=== PATIENT | male | born 1950 | race Caucasian/White ===

== ENCOUNTER → 2016-09-10 | Outpatient (CLI) | payer OTHER ==
[~2016-09-10] MED LIST: CALC-250 PO; CITA10TA PO; DILT120C9 PO; DILT180C PO; FERR27TA PO; FLC1T PO; GLYB2.5T4 PO; HYDR1TAB86 PO; LEVO125T6 PO; LEVO200T6 PO; MTF500T PO; MTX2.5T PO; NAPR-243 PO; OMEG1CAP51 PO; OXYC-12 PO; SIMV40TA4 PO; ZOLP5TAB6 PO
[2016-09-10 06:59] LABS: BASOPHILS % (AUTO) 0 % (0-10); EOSINOPHILS # (AUTO) 0.1 10^3/uL (0.0-0.3); EOSINOPHILS % (AUTO) 2 % (0-10); LYMPHOCYTES # (AUTO) 1.6 X 10^3 (1.0-4.0); LYMPHOCYTES % (AUTO) 20 % (12-44); MEAN CORPUSCULAR HEMOGLOBIN 30 PG (25-34); MEAN CORPUSCULAR HGB CONC 34 G/DL (32-36); MEAN CORPUSCULAR VOLUME 89 FL (80-99); MONOCYTES # (AUTO) 0.9 X 10^3 (0.0-1.0); MONOCYTES % (AUTO) 12 % (0-12); NEUTROPHILS # (AUTO) 5.1 X 10^3 (1.8-7.8); NEUTROPHILS % (AUTO) 66 % (42-75); PLATELET COUNT 266 10^3/uL (130-400); RED CELL DISTRIBUTION WIDTH 13.2 % (10.0-14.5); WHITE BLOOD COUNT 7.7 10^3/uL (4.3-11.0)
[2016-09-10 07:19] LABS: ALANINE AMINOTRANSFERASE 33 U/L (0-55); ALBUMIN 4.5 G/DL (3.2-4.5); ANION GAP 11 MMOL/L (5-14); ASPARTATE AMINO TRANSFERASE 24 U/L (5-34); BILIRUBIN,TOTAL 0.8 MG/DL (0.1-1.0); BLOOD UREA NITROGEN 19 MG/DL (7-18); BUN/CREATININE RATIO 18; CALCIUM 9.4 MG/DL (8.5-10.1); CARBON DIOXIDE 23 MMOL/L (21-32); CHLORIDE 105 MMOL/L (98-107); CHOLESTEROL 136 MG/DL (< 200); CREATININE SERUM 1.06 MG/DL (0.60-1.30); DIRECT LDL 92 MG/DL (1-129); GFR ESTIMATED > 60; GLUCOSE 187 MG/DL (70-105); POTASSIUM 4.3 MMOL/L (3.6-5.0); SODIUM 139 MMOL/L (135-145); TOTAL PROTEIN 7.4 G/DL (6.4-8.2); TRIGLYCERIDES 155 MG/DL (<150); VLDL CHOLESTEROL 31 MG/DL (5-40)
== END ==
LOC: LAB 06:45
PROVIDERS: ATTEND Family Medicine
DX: E11.9 Type 2 diabetes mellitus without complications (principal); E03.9 Hypothyroidism, unspecified
CPT/HCPCS: 36415; 80053; 80061; 83036; 84443; 85025

== ENCOUNTER → 2016-09-10 | Outpatient (CLI) | payer OTHER | LOC: LAB 06:40 | PROVIDERS: ATTEND Allergy & Immunology | DX: E03.9 Hypothyroidism, unspecified (principal); Z79.899 Other long term (current) drug therapy | CPT/HCPCS: 36415; 85652; 86141 ==

== ENCOUNTER 2016-12-30 08:59 | Inpatient (IN) | payer OTHER ==
[2016-12-30] VITALS (9 sets, daily range): BP systolic 146–191; BP diastolic 82–102
[~2016-12-30] VITALS: Ht 177.8 cm; Wt 106.1 kg
[2016-12-30] MEDS ORDERED: NS IV 1000 ML 1,000 ML IV ONE (09:08)
[2016-12-30 09:27] LABS: BILIRUBIN,URINE NEGATIVE (NEGATIVE); KETONES,URINE NEGATIVE (NEGATIVE); LEUKOCYTE ESTERASE ,URINE NEGATIVE (NEGATIVE); NITRITE,URINE NEGATIVE (NEGATIVE); PH,URINE 5 (5-9); PROTEIN,URINE 3+ (NEGATIVE); UROBILINOGEN,URINE NORMAL (NORMAL)
[2016-12-30 09:34] LABS: WBC,URINE RARE /HPF
--- NOTE | 2016-12-30 09:42 | ED Abdominal Pain ---
General Chief Complaint: Abdominal/GI Problems Stated Complaint: LOWER ABD PAIN RT SIDE Nursing Triage Note: c/o right lower abd pain. Onset yesterday. Mild intermittant diarrhea. Denies N/V. Sepsis Screen: No Definite Risk Source of Information: Patient Exam Limitations: No Limitations History of Present Illness Time Seen By Provider: 09:00 Initial Comments Here with complaint of right lower quadrant abdominal pain as well as some intermittent diarrhea. Denies nausea or vomiting. Denies fever or chills. Did drink some water this morning but has not eaten. Pain is much worse and is centered around the right lower quadrant. Denies dysuria. Timing/Duration: 12-24 Hours Severity/Quality: Moderate Location: RLQ Radiation: No Radiation Activities at Onset: None Modifying Factors: Worsens With Eating, Worsens With Movement Associated Symptoms: No Fever/Chills, No Nausea/Vomiting, No Shortness of Air, No Weakness Allergies and Home Medications Allergies Coded Allergies: No Known Allergies (Verified Allergy, Unknown, 06/23/05) Home Medications Calcium Carbonate/Vitamin D3 1 Each Tablet, 5,000 UNIT PO DAILY, (Reported) Citalopram Hydrobromide 10 Mg Tablet, 10 MG PO HS, (Reported) Diltiazem Hcl 180 Mg Cap.sr.24h, 180 MG PO DAILY, (Reported) Ferrous Sulfate 27 Mg Tablet, 27 MG PO DAILY, (Reported) Folic Acid 1 Mg Tab, 1 MG PO DAILY, (Reported) Glyburide 2.5 Mg Tablet, 1 EACH PO DAILY, (Reported) Levothyroxine Sodium 200 Mcg Tablet, 200 MCG PO DAILY, (Reported) Metformin Hcl 500 Mg Tablet, 500 MG PO BID WITH MEALS, (Reported) Methotrexate 2.5 Mg Tab, 20 MG PO ONCE A WEEK ON WED, (Reported) Naproxen 500 Mg Tablet, 500 MG PO BID, (Reported) [place]-3 Fatty Acids/Fish Oil 1 Each Capsule, 4,000 MG PO DAILY, (Reported) Oxycodone Hcl/Acetaminophen 1 Each Tablet, 1-2 TAB PO Q4-6HR PRN for PAIN, #60 Prescribed by: SHASTA KOWALSKI on 11/23/13 0704 Simvastatin 40 Mg Tablet, 40 MG PO HS, (Reported) Review of Systems Constitutional: see HPI, No chills, No fever EENTM: No Symptoms Reported Respiratory: No Symptoms Reported, Denies Shortness of Air, Denies Wheezing Cardiovascular: Denies Chest Pain, Denies Edema Gastrointestinal: Abdominal Pain, Diarrhea, Denies Nausea, Denies Vomiting Genitourinary: No Symptoms Reported Musculoskeletal: no symptoms reported Skin: no symptoms reported Psychiatric/Neurological: No Symptoms Reported All Other Systems Reviewed Negative Unless Noted: Yes Past Yomyexi-Zdkbdd-Xjlxvd Hx Patient Social History Alcohol Use: Denies Use Recreational Drug Use: No Smoking Status: Never a Smoker Recent Foreign Travel: No Contact w/Someone Who Travel: No Recent Infectious Disease Expo: No Immunizations Up To Date Tetanus Booster (TDap): Unknown PED Vaccines UTD: No Date of Pneumonia Vaccine: Feb 21, 2010 Surgeries HX Surgeries: Yes Respiratory Hx Respiratory Disorders: No Cardiovascular Hx Cardiac Disorders: Yes Cardiac Disorders: High Cholesterol, Hypertension Neurological Hx Neurological Disorders: No Reproductive System Hx Reproductive Disorders: No Sexually Transmitted Disease: No Genitourinary Hx Genitourinary Disorders: No Gastrointestinal Hx Gastrointestinal Disorders: Yes (UMB HERNIA) Gastrointestinal Disorders: Abdominal Hernia Musculoskeletal Hx Musculoskeletal Disorders: Yes (RA) Musculoskeletal Disorders: Rheumatoid Arthritis Endocrine Hx Endocrine Disorders: Yes Endocrine Disorders: Hypothyroidsim, Diabetes, Non-Insulin dep HEENT HX ENT Disorders: No Cancer Hx Cancer: No Psychosocial Hx Psychiatric Problems: No Integumentary HX Skin/Integumentary Disorder: No Blood Transfusions Hx Blood Disorders: No Adverse Reaction to a Blood Tr: No Reviewed Nursing Assessment Reviewed/Agree w Nursing PMH: Yes Family Medical History Family Medial History: Cancer 19 FATHER G8 BROTHER (KIDNEY ) Family history: Cardiovascular disease 19 MOTHER G8 BROTHER Physical Exam Vital Signs VS - Last 72 Hours, by Label 12/30/16 09:12 Temp 97.5 Pulse 86 Resp 20 B/P (MAP) 171/103 Pulse Ox 95 O2 Delivery Room Air Capillary Refill : Less Than 3 Seconds General Appearance: WD/WN, mild distress HEENT: PERRL/EOMI, pharynx normal Neck: full range of motion, supple Respiratory: lungs clear, normal breath sounds Cardiovascular: regular rate, rhythm, no murmur Gastrointestinal: soft, guarding (right lower quadrant), No rebound, tenderness Extremities: non-tender, normal inspection Back: normal inspection, no CVA tenderness, no vertebral tenderness Neurologic/Psychiatric: alert, oriented x 3 Skin: normal color, warm/dry Progress/Results/Core Measures Results/Orders Lab Results Laboratory Tests Test 12/30/16 09:20 12/30/16 09:30 Range/Units Urine Color YELLOW Urine Clarity CLEAR Urine pH 5 5-9 Urine Specific [place] 1.025 H 1.016-1.022 Urine Protein 3+ H NEGATIVE Urine Glucose (UA) 4+ H NEGATIVE Urine Ketones NEGATIVE NEGATIVE Urine Nitrite NEGATIVE NEGATIVE Urine Bilirubin NEGATIVE NEGATIVE Urine Urobilinogen NORMAL NORMAL MG/DL Urine Leukocyte Esterase NEGATIVE NEGATIVE Urine RBC (Auto) 2+ H NEGATIVE Urine RBC RARE /HPF Urine WBC RARE /HPF Urine Squamous Epithelial Cells NONE /HPF Urine Crystals NONE /LPF Urine Bacteria NEGATIVE /HPF Urine Casts NONE /LPF Urine Mucus MODERATE H /LPF Urine Culture Indicated NO White Blood Count 12.7 H 4.3-11.0 10^3/uL Red Blood Count 4.69 4.35-5.85 10^6/uL Hemoglobin 14.1 13.3-17.7 G/DL Hematocrit 43 40-54 % Mean Corpuscular Volume 91 80-99 FL Mean Corpuscular Hemoglobin 30 25-34 PG Mean Corpuscular Hemoglobin Concent 33 32-36 G/DL Red Cell Distribution Width 13.5 10.0-14.5 % Platelet Count 256 130-400 10^3/uL Mean Platelet Volume 10.1 7.4-10.4 FL Neutrophils (%) (Auto) 82 H 42-75 % Lymphocytes (%) (Auto) 10 L 12-44 % Monocytes (%) (Auto) 9 0-12 % Eosinophils (%) (Auto) 0 0-10 % Basophils (%) (Auto) 0 0-10 % Neutrophils # (Auto) 10.3 H 1.8-7.8 X 10^3 Lymphocytes # (Auto) 1.2 1.0-4.0 X 10^3 Monocytes # (Auto) 1.1 H 0.0-1.0 X 10^3 Eosinophils # (Auto) 0.0 0.0-0.3 10^3/uL Basophils # (Auto) 0.0 0.0-0.1 10^3/uL Sodium Level 136 135-145 MMOL/L Potassium Level 3.9 3.6-5.0 MMOL/L Chloride Level 101 98-107 MMOL/L Carbon Dioxide Level 24 21-32 MMOL/L Anion Gap 11 5-14 MMOL/L Blood Urea Nitrogen 15 7-18 MG/DL Creatinine 1.24 0.60-1.30 MG/DL Estimat Glomerular Filtration Rate 59 BUN/Creatinine Ratio 12 Glucose Level 207 H 70-105 MG/DL Calcium Level 9.9 8.5-10.1 MG/DL Total Bilirubin 2.1 H 0.1-1.0 MG/DL Aspartate Amino Transf (AST/SGOT) 27 5-34 U/L Alanine Aminotransferase (ALT/SGPT) 43 0-55 U/L Alkaline Phosphatase 43 40-136 U/L Total Protein 7.9 6.4-8.2 GM/DL Albumin 4.5 3.2-4.5 GM/DL My Orders Orders - BETTY DAVIS MD Cbc With Automated Diff (12/30/16 09:08) Comprehensive Metabolic Panel (12/30/16 09:08) Ua Culture If Indicated (12/30/16 09:08) Saline Lock/Iv-Start (12/30/16 09:08) Ns Iv 1000 Ml (Sodium Chloride 0.9%) (12/30/16 09:08) Ct Abd/Pelv W (Appendicitis) (12/30/16 10:12) Iohexol Injection (Omnipaque 350 Mg/Ml 1 (12/30/16 10:30) Ceftriaxone Injection (Rocephin Injectio (12/30/16 11:45) Medications Given in ED Current Medications Medications Dose Ordered Sig/Jean Paul Route Start Time Stop Time Status Last Admin Dose Admin Iohexol 100 ml ONCE ONCE IV 12/30/16 10:30 12/30/16 10:31 DC 12/30/16 10:47 100 ML Sodium Chloride 1,000 ml @ 0 mls/hr Q0M ONCE IV 12/30/16 09:08 12/30/16 09:10 DC 12/30/16 09:30 0 MLS/HR Vital Signs/I&O Vital Sign - Last 12Hours 12/30/16 09:12 Temp 97.5 Pulse 86 Resp 20 B/P (MAP) 171/103 Pulse Ox 95 O2 Delivery Room Air Blood Pressure Mean: 125 Progress Note : Progress Note Seen and evaluated. IV, labs, normal saline 1 L bolus, UA ordered. Anticipate CT abdomen and pelvis without we'll await UA and creatinine studies. CT abdomen pelvis ordered. 1137: I did discuss the case with Dr. Montero, patient's primary surgeon. Patient does have appendicitis with concerns of rupture. This was discussed with Dr. Montero and he will take him to the OR. He is requesting patient transferred to same day surgery after antibiotic administration and remaining nothing by mouth. Patient has received a liter of fluid. Care will be transferred to Dr. Montero. Diagnostic Imaging Diagonstic Imaging: CT Plain Films/CT/US/NM/MRI: abdomen, pelvis Comments VIA [facility]. [place], [place] NAME: [facility] REC#: [id number] PT STATUS: REG ER : 1950 PHYSICIAN: BETTY DAVIS MD ADMIT DATE: 12/30/16/ER Draft Date of Exam:12/30/16 CT ABD/PELV W (APPENDICITIS) PROCEDURE: CT abdomen and pelvis with contrast, rule out appendicitis. TECHNIQUE: Multiple contiguous axial images were obtained through the abdomen and pelvis after the administration of intravenous contrast. INDICATION: Right lower quadrant abdominal pain. COMPARISON: None FINDINGS: Included views of the the lung bases are clear. CT ABDOMEN: There is a moderate amount of inflammatory stranding in the right lower abdominal quadrant surrounding the cecum. The appendix is identified and is abnormally distended measuring 12 mm in diameter. At least 2 appendicoliths are identified within the lumen of the appendix. There appears to be a small focal fluid collection adjacent to the appendix measuring approximately 3 x 2.2 cm. The distal and terminal ileum are also somewhat prominent in their appearance. Otherwise, small bowel loops are nondistended. Note is also made of colonic diverticulosis, but no CT evidence of acute diverticulitis. There is no pneumatosis, pneumoperitoneum, or portal venous gas. The liver demonstrates diffuse hypodense appearance consistent with background of hepatic steatosis. There is also mild hepatomegaly. No focal hepatic mass-type lesions are seen. The kidneys, adrenal glands, spleen, and pancreas have a normal appearance. No abnormal mesenteric or retrotracheal adenopathy is seen. Bony structures show no acute abnormalities. Post surgical changes of previous ventral hernia repair are noted. CT PELVIS: Urinary bladder is grossly unremarkable. There is a small amount of free fluid within the pelvis. There is no loculated air-fluid collection or free air. No abnormal lymph nodes are seen. Bony structures show no acute abnormalities. IMPRESSION: 1. Acute appendicitis. 2. A small amount of free fluid within the right lower abdominal quadrant. There also appears to be a focal fluid collection adjacent to the appendix. Findings do raise the concern for a potential appendiceal rupture. 3. Probable focal ileus of the adjacent distal ileum. 4. Colonic diverticulosis, but no CT evidence of acute diverticulitis. 5. Hepatic steatosis. Report faxed to Paty in Radiology to give to ER (Trauma in progress) at 11:31 a.m. 12/30/2016/kyung Dictated on workstation # [id number] Dict: 12/30/16 1104 Trans: 12/30/16 1131 [facility] [id number] Interpreted by: FRANCO HAMILTON Electronically signed by: Reviewed: Reviewed by Me Departure Communication Time/Spoke to Admitting Phy: 11:37 Impression Impression: Primary Impression: Appendicitis Qualified Codes: K35.2 - Acute appendicitis with generalized peritonitis Disposition: ADMITTED INPATIENT Condition: Stable Decision to Admit Reason: Admit from ER (General) Decision to Admit/Date: Dec 30, 2016 Time/Decision to Admit Time: 11:37 Departure-Patient Inst. Referrals: RIA HANNAH MD (PCP/Family) Primary Care Physician BETTY DAVIS MD Dec 30, 2016 09:42
[2016-12-30 09:48] LABS: BASOPHILS % (AUTO) 0 % (0-10); EOSINOPHILS % (AUTO) 0 % (0-10); LYMPHOCYTES # (AUTO) 1.2 X 10^3 (1.0-4.0); LYMPHOCYTES % (AUTO) 10 % (12-44); MEAN CORPUSCULAR HEMOGLOBIN 30 PG (25-34); MEAN CORPUSCULAR HGB CONC 33 G/DL (32-36); MEAN CORPUSCULAR VOLUME 91 FL (80-99); MEAN PLATELET VOLUME 10.1 FL (7.4-10.4); MONOCYTES # (AUTO) 1.1 X 10^3 (0.0-1.0); MONOCYTES % (AUTO) 9 % (0-12); NEUTROPHILS # (AUTO) 10.3 X 10^3 (1.8-7.8); NEUTROPHILS % (AUTO) 82 % (42-75); PLATELET COUNT 256 10^3/uL (130-400); RED BLOOD COUNT 4.69 10^6/uL (4.35-5.85); RED CELL DISTRIBUTION WIDTH 13.5 % (10.0-14.5); WHITE BLOOD COUNT 12.7 10^3/uL (4.3-11.0)
[2016-12-30 10:04] LABS: ALBUMIN 4.5 GM/DL (3.2-4.5); BILIRUBIN,TOTAL 2.1 MG/DL (0.1-1.0); CALCIUM 9.9 MG/DL (8.5-10.1); CREATININE SERUM 1.24 MG/DL (0.60-1.30); POTASSIUM 3.9 MMOL/L (3.6-5.0); TOTAL PROTEIN 7.9 GM/DL (6.4-8.2)
[2016-12-30] MEDS ORDERED: IOHEXOL 350 MG/ML 100 ML (OMNIPAQUE 350) VIAL IV ONE (10:30)
--- NOTE | 2016-12-30 11:32 | Diagnostic Imaging Report ---
PROCEDURE: CT abdomen and pelvis with contrast, rule out appendicitis. TECHNIQUE: Multiple contiguous axial images were obtained through the abdomen and pelvis after the administration of intravenous contrast. INDICATION: Right lower quadrant abdominal pain. COMPARISON: None FINDINGS: Included views of the the lung bases are clear. CT ABDOMEN: There is a moderate amount of inflammatory stranding in the right lower abdominal quadrant surrounding the cecum. The appendix is identified and is abnormally distended measuring 12 mm in diameter. At least 2 appendicoliths are identified within the lumen of the appendix. There appears to be a small focal fluid collection adjacent to the appendix measuring approximately 3 x 2.2 cm. The distal and terminal ileum are also somewhat prominent in their appearance. Otherwise, small bowel loops are nondistended. Note is also made of colonic diverticulosis, but no CT evidence of acute diverticulitis. There is no pneumatosis, pneumoperitoneum, or portal venous gas. The liver demonstrates diffuse hypodense appearance consistent with background of hepatic steatosis. There is also mild hepatomegaly. No focal hepatic mass-type lesions are seen. The kidneys, adrenal glands, spleen, and pancreas have a normal appearance. No abnormal mesenteric or retrotracheal adenopathy is seen. Bony structures show no acute abnormalities. Post surgical changes of previous ventral hernia repair are noted. CT PELVIS: Urinary bladder is grossly unremarkable. There is a small amount of free fluid within the pelvis. There is no loculated air-fluid collection or free air. No abnormal lymph nodes are seen. Bony structures show no acute abnormalities. IMPRESSION: 1. Acute appendicitis. 2. A small amount of free fluid within the right lower abdominal quadrant. There also appears to be a focal fluid collection adjacent to the appendix. Findings do raise the concern for a potential appendiceal rupture. 3. Probable focal ileus of the adjacent distal ileum. 4. Colonic diverticulosis, but no CT evidence of acute diverticulitis. 5. Hepatic steatosis. Report faxed to Paty in Radiology to give to ER (Trauma in progress) at 11:31 a.m. 12/30/2016/kyung Dictated by: Dictated on workstation # [id number]
[2016-12-30] MEDS ORDERED: cefTRIAXone INJECTION 1,000 MG in NS (IVPB) 50 ML IV ONE (11:45)
--- NOTE | 2016-12-30 12:32 | Progress Note-Pre Operative ---
Pre-Operative Progress Note H&P Reviewed The H&P was reviewed, patient examined and no changes noted. Date Seen by Provider: Dec 30, 2016 Time Seen by Provider: 12:00 Date H&P Reviewed: Dec 30, 2016 Time H&P Reviewed: 12:00 Pre-Operative Diagnosis: acute appendicitis GAVINO DOWNING MD Dec 30, 2016 12:32 pm
[2016-12-30] MEDS ORDERED: fentaNYL INJECTION 100 MCG/2 ML AMP ONE ×3 (12:59→16:23)
[2016-12-30] MEDS ORDERED: LACTATED RINGERS 1,000 ML IV ONE ×3 (13:03→17:17)
[2016-12-30] MEDS ORDERED: ONDANSETRON 4 MG/2 ML (SDV) Z0FRAN ONE ×2 (13:03→15:50)
[2016-12-30] MEDS ORDERED: LIDOCAINE PF 2% 5 ML (XYLOCAINE) VIAL ONE (13:03)
[2016-12-30] MEDS ORDERED: SUCCINYLCHOLINE INJ 100 MG/5 ML SYR ONE (13:03)
[2016-12-30] MEDS ORDERED: ROCURONIUM 50 MG/5 ML (ZEMURON) VIAL IV ONE (13:03)
[2016-12-30] MEDS ORDERED: SEVOFLURANE (ULTANE) 15 ML INHAL SOLN ONE ×9 (13:03→17:17)
[2016-12-30] MEDS ORDERED: proPOfol 200 MG/20 ML (DIPRIVAN) VIAL IV ONE (13:03)
[2016-12-30] MEDS ORDERED: MIDAZOLAM 2 MG/2 ML (VERSED) VIAL ONE (13:04)
--- NOTE | 2016-12-30 13:20 | HISTORY AND PHYSICAL ---
DATE OF SERVICE: 12/30/2016 ATTENDING PRIMARY CARE PHYSICIAN: Dr. Hardin. HISTORY OF PRESENT ILLNESS: The patient is a 66-year-old male known to us. We had seen him before for an umbilical hernia in the past. He underwent a laparoscopic inguinal hernia repair. He developed a recurrent umbilical hernia, most likely secondary to his body habitus as well as work type which does encompass heavy lifting and exertion. This was repaired as well. He was otherwise doing well and tolerating a regular diet. He reports that he developed pain in the right side of the abdomen, which became more localized to the right lower abdominal quadrant. He also reports some mild fevers at home. A CT scan was performed which did show signs and symptoms of appendicitis. White count was also elevated. He also does have pain at McBurney's point. PAST MEDICAL HISTORY: Hypercholesterolemia, hypertension, rheumatoid arthritis, non-insulin dependent diabetes, hypothyroid. PAST SURGICAL HISTORY: Laparoscopic umbilical hernia repair 11, recurrent umbilical hernia repair, 13. Pilonidal cyst excision, 07. Traumatic third and fourth finger amputation, 73. ALLERGIES: No known drug allergies. MEDICATIONS: Citalopram 10 mg daily, simvastatin 40 mg daily, levothyroxine daily, metformin 500 mg daily, diltiazem 180 mg daily, methotrexate 2.5 mg weekly, iron 27 mg daily, fish oil 1200 mg q.i.d., vitamin D daily. SOCIAL HISTORY: Occasional pipe smoke, negative alcohol. FAMILY HISTORY: Mother: Diabetes, myocardial infarction. Father: Prostate cancer. VITAL SIGNS: Temperature 97.5, blood pressure 171/103, pulse 80, respirations 20, pulse ox 95% on room air. REVIEW OF SYSTEMS: Well-nourished male, currently guarded secondary to the abdominal pain. He is not experiencing any shortness of breath or difficulty breathing. No chest pain, palpitations, diaphoresis. No nausea, vomiting, no diarrhea, constipation. Mild fevers at home. No recent inadvertent weight loss. All other review of systems negative. PHYSICAL EXAMINATION: CHEST: Good breath sounds bilaterally, clear. HEART: Regular, no murmurs. EXTREMITIES: No lower extremity edema, negative Homans sign. HEENT: No scleral icterus. NECK: No cervical lymphadenopathy. ABDOMEN: Soft, nondistended. There is pain at McBurney's point with voluntary guarding and no rebound. LABORATORY DATA: WBC 12.7, hemoglobin 14.1, hematocrit 43, platelets 256, BUN 15, creatinine 1.24, glucose 207, total bilirubin 2.1. ASSESSMENT AND PLAN: A 66-year-old male with acute appendicitis. The natural history of the issues of this disease process was explained to the patient as well as the risks and benefits of surgery. He is in full understanding of this and would like to proceed with diagnostic laparoscopy as well as laparoscopic appendectomy, which we will schedule. Job ID: [id number] DocumentID: [id number] Dictated Date: 12/30/2016 12:38:44 House Parent Date: 12/30/2016 13:20:06 Dictated By: GAVINO DOWNING MD
[2016-12-30] MEDS ORDERED: fentaNYL INJECTION 100 MCG/2 ML AMP IV ONE (13:30)
[2016-12-30] MEDS ORDERED: BUP/EPI 0.5% 1:200,000 (MARCAINE) 10ML VIAL IJ ONE ×2 (13:45→15:53)
[2016-12-30] MEDS: LACTATED RINGERS 1,000 ML IV PRN ×3 (13:59→16:49)
[2016-12-30] MEDS ORDERED: ceFAZolin 2 GM/50 ML NS 50 ML ONE (15:23)
[2016-12-30] MEDS ORDERED: ceFAZolin 2 GM/NS 50 ML IV ONE (15:30)
[2016-12-30] MEDS ORDERED: HYDROmorphone (DILAUDID) 2 MG/ML VIAL ONE (15:49)
[2016-12-30] MEDS ORDERED: morphine INJ 10 MG/ML 1ML (SYR OR VIAL) ONE (15:49)
[2016-12-30] MEDS ORDERED: PROMETHAZINE INJ 25 MG/ML (PHENERGAN) AMP ONE (15:50)
[2016-12-30] MEDS ORDERED: GLYCOPYRROLATE 0.2 MG/ML (ROBINUL) 2 ML VIAL ONE (16:32)
[2016-12-30] MEDS ORDERED: NEOSTIGMINE (BLOXIVERZ ) 1 MG/1ML 10 ML VIAL ONE (16:32)
--- NOTE | 2016-12-30 17:26 | Progress Note-Post Operative ---
Post-Operative Progess Note Surgeon (s)/Speech And Language Specialist (s) Surgeon GAVINO DOWNING MD Speech And Language Specialist: riley watts ASSEMBLY REPAIRER Pre-Operative Diagnosis ACUTE APPENDICITIS Post-Operative Diagnosis Acute ruptured appendicitis. Procedure & Operative Findings Date of Procedure 12/30/16 Procedure Performed/Findings laparoscopic appendectomy Anesthesia Type GET Estimated Blood Loss Estimated blood loss (mL): minimal Specimens/Packing Specimens Removed appendix GAVINO DOWNING MD Dec 30, 2016 5:26 pm
[2016-12-30] MEDS ORDERED: ONDANSETRON 4 MG/2 ML (SDV) Z0FRAN IVP PRN ×2 (17:30→17:45)
[2016-12-30] MEDS ORDERED: RT-ALBUTEROL SULF 2.5 MG/3 ML PRE-MIX VIAL ONE (17:40)
[2016-12-30] MEDS ORDERED: RT-ALBUTEROL SULF 2.5 MG/3 ML PRE-MIX VIAL INH ONE (17:45)
[2016-12-30] MEDS ORDERED: HYDROmorphone (DILAUDID) 2 MG/ML VIAL IVP PRN (17:45)
[2016-12-30] MEDS: morphine INJ 10 MG/ML 1ML (SYR OR VIAL) IVP PRN ×2 (17:59→18:15)
[2016-12-30] MEDS ORDERED: PIPERACILLIN SODIUM/TAZOBACTAM 4.5 GM in NS (IVPB) 100 ML IV NR (18:00)
[2016-12-30 18:18] LABS: ABG BASE EXCESS -3.3 MMOL/L (-2.5-2.5); ABG HCO3 22 MMOL/L (23-27); ABG OXYGEN SATURATION 94 % (94-100); ABG PCO2 47 MMHG (35-45); ABG PO2 70 MMHG (79-93); ABG TCO2 23.6 MMOL/L (21.0-31.0)
[2016-12-30 18:20] LABS: ABG PH 7.29 (7.37-7.43)
[2016-12-30 18:21] LABS: ALLENS TEST YES-POS
[2016-12-30] MEDS: NS IV 1000 ML 1,000 ML IV SCH (18:49)
[2016-12-30 19:42] LABS: ABG BASE EXCESS -2.6 MMOL/L (-2.5-2.5); ABG HCO3 22 MMOL/L (23-27); ABG OXYGEN SATURATION 95 % (94-100); ABG PCO2 45 MMHG (35-45); ABG PO2 78 MMHG (79-93); ABG TCO2 23.5 MMOL/L (21.0-31.0)
[2016-12-30 19:44] LABS: ABG PH 7.33 (7.37-7.43); ALLENS TEST YES-POS; PATIENT TEMP 101.2
[2016-12-30] MEDS ORDERED: inSUlin (REGULAR) HUMAN 1 UNIT/0.01 ML (CHARGE PER UNIT) SC SCH (19:45)
[2016-12-30 19:49] LABS: BASOPHILS % (AUTO) 0 % (0-10); EOSINOPHILS % (AUTO) 0 % (0-10); LYMPHOCYTES # (AUTO) 0.7 X 10^3 (1.0-4.0); LYMPHOCYTES % (AUTO) 7 % (12-44); MEAN CORPUSCULAR HEMOGLOBIN 31 PG (25-34); MEAN CORPUSCULAR HGB CONC 34 G/DL (32-36); MEAN CORPUSCULAR VOLUME 93 FL (80-99); MEAN PLATELET VOLUME 10.1 FL (7.4-10.4); MONOCYTES # (AUTO) 0.5 X 10^3 (0.0-1.0); MONOCYTES % (AUTO) 5 % (0-12); NEUTROPHILS # (AUTO) 8.3 X 10^3 (1.8-7.8); NEUTROPHILS % (AUTO) 88 % (42-75); PLATELET COUNT 227 10^3/uL (130-400); RED BLOOD COUNT 4.35 10^6/uL (4.35-5.85); RED CELL DISTRIBUTION WIDTH 13.5 % (10.0-14.5); WHITE BLOOD COUNT 9.5 10^3/uL (4.3-11.0)
[2016-12-30] MEDS: ACETAMINOPHEN 325 MG TABLET/CAPLET (TYLENOL) PO PRN (19:52)
[2016-12-30 20:07] LABS: ANION GAP 11 MMOL/L (5-14); BLOOD UREA NITROGEN 14 MG/DL (7-18); BUN/CREATININE RATIO 12; CALCIUM 8.9 MG/DL (8.5-10.1); CARBON DIOXIDE 21 MMOL/L (21-32); CHLORIDE 104 MMOL/L (98-107); CREATININE SERUM 1.17 MG/DL (0.60-1.30); GFR ESTIMATED > 60; GLUCOSE 229 MG/DL (70-105); MAGNESIUM 1.5 MG/DL (1.8-2.4); PHOSPHORUS 3.1 MG/DL (2.3-4.7); SODIUM 136 MMOL/L (135-145)
[2016-12-30 20:22] LABS: BAND NEUTROPHILS 11 %; BASOPHILS % (MANUAL) 0 %; EOSINOPHILS % (MANUAL) 0 %; LYMPHOCYTES % (MANUAL) 14 %; NEUTROPHILS % (MANUAL) 75 %
[2016-12-30 21:00] LABS: BILIRUBIN,URINE NEGATIVE (NEGATIVE); KETONES,URINE 1+ (NEGATIVE); LEUKOCYTE ESTERASE ,URINE 1+ (NEGATIVE); NITRITE,URINE NEGATIVE (NEGATIVE); PH,URINE 5 (5-9); PROTEIN,URINE 2+ (NEGATIVE); UROBILINOGEN,URINE NORMAL (NORMAL)
[2016-12-30] MEDS: MAGNESIUM 1 GM/100 ML IVPB 100 ML IV SCH ×2 (21:03→23:20)
[2016-12-30] MEDS ORDERED: NS IV 1000 ML 1,000 ML IV SCH (21:15)
[2016-12-31] VITALS (26 sets, daily range): BP systolic 127–169; BP diastolic 66–110
[2016-12-31] MEDS: inSUlin (REGULAR) HUMAN 1 UNIT/0.01 ML (CHARGE PER UNIT) SC SCH ×4 (00:23→18:54)
[2016-12-31] MEDS ORDERED: RT-ALBUTEROL SULF 2.5 MG/3 ML PRE-MIX VIAL IH PRN (01:15)
[2016-12-31] MEDS: morphine INJ 10 MG/ML 1ML (SYR OR VIAL) IVP PRN ×4 (01:16→22:49)
[2016-12-31] MEDS: PIPERACILLIN/TAZOBACTAM 4.5 GM/NS100 ML IVPB IV SCH ×6 (01:16→15:38)
--- NOTE | 2016-12-31 04:17 | OPERATIVE REPORT ---
DATE OF SERVICE: 12/30/2016 ATTENDING AND PRIMARY CARE PHYSICIAN: Wale Hardin MD. PREOPERATIVE DIAGNOSIS: Acute appendicitis. POSTOPERATIVE DIAGNOSIS: Acute perforated appendicitis. PROCEDURE: Laparoscopic appendectomy. SURGEON: Keshav Montero MD. [employer] MANAGER: Gonzalez Meeks APRN. ANESTHESIA: General endotracheal. ESTIMATED BLOOD LOSS: Minimal. FINDINGS: Perforated appendicitis with perforation via the ileocecal fat fold of Treves as well as small bowel and mesentery. DISPOSITION: The patient tolerated the procedure well. INDICATIONS: The patient is a 66-year-old male known to us. We have seen him before for an umbilical hernia repair. He underwent a laparoscopic inguinal hernia repair in 2010; however, due to his body habitus and the work that he does, which does encompass heavy lifting and exertion, he did have recurrence. We underwent an open recurrent umbilical hernia repair in 2012. Since that time, he has done well; however, he states that he developed abdominal pain that was on the right side, which did localize towards the right lower abdominal quadrant. He states that this did persist starting yesterday; however, he did not seek attention until today. In the Emergency Department, a CT scan was performed, which showed inflammation of the appendix consistent with acute appendicitis as well as possible perforation due to fluid accumulation. Upon examination, he did have abdominal pain in the McBurney's point as well as gaurding. DESCRIPTION OF PROCEDURE: The patient was brought to the operating room, laid supine on the table. After adequate IV pain, sedative medications and general endotracheal intubation, the abdomen was prepped and draped in standard surgical fashion. Marcaine 0.5% with epinephrine was used to anesthetize the overlying skin in the left upper abdominal quadrant. A small transverse skin incision was made using a 15-blade. An 0 silk suture was applied to the medial aspect of the incision for retraction and a Veress needle was inserted with a low opening pressure of 0 mmHg. The abdomen was then insufflated to 15 mmHg pressure. The Veress needle was removed and a 5-mm Xcel trocar was placed followed by a 5-mm 45-degree angle laparoscope visualizing the peritoneal cavity. A 4-quadrant abdominal exploration was performed. There were omental adhesions towards the abdominal wall from the previous recurrent umbilical hernia repair. Just above this, a 10-mm port was placed after the skin and peritoneum were anesthetized using 0.5% Marcaine and a transverse skin incision was made using a 15-blade. In a similar manner, a 5-mm suprapubic port was placed. We then proceeded with takedown of the omental adhesions using the EndoShears and electrocautery with visualization of good hemostasis. The patient was then placed in Trendelenburg position as well as plane right side up, left side down. The appendix was identified and inflamed. This was walled off by the ileocecal fat fold of Treves as well as other mesentery, small bowel and lateral peritoneal wall. This was then dissected out completely and there was a perforation; however, contained. The appendix was then dissected out and a window was then created between the base of the appendix and the mesoappendix using a [place] dissector. The appendix was then stapled and transected at the cecal base using a FREDERICK 45 mm stapler with a 2.5-mm thickness load. The mesoappendix was then stapled and transected with the same stapler with a 2.0-mm thickness load with visualization of good hemostasis. The appendix was removed through the 10 mm port site using an EndoCatch bag. The area was then copiously irrigated and suctioned out. A 19-Sinhala Abhijeet-Parker drain was placed into the area of the previous appendix, then pulled through the suprapubic 5 mm port site and sutured to the skin using 3-0 nylon suture. The 10 mm port site fascia and peritoneum were then closed using a Juan J-Matthew device and 0 Vicryl suture. The abdomen was desufflated and remaining ports were removed. All skin incisions were closed using 4-0 Monocryl running subcuticular sutures. The wounds were then cleaned and covered with Dermabond. The patient tolerated the procedure well. We will start IV and oral pain medications as well as a clear liquid diet. We will continue him on IV antibiotics for the next 24 hours. Once he is afebrile, his white count normalizes and he is ambulating well and tolerating a diet, we will discharge him home. Job ID: [id number] DocumentID: [id number] Dictated Date: 12/30/2016 17:23:19 Manager Infusion Date: 12/31/2016 03:47:15 Dictated By: KESHAV MONTERO MD [facility]
[2016-12-31 04:40] LABS: BASOPHILS % (AUTO) 0 % (0-10); EOSINOPHILS % (AUTO) 0 % (0-10); LYMPHOCYTES # (AUTO) 0.7 X 10^3 (1.0-4.0); LYMPHOCYTES % (AUTO) 9 % (12-44); MEAN CORPUSCULAR HEMOGLOBIN 31 PG (25-34); MEAN CORPUSCULAR HGB CONC 33 G/DL (32-36); MEAN CORPUSCULAR VOLUME 93 FL (80-99); MEAN PLATELET VOLUME 10.4 FL (7.4-10.4); MONOCYTES # (AUTO) 0.6 X 10^3 (0.0-1.0); MONOCYTES % (AUTO) 8 % (0-12); NEUTROPHILS # (AUTO) 6.5 X 10^3 (1.8-7.8); NEUTROPHILS % (AUTO) 84 % (42-75); PLATELET COUNT 199 10^3/uL (130-400); RED BLOOD COUNT 4.17 10^6/uL (4.35-5.85); RED CELL DISTRIBUTION WIDTH 13.6 % (10.0-14.5); WHITE BLOOD COUNT 7.7 10^3/uL (4.3-11.0)
[2016-12-31 04:58] LABS: ANION GAP 12 MMOL/L (5-14); BLOOD UREA NITROGEN 13 MG/DL (7-18); BUN/CREATININE RATIO 12; CALCIUM 8.7 MG/DL (8.5-10.1); CARBON DIOXIDE 21 MMOL/L (21-32); CHLORIDE 105 MMOL/L (98-107); CREATININE SERUM 1.12 MG/DL (0.60-1.30); GFR ESTIMATED > 60; GLUCOSE 223 MG/DL (70-105); MAGNESIUM 2.1 MG/DL (1.8-2.4); PHOSPHORUS 2.6 MG/DL (2.3-4.7); SODIUM 138 MMOL/L (135-145)
[2016-12-31 05:12] LABS: ABG BASE EXCESS -0.3 MMOL/L (-2.5-2.5); ABG HCO3 25 MMOL/L (23-27); ABG OXYGEN SATURATION 98 % (94-100); ABG PCO2 49 MMHG (35-45); ABG PO2 89 MMHG (79-93); ABG TCO2 26.1 MMOL/L (21.0-31.0)
[2016-12-31 05:13] LABS: ALLENS TEST YES-POS; PATIENT TEMP 100.6
[2016-12-31 05:14] LABS: ABG PH 7.33 (7.37-7.43)
--- NOTE | 2016-12-31 06:53 | Pulmonary Consultation ---
History of Present Illness History of Present Illness Date of Consultation 12/31/16 06:47 Time Seen by Provider: 06:47 Date of Admission History of Present Illness 66yo who presented secondary to ED secondary abdominal pain RLQ pt was found to have ruptured appendix and is now s/p surgery. Post surgery pt developed respiratory distress and was found to have acute respiratory failure with acute respiratory acidosis on ABG. He has required BiPAP through the night. He is currently tolerating BiPAP. Allergies and Home Medications Allergies Coded Allergies: NITZAANo Known Allergies (Verified Allergy, Unknown, 06/23/05) Home Medications Amlodipine Besylate 10 Mg Tablet, 10 MG PO DAILY, #30 Prescribed by: ZORA PARRY on 01/05/17 0956 Amoxicillin/Potassium Clav 1 Each Tablet, 1 EACH PO BID, #10 Prescribed by: ZORA PARRY on 01/05/17 0956 Calcium Carbonate/Vitamin D3 1 Each Tablet, 5,000 UNIT PO DAILY, (Reported) Cholecalciferol (Vitamin D3) 5,000 Unit Capsule, 5,000 UNIT PO DAILY, (Reported) Cholestyramine/Aspartame 4 Gm Powd.pack, 4 GM PO TID@1000,1400,2200, #60 Prescribed by: ZORA PARRY on 01/05/17 0956 Citalopram Hydrobromide 10 Mg Tablet, 10 MG PO DAILY, (Reported) Diltiazem HCl 180 Mg Cap.er.24h, 180 MG PO DAILY, (Reported) Diltiazem HCl 90 Mg Tab, 90 MG PO HS, (Reported) Fenofibrate 160 Mg Tablet, 160 MG PO DAILY, (Reported) Ferrous Sulfate 27 Mg Tablet, 27 MG PO DAILY, (Reported) Folic Acid 1 Mg Tablet, 1 MG PO DAILY, (Reported) Glyburide 5 Mg Tablet, 5 MG PO BID, (Reported) L. Acidophilus/Bulgaricus 1 Each Tablet, 1 TAB.CHEW PO AC, #60 Prescribed by: ZORA PARRY on 01/05/17 0956 Levothyroxine Sodium 200 Mcg Tablet, 200 MCG PO DAILY, (Reported) TAKES IN CONJUNCTION WITH LEVOTHYROXINE 25 MCG Levothyroxine Sodium 25 Mcg Tablet, 25 MCG PO DAILY, (Reported) TAKES IN CONJUNCTION WITH LEVOTHYROXINE 200 MCG Lisinopril 20 Mg Tablet, 20 MG PO DAILY@0900, #30 Prescribed by: ZORA PARRY on 01/05/17 0956 Metformin HCl 1,000 Mg Tablet, 1,000 MG PO BID, (Reported) Caraway-3 Fatty Acids/Fish Oil 1 Each Capsule, 1,200 MG PO QID, (Reported) Oxycodone HCl/Acetaminophen 1 Each Tablet, 1-2 TAB PO Q4H PRN for PAIN-MODERATE , #15 Prescribed by: ZORA PARRY on 01/05/17 0956 Simvastatin 40 Mg Tablet, 40 MG PO HS, (Reported) Sitagliptin Phosphate 100 Mg Tablet, 100 MG PO DAILY, (Reported) Past Zjgtyyu-Ketyje-Pzwrie Hx Patient Social History Alcohol Use: Denies Use Recreational Drug Use: No Smoking Status: Never a Smoker Recent Foreign Travel: No Contact w/Someone Who Travel: No Recent Infectious Disease Expo: No Recent Hopitalizations: Yes (ED FOR APPENDICITIS) Immunizations Up To Date Tetanus Booster (TDap): Unknown PED Vaccines UTD: No Date of Pneumonia Vaccine: Feb 21, 2010 Seasonal Allergies Seasonal Allergies: Yes Surgeries HX Surgeries: Yes (HERNIA REPAIR) Respiratory Hx Respiratory Disorders: No Cardiovascular Hx Cardiac Disorders: Yes Cardiac Disorders: High Cholesterol, Hypertension Neurological Hx Neurological Disorders: No Reproductive System Hx Reproductive Disorders: No Sexually Transmitted Disease: No Genitourinary Hx Genitourinary Disorders: No Gastrointestinal Hx Gastrointestinal Disorders: Yes (UMB HERNIA, APPENDICITIS) Gastrointestinal Disorders: Abdominal Hernia Musculoskeletal Hx Musculoskeletal Disorders: Yes (RA) Musculoskeletal Disorders: Rheumatoid Arthritis Endocrine Hx Endocrine Disorders: Yes (BORDERLINE DIABETIC) Endocrine Disorders: Hypothyroidsim, Diabetes, Non-Insulin dep HEENT HX ENT Disorders: Yes (GLASSES) Loss of Vision: Bilateral Hearing Impairment: Denies Cancer Hx Cancer: No Psychosocial Hx Psychiatric Problems: No Integumentary HX Skin/Integumentary Disorder: No Blood Transfusions Hx Blood Disorders: No Adverse Reaction to a Blood Tr: No Reviewed Nursing Assessment Reviewed/Agree w Nursing PMH: Yes Family Medical History Family Medial History: Cancer 19 FATHER G8 BROTHER (KIDNEY ) Family history: Cardiovascular disease 19 MOTHER G8 BROTHER Review of Systems Time Seen by Provider: 14:15 Exam Exam Vital Signs Date Time Temp Pulse Resp B/P (MAP) Pulse Ox O2 Delivery O2 Flow Rate FiO2 12/31/16 06:00 102 18 152/88 93 NIV Bilevel 30.00 12/31/16 05:00 101 15 146/84 94 NIV Bilevel 30.00 8/10/17 04:00 97 20 160/87 96 NIV Bilevel 30.00 12/31/16 04:00 NIV Bilevel 30 12/31/16 03:00 98 20 153/87 93 NIV Bilevel 30.00 12/31/16 02:55 97 20 95 30.00 12/31/16 02:00 100 20 145/87 95 NIV Bilevel 30.00 12/31/16 01:00 98 12/31/16 01:00 96 20 156/100 95 NIV Bilevel 30.00 12/31/16 00:45 97 18 97 30.00 12/31/16 00:00 100.4 96 19 152/84 97 NIV Bilevel 35.00 12/31/16 00:00 NIV Bilevel 35 12/30/16 23:00 98 22 153/91 97 NIV Bilevel 35.00 12/30/16 22:00 98 18 155/84 98 NIV Bilevel 35.00 12/30/16 21:30 100.5 12/30/16 21:05 103 17 98 35.00 12/30/16 21:00 NIV Bilevel 35 12/30/16 21:00 100.9 101 16 169/94 98 NIV Bilevel 35.00 12/30/16 20:30 101.3 12/30/16 20:22 101.3 12/30/16 20:00 102.4 111 19 146/82 96 NIV Bilevel 40.00 12/30/16 19:50 NIV Bilevel 40.00 12/30/16 19:50 111 19 94 40.00 12/30/16 19:50 111 94 12/30/16 19:30 101.2 12/30/16 19:00 109 12/30/16 19:00 109 32 178/87 95 OxyMask 10.00 12/30/16 18:45 109 12/30/16 18:30 99.3 111 22 172/84 93 OxyMask 10.00 12/30/16 17:48 92 OxyMask 15.00 12/30/16 16:00 103.1 12/30/16 16:00 103.1 12/30/16 14:01 103.2 110 28 191/102 93 Room Air 12/30/16 12:45 70 16 98 12/30/16 09:12 97.5 86 20 171/103 95 Room Air I & O 12/31/16 07:00 Intake Total 3550 ml Output Total 625 ml Balance 2925 ml General Appearance: Anxious, Moderate Distress Neck: Full Range of Motion, Non Tender, Supple Respiratory: No Accessory Muscle Use, No Respiratory Distress, Decreased Breath Sounds Cardiovascular: Regular Rate, Rhythm Capillary Refill: Less Than 3 Seconds Gastrointestinal: soft, No rebound, tenderness Neurologic/Psychiatric: Alert, Oriented x3 Skin: Normal Color, Warm/Dry Lymphatic: No Adenopathy Results Lab Laboratory Tests 12/30/16 09:30 12/30/16 19:41 12/31/16 03:27 Assessment/Plan Assessment/Plan Acute appendicitis with ruptured appendix s/p surgery -Pain control -Surgery following Severe sepsis - improving -Continue Zosyn -IVF -Not requiring BP support Acute respiratory failure -BiPAP 15/5 PRN -Monitor Obesity with probable BERTHA -Out patient testing 255 Clinical Quality Measures DVT/VTE Risk/Contraindication: Risk Factor Score Per Nursin RFS Level Per Nursing on Admit: 4+=Very High JV BLANCO DO Dec 31, 2016 06:53
--- NOTE | 2016-12-31 07:07 | Diagnostic Imaging Report ---
INDICATION: Postop chest. COMPARISON: 01/05/2013 FINDINGS: Single frontal radiographic view of the chest was obtained and demonstrates shallow inspiratory volumes and crowding of central hilar structures. There is otherwise no focal consolidation, large effusion, nor pneumothorax. Cardiac silhouette and pulmonary vasculature within normal limits. Bony structures show no gross acute abnormalities. IMPRESSION: 1. Shallow lung volumes with crowding of central hilar structures. Dictated by: Dictated on workstation # [id number]
[2016-12-31] MEDS: RT-ALBUTEROL SULF 2.5 MG/3 ML PRE-MIX VIAL IH SCH ×2 (07:21→21:58)
[2016-12-31] MEDS: POTASSIUM CL 10MEQ/50ML IVPB 50 ML IV SCH (07:59)
[2016-12-31] MEDS: MAGNESIUM 1 GM/100 ML IVPB 100 ML IV SCH (07:59)
[2016-12-31] MEDS: NS IV 1000 ML 1,000 ML IV SCH ×3 (08:00→23:09)
[2016-12-31] MEDS: PANTOPRAZOLE 40 MG/10 ML (PROTONIX) VIAL IV SCH (08:12)
--- NOTE | 2016-12-31 08:25 | Consultation-Cardiology ---
HPI-Cardiology Cardiology Consultation Date of Consultation 12/31/16 Date of Admission Time Seen by Provider: 08:05 Indication: HTN HPI Patient is a 66 y/o male with history of HTN, HLP, DM. History of umbilical hernia repair. Reports he was in his usual state of health when he began running a fever with abdominal pain 2-3 days ago. Pain became more localized to RLE, presented to the ER and workup revealed patient with acute appendicitis with rupture. He is s/p appendectomy done by Dr. Montero yesterday. Post- operatively had acute respiratory failure. Currently on BiPAP. Complaining of mild abdominal pain, mainly with cough. Denies any CP, dizziness, syncope or peripheral edema. Denies any history of CAD. Has been maintained on Cardizem as outpatient and reports good BP/HR control at home prior to appendicitis. This is a 66-year-old gentleman with history of hypertension, hyperlipidemia and diabetes mellitus, admitted with acute appendicitis underwent surgery yesterday, noted to have severe hypertension perioperatively, still borderline hypertensive, went to respiratory distress last night and started on BiPAP. He is currently having abdominal pain, blood pressure is still elevated. Denied any history of coronary artery disease, he has been treated by his primary care physician for his hypertension with Cardizem. Home Medications & Allergies Allergies: Coded Allergies: NKANo Known Allergies (Verified Allergy, Unknown, 06/23/05) Home Medication List Reviewed: Yes ASG-Bdkovu-Hpiwvf Hx Patient Social History Marital Status: Alcohol Use: Denies Use Recreational Drug Use: No Smoking Status: Never a Smoker Recent Foreign Travel: No Recent Infectious Disease Expo: No Recent Hopitalizations: Yes (ED FOR APPENDICITIS) Immunizations Up To Date Tetanus Booster (TDap): Unknown Date of Pneumonia Vaccine: Feb 21, 2010 Past Medical History HTN, HLP, DM, Obesity Family Medical History Significant Family History: CAD Over 55 Years Old (mother with NC at age 95) Family History: Cancer 19 FATHER G8 BROTHER (KIDNEY ) Family history: Cardiovascular disease 19 MOTHER G8 BROTHER Constitutional: No chills, No diaphoresis, fever, malaise EENTM: No blurred vision, No double vision, No vision loss Respiratory: cough, short of breath Cardiovascular: No chest pain, No edema, No Hx of Intervention, No palpitations , No syncope, No vascular heart diseas Gastrointestinal: abdominal pain (RLQ), diarrhea Genitourinary: No dysuria, No frequency, No hematuria Musculoskeletal: No back pain, No joint pain Skin: No lesions, No rash Psychiatric/Neurological: Denies Anxiety, Denies Depressed Reviewed Test Results Reviewed Test Results Lab Laboratory Tests 12/30/16 09:20: Urine Color YELLOW, Urine Clarity CLEAR, Urine pH 5, Urine Specific Hydro 1.025H, Urine Protein 3+H, Urine Glucose (UA) 4+H, Urine Ketones NEGATIVE, Urine Nitrite NEGATIVE, Urine Bilirubin NEGATIVE, Urine Urobilinogen NORMAL, Urine Leukocyte Esterase NEGATIVE, Urine RBC (Auto) 2+H, Urine RBC RARE, Urine WBC RARE, Urine Squamous Epithelial Cells NONE, Urine Crystals NONE, Urine Bacteria NEGATIVE, Urine Casts NONE, Urine Mucus MODERATEH, Urine Culture Indicated NO 12/30/16 09:30: White Blood Count 12.7H, Red Blood Count 4.69, Hemoglobin 14.1, Hematocrit 43, Mean Corpuscular Volume 91, Mean Corpuscular Hemoglobin 30, Mean Corpuscular Hemoglobin Concent 33, Red Cell Distribution Width 13.5, Platelet Count 256, Mean Platelet Volume 10.1, Neutrophils (%) (Auto) 82H, Lymphocytes (%) (Auto) 10L, Monocytes (%) (Auto) 9, Eosinophils (%) (Auto) 0, Basophils (%) (Auto) 0, Neutrophils # (Auto) 10.3H, Lymphocytes # (Auto) 1.2, Monocytes # (Auto) 1.1H, Eosinophils # (Auto) 0.0, Basophils # (Auto) 0.0, Sodium Level 136, Potassium Level 3.9, Chloride Level 101, Carbon Dioxide Level 24, Anion Gap 11, Blood Urea Nitrogen 15, Creatinine 1.24, Estimat Glomerular Filtration Rate 59, BUN/ Creatinine Ratio 12, Glucose Level 207H, Calcium Level 9.9, Total Bilirubin 2.1H , Aspartate Amino Transf (AST/SGOT) 27, Alanine Aminotransferase (ALT/SGPT) 43, Alkaline Phosphatase 43, Total Protein 7.9, Albumin 4.5 12/30/16 14:12: Glucometer 209H 12/30/16 18:10: Blood Gas Puncture Site LT RAD, Blood Gas Patient Temperature 99.0, Arterial Blood pH 7.29*L, Arterial Blood Partial Pressure CO2 47H, Arterial Blood Partial Pressure O2 70L, Arterial Blood HCO3 22L, Arterial Blood Total CO2 23.6 , Arterial Blood Oxygen Saturation 94, Arterial Blood Base Excess -3.3L, Justin Test YES-POS, Blood Gas Ventilator Setting NO, Blood Gas Inspired Oxygen 65% 12/30/16 19:30: Urine Color YELLOW, Urine Clarity CLEAR, Urine pH 5, Urine Specific Hydro 1.020, Urine Protein 2+H, Urine Glucose (UA) 4+H, Urine Ketones 1+H, Urine Nitrite NEGATIVE, Urine Bilirubin NEGATIVE, Urine Urobilinogen NORMAL, Urine Leukocyte Esterase 1+H, Urine RBC (Auto) 3+H, Urine RBC 0-2, Urine WBC 2-5, Urine Crystals NONE, Urine Bacteria TRACE, Urine Casts NONE, Urine Mucus NEGATIVE, Urine Culture Indicated NO 12/30/16 19:36: Blood Gas Puncture Site LT RAD, Blood Gas Patient Temperature 101.2, Arterial Blood pH 7.33*L, Arterial Blood Partial Pressure CO2 45, Arterial Blood Partial Pressure O2 78L, Arterial Blood HCO3 22L, Arterial Blood Total CO2 23.5, Arterial Blood Oxygen Saturation 95, Arterial Blood Base Excess -2.6L, Justin Test YES-POS, Blood Gas Ventilator Setting NO, Blood Gas Inspired Oxygen 4L 12/30/16 19:41: White Blood Count 9.5, Red Blood Count 4.35, Hemoglobin 13.5, Hematocrit 40, Mean Corpuscular Volume 93, Mean Corpuscular Hemoglobin 31, Mean Corpuscular Hemoglobin Concent 34, Red Cell Distribution Width 13.5, Platelet Count 227, Mean Platelet Volume 10.1, Neutrophils (%) (Auto) 88H, Lymphocytes (%) (Auto) 7L , Monocytes (%) (Auto) 5, Eosinophils (%) (Auto) 0, Basophils (%) (Auto) 0, Neutrophils # (Auto) 8.3H, Lymphocytes # (Auto) 0.7L, Monocytes # (Auto) 0.5, Eosinophils # (Auto) 0.0, Basophils # (Auto) 0.0, Neutrophils % (Manual) 75, Lymphocytes % (Manual) 14, Monocytes % (Manual) 0, Eosinophils % (Manual) 0, Basophils % (Manual) 0, Band Neutrophils 11, Blood Morphology Comment NORMAL, Sodium Level 136, Potassium Level 4.0, Chloride Level 104, Carbon Dioxide Level 21, Anion Gap 11, Blood Urea Nitrogen 14, Creatinine 1.17, Estimat Glomerular Filtration Rate > 60, BUN/Creatinine Ratio 12, Glucose Level 229H, Lactic Acid Level 2.29*H, Calcium Level 8.9, Phosphorus Level 3.1, Magnesium Level 1.5L, B- Type Natriuretic Peptide 48.5 12/30/16 22:10: Lactic Acid Level 2.05*H 12/31/16 00:19: Glucometer 206H 12/31/16 03:27: White Blood Count 7.7, Red Blood Count 4.17L, Hemoglobin 12.9L, Hematocrit 39L, Mean Corpuscular Volume 93, Mean Corpuscular Hemoglobin 31, Mean Corpuscular Hemoglobin Concent 33, Red Cell Distribution Width 13.6, Platelet Count 199, Mean Platelet Volume 10.4, Neutrophils (%) (Auto) 84H, Lymphocytes (%) (Auto) 9L , Monocytes (%) (Auto) 8, Eosinophils (%) (Auto) 0, Basophils (%) (Auto) 0, Neutrophils # (Auto) 6.5, Lymphocytes # (Auto) 0.7L, Monocytes # (Auto) 0.6, Eosinophils # (Auto) 0.0, Basophils # (Auto) 0.0, Sodium Level 138, Potassium Level 4.0, Chloride Level 105, Carbon Dioxide Level 21, Anion Gap 12, Blood Urea Nitrogen 13, Creatinine 1.12, Estimat Glomerular Filtration Rate > 60, BUN/ Creatinine Ratio 12, Glucose Level 223H, Lactic Acid Level 1.74, Calcium Level 8.7, Phosphorus Level 2.6, Magnesium Level 2.1 12/31/16 05:00: Blood Gas Puncture Site R RAD, Blood Gas Patient Temperature 100.6, Arterial Blood pH 7.33*L, Arterial Blood Partial Pressure CO2 49H, Arterial Blood Partial Pressure O2 89, Arterial Blood HCO3 25, Arterial Blood Total CO2 26.1, Arterial Blood Oxygen Saturation 98, Arterial Blood Base Excess -0.3, Justin Test YES-POS, Blood Gas Ventilator Setting NO, Blood Gas Inspired Oxygen 35% FIO2 BIPAP ECG Impression ECG Initial ECG Rhythm: S.Tach Physical Exam Vital Signs Vital Sign - Last 12Hours 12/30/16 12/30/16 12/30/16 09:12 17:48 21:00 Temp 97.5 Pulse 86 Resp 20 B/P (MAP) 171/103 Pulse Ox 95 O2 Delivery Room Air O2 Flow Rate 15.00 FiO2 35 Capillary Refill : Less Than 3 Seconds General Appearance: Mild Distress HEENT: PERRL/EOMI, TMs Normal, Normal ENT Inspection Neck: Non Tender, Supple Respiratory: Chest Non Tender, Decreased Breath Sounds, Rhonci Cardiovascular: No Edema, No Gallop, No JVD, No Murmur, Tachycardia Gastrointestinal: Guarding, Tenderness Rectal: Deferred Back: No CVA Tenderness Neurologic/Psychiatric: Alert, Oriented x3, hadoop engineer II-XII Norm as Tested Skin: Normal Color, Warm/Dry Lymphatic: No Adenopathy A/P-Cardiology Admission Diagnosis Acute appendicitis with rupture HTN HLP DM Assessment/Plan Acute appendicitis with rupture-s/p appendectomy yesterday, recovering slowly, continue supportive care Acute respiratory distress postoperatively- currently on BIPAP. Dr. Hudson following HTN- I will start Lopressor IV. Continue to monitor. Planning to start home BP medications once tolerating PO medication. Continue to monitor BP/HR. HLP- maintained on statin as outpatient. Continue to monitor. DM- management by PCP Obesity- probable sleep apnea, recommend sleep study as outpatient. Thank you for allowing us to participate in the management of Mr. Knight. This is Ute Sawyer PA-C as a scribe for Dr. Alcazar. This is Dr. Alcazar, I have seen and evaluated the patient with Ute, he was still having lower abdominal pain, on BiPAP machine, reported history of hypertension, no previous cardiac history, had appendicitis with appendectomy done last night. On examination patient has bilateral rhonchi, heart is borderline tachycardic, normal S1 and S2. Abdominal pain and guarding. I started him on Lopressor IV, planning to switch him to oral beta blockers once clinically stable and can tolerate oral medication. I reviewed the current scribe and agree with the current note, I made a few minor modification to the note and used Italic Font Clinical Quality Measures DVT/VTE Risk/Contraindication: Risk Factor Score Per Nursin RFS Level Per Nursing on Admit: 4+=Very High UTE LORENZ Dec 31, 2016 08:25 KALEE ALCAZAR MD Dec 31, 2016 16:22
--- NOTE | 2016-12-31 09:22 | Consultation-Hospitalist ---
HPI History of Present Illness: HPI/Chief Complaint CC: Medical management following ruptured appendicitis with peritonitis and respiratory failure HPI: This is a 66-year-old white male of Dr. 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 He was actually in preparation for his relatives when the pain began in worsen to the point he reported to the emergency room found to have ruptured appendicitis and taken to surgery by Dr. Montero urgently and recovered up in the ICU but having respiratory failure prompting pulmonology critical care and cardiology consultations along with placement of BiPAP and IV fluid resuscitation along with antibiotics. Currently he reports his pain is controlled unless he coughs and he is currently tolerating the BiPAP well. His labs appear improved today but postop ileus is present distention noted and no bowel sounds are noted but otherwise patient appears to be improving although acidosis requires noninvasive ventilator support to be maintained currently. 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) Alcohol Use: Denies Use Recreational Drug Use: No Smoking Status: Never a Smoker Recent Foreign Travel: No Contact w/other who traveled: No Recent Hopitalizations: Yes (ED FOR APPENDICITIS) Recent Infectious Disease Expo: No Immunizations Up To Date Tetanus Booster (TDap): Unknown Date of Pneumonia Vaccine: Feb 21, 2010 Seasonal Allergies Seasonal Allergies: Yes Surgeries HX Surgeries: Yes (HERNIA REPAIR) Respiratory Hx Respiratory Disorders: No Cardiovascular Hx Cardiovascular Disorders: Yes Cardiac Disorders: High Cholesterol, Hypertension Neurological Hx Neurological Disorders: No Reproductive System Hx Reproductive Disorders: No Sexually Transmitted Disease: No Genitourinary Hx Genitourinary Disorders: No Gastrointestinal Hx Gastrointestinal Disorders: Yes (UMB HERNIA, APPENDICITIS) Gastrointestinal Disorders: Abdominal Hernia Musculoskeletal Hx Musculoskeletal Disorders: Yes (RA) Musculoskeletal Disorders: Rheumatoid Arthritis Endocrine Hx Endocrine Disorders: Yes (BORDERLINE DIABETIC) Endocrine Disorders: Hypothyroidsim, Diabetes, Non-Insulin dep HEENT HX ENT Disorders: Yes (GLASSES) Loss of Vision: Bilateral Hearing Impairment: Denies Cancer Hx Cancer: No Psychosocial Hx Psychiatric Problems: No Integumentary HX Skin/Integumentary Disorder: No Blood Transfusions Hx Blood Disorders: No Adverse Reaction to a Blood Tr: No Reviewed Nursing Assessment Reviewed/Agree w Nursing PMH: Yes Family Medical History Significant Family History: CAD Over 55 Years Old (mother with NH at age 95) Family Hx: Cancer 19 FATHER G8 BROTHER (KIDNEY ) Family history: Cardiovascular disease 19 MOTHER G8 BROTHER Review of Systems Constitutional: see HPI, chills, fever, weakness EENTM: no symptoms reported Respiratory: short of breath, wheezing Cardiovascular: no symptoms reported Gastrointestinal: abdominal pain (RLQ), heartburn, loss of appetite, nausea, vomiting Genitourinary: no symptoms reported Musculoskeletal: no symptoms reported Skin: no symptoms reported Psychiatric/Neurological: No Symptoms Reported All Other Systems Reviewed Negative Unless Noted: Yes Physical Exam Physical Exam Vital Signs Vital Sign - Last 12Hours 12/30/16 12/30/16 12/30/16 09:12 17:48 21:00 Temp 97.5 Pulse 86 Resp 20 B/P (MAP) 171/103 Pulse Ox 95 O2 Delivery Room Air O2 Flow Rate 15.00 FiO2 35 Capillary Refill : Less Than 3 Seconds General Appearance: WD/WN, Chronically ill, Mild Distress (due to ileus pain), Obese Eyes: Bilateral Eye Normal Inspection, Bilateral Eye PERRL HEENT: PERRL/EOMI, Normal ENT Inspection, Pharynx Normal Neck: Full Range of Motion, Normal Inspection, Non Tender, Supple, Carotid Bruit Respiratory: Chest Non Tender, No Accessory Muscle Use, No Respiratory Distress , Crackles, Decreased Breath Sounds Cardiovascular: Regular Rate, Rhythm, No Edema, No Gallop, No JVD, No Murmur, Normal Peripheral Pulses Gastrointestinal: Normal Bowel Sounds, No Organomegaly, No Pulsatile Mass, Abnormal Bowel Sounds, Distended, Guarding, Tenderness Back: Normal Inspection, No CVA Tenderness, No Vertebral Tenderness Extremity: Normal Capillary Refill, Normal Inspection, Normal Range of Motion, Non Tender, No Calf Tenderness, No Pedal Edema Neurologic/Psychiatric: Alert, Oriented x3, No Motor/Sensory Deficits, Normal Mood/Affect Skin: Normal Color, Warm/Dry Lymphatic: No Adenopathy Results Results/Procedures Lab Laboratory Tests 12/30/16 09:30 12/30/16 19:41 12/31/16 03:27 Assessment/Plan Admission Diagnosis Assessment: Acute appendicitis with rupture with peritonitis empirically placed on Zosyn along with IV fluid resuscitation status post appendectomy uncomplicated by Dr. Montreo POD # 1 Acute respiratory failure requiring BiPAP and pulmonary critical care management Diabetes mellitus Hypertension Hyperlipidemia Postop ileus Assessment and Plan Plan: Maintain IV fluids Maintain Zosyn empirically Pain medication BiPAP Will need physical therapy to ambulate once stable DVT prophylaxis per surgery protocol Clinical Quality Measures DVT/VTE Risk/Contraindication: Risk Factor Score Per Nursin RFS Level Per Nursing on Admit: 4+=Very High ZORA PARRY DO Dec 31, 2016 09:22
[2016-12-31] MEDS ORDERED: SIMV40TA4 PO (09:55)
[2016-12-31] MEDS ORDERED: SITA100T12 PO (09:55)
[2016-12-31] MEDS ORDERED: FOLI1TAB24 PO (09:55)
[2016-12-31] MEDS ORDERED: CHOL5000 PO (09:55)
[2016-12-31] MEDS ORDERED: DILT180C PO (09:55)
[2016-12-31] MEDS ORDERED: CITA10TA7 PO (09:55)
[2016-12-31] MEDS ORDERED: LEVO25TA2 PO (09:55)
[2016-12-31] MEDS ORDERED: METF1000 PO (09:55)
[2016-12-31] MEDS ORDERED: LEVO200T PO (09:55)
[2016-12-31] MEDS ORDERED: METH2.5T PO (09:55)
[2016-12-31] MEDS ORDERED: OMEG-109 PO (09:55)
[2016-12-31] MEDS ORDERED: FENO160T12 PO (10:11)
[2016-12-31] MEDS ORDERED: DLT90CCR PO (10:11)
[2016-12-31] MEDS ORDERED: GLYB5TAB6 PO (11:00)
--- NOTE | 2016-12-31 11:26 | Progress Note (SOAP) ---
Subjective Date Seen by Provider: Dec 31, 2016 Time Seen by Provider: 11:05 Subjective/Events-last exam Patient reports that doing better today. Patient on Bipap, sitting in bed. Denies any N/V. No fever/chills. Does report abdominal pain with more on the right side. Patient reports that he has not passed any gas or had a BM. Objective Exam Vital Signs Date Time Temp Pulse Resp B/P (MAP) Pulse Ox O2 Delivery O2 Flow Rate FiO2 12/31/16 10:15 107 20 95 30.00 12/31/16 07:40 100.3 12/31/16 07:24 97 17 97 30.00 12/31/16 07:00 105 12/31/16 06:00 102 18 152/88 93 NIV Bilevel 30.00 12/31/16 05:00 101 15 146/84 94 NIV Bilevel 30.00 12/31/16 04:00 97 20 160/87 96 NIV Bilevel 30.00 12/31/16 04:00 NIV Bilevel 30 12/31/16 03:00 98 20 153/87 93 NIV Bilevel 30.00 12/31/16 02:55 97 20 95 30.00 12/31/16 02:00 100 20 145/87 95 NIV Bilevel 30.00 12/31/16 01:00 98 12/31/16 01:00 96 20 156/100 95 NIV Bilevel 30.00 12/31/16 00:45 97 18 97 30.00 12/31/16 00:00 100.4 96 19 152/84 97 NIV Bilevel 35.00 12/31/16 00:00 NIV Bilevel 35 12/30/16 23:00 98 22 153/91 97 NIV Bilevel 35.00 12/30/16 22:00 98 18 155/84 98 NIV Bilevel 35.00 12/30/16 21:30 100.5 12/30/16 21:05 103 17 98 35.00 12/30/16 21:00 NIV Bilevel 35 12/30/16 21:00 100.9 101 16 169/94 98 NIV Bilevel 35.00 12/30/16 20:30 101.3 12/30/16 20:22 101.3 12/30/16 20:00 102.4 111 19 146/82 96 NIV Bilevel 40.00 12/30/16 19:50 NIV Bilevel 40.00 12/30/16 19:50 111 19 94 40.00 12/30/16 19:50 111 94 12/30/16 19:30 101.2 12/30/16 19:00 109 12/30/16 19:00 109 32 178/87 95 OxyMask 10.00 12/30/16 18:45 109 12/30/16 18:30 99.3 111 22 172/84 93 OxyMask 10.00 12/30/16 17:48 92 OxyMask 15.00 12/30/16 16:00 103.1 12/30/16 16:00 103.1 12/30/16 14:01 103.2 110 28 191/102 93 Room Air 12/30/16 12:45 70 16 98 I & O 12/31/16 07:00 Intake Total 3950 ml Output Total 1580 ml Balance 2370 ml Capillary Refill : Less Than 3 Seconds General Appearance: No Apparent Distress, WD/WN HEENT: PERRL/EOMI Neck: Full Range of Motion, Normal Inspection, Non Tender, Supple Respiratory: Chest Non Tender, Decreased Breath Sounds Cardiovascular: Regular Rate, Rhythm, No Murmur Gastrointestinal: abnormal bowel sounds, distended, guarding, tenderness, other (Abdominal drain with clear SS drainge.) Extremity: Normal Capillary Refill, Normal Inspection, Normal Range of Motion, Non Tender, No Calf Tenderness, No Pedal Edema Neurologic/Psychiatric: Alert, Oriented x3, Normal Mood/Affect Skin: Normal Color, Warm/Dry, Other (3 lap abdominal incisions C/D/I.) Results Lab Laboratory Tests 12/30/16 14:12: Glucometer 209H 12/30/16 18:10: Blood Gas Puncture Site LT RAD, Blood Gas Patient Temperature 99.0, Arterial Blood pH 7.29*L, Arterial Blood Partial Pressure CO2 47H, Arterial Blood Partial Pressure O2 70L, Arterial Blood HCO3 22L, Arterial Blood Total CO2 23.6 , Arterial Blood Oxygen Saturation 94, Arterial Blood Base Excess -3.3L, Justin Test YES-POS, Blood Gas Ventilator Setting NO, Blood Gas Inspired Oxygen 65% 12/30/16 19:30: Urine Color YELLOW, Urine Clarity CLEAR, Urine pH 5, Urine Specific [place] 1.020, Urine Protein 2+H, Urine Glucose (UA) 4+H, Urine Ketones 1+H, Urine Nitrite NEGATIVE, Urine Bilirubin NEGATIVE, Urine Urobilinogen NORMAL, Urine Leukocyte Esterase 1+H, Urine RBC (Auto) 3+H, Urine RBC 0-2, Urine WBC 2-5, Urine Crystals NONE, Urine Bacteria TRACE, Urine Casts NONE, Urine Mucus NEGATIVE, Urine Culture Indicated NO 12/30/16 19:36: Blood Gas Puncture Site LT RAD, Blood Gas Patient Temperature 101.2, Arterial Blood pH 7.33*L, Arterial Blood Partial Pressure CO2 45, Arterial Blood Partial Pressure O2 78L, Arterial Blood HCO3 22L, Arterial Blood Total CO2 23.5, Arterial Blood Oxygen Saturation 95, Arterial Blood Base Excess -2.6L, Justin Test YES-POS, Blood Gas Ventilator Setting NO, Blood Gas Inspired Oxygen 4L 12/30/16 19:41: White Blood Count 9.5, Red Blood Count 4.35, Hemoglobin 13.5, Hematocrit 40, Mean Corpuscular Volume 93, Mean Corpuscular Hemoglobin 31, Mean Corpuscular Hemoglobin Concent 34, Red Cell Distribution Width 13.5, Platelet Count 227, Mean Platelet Volume 10.1, Neutrophils (%) (Auto) 88H, Lymphocytes (%) (Auto) 7L , Monocytes (%) (Auto) 5, Eosinophils (%) (Auto) 0, Basophils (%) (Auto) 0, Neutrophils # (Auto) 8.3H, Lymphocytes # (Auto) 0.7L, Monocytes # (Auto) 0.5, Eosinophils # (Auto) 0.0, Basophils # (Auto) 0.0, Neutrophils % (Manual) 75, Lymphocytes % (Manual) 14, Monocytes % (Manual) 0, Eosinophils % (Manual) 0, Basophils % (Manual) 0, Band Neutrophils 11, Blood Morphology Comment NORMAL, Sodium Level 136, Potassium Level 4.0, Chloride Level 104, Carbon Dioxide Level 21, Anion Gap 11, Blood Urea Nitrogen 14, Creatinine 1.17, Estimat Glomerular Filtration Rate > 60, BUN/Creatinine Ratio 12, Glucose Level 229H, Lactic Acid Level 2.29*H, Calcium Level 8.9, Phosphorus Level 3.1, Magnesium Level 1.5L, B- Type Natriuretic Peptide 48.5 12/30/16 22:10: Lactic Acid Level 2.05*H 12/31/16 00:19: Glucometer 206H 12/31/16 03:27: White Blood Count 7.7, Red Blood Count 4.17L, Hemoglobin 12.9L, Hematocrit 39L, Mean Corpuscular Volume 93, Mean Corpuscular Hemoglobin 31, Mean Corpuscular Hemoglobin Concent 33, Red Cell Distribution Width 13.6, Platelet Count 199, Mean Platelet Volume 10.4, Neutrophils (%) (Auto) 84H, Lymphocytes (%) (Auto) 9L , Monocytes (%) (Auto) 8, Eosinophils (%) (Auto) 0, Basophils (%) (Auto) 0, Neutrophils # (Auto) 6.5, Lymphocytes # (Auto) 0.7L, Monocytes # (Auto) 0.6, Eosinophils # (Auto) 0.0, Basophils # (Auto) 0.0, Sodium Level 138, Potassium Level 4.0, Chloride Level 105, Carbon Dioxide Level 21, Anion Gap 12, Blood Urea Nitrogen 13, Creatinine 1.12, Estimat Glomerular Filtration Rate > 60, BUN/ Creatinine Ratio 12, Glucose Level 223H, Lactic Acid Level 1.74, Calcium Level 8.7, Phosphorus Level 2.6, Magnesium Level 2.1 12/31/16 05:00: Blood Gas Puncture Site R RAD, Blood Gas Patient Temperature 100.6, Arterial Blood pH 7.33*L, Arterial Blood Partial Pressure CO2 49H, Arterial Blood Partial Pressure O2 89, Arterial Blood HCO3 25, Arterial Blood Total CO2 26.1, Arterial Blood Oxygen Saturation 98, Arterial Blood Base Excess -0.3, Justin Test YES-POS, Blood Gas Ventilator Setting NO, Blood Gas Inspired Oxygen 35% FIO2 BIPAP Assessment/Plan Assessment/Plan Assess & Plan/Chief Complaint A 66 year old male who is S/P lap appy who developed respiratory distress. He does appear to have an ileus that developed also. WBC normalized. VSS with slightly elevated temp over night. Continue IV fluids, pain and nausea meds. IV Abx. Ambulation when able. Continue respiratory support per pulmonology. Bowel rest and will await bowel function. Clinical Quality Measures DVT/VTE Risk/Contraindication: Risk Factor Score Per Nursin RFS Level Per Nursing on Admit: 4+=Very High ERICK MARTINEZ FAM[facility] MEDIC[facility] CHAIR Dec 31, 2016 11:26
[2016-12-31] MEDS: ACETAMINOPHEN 325 MG TABLET/CAPLET (TYLENOL) PO PRN (11:42)
[2016-12-31] MEDS: meTOprolol 5 MG/5 ML (LOPRESSOR) VIAL IV SCH ×2 (12:51→18:53)
--- NOTE | 2016-12-31 13:21 | Anesthesia-General Post-Op ---
General Patient Condition Mental Status/LOC: Same as Preop Cardiovascular: Satisfactory Nausea/Vomiting: Absent Respiratory: Satisfactory Pain: Controlled Complications: Absent Post Op Complications Complications None Follow Up Care/Instructions Patient Instructions None needed. Anesthesia/Patient Condition Patient Condition Patient is doing well, no complaints, stable vital signs, no apparent adverse anesthesia problems. No complications reported per nursing. BRADEN COSTELLO CRNA Dec 31, 2016 13:21
[2017-01-01] VITALS (15 sets, daily range): BP systolic 124–165; BP diastolic 75–103
[2017-01-01] MEDS: PIPERACILLIN/TAZOBACTAM 4.5 GM/NS100 ML IVPB IV SCH ×6 (00:08→16:37)
[2017-01-01] MEDS: meTOprolol 5 MG/5 ML (LOPRESSOR) VIAL IV SCH ×4 (00:08→18:30)
[2017-01-01] MEDS: inSUlin (REGULAR) HUMAN 1 UNIT/0.01 ML (CHARGE PER UNIT) SC SCH ×4 (00:11→18:48)
[2017-01-01 04:00] LABS: BASOPHILS % (AUTO) 0 % (0-10); EOSINOPHILS % (AUTO) 0 % (0-10); LYMPHOCYTES # (AUTO) 0.7 X 10^3 (1.0-4.0); LYMPHOCYTES % (AUTO) 10 % (12-44); MEAN CORPUSCULAR HEMOGLOBIN 31 PG (25-34); MEAN CORPUSCULAR HGB CONC 33 G/DL (32-36); MEAN CORPUSCULAR VOLUME 94 FL (80-99); MEAN PLATELET VOLUME 10.1 FL (7.4-10.4); MONOCYTES # (AUTO) 0.6 X 10^3 (0.0-1.0); MONOCYTES % (AUTO) 8 % (0-12); NEUTROPHILS # (AUTO) 6.1 X 10^3 (1.8-7.8); NEUTROPHILS % (AUTO) 82 % (42-75); PLATELET COUNT 175 10^3/uL (130-400); RED BLOOD COUNT 3.74 10^6/uL (4.35-5.85); RED CELL DISTRIBUTION WIDTH 13.7 % (10.0-14.5); WHITE BLOOD COUNT 7.5 10^3/uL (4.3-11.0)
[2017-01-01 04:23] LABS: ALBUMIN 3.2 GM/DL (3.2-4.5); BILIRUBIN,TOTAL 1.4 MG/DL (0.1-1.0); CALCIUM 8.4 MG/DL (8.5-10.1); CREATININE SERUM 1.3 MG/DL (0.60-1.30); MAGNESIUM 2.3 MG/DL (1.8-2.4); PHOSPHORUS 1.8 MG/DL (2.3-4.7); POTASSIUM 3.7 MMOL/L (3.6-5.0); TOTAL PROTEIN 6.1 GM/DL (6.4-8.2)
[2017-01-01 05:46] LABS: ABG HCO3 24 MMOL/L (23-27); ABG OXYGEN SATURATION 98 % (94-100); ABG PCO2 45 MMHG (35-45); ABG PH 7.35 (7.37-7.43); ABG PO2 88 MMHG (79-93); ABG TCO2 25.2 MMOL/L (21.0-31.0)
[2017-01-01 05:47] LABS: ALLENS TEST YES-POS; PATIENT TEMP 99.2
[2017-01-01] MEDS: morphine INJ 10 MG/ML 1ML (SYR OR VIAL) IVP PRN (06:15)
[2017-01-01] MEDS: POTASSIUM CL 10MEQ/50ML IVPB 50 ML IV SCH (06:17)
[2017-01-01] MEDS: MAGNESIUM 1 GM/100 ML IVPB 100 ML IV SCH (06:17)
[2017-01-01] MEDS ORDERED: POTASSIUM PHOSPHATE INJ 30 MM in NS (IVPB) 250 ML IV NR (06:45)
--- NOTE | 2017-01-01 06:52 | Pulmonary Progress Note ---
Subjective Time Seen by Provider: 07:08 Subjective/Events-last exam Pt is still requiring a lot of oxygen 60% via high flow vapor therm. He has been requiring BiPAP at night. CXR reviewed and shows atelectasis. Pt does have IS and is using it. He had diarrhea this AM. He denies n/v. His pain is controlled. Exam Exam Vital Signs Date Time Temp Pulse Resp B/P (MAP) Pulse Ox O2 Delivery O2 Flow Rate FiO2 01/01/17 06:41 94 Vapotherm 7.00 60 01/01/17 06:00 101 9 165/103 93 NIV Bilevel 30.00 01/01/17 05:30 99.2 01/01/17 05:00 95 17 141/86 93 NIV Bilevel 30.00 01/01/17 04:24 95 22 95 30.00 01/01/17 04:00 93 26 129/78 94 NIV Bilevel 30.00 01/01/17 03:00 98 18 142/94 96 NIV Bilevel 30.00 01/01/17 02:49 101 20 98 30.00 01/01/17 02:30 99.5 01/01/17 02:00 98 18 149/87 94 NIV Bilevel 30.00 01/01/17 01:15 100.5 01/01/17 01:00 95 01/01/17 01:00 95 11 129/75 95 NIV Bilevel 30.00 01/01/17 00:00 113 150/79 93 NIV Bilevel 30.00 01/01/17 00:00 NIV Bilevel 30 01/01/17 00:00 101.7 NIV Bilevel 30.00 12/31/16 23:45 115 14 95 30.00 12/31/16 23:45 101.7 12/31/16 23:00 115 23 127/71 93 Vapotherm 60.00 7.00 12/31/16 22:00 106 14 147/80 93 Vapotherm 50.00 5.00 12/31/16 21:59 93 Vapotherm 5.00 50 12/31/16 21:00 103 20 145/86 93 Vapotherm 50.00 5.00 12/31/16 20:00 Vapotherm 5.00 50 12/31/16 20:00 101 132/71 93 Vapotherm 50.00 5.00 12/31/16 20:00 99.8 Vapotherm 5.00 12/31/16 19:00 105 12/31/16 19:00 106 131/110 93 Vapotherm 50.00 5.00 12/31/16 18:00 110 14 154/84 93 Vapotherm 50.00 5.00 12/31/16 17:00 113 17 149/86 91 Vapotherm 50.00 5.00 12/31/16 16:00 106 22 94 Vapotherm 50.00 5.00 12/31/16 15:40 Vapotherm 5.00 50 12/31/16 15:00 99.9 102 19 144/66 96 Vapotherm 50.00 5.00 12/31/16 14:27 95 Vapotherm 5.00 50 12/31/16 14:00 89 18 154/84 96 NIV Bilevel 30.00 12/31/16 13:00 91 18 137/87 NIV Bilevel 30.00 12/31/16 13:00 88 12/31/16 12:15 99.3 12/31/16 11:42 102.1 12/31/16 11:30 102.3 NIV Bilevel 30.00 12/31/16 11:30 NIV Bilevel 30 12/31/16 11:00 110 19 169/108 97 NIV Bilevel 30.00 12/31/16 10:15 107 20 95 30.00 12/31/16 10:00 107 20 154/92 97 NIV Bilevel 30.00 12/31/16 09:00 106 14 156/86 97 NIV Bilevel 30.00 12/31/16 08:15 NIV Bilevel 30 12/31/16 08:00 106 16 147/84 96 NIV Bilevel 30.00 12/31/16 07:40 100.3 12/31/16 07:24 97 17 97 30.00 12/31/16 07:00 103 17 141/86 96 NIV Bilevel 30.00 12/31/16 07:00 105 I & O 01/01/17 07:00 Intake Total 2515 ml Output Total 2175 ml Balance 340 ml General Appearance: Mild Distress HEENT: PERRL/EOMI, TMs Normal, Normal ENT Inspection Neck: Non Tender, Supple Respiratory: Chest Non Tender, Decreased Breath Sounds Cardiovascular: No Edema, No Gallop, No JVD, No Murmur, Tachycardia Capillary Refill: Less Than 3 Seconds Gastrointestinal: abnormal bowel sounds, distended, guarding, No rebound, tenderness, other (Abdominal drain with clear SS drainge.) Extremity: Normal Capillary Refill, Normal Inspection, Normal Range of Motion, Non Tender, No Calf Tenderness, No Pedal Edema Neurologic/Psychiatric: Alert, Oriented x3, operator cavity pump II-XII Norm as Tested Skin: Normal Color, Warm/Dry Lymphatic: No Adenopathy Results Lab Laboratory Tests 12/30/16 09:30 12/30/16 19:41 12/31/16 03:27 01/01/17 03:26 Assessment/Plan Assessment/Plan Acute appendicitis with ruptured appendix s/p surgery -Pain control -Surgery following Severe sepsis - improving -Repan culture - including blood and GRACIELA drain fluid -Continue Zosyn. If pt continues to run fever will add vanco and diflucan ( since pt had perforation) -IVF -Not requiring BP support Acute respiratory failure -BiPAP 15/5 PRN -Monitor Obesity with probable BERTHA -Out patient testing 255 Clinical Quality Measures DVT/VTE Risk/Contraindication: Risk Factor Score Per Nursin RFS Level Per Nursing on Admit: 4+=Very High VJ BLANCO DO Jan 01, 2017 06:52
[2017-01-01] MEDS: RT-ALBUTEROL SULF 2.5 MG/3 ML PRE-MIX VIAL IH SCH (07:02)
--- NOTE | 2017-01-01 07:26 | Diagnostic Imaging Report ---
Portable upright radiograph of the chest. INDICATION: Dyspnea. FINDINGS: The lungs demonstrate decreased overall volume. There is mild left basilar atelectasis and right infrahilar atelectasis. The heart size is normal. No effusion or pneumothorax. The mediastinum and dawson appear unremarkable. IMPRESSION: Low lung volumes. Bibasilar atelectasis. Dictated by: Dictated on workstation # [id number]
[2017-01-01] MEDS ORDERED: RT-ALBUTEROL/IPRATROPIUM 3 ML (DUONEB) VIAL INH PRN (07:45)
[2017-01-01] MEDS: RT-ALBUTEROL/IPRATROPIUM 3 ML (DUONEB) VIAL INH SCH ×3 (07:49→21:38)
[2017-01-01] MEDS ORDERED: IOHEXOL 350 MG/ML 150 ML (OMNIPAQUE 350) VIAL IV ONE (09:15)
[2017-01-01] MEDS: NS IV 1000 ML 1,000 ML IV SCH ×2 (09:30→16:38)
--- NOTE | 2017-01-01 10:53 | Diagnostic Imaging Report ---
EXAMINATION: CT angiogram of the chest and routine CT of the abdomen and pelvis was performed. The CTA chest is reconstructed with MIP technique in the coronal, and oblique planes. 100 mL of Omnipaque 350 is administered intravenously. INDICATION: Abdominal distention. Shortness of breath. Patient is status post appendectomy with perforated appendix. FINDINGS: CTA CHEST: There is moderate opacification of the pulmonary arteries evaluating the central branches with no filling defects seen. The segmental and subsegmental branches and some of the lobar branches demonstrate significant artifact and low density precluding adequate evaluation. There is a 3.2 x 1.7 cm right paratracheal enlarged lymph node mass seen. No other mass is identified in the mediastinum or significant lymph node enlargement. No hilar enlargement. There is no axillary lymphadenopathy. The heart size is normal. No pericardial effusion. No pleural effusion. No significant consolidation. Patchy bibasilar consolidation with enhancement is suggestive of atelectasis. There is overall low lung volumes. The osseous structures demonstrate prominent degenerative changes. CT SCAN OF THE ABDOMEN AND PELVIS: The liver is enlarged with marked degree of diffuse fatty infiltration seen. There is no focal mass identified. The gallbladder, the spleen, the adrenal glands and the pancreas appear unremarkable. There is inflammation in the retroperitoneum with minimal amount of retroperitoneal fluid and edema. There is also mesenteric edema seen. There is a prominent fluid collection noted in the left side of the pelvis abutting the undersurface of the sigmoid colon and the left side of the rectosigmoid junction. This measures 8.6 x 4.4 x 2.7 cm in size and has mild wall enhancement concerning for an abscess. It communicates with the cul-de-sac. There is thickening in the sigmoid colon which demonstrates numerous diverticulosis. There is a surgical drain extending around the right lower quadrant with no fluid collection at the site of the drain itself. There are radiopaque markers which may relate to mesh repair of ventral hernia. The osseous structures demonstrate degenerative changes, prominent in the SI joints. There is a Salvador catheter seen. IMPRESSION: CTA CHEST: Bibasilar subsegmental atelectasis. CT ABDOMEN AND PELVIS: 1. A 8.6 cm fluid collection in the left side of the pelvis is likely an abscess. 2. Diverticulosis. 3. Diffuse hepatic steatosis. The findings were called to Dr. Hudson by Dr. Mccarty at time of dictation. Dr. Kido nurse practitioner is also informed of the findings at time of dictation. Dictated by: Dictated on workstation # [id number]
--- NOTE | 2017-01-01 11:04 | Diagnostic Imaging Report ---
EXAMINATION: Bilateral lower extremity duplex venous ultrasound. TECHNIQUE: DVT protocol. Multiple sonographic images with color Doppler and waveform interrogation were performed of the lower extremity veins, bilaterally, with compression and augmentation maneuvers. INDICATION: Bilateral leg cramping. FINDINGS: The lower extremity veins from the common femoral veins to below the knee veins were examined with normal color-flow, compressibility and normal waveform demonstrated. The great saphenous vein bilaterally is patent. There is a 6 x 1.4 x 2.2 cm Collins's cyst on the right popliteal fossa IMPRESSION: 1. No evidence of DVT in either lower extremity. 2. Collins's cyst on the right side. Dictated by: Dictated on workstation # [id number]
--- NOTE | 2017-01-01 11:21 | Progress Note-Hospitalist ---
Progress Note HPI/CC on Admission CC: Medical management following ruptured appendicitis with peritonitis and respiratory failure HPI: This is a 66-year-old white male of Dr. 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 He was actually in preparation for his relatives when the pain began in worsen to the point he reported to the emergency room found to have ruptured appendicitis and taken to surgery by Dr. Montero urgently and recovered up in the ICU but having respiratory failure prompting pulmonology critical care and cardiology consultations along with placement of BiPAP and IV fluid resuscitation along with antibiotics. Currently he reports his pain is controlled unless he coughs and he is currently tolerating the BiPAP well. His labs appear improved today but postop ileus is present distention noted and no bowel sounds are noted but otherwise patient appears to be improving although acidosis requires noninvasive ventilator support to be maintained currently. Progress Notes/Assess & Plan Date Seen 01/01/17 Time Seen by Provider: 10:45 Admission Dx/Process Assessment: Acute appendicitis with rupture with peritonitis empirically placed on Zosyn along with IV fluid resuscitation status post appendectomy uncomplicated by Dr. Montero POD # 1 Acute respiratory failure requiring BiPAP and pulmonary critical care management Diabetes mellitus Hypertension Hyperlipidemia Postop ileus Diagonsis/Assessment & Plan Pt off biPAP and doing well. CT abdomen just completed and now reveals likely abscess right side. Continued fever while maintained on Zosyn Coarse breath sounds noted on exam so I encouraged IS use and will maintain IS. Had a BM but abdomen is very distended but noted bowel sounds although distant. No DVT on USG Tm 101.3, pleasant, improved, O x 3, family at bedside tachy 94 coarse breath sounds all barrios No edema Laboratory Tests 01/01/17 03:26 Assessment: Acute appendicitis with rupture with peritonitis empirically placed on Zosyn along with IV fluid resuscitation status post appendectomy uncomplicated by Dr. Montero POD # 2 now with abscess formation on CT scan Acute respiratory failure requiring BiPAP and pulmonary critical care management now improved and off biPAP Diabetes mellitus Hypertension Hyperlipidemia Postop ileus improved had a BM but still hypoactive BS Plan: Maintain IV fluids Maintain Zosyn empirically Pain medication BiPAP prn Nebs Abdomen abscess management on CT per Dr Montero Will need physical therapy to ambulate once stable DVT prophylaxis per surgery protocol ZORA PARRY DO Jan 01, 2017 11:21
[2017-01-01] MEDS: PANTOPRAZOLE 40 MG/10 ML (PROTONIX) VIAL IV SCH (11:50)
--- NOTE | 2017-01-01 12:45 | Cardiology Progress Note ---
Subjective Date Seen by Provider: Jan 01, 2017 Time Seen by Provider: 12:42 Subjective/Events-last exam patient is laying down in bed, feeling better, had a bowel movement, still having some abdominal distention, denied any chest pain. Review of Systems General: No Chills, No Night Sweats, No Fatigue, No Malaise, No Appetite, No Other HEENT: No Head Aches, No Visual Changes, No Eye Pain, No Ear Pain, No Dysphasia , No Sinus Congestion, No Post Nasal Drip, No Sore Throat, No Other Pulmonary: No Dyspnea, No Cough, No Pleuritic Chest Pain, No Other Cardiovascular: No: Chest Pain, Edema, Lt Headedness, Orthopnea, Palpitations, Paroxysmal Noc. Dyspnea Gastrointestinal: Abdominal Pain, Constipation, Other (abdominal distention) Objective-Cardiology Exam Last Set of Vital Signs Vital Signs 01/01/17 01/01/17 01/01/17 05:30 07:41 11:00 Temp 99.2 Pulse 92 Resp 12 B/P (MAP) 130/90 Pulse Ox 97 O2 Delivery NIV Bilevel O2 Flow Rate 30.00 FiO2 60 Capillary Refill : Less Than 3 Seconds I&O Intake and Output 01/01/17 00:00 Intake Total 3115 ml Output Total 2680 ml Balance 435 ml Intake Oral 715 ml IV Total 2400 ml Output Urine Total 2425 ml Drainage Total 255 ml General: Alert, Oriented X3, Cooperative HEENT: Atraumatic, PERRLA Neck: Supple, No JVD, No Thyromegaly Lungs: Clear to Auscultation, Normal Air Movement Heart: Regular Rate, Normal S1, Normal S2, No Murmurs Abdomen: Other (distended abdomen with diminished bowel sounds) Extremities: No Clubbing, No Cyanosis, No Edema, Normal Pulses, No Tenderness/ Swelling Skin: No Rashes, No Breakdown, No Significant Lesion Neuro: Normal Speech, Normal Tone, Sensation Intact Psych/Mental Status: Mental Status NL, Mood NL Results Lab Laboratory Tests 01/01/17 03:26 A/P-Cardiology Admission Diagnosis Acute appendicitis with rupture HTN HLP DM Assessment/Plan Acute appendicitis with rupture-s/p appendectomy yesterday, recovering slowly, had a bowel movement today, status post paralytic ileus, improving, starting on liquid diet today, planning to change him to oral beta blockers tomorrow if doing well Status post acute respiratory failure, was on BiPAP, better at this time. Hypertension, started on Lopressor intravenously improved, I will keep him on IV Lopressor today, planning to change her story oral tomorrow. Hyperlipidemia, restart her statin once back on oral medication Diabetes mellitus, managed by primary care physician. Obesity- probable sleep apnea, recommend sleep study as outpatient. Clinical Quality Measures DVT/VTE Risk/Contraindication: Risk Factor Score Per Nursin RFS Level Per Nursing on Admit: 4+=Very High KALEE PANG MD Jan 01, 2017 12:45
--- NOTE | 2017-01-01 12:47 | Progress Note (SOAP) ---
Subjective Date Seen by Provider: Jan 01, 2017 Time Seen by Provider: 12:30 Subjective/Events-last exam Patient reports doing better. Had diarrhea BM this AM and passing gas. No N/V. No blood in stool. Bipap prn, on nasal cannula. Denies any SOB. Does have nonproductive cough. GRACIELA drain with clear SS drainage. Objective Exam Vital Signs Date Time Temp Pulse Resp B/P (MAP) Pulse Ox O2 Delivery O2 Flow Rate FiO2 01/01/17 11:00 92 12 130/90 97 NIV Bilevel 30.00 01/01/17 10:00 94 10 95 NIV Bilevel 30.00 01/01/17 09:00 90 11 144/95 98 NIV Bilevel 30.00 01/01/17 08:00 89 11 144/81 95 NIV Bilevel 30.00 01/01/17 07:41 116 94 60 01/01/17 07:02 95 Vapotherm 7.00 60 01/01/17 07:00 91 11 124/80 95 NIV Bilevel 30.00 01/01/17 07:00 92 01/01/17 06:41 94 Vapotherm 7.00 60 01/01/17 06:00 101 9 165/103 93 NIV Bilevel 30.00 01/01/17 05:30 99.2 01/01/17 05:00 95 17 141/86 93 NIV Bilevel 30.00 01/01/17 04:24 95 22 95 30.00 01/01/17 04:00 NIV Bilevel 30 01/01/17 04:00 93 26 129/78 94 NIV Bilevel 30.00 01/01/17 03:00 98 18 142/94 96 NIV Bilevel 30.00 01/01/17 02:49 101 20 98 30.00 01/01/17 02:30 99.5 01/01/17 02:00 98 18 149/87 94 NIV Bilevel 30.00 01/01/17 01:15 100.5 01/01/17 01:00 95 01/01/17 01:00 95 11 129/75 95 NIV Bilevel 30.00 01/01/17 00:00 113 150/79 93 NIV Bilevel 30.00 01/01/17 00:00 NIV Bilevel 30 01/01/17 00:00 101.7 NIV Bilevel 30.00 12/31/16 23:45 115 14 95 30.00 12/31/16 23:45 101.7 12/31/16 23:00 115 23 127/71 93 Vapotherm 60.00 7.00 12/31/16 22:00 106 14 147/80 93 Vapotherm 50.00 5.00 12/31/16 21:59 93 Vapotherm 5.00 50 12/31/16 21:00 103 20 145/86 93 Vapotherm 50.00 5.00 12/31/16 20:00 Vapotherm 5.00 50 12/31/16 20:00 101 132/71 93 Vapotherm 50.00 5.00 12/31/16 20:00 99.8 Vapotherm 5.00 12/31/16 19:00 105 12/31/16 19:00 106 131/110 93 Vapotherm 50.00 5.00 12/31/16 18:00 110 14 154/84 93 Vapotherm 50.00 5.00 12/31/16 17:00 113 17 149/86 91 Vapotherm 50.00 5.00 12/31/16 16:00 106 22 94 Vapotherm 50.00 5.00 12/31/16 15:40 Vapotherm 5.00 50 12/31/16 15:00 99.9 102 19 144/66 96 Vapotherm 50.00 5.00 12/31/16 14:27 95 Vapotherm 5.00 50 12/31/16 14:00 89 18 154/84 96 NIV Bilevel 30.00 12/31/16 13:00 91 18 137/87 NIV Bilevel 30.00 12/31/16 13:00 88 I & O 01/01/17 07:00 Intake Total 2515 ml Output Total 2685 ml Balance -170 ml Capillary Refill : Less Than 3 Seconds General Appearance: No Apparent Distress, WD/WN HEENT: PERRL/EOMI Neck: Full Range of Motion, Normal Inspection, Non Tender, Supple Respiratory: Chest Non Tender, No Accessory Muscle Use, No Respiratory Distress , Decreased Breath Sounds Cardiovascular: Regular Rate, Rhythm, No Murmur Gastrointestinal: normal bowel sounds (hypoactive), distended, tenderness ( Right side) Extremity: Normal Capillary Refill, Normal Inspection, Normal Range of Motion, Non Tender, No Calf Tenderness, No Pedal Edema Neurologic/Psychiatric: Alert, Oriented x3, Normal Mood/Affect Skin: Normal Color, Warm/Dry, Other (Laparoscopic incisions C/D/I.) Results Lab Laboratory Tests 12/31/16 12:50: Glucometer 188H 12/31/16 18:02: Glucometer 152H 01/01/17 00:10: Glucometer 173H 01/01/17 03:26: White Blood Count 7.5, Red Blood Count 3.74L, Hemoglobin 11.5L, Hematocrit 35L, Mean Corpuscular Volume 94, Mean Corpuscular Hemoglobin 31, Mean Corpuscular Hemoglobin Concent 33, Red Cell Distribution Width 13.7, Platelet Count 175, Mean Platelet Volume 10.1, Neutrophils (%) (Auto) 82H, Lymphocytes (%) (Auto) 10L, Monocytes (%) (Auto) 8, Eosinophils (%) (Auto) 0, Basophils (%) (Auto) 0, Neutrophils # (Auto) 6.1, Lymphocytes # (Auto) 0.7L, Monocytes # (Auto) 0.6, Eosinophils # (Auto) 0.0, Basophils # (Auto) 0.0, Sodium Level 141, Potassium Level 3.7, Chloride Level 108H, Carbon Dioxide Level 22, Anion Gap 11, Blood Urea Nitrogen 16, Creatinine 1.30, Estimat Glomerular Filtration Rate 55, BUN/ Creatinine Ratio 12, Glucose Level 173H, Calcium Level 8.4L, Phosphorus Level 1.8L, Magnesium Level 2.3, Total Bilirubin 1.4H, Aspartate Amino Transf (AST/ SGOT) 18, Alanine Aminotransferase (ALT/SGPT) 22, Alkaline Phosphatase 32L, Total Protein 6.1L, Albumin 3.2 01/01/17 05:20: Blood Gas Puncture Site RIGHT RADIAL, Blood Gas Patient Temperature 99.2, Arterial Blood pH 7.35L, Arterial Blood Partial Pressure CO2 45, Arterial Blood Partial Pressure O2 88, Arterial Blood HCO3 24, Arterial Blood Total CO2 25.2, Arterial Blood Oxygen Saturation 98, Arterial Blood Base Excess -1.0, Justin Test YES-POS, Blood Gas Ventilator Setting NO, Blood Gas Inspired Oxygen 30% 01/01/17 07:15: Lactic Acid Level 0.88 Microbiology 12/30/16 Blood Culture - Preliminary, Resulted No growth 12/30/16 MRSA Screen - Final, Complete MRSA not isolated Assessment/Plan Assessment/Plan Assess & Plan/Chief Complaint A 66 year old male who is S/P lap appy who developed respiratory distress. He developed a postop ileus that appears to be resolving. WBC normalized. VSS with elevated temp over night. Continue IV fluids, pain and nausea meds. IV Abx. Encourage Ambulation Continue respiratory support per pulmonology. A 8.6 cm fluid collection in the left side of the pelvis was noted on CT scan. Likely fluid collection vs. abscess. Will start clear liquid diet. MARTI macedo. Transfer to 4th floor. Clinical Quality Measures DVT/VTE Risk/Contraindication: Risk Factor Score Per Nursin RFS Level Per Nursing on Admit: 4+=Very High ERICK MARTINEZ PHYSICAL EDUCATION AIDE Jan 01, 2017 12:47
[2017-01-02] VITALS (7 sets, daily range): BP systolic 128–183; BP diastolic 70–101
[2017-01-02] MEDS: meTOprolol 5 MG/5 ML (LOPRESSOR) VIAL IV SCH ×2 (00:16→06:20)
[2017-01-02] MEDS: PIPERACILLIN/TAZOBACTAM 4.5 GM/NS100 ML IVPB IV SCH ×6 (00:17→17:08)
[2017-01-02] MEDS: inSUlin (REGULAR) HUMAN 1 UNIT/0.01 ML (CHARGE PER UNIT) SC SCH ×4 (00:19→21:05)
[2017-01-02] MEDS: RT-ALBUTEROL/IPRATROPIUM 3 ML (DUONEB) VIAL INH SCH ×5 (02:29→18:18)
[2017-01-02] MEDS: NS IV 1000 ML 1,000 ML IV SCH (03:46)
[2017-01-02 05:26] LABS: BASOPHILS % (AUTO) 0 % (0-10); EOSINOPHILS # (AUTO) 0.1 10^3/uL (0.0-0.3); EOSINOPHILS % (AUTO) 1 % (0-10); LYMPHOCYTES # (AUTO) 0.6 X 10^3 (1.0-4.0); LYMPHOCYTES % (AUTO) 7 % (12-44); MEAN CORPUSCULAR HEMOGLOBIN 30 PG (25-34); MEAN CORPUSCULAR HGB CONC 32 G/DL (32-36); MEAN CORPUSCULAR VOLUME 94 FL (80-99); MONOCYTES # (AUTO) 0.8 X 10^3 (0.0-1.0); MONOCYTES % (AUTO) 9 % (0-12); NEUTROPHILS # (AUTO) 6.9 X 10^3 (1.8-7.8); NEUTROPHILS % (AUTO) 83 % (42-75); PLATELET COUNT 189 10^3/uL (130-400); RED BLOOD COUNT 3.41 10^6/uL (4.35-5.85); RED CELL DISTRIBUTION WIDTH 13.5 % (10.0-14.5); WHITE BLOOD COUNT 8.3 10^3/uL (4.3-11.0)
[2017-01-02 05:51] LABS: ANION GAP 12 MMOL/L (5-14); BLOOD UREA NITROGEN 14 MG/DL (7-18); BUN/CREATININE RATIO 15; CALCIUM 8.4 MG/DL (8.5-10.1); CARBON DIOXIDE 21 MMOL/L (21-32); CHLORIDE 105 MMOL/L (98-107); CREATININE SERUM 0.95 MG/DL (0.60-1.30); GFR ESTIMATED > 60; GLUCOSE 159 MG/DL (70-105); MAGNESIUM 2.1 MG/DL (1.8-2.4); PHOSPHORUS 1.6 MG/DL (2.3-4.7); POTASSIUM 3.6 MMOL/L (3.6-5.0); SODIUM 138 MMOL/L (135-145)
[2017-01-02] MEDS: MAGNESIUM 1 GM/100 ML IVPB 100 ML IV SCH ×2 (05:59→21:07)
[2017-01-02] MEDS: POTASSIUM CL 10MEQ/50ML IVPB 50 ML IV SCH ×2 (05:59→21:07)
--- NOTE | 2017-01-02 08:42 | Diagnostic Imaging Report ---
INDICATION: Appendicitis. Comparison made with prior examination from 01/01/17. FINDINGS: There is mild cardiomegaly. Mediastinum is unremarkable. Lungs are clear. There is no pleural effusion or pneumothorax. IMPRESSION: No acute cardiopulmonary abnormality. Mild cardiomegaly. Dictated by: Dictated on workstation # [id number]
--- NOTE | 2017-01-02 08:59 | Progress Note-Hospitalist ---
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 He was actually in preparation for his relatives when the pain began in worsen to the point he reported to the emergency room found to have ruptured appendicitis and taken to surgery by Dr. Montero urgently and recovered up in the ICU but having respiratory failure prompting pulmonology critical care and cardiology consultations along with placement of BiPAP and IV fluid resuscitation along with antibiotics. Currently he reports his pain is controlled unless he coughs and he is currently tolerating the BiPAP well. His labs appear improved today but postop ileus is present distention noted and no bowel sounds are noted but otherwise patient appears to be improving although acidosis requires noninvasive ventilator support to be maintained currently. Progress Notes/Assess & Plan Date Seen 01/02/17 Time Seen by Provider: 08:30 Admission Dx/Process Assessment: Acute appendicitis with rupture with peritonitis empirically placed on Zosyn along with IV fluid resuscitation status post appendectomy uncomplicated by Dr. Montero POD # 1 Acute respiratory failure requiring BiPAP and pulmonary critical care management Diabetes mellitus Hypertension Hyperlipidemia Postop ileus Diagonsis/Assessment & Plan Pt off biPAP and doing well during day but uses it during the night. Maintained on Zosyn Coarse breath sounds improved today Had a BM but abdomen is very distended but noted bowel sounds although distant. AFVSS, pleasant, improved, O x 3 RRR coarse breath sounds all barrios are much improved today No edema Laboratory Tests 01/02/17 05:13 Assessment: Acute appendicitis with rupture with peritonitis empirically placed on Zosyn along with IV fluid resuscitation status post appendectomy uncomplicated by Dr. Montero POD # 3 doing well now Acute respiratory failure requiring BiPAP and pulmonary critical care management now improved and off biPAP and using only at night Diabetes mellitus Hypertension Hyperlipidemia Postop ileus improved had a BM but still hypoactive BS Plan: Maintain Zosyn empirically Pain medication BiPAP QHS Nebs QID DVT prophylaxis per surgery ZORA Sánchez DC, DO Jan 02, 2017 08:59
[2017-01-02] MEDS: PANTOPRAZOLE 40 MG/10 ML (PROTONIX) VIAL IV SCH (09:11)
--- NOTE | 2017-01-02 12:22 | Progress Note-Standard ---
Standard Progress Note Progress Notes/Assess & Plan Date Seen by Provider: Jan 02, 2017 Time Seen by Provider: 11:45 Progress/Assessment & Plan passing and is having liquid stools. Minimal output from the drain. Afebrile and white cell count is normal. Will advance diet and continue to observe. Final Diagnosis perforated appendicitis ELSA DINERO MD Jan 02, 2017 12:22 pm
[2017-01-02] MEDS ORDERED: LEVOTHYROXINE 100 MCG (LEVOTHROID) TAB PO SCH (12:31)
[2017-01-02] MEDS: oxyCODONE/APAP 5/325MG (PERCOCET 5) TABLET PO PRN (13:29)
[2017-01-02] MEDS: ENOXAPARIN 40 MG/0.4 ML (LOVENOX) SYR SC SCH (13:29)
--- NOTE | 2017-01-02 13:41 | Cardiology Progress Note ---
Subjective Date Seen by Provider: Jan 02, 2017 Time Seen by Provider: 13:39 Subjective/Events-last exam Patient is sitting on a chair, feeling better, having bowel movement, still having diarrhea and abdominal distention. Blood pressure still elevated. Started on Cardizem orally today Review of Systems General: No Chills, No Night Sweats, No Fatigue, No Malaise, No Appetite, No Other HEENT: No Head Aches, No Visual Changes, No Eye Pain, No Ear Pain, No Dysphasia , No Sinus Congestion, No Post Nasal Drip, No Sore Throat, No Other Pulmonary: No Dyspnea, No Cough, No Pleuritic Chest Pain, No Other Cardiovascular: No: Chest Pain, Edema, Lt Headedness, Orthopnea, Other, Palpitations, Paroxysmal Noc. Dyspnea Objective-Cardiology Exam Last Set of Vital Signs Vital Signs 01/01/17 07:41 FiO2 60 Capillary Refill : Less Than 3 Seconds I&O Intake and Output 01/02/17 00:00 Intake Total 300 ml Output Total 900 ml Balance -600 ml Intake Oral 300 ml Tube Feeding 0 ml Output Urine Total 850 ml Drainage Total 50 ml # Voids 2 General: Alert, Oriented X3, Cooperative HEENT: Atraumatic, PERRLA Neck: Supple, No JVD, No Thyromegaly Lungs: Clear to Auscultation, Normal Air Movement Heart: Regular Rate, Normal S1, Normal S2, No Murmurs Abdomen: Other (distended abdomen with diminished bowel sounds) Extremities: No Clubbing, No Cyanosis, No Edema, Normal Pulses, No Tenderness/ Swelling Skin: No Rashes, No Breakdown, No Significant Lesion Neuro: Normal Speech, Normal Tone, Sensation Intact Psych/Mental Status: Mental Status NL, Mood NL Results Lab Laboratory Tests 01/02/17 05:13 A/P-Cardiology Admission Diagnosis Acute appendicitis with rupture HTN HLP DM Assessment/Plan Acute appendicitis with rupture-s/p appendectomy, postop ileus, improving, managed by primary care physician Status post acute respiratory failure, was on BiPAP, better at this time, not requiring oxygen. Hypertension, started back on Cardizem orally and Lopressor was discontinued, monitor blood pressure Hyperlipidemia, restart her statin once back on oral medication Diabetes mellitus, managed by primary care physician. Obesity- probable sleep apnea, recommend sleep study as outpatient. Clinical Quality Measures DVT/VTE Risk/Contraindication: Risk Factor Score Per Nursin RFS Level Per Nursing on Admit: 4+=Very High KALEE PANG MD Jan 02, 2017 13:41
[2017-01-02] MEDS: DILTIAZEM SR 90 MG (CARDIZEM LA) PO SCH (20:02)
[2017-01-02] MEDS: SIMvastatin 40 MG (ZOCOR) TAB PO SCH (20:02)
[2017-01-03] VITALS (7 sets, daily range): BP systolic 135–168; BP diastolic 63–96
[2017-01-03] MEDS ORDERED: meTOprolol 5 MG/5 ML (LOPRESSOR) VIAL IV ONE (00:30)
[2017-01-03] MEDS: PIPERACILLIN/TAZOBACTAM 4.5 GM/NS100 ML IVPB IV SCH ×8 (00:40→23:30)
[2017-01-03] MEDS: oxyCODONE/APAP 5/325MG (PERCOCET 5) TABLET PO PRN (04:21)
[2017-01-03] MEDS: inSUlin (REGULAR) HUMAN 1 UNIT/0.01 ML (CHARGE PER UNIT) SC SCH ×4 (06:16→20:50)
[2017-01-03 06:31] LABS: BASOPHILS % (AUTO) 0 % (0-10); EOSINOPHILS # (AUTO) 0.3 10^3/uL (0.0-0.3); EOSINOPHILS % (AUTO) 3 % (0-10); LYMPHOCYTES # (AUTO) 0.7 X 10^3 (1.0-4.0); LYMPHOCYTES % (AUTO) 8 % (12-44); MEAN CORPUSCULAR HEMOGLOBIN 30 PG (25-34); MEAN CORPUSCULAR HGB CONC 32 G/DL (32-36); MEAN CORPUSCULAR VOLUME 93 FL (80-99); MEAN PLATELET VOLUME 10.1 FL (7.4-10.4); MONOCYTES # (AUTO) 1.1 X 10^3 (0.0-1.0); MONOCYTES % (AUTO) 12 % (0-12); NEUTROPHILS # (AUTO) 6.9 X 10^3 (1.8-7.8); NEUTROPHILS % (AUTO) 77 % (42-75); PLATELET COUNT 236 10^3/uL (130-400); RED BLOOD COUNT 3.54 10^6/uL (4.35-5.85); RED CELL DISTRIBUTION WIDTH 13.6 % (10.0-14.5)
[2017-01-03] MEDS: RT-ALBUTEROL/IPRATROPIUM 3 ML (DUONEB) VIAL INH SCH ×4 (06:41→18:56)
[2017-01-03 06:50] LABS: ANION GAP 12 MMOL/L (5-14); BLOOD UREA NITROGEN 13 MG/DL (7-18); BUN/CREATININE RATIO 16; CALCIUM 8.7 MG/DL (8.5-10.1); CARBON DIOXIDE 22 MMOL/L (21-32); CHLORIDE 104 MMOL/L (98-107); CREATININE SERUM 0.79 MG/DL (0.60-1.30); GFR ESTIMATED > 60; GLUCOSE 160 MG/DL (70-105); MAGNESIUM 2.1 MG/DL (1.8-2.4); POTASSIUM 3.5 MMOL/L (3.6-5.0); SODIUM 138 MMOL/L (135-145)
[2017-01-03] MEDS: DILTIAZEM 180 MG (CARDIZEM CD) CAP PO SCH (09:09)
[2017-01-03] MEDS: LEVOTHYROXINE 100 MCG (LEVOTHROID) TAB PO SCH (09:09)
--- NOTE | 2017-01-03 10:09 | Diagnostic Imaging Report ---
EXAMINATION: Portable erect AP chest at 5:17 AM. INDICATION: Postop appendectomy. FINDINGS: Heart size is within normal limits and stable when compared to 01/02/2017. The lungs remain generally clear. There is still no sign of failure, pneumonia or significant pleural effusion. The mediastinum is not widened. The osseous structures are intact. IMPRESSION: Stable chest. There has been no adverse change since the prior exam. Dictated by: Dictated on workstation # [id number]
--- NOTE | 2017-01-03 10:34 | Cardiology Progress Note ---
Subjective Date Seen by Provider: Jan 03, 2017 Time Seen by Provider: 10:32 Subjective/Events-last exam patient is laying down in bed, feeling better, less pain, still having abdominal distention. Review of Systems General: No Chills, No Night Sweats, No Fatigue, No Malaise, No Appetite, No Other HEENT: No Head Aches, No Visual Changes, No Eye Pain, No Ear Pain, No Dysphasia , No Sinus Congestion, No Post Nasal Drip, No Sore Throat, No Other Pulmonary: No Dyspnea, No Cough, No Pleuritic Chest Pain, No Other Cardiovascular: No: Chest Pain, Edema, Lt Headedness, Orthopnea, Other, Palpitations, Paroxysmal Noc. Dyspnea Objective-Cardiology Exam Last Set of Vital Signs Vital Signs 01/01/17 01/03/17 01/03/17 07:41 08:13 10:07 Temp 98.5 Pulse 76 Resp 18 B/P (MAP) 153/85 Pulse Ox 99 O2 Delivery Nasal Cannula O2 Flow Rate 1.00 FiO2 60 Capillary Refill : Less Than 3 SecondsLess Than 3 Seconds I&O Intake and Output 01/03/17 00:00 Intake Total 1540 ml Output Total 1255 ml Balance 285 ml Intake Oral 1440 ml IV Total 100 ml Urine/Stool Mix 1200 ml Drainage Total 55 ml # Voids 6 # Bowel Movements 3 General: Alert, Oriented X3, Cooperative HEENT: Atraumatic, PERRLA Neck: Supple, No JVD, No Thyromegaly Lungs: Clear to Auscultation, Normal Air Movement Heart: Regular Rate, Normal S1, Normal S2, No Murmurs Abdomen: Other (distended abdomen ) Extremities: No Clubbing, No Cyanosis, No Edema, Normal Pulses, No Tenderness/ Swelling Skin: No Rashes, No Breakdown, No Significant Lesion Neuro: Normal Speech, Normal Tone, Sensation Intact Psych/Mental Status: Mental Status NL, Mood NL Results Lab Laboratory Tests 01/03/17 06:15 A/P-Cardiology Admission Diagnosis Acute appendicitis with rupture HTN HLP DM Assessment/Plan Acute appendicitis with rupture-s/p appendectomy, postop ileus, improving, managed by primary care physician Status post acute respiratory failure, was on BiPAP, better at this time, not requiring oxygen. Hypertension, poorly controlled, add lisinopril and monitor blood pressure Hyperlipidemia, restart her statin once back on oral medication Diabetes mellitus, managed by primary care physician. Obesity- probable sleep apnea, recommend sleep study as outpatient. Clinical Quality Measures DVT/VTE Risk/Contraindication: Risk Factor Score Per Nursin RFS Level Per Nursing on Admit: 4+=Very High KALEE PANG MD Jan 03, 2017 10:34
[2017-01-03] MEDS: lisINopril 10 MG (PRINIVIL) TAB PO SCH (11:52)
--- NOTE | 2017-01-03 11:52 | Progress Note-Hospitalist ---
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 He was actually in preparation for his relatives when the pain began in worsen to the point he reported to the emergency room found to have ruptured appendicitis and taken to surgery by Dr. Montero urgently and recovered up in the ICU but having respiratory failure prompting pulmonology critical care and cardiology consultations along with placement of BiPAP and IV fluid resuscitation along with antibiotics. Currently he reports his pain is controlled unless he coughs and he is currently tolerating the BiPAP well. His labs appear improved today but postop ileus is present distention noted and no bowel sounds are noted but otherwise patient appears to be improving although acidosis requires noninvasive ventilator support to be maintained currently. Progress Notes/Assess & Plan Date Seen 01/03/17 Time Seen by Provider: 11:15 Admission Dx/Process Assessment: Acute appendicitis with rupture with peritonitis empirically placed on Zosyn along with IV fluid resuscitation status post appendectomy uncomplicated by Dr. Montero POD # 1 Acute respiratory failure requiring BiPAP and pulmonary critical care management Diabetes mellitus Hypertension Hyperlipidemia Postop ileus Diagonsis/Assessment & Plan Pt doing very well Using O2 now and will ambulate with O2 intact today Loose stools noted but no c-diff suspicion Pain is controlled Reviewed labs and CXR AFVSS, pleasant, improved, O x 3 RRR coarse breath sounds all barrios are much improved today No edema + BS Laboratory Tests 01/03/17 06:15 Assessment: Acute appendicitis with rupture with peritonitis empirically placed on Zosyn along with IV fluid resuscitation status post appendectomy uncomplicated by Dr. Montero POD # 4 doing well now Acute respiratory failure requiring BiPAP and pulmonary critical care management now improved and off biPAP and using O2 wean in process Diabetes mellitus adequately controlled Hypertension Hyperlipidemia Postop ileus improved having BM Plan: Maintain Zosyn empirically Pain medication O2 Nebs QID DVT prophylaxis per surgery protocol DC Tely if DC Lopressor IV ZORA PARRY DO Jan 03, 2017 11:52
[2017-01-03] MEDS: ENOXAPARIN 40 MG/0.4 ML (LOVENOX) SYR SC SCH (11:53)
--- NOTE | 2017-01-03 19:54 | Progress Note-Standard ---
Standard Progress Note Progress Notes/Assess & Plan Date Seen by Provider: Jan 03, 2017 Time Seen by Provider: 19:54 Progress/Assessment & Plan passing and is having liquid stools. Minimal output from the drain. Afebrile and white cell count is normal. Will advance diet and continue to observe. afebrile. Diarrhea continues. We will check for C. difficile. Appetite poor. Hypokalemia, will be replaced. Final Diagnosis perforated appendicitis. ELSA DINERO MD Jan 03, 2017 19:54
[2017-01-03] MEDS ORDERED: KCL 20 MEQ TAB (K-DUR) PO ONE (20:00)
[2017-01-03] MEDS: DILTIAZEM SR 90 MG (CARDIZEM LA) PO SCH (20:35)
[2017-01-03] MEDS: SIMvastatin 40 MG (ZOCOR) TAB PO SCH (20:36)
[2017-01-04] VITALS: BP 147/80
[2017-01-04 04:00] VITALS: BP 160/89
[2017-01-04] MEDS: inSUlin (REGULAR) HUMAN 1 UNIT/0.01 ML (CHARGE PER UNIT) SC SCH ×4 (05:47→20:54)
[2017-01-04] MEDS: LEVOTHYROXINE 100 MCG (LEVOTHROID) TAB PO SCH (05:47)
[2017-01-04 06:43] LABS: BASOPHILS # (AUTO) 0.1 10^3/uL (0.0-0.1); BASOPHILS % (AUTO) 1 % (0-10); EOSINOPHILS # (AUTO) 0.3 10^3/uL (0.0-0.3); EOSINOPHILS % (AUTO) 4 % (0-10); LYMPHOCYTES # (AUTO) 1.2 X 10^3 (1.0-4.0); LYMPHOCYTES % (AUTO) 13 % (12-44); MEAN CORPUSCULAR HEMOGLOBIN 31 PG (25-34); MEAN CORPUSCULAR HGB CONC 33 G/DL (32-36); MEAN CORPUSCULAR VOLUME 92 FL (80-99); MEAN PLATELET VOLUME 10.9 FL (7.4-10.4); MONOCYTES # (AUTO) 1.4 X 10^3 (0.0-1.0); MONOCYTES % (AUTO) 16 % (0-12); NEUTROPHILS # (AUTO) 5.9 X 10^3 (1.8-7.8); NEUTROPHILS % (AUTO) 66 % (42-75); PLATELET COUNT 240 10^3/uL (130-400); RED BLOOD COUNT 3.79 10^6/uL (4.35-5.85); RED CELL DISTRIBUTION WIDTH 13.7 % (10.0-14.5); WHITE BLOOD COUNT 8.9 10^3/uL (4.3-11.0)
[2017-01-04 07:09] LABS: ANION GAP 14 MMOL/L (5-14); BLOOD UREA NITROGEN 11 MG/DL (7-18); BUN/CREATININE RATIO 14; CALCIUM 9.1 MG/DL (8.5-10.1); CARBON DIOXIDE 18 MMOL/L (21-32); CHLORIDE 108 MMOL/L (98-107); GFR ESTIMATED > 60; GLUCOSE 130 MG/DL (70-105); MAGNESIUM 2.1 MG/DL (1.8-2.4); PHOSPHORUS 3.2 MG/DL (2.3-4.7); POTASSIUM 4.7 MMOL/L (3.6-5.0); SODIUM 140 MMOL/L (135-145)
--- NOTE | 2017-01-04 07:26 | Diagnostic Imaging Report ---
INDICATION: Postoperative change. EXAMINATION: Chest, 01/04/17. COMPARISON: 01/03/17. FINDINGS: The heart is prominent but stable. Pulmonary vasculature is unchanged from previous. No significant effusions are seen. There is no pneumothorax. Chronic change throughout the lungs. IMPRESSION: 1. Stable chest. Dictated by: Dictated on workstation # [id number]
[2017-01-04] MEDS: RT-ALBUTEROL/IPRATROPIUM 3 ML (DUONEB) VIAL INH SCH ×4 (07:37→19:01)
[2017-01-04 08:00] VITALS: BP 166/80
--- NOTE | 2017-01-04 08:16 | Pulmonary Progress Note ---
Subjective Time Seen by Provider: 08:19 Subjective/Events-last exam PT is doing much better. Exam Exam Vital Signs Date Time Temp Pulse Resp B/P (MAP) Pulse Ox O2 Delivery O2 Flow Rate FiO2 01/04/17 07:39 94 Room Air 01/04/17 04:00 98.0 65 20 160/89 99 Nasal Cannula 2.00 01/04/17 01:00 75 01/04/17 00:00 97.8 67 20 147/80 98 Nasal Cannula 2.00 01/03/17 23:59 96 Nasal Cannula 2.00 01/03/17 22:00 95 Room Air 01/03/17 20:55 84 94 01/03/17 20:30 Room Air 01/03/17 19:14 98.7 80 16 135/69 93 NIV Bilevel 01/03/17 19:00 77 01/03/17 18:56 94 Room Air 01/03/17 16:00 98.6 77 22 156/63 93 NIV Bilevel 01/03/17 15:00 94 Room Air 01/03/17 12:00 98.7 78 20 155/80 96 NIV Bilevel 01/03/17 10:07 99 Nasal Cannula 1.00 01/03/17 08:13 98.5 76 18 153/85 90 NIV Bilevel I & O 01/04/17 07:00 Intake Total 2940 ml Output Total 900 ml Balance 2040 ml General Appearance: No Apparent Distress, WD/WN HEENT: PERRL/EOMI Neck: Full Range of Motion, Normal Inspection, Non Tender, Supple Respiratory: Chest Non Tender, No Accessory Muscle Use, No Respiratory Distress , Decreased Breath Sounds Cardiovascular: Regular Rate, Rhythm, No Murmur Capillary Refill: Less Than 3 Seconds Gastrointestinal: normal bowel sounds (hypoactive), distended, tenderness ( Right side) Extremity: Normal Capillary Refill, Normal Inspection, Normal Range of Motion, Non Tender, No Calf Tenderness, No Pedal Edema Neurologic/Psychiatric: Alert, Oriented x3, Normal Mood/Affect Skin: Normal Color, Warm/Dry, Other (Laparoscopic incisions C/D/I.) Lymphatic: No Adenopathy Results Lab Laboratory Tests 01/03/17 06:15 01/04/17 06:15 Assessment/Plan Assessment/Plan Acute appendicitis with ruptured appendix s/p surgery -Pain control -Surgery following Acute respiratory failure -BiPAP 15/5 PRN -Monitor Obesity with probable BERTHA, nocturnal hypoxia -Pt needs PSG -- He will not be able to get home oxygen until he has a PSG in the lab. -Out patient testing 232 Clinical Quality Measures DVT/VTE Risk/Contraindication: Risk Factor Score Per Nursin RFS Level Per Nursing on Admit: 4+=Very High VJ BLANCO DO Jan 04, 2017 08:16
[2017-01-04] MEDS: DILTIAZEM 180 MG (CARDIZEM CD) CAP PO SCH (08:22)
[2017-01-04] MEDS: lisINopril 10 MG (PRINIVIL) TAB PO SCH (08:22)
[2017-01-04] MEDS: PIPERACILLIN/TAZOBACTAM 4.5 GM/NS100 ML IVPB IV SCH ×4 (08:23→16:37)
--- NOTE | 2017-01-04 08:30 | Cardiology Progress Note ---
Subjective Time Seen by Provider: 08:28 Subjective/Events-last exam Patient is in bed. No new complaints. Denies any CP. Complaining of some abdominal discomfort. Review of Systems General: No Chills, No Night Sweats, No Fatigue, No Malaise HEENT: No Visual Changes, No Dysphasia Pulmonary: No Dyspnea, No Cough Cardiovascular: No: Chest Pain, Orthopnea, Palpitations Gastrointestinal: Abdominal Pain, No: Nausea, Vomiting Genitourinary: No Dysuria, No Frequency Musculoskeletal: No: back pain, neck pain Neurological: No: Change in speech, Confusion, Numbness, Weakness Objective-Cardiology Exam Last Set of Vital Signs Vital Signs 01/01/17 01/04/17 07:41 08:00 Temp 99.4 Pulse 78 Resp 20 B/P (MAP) 166/80 Pulse Ox 97 O2 Delivery Nasal Cannula O2 Flow Rate 2.00 FiO2 60 Capillary Refill : Less Than 3 SecondsLess Than 3 Seconds I&O Intake and Output 01/04/17 00:00 Intake Total 2750 ml Output Total 1245 ml Balance 1505 ml Intake Oral 2550 ml IV Total 200 ml Output Urine Total 175 ml Urine/Stool Mix 1000 ml Drainage Total 70 ml # Voids 4 # Bowel Movements 6 General: Alert, Oriented X3, Cooperative HEENT: Atraumatic, PERRLA Neck: Supple, No JVD, No Thyromegaly Lungs: Clear to Auscultation, Normal Air Movement Heart: Regular Rate, Normal S1, Normal S2, No Murmurs Abdomen: Other (distended abdomen ) Extremities: No Clubbing, No Cyanosis, No Edema, Normal Pulses, No Tenderness/ Swelling Skin: No Rashes, No Breakdown, No Significant Lesion Neuro: Normal Speech, Normal Tone, Sensation Intact Psych/Mental Status: Mental Status NL, Mood NL Results Lab Laboratory Tests 01/04/17 06:15 A/P-Cardiology Admission Diagnosis Acute appendicitis with rupture HTN HLP DM Assessment/Plan Acute appendicitis with rupture-s/p appendectomy, postop ileus, improving, managed by primary care physician Status post acute respiratory failure, was on BiPAP, better at this time, not requiring oxygen. Hypertension, Lisinopril added yesterday. Continue to monitor blood pressure Hyperlipidemia,maintained on statin. Continue to monitor. Diabetes mellitus, managed by primary care physician. Obesity- probable sleep apnea, recommend sleep study as outpatient. Clinical Quality Measures DVT/VTE Risk/Contraindication: Risk Factor Score Per Nursin RFS Level Per Nursing on Admit: 4+=Very High UTE LORENZ Jan 04, 2017 08:30
--- NOTE | 2017-01-04 09:21 | Cardiology Progress Note ---
Subjective Date Seen by Provider: Jan 04, 2017 Time Seen by Provider: 09:15 Subjective/Events-last exam patient is laying down in bed, feeling better, still having some abdominal distention. Review of Systems General: No Chills, No Night Sweats, No Fatigue, No Malaise, No Appetite, No Other HEENT: No Head Aches, No Visual Changes, No Eye Pain, No Ear Pain, No Dysphasia , No Sinus Congestion, No Post Nasal Drip, No Sore Throat, No Other Pulmonary: No Dyspnea, No Cough, No Pleuritic Chest Pain, No Other Cardiovascular: No: Chest Pain, Edema, Lt Headedness, Orthopnea, Other, Palpitations, Paroxysmal Noc. Dyspnea Objective-Cardiology Exam Last Set of Vital Signs Vital Signs 01/01/17 01/04/17 07:41 08:00 Temp 99.4 Pulse 78 Resp 20 B/P (MAP) 166/80 Pulse Ox 97 O2 Delivery Nasal Cannula O2 Flow Rate 2.00 FiO2 60 Capillary Refill : Less Than 3 SecondsLess Than 3 Seconds I&O Intake and Output 01/04/17 00:00 Intake Total 2750 ml Output Total 1245 ml Balance 1505 ml Intake Oral 2550 ml IV Total 200 ml Output Urine Total 175 ml Urine/Stool Mix 1000 ml Drainage Total 70 ml # Voids 4 # Bowel Movements 6 General: Alert, Oriented X3, Cooperative HEENT: Atraumatic, PERRLA Neck: Supple, No JVD, No Thyromegaly Lungs: Clear to Auscultation, Normal Air Movement Heart: Regular Rate, Normal S1, Normal S2, No Murmurs Abdomen: Other (distended abdomen ) Extremities: No Clubbing, No Cyanosis, No Edema, Normal Pulses, No Tenderness/ Swelling Skin: No Rashes, No Breakdown, No Significant Lesion Neuro: Normal Speech, Normal Tone, Sensation Intact Psych/Mental Status: Mental Status NL, Mood NL Results Lab Laboratory Tests 01/04/17 06:15 A/P-Cardiology Admission Diagnosis Acute appendicitis with rupture HTN HLP DM Assessment/Plan Acute appendicitis with rupture-s/p appendectomy, postop ileus, improving, managed by primary care physician Status post acute respiratory failure, was on BiPAP, better at this time, not requiring oxygen. Hypertension, Lisinopril added yesterday. Continue to monitor blood pressure Hyperlipidemia,maintained on statin. Continue to monitor. Diabetes mellitus, managed by primary care physician. Obesity- probable sleep apnea, recommend sleep study as outpatient. Clinical Quality Measures DVT/VTE Risk/Contraindication: Risk Factor Score Per Nursin RFS Level Per Nursing on Admit: 4+=Very High KALEE PANG MD Jan 04, 2017 09:21
--- NOTE | 2017-01-04 09:42 | Physical Therapy Evaluation ---
PT Evaluation-General Medical Diagnosis Admission Date Dec 30, 2016 at 21:16 Medical Diagnosis: appendicitis Onset Date: Dec 30, 2016 Therapy Diagnosis Therapy Diagnosis: debility Height/Weight Height (Feet): 5 Height (Inches): 10.00 Weight (Pounds): 234 Weight (Ounces): 0.0 Precautions Precautions/Isolations: Fall Prevention, Standard Precautions Referral Physician: Alfred Reason for Referral: Evaluation/Treatment Medical History Pertinent Medical History: DM, HTN, Rheumatoid Arthritis Additional Medical History TKR prior Current History to ED with right lower quadrant pain Reviewed History: Yes Social History Home: Single Level Current Living Status: Spouse Prior/Core FIM Prior Level of Function Functional Mcintosh Measure 0=Not Assessed/NA 4=Minimal Assistance 1=Total Assistance 5=Supervision or Setup 2=Maximal Assistance 6=Modified Mcintosh 3=Moderate Assistance 7=Complete Mcintosh Bed Mobility: 7 Transfers (B,C,W/C) (FIM): 7 Gait: 7 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 He states he is up in his room independently. Pain Numeric Pain Scale: 5-Moderate Pain Location: Lower Location Body Site: Abdomen Pain Description: Pressure Objective Patient Orientation: Normal For Age Problem Solving: Good Attachments: IV ROM/Strength ROM Lower Extremities bilateral LE WNL Strenght Lower Extremities bilateral LE WNL Integumentary/Posture Integumentary refer to nursing notes Bowel Incontinence: No Bladder Incontinence: No Posture WNL Neuromuscular (Tone, Coordination, Reflexes) grossly intact Sensory Vision: Wears Glasses Hearing: Functional Sensation Right Lower Extremit: Impaired Sensation Left Lower Extremity: Impaired Transfers Functional Mcintosh Measure 0=Not Assessed/NA 4=Minimal Assistance 1=Total Assistance 5=Supervision or Setup 2=Maximal Assistance 6=Modified Mcintosh 3=Moderate Assistance 7=Complete Mcintosh Transfers (B, C, W/C) (FIM): 7 Scootin Sit to/from Stand: 7 Gait Mode of Locomotion: Walk Anticipated Mode of Locomotion: Walk Gait (FIM): 7 Distance (FIM): 3=150 ft Distance: 800' Gait Level of Assist: 7 Gait Assistive Device: None Comments/Gait Description safe and functional Balance Sitting Static: Normal Sitting Dynamic: Normal Standing Static: Normal Standing Dynamic: Normal Assessment/Needs 66 y.o. male, is currently at independent LOF with all gross motor skills and does not require skilled PT intervention at this time. Patient has been instructed to ambulate PRN in hallway independently to increase mobility. Rehab Potential: Good PT Plan Treatment/Plan Treatment Plan: Discontinue PT, goals met Treatment Plan: Education Treatment Duration: Jan 04, 2017 Frequency: 1 time per week Estimated Hrs Per Day: .25 hour per day Patient and/or Family Agrees t: Yes Discharge Recommendations Therapy D/C Recommendations: Home w/ Family Support Time/GCodes Time In: 825 Time Out: 840 Total Billed Treatment Time: 15 Total Billed Treatment 1 visit EVLowC 15 min G Codes Necessary: No DEMETRIUS LUND PT Jan 04, 2017 09:41
--- NOTE | 2017-01-04 09:51 | Progress Note-Hospitalist ---
Progress Note HPI/CC on Admission CC: Medical management following ruptured appendicitis with peritonitis and respiratory failure HPI: This is a 66-year-old white male of Dr. 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 He was actually in preparation for his relatives when the pain began in worsen to the point he reported to the emergency room found to have ruptured appendicitis and taken to surgery by Dr. Montero urgently and recovered up in the ICU but having respiratory failure prompting pulmonology critical care and cardiology consultations along with placement of BiPAP and IV fluid resuscitation along with antibiotics. Currently he reports his pain is controlled unless he coughs and he is currently tolerating the BiPAP well. His labs appear improved today but postop ileus is present distention noted and no bowel sounds are noted but otherwise patient appears to be improving although acidosis requires noninvasive ventilator support to be maintained currently. Progress Notes/Assess & Plan Date Seen 01/04/17 Time Seen by Provider: 09:15 Admission Dx/Process Assessment: Acute appendicitis with rupture with peritonitis empirically placed on Zosyn along with IV fluid resuscitation status post appendectomy uncomplicated by Dr. Montero POD # 1 Acute respiratory failure requiring BiPAP and pulmonary critical care management Diabetes mellitus Hypertension Hyperlipidemia Postop ileus Diagonsis/Assessment & Plan Pt doing well except diarrhea is significant. C diff negative. Needs home O2 evaluation and sleep study as outpatient Pain is controlled. Walking in halls. Checked meds and labs Added Lactinex and Questran. AFVSS, pleasant, improved, O x 3 RRR improved rales and coarse BS No edema + BS Laboratory Tests 01/04/17 06:15 Assessment: Acute appendicitis with rupture with peritonitis empirically placed on Zosyn along with IV fluid resuscitation status post appendectomy uncomplicated by Dr. Montero POD # 5 doing well now Acute respiratory failure requiring BiPAP and pulmonary critical care management now improved and off biPAP and using O2 wean in process Diabetes mellitus adequately controlled Hypertension Hyperlipidemia Postop ileus improved having BM now loose stools c diff negative Suspected BERTHA Hypoxia needs home O2 evaluation Plan: Maintain Zosyn empirically but add Questran and Lactinex Pain medication O2 Nebs QID DVT prophylaxis per surgery protocol Home O2 evaluation ZORA PARRY DO Jan 04, 2017 09:51
[2017-01-04] MEDS: CHOLESTYRAMINE 4 GM (QUESTRAN LITE, PREVALITE) PKT PO SCH ×3 (10:57→22:22)
[2017-01-04] MEDS: LACTOBACILLUS Acidoph/Bulgar (LACTINEX/FLORANEX) TAB PO SCH ×2 (11:49→16:37)
[2017-01-04 12:00] VITALS: BP 152/70
[2017-01-04] MEDS: ENOXAPARIN 40 MG/0.4 ML (LOVENOX) SYR SC SCH (14:27)
--- NOTE | 2017-01-04 15:03 | Progress Note-Standard ---
Standard Progress Note Progress Notes/Assess & Plan Date Seen by Provider: Jan 04, 2017 Time Seen by Provider: 15:03 Progress/Assessment & Plan passing and is having liquid stools. Minimal output from the drain. Afebrile and white cell count is normal. Will advance diet and continue to observe. afebrile. Diarrhea continues. We will check for C. difficile. Appetite poor. Hypokalemia, will be replaced. continues to improve. Clostridium difficile negative. Possible discharge in 24 hours. Final Diagnosis perforated appendicitis. ELSA DINERO MD Jan 04, 2017 3:03 pm
[2017-01-04 16:05] VITALS: BP 151/73
[2017-01-04 20:15] VITALS: BP 149/78
[2017-01-04] MEDS: DILTIAZEM SR 90 MG (CARDIZEM LA) PO SCH (20:54)
[2017-01-04] MEDS: SIMvastatin 40 MG (ZOCOR) TAB PO SCH (20:55)
[2017-01-05] VITALS: BP 158/82
[2017-01-05] MEDS: PIPERACILLIN/TAZOBACTAM 4.5 GM/NS100 ML IVPB IV SCH ×6 (00:15→16:19)
[2017-01-05 04:00] VITALS: BP 166/88
[2017-01-05] MEDS: LEVOTHYROXINE 100 MCG (LEVOTHROID) TAB PO SCH (05:45)
[2017-01-05] MEDS: LACTOBACILLUS Acidoph/Bulgar (LACTINEX/FLORANEX) TAB PO SCH ×3 (05:45→16:19)
[2017-01-05] MEDS: inSUlin (REGULAR) HUMAN 1 UNIT/0.01 ML (CHARGE PER UNIT) SC SCH ×3 (05:46→16:19)
[2017-01-05] MEDS: RT-ALBUTEROL/IPRATROPIUM 3 ML (DUONEB) VIAL INH SCH ×4 (07:11→19:39)
[2017-01-05 07:15] LABS: BASOPHILS # (AUTO) 0.1 10^3/uL (0.0-0.1); BASOPHILS % (AUTO) 1 % (0-10); EOSINOPHILS # (AUTO) 0.4 10^3/uL (0.0-0.3); EOSINOPHILS % (AUTO) 4 % (0-10); LYMPHOCYTES % (AUTO) 12 % (12-44); MEAN CORPUSCULAR HEMOGLOBIN 30 PG (25-34); MEAN CORPUSCULAR HGB CONC 32 G/DL (32-36); MEAN CORPUSCULAR VOLUME 93 FL (80-99); MEAN PLATELET VOLUME 9.8 FL (7.4-10.4); MONOCYTES # (AUTO) 1.2 X 10^3 (0.0-1.0); MONOCYTES % (AUTO) 15 % (0-12); NEUTROPHILS # (AUTO) 5.6 X 10^3 (1.8-7.8); NEUTROPHILS % (AUTO) 68 % (42-75); PLATELET COUNT 329 10^3/uL (130-400); RED BLOOD COUNT 3.87 10^6/uL (4.35-5.85); RED CELL DISTRIBUTION WIDTH 13.8 % (10.0-14.5); WHITE BLOOD COUNT 8.2 10^3/uL (4.3-11.0)
[2017-01-05 07:37] LABS: ANION GAP 10 MMOL/L (5-14); BLOOD UREA NITROGEN 6 MG/DL (7-18); BUN/CREATININE RATIO 7; CALCIUM 8.7 MG/DL (8.5-10.1); CARBON DIOXIDE 26 MMOL/L (21-32); CHLORIDE 104 MMOL/L (98-107); CREATININE SERUM 0.84 MG/DL (0.60-1.30); GFR ESTIMATED > 60; GLUCOSE 173 MG/DL (70-105); MAGNESIUM 1.8 MG/DL (1.8-2.4); PHOSPHORUS 3.2 MG/DL (2.3-4.7); POTASSIUM 3.3 MMOL/L (3.6-5.0); SODIUM 140 MMOL/L (135-145)
[2017-01-05 08:00] VITALS: BP 154/75
--- NOTE | 2017-01-05 08:49 | Cardiology Progress Note ---
Subjective Time Seen by Provider: 08:00 Subjective/Events-last exam Patient in bed, no new complaint. Denies any CP or dyspnea. Complains of abdominal bloating. Review of Systems General: No Night Sweats, No Fatigue, No Malaise HEENT: No Visual Changes, No Dysphasia, No Sore Throat Pulmonary: No Dyspnea, No Cough Cardiovascular: No: Chest Pain, Edema, Palpitations, Paroxysmal Noc. Dyspnea Gastrointestinal: Other (bloating), No: Abdominal Pain, Nausea, Vomiting Genitourinary: No Dysuria, No Frequency Musculoskeletal: No: back pain, neck pain Neurological: No: Numbness, Weakness Objective-Cardiology Exam Last Set of Vital Signs Vital Signs 01/01/17 01/05/17 01/05/17 07:41 04:00 07:11 Temp 98.9 Pulse 78 Resp 20 B/P (MAP) 166/88 Pulse Ox 96 O2 Delivery Nasal Cannula O2 Flow Rate 2.00 FiO2 60 Capillary Refill : Less Than 3 SecondsLess Than 3 Seconds I&O Intake and Output 01/04/17 23:59 Intake Total 2821 ml Output Total 775 ml Balance 2046 ml Intake Oral 2621 ml IV Total 200 ml Output Urine Total 625 ml Drainage Total 150 ml # Voids 13 # Bowel Movements 6 General: Alert, Oriented X3, Cooperative HEENT: Atraumatic, PERRLA Neck: Supple, No JVD, No Thyromegaly Lungs: Clear to Auscultation, Normal Air Movement Heart: Regular Rate, Normal S1, Normal S2, No Murmurs Abdomen: Other (distended abdomen ) Extremities: No Clubbing, No Cyanosis, No Edema, Normal Pulses, No Tenderness/ Swelling Skin: No Rashes, No Breakdown, No Significant Lesion Neuro: Normal Speech, Normal Tone, Sensation Intact Psych/Mental Status: Mental Status NL, Mood NL Results Lab Laboratory Tests 01/05/17 06:59 A/P-Cardiology Admission Diagnosis Acute appendicitis with rupture HTN HLP DM Assessment/Plan Acute appendicitis with rupture-s/p appendectomy, postop ileus, improving, managed by primary care physician Status post acute respiratory failure, was on BiPAP, better at this time, not requiring oxygen. Hypertension, poorly controlled. I will increase lisinopril to 20 mg. Discontinue Cardizem, start patient on Norvasc 10 mg daily. Continue to monitor. Hyperlipidemia,maintained on Zocor 40 mg daily. Will change management specialist to Lipitor secondary to interaction with Norvasc. Continue to monitor. Diabetes mellitus, managed by primary care physician. Obesity- probable sleep apnea, recommend sleep study as outpatient. Clinical Quality Measures DVT/VTE Risk/Contraindication: Risk Factor Score Per Nursin RFS Level Per Nursing on Admit: 4+=Very High UTE LORENZ Jan 05, 2017 08:49
--- NOTE | 2017-01-05 09:04 | Diagnostic Imaging Report ---
Portable erect AP chest at 5:12 AM. INDICATION: Postop. The heart size is within normal limits and stable when compared to 01/04/2017. The lungs remain generally clear. There is still no sign of failure, pneumonia, or a pleural effusion. Mediastinum is not widened. The osseous structures are intact. IMPRESSION: Stable chest. There has been no adverse change since the prior exam. Dictated by: Dictated on workstation # [id number]
[2017-01-05] MEDS ORDERED: lisINopril 20 MG (ZESTRIL) TAB PO SCH (09:29)
[2017-01-05] MEDS ORDERED: amLODIPine 10 MG (NORVASC) TAB PO SCH (09:30)
[2017-01-05] MEDS: CHOLESTYRAMINE 4 GM (QUESTRAN LITE, PREVALITE) PKT PO SCH ×2 (09:43→13:34)
[2017-01-05] MEDS ORDERED: ACID1TAB PO (09:56)
[2017-01-05] MEDS ORDERED: AMLO10TA2 PO (09:56)
[2017-01-05] MEDS ORDERED: CHOL4PAC3 PO (09:56)
[2017-01-05] MEDS ORDERED: OXYC-471 PO (09:56)
[2017-01-05] MEDS ORDERED: AMOX-355 PO (09:56)
[2017-01-05] MEDS ORDERED: LISI-552 PO (09:56)
--- NOTE | 2017-01-05 10:03 | Progress Note-Hospitalist ---
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 He was actually in preparation for his relatives when the pain began in worsen to the point he reported to the emergency room found to have ruptured appendicitis and taken to surgery by Dr. Montero urgently and recovered up in the ICU but having respiratory failure prompting pulmonology critical care and cardiology consultations along with placement of BiPAP and IV fluid resuscitation along with antibiotics. Currently he reports his pain is controlled unless he coughs and he is currently tolerating the BiPAP well. His labs appear improved today but postop ileus is present distention noted and no bowel sounds are noted but otherwise patient appears to be improving although acidosis requires noninvasive ventilator support to be maintained currently. Progress Notes/Assess & Plan Date Seen 01/05/17 Time Seen by Provider: 09:30 Admission Dx/Process Assessment: Acute appendicitis with rupture with peritonitis empirically placed on Zosyn along with IV fluid resuscitation status post appendectomy uncomplicated by Dr. Montero POD # 1 Acute respiratory failure requiring BiPAP and pulmonary critical care management Diabetes mellitus Hypertension Hyperlipidemia Postop ileus Diagonsis/Assessment & Plan Pt doing well and diarrhea is much improved with Questran and Lactinex. Home O2 evaluation deemed him not meeting criteria for home O2 but still needs sleep study as outpatient Pain is controlled. Not taking meds but will give a small supply to take at home Walking in halls and declines HH Checked meds and labs AFVSS, pleasant, improved, O x 3 RRR improved rales and coarse BS No edema + BS Assessment: Acute appendicitis with rupture with peritonitis empirically placed on Zosyn along with IV fluid resuscitation status post appendectomy uncomplicated by Dr. Montero POD # 6 doing well now and deemed stable for DC from medicine standpoint but decision for DC will be up to surgery Acute respiratory failure requiring BiPAP and pulmonary critical care management now improved and off biPAP and s/p using O2 but now off and does not need home O2 Diabetes mellitus adequately controlled restarting home meds Hypertension Hyperlipidemia Postop ileus improved having BM now loose stools c diff negative but improved on Questran and Lactinex Suspected BERTHA needs sleep study as outpt Plan: Augmentin, Questran and Lactinex at DC if ok with surgery Pain medication written O2 Nebs QID DVT prophylaxis per surgery protocol ZORA PARRY DO Jan 05, 2017 10:03
[2017-01-05] MEDS: ENOXAPARIN 40 MG/0.4 ML (LOVENOX) SYR SC SCH (13:34)
--- NOTE | 2017-01-05 15:25 | Cardiology Progress Note ---
Subjective Date Seen by Provider: Jan 05, 2017 Time Seen by Provider: 15:23 Subjective/Events-last exam Patient is in bed, feeling better, no new complaint, blood pressure is still elevated Objective-Cardiology Exam Last Set of Vital Signs Vital Signs 01/01/17 01/05/17 01/05/17 01/05/17 07:41 07:11 08:00 10:50 Temp 98.7 Pulse 74 Resp 20 B/P (MAP) 154/75 Pulse Ox 95 O2 Delivery Room Air O2 Flow Rate 2.00 FiO2 60 Capillary Refill : Less Than 3 SecondsLess Than 3 Seconds I&O Intake and Output 01/05/17 00:00 Intake Total 2821 ml Output Total 775 ml Balance 2046 ml Intake Oral 2621 ml IV Total 200 ml Output Urine Total 625 ml Drainage Total 150 ml # Voids 13 # Bowel Movements 6 General: Alert, Oriented X3, Cooperative HEENT: Atraumatic, PERRLA Neck: Supple, No JVD, No Thyromegaly Lungs: Clear to Auscultation, Normal Air Movement Heart: Regular Rate, Normal S1, Normal S2, No Murmurs Abdomen: Other (distended abdomen ) Extremities: No Clubbing, No Cyanosis, No Edema, Normal Pulses, No Tenderness/ Swelling Skin: No Rashes, No Breakdown, No Significant Lesion Neuro: Normal Speech, Normal Tone, Sensation Intact Psych/Mental Status: Mental Status NL, Mood NL Results Lab Laboratory Tests 01/05/17 06:59 A/P-Cardiology Admission Diagnosis Acute appendicitis with rupture HTN HLP DM Assessment/Plan Acute appendicitis with rupture-s/p appendectomy, postop ileus, improving, managed by primary care physician Status post acute respiratory failure, was on BiPAP, better at this time, not requiring oxygen. Hypertension, poorly controlled. I will increase lisinopril to 20 mg. Discontinue Cardizem, start patient on Norvasc 10 mg daily. Continue to monitor. Hyperlipidemia,maintained on Zocor 40 mg daily. 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 Continue to monitor. Diabetes mellitus, managed by primary care physician. Obesity- probable sleep apnea, recommend sleep study as outpatient. Clinical Quality Measures DVT/VTE Risk/Contraindication: Risk Factor Score Per Nursin RFS Level Per Nursing on Admit: 4+=Very High KALEE PANG MD Jan 05, 2017 15:25
[2017-01-05 16:00] VITALS: BP 145/74
--- NOTE | 2017-01-05 17:48 | Discharge Inst-Surgical ---
D/C Lap Instructions-KIDO New, Converted, or Re-Newed RX: RX on Chart Follow Up Appt on Wednesday. Activity as tolerated No driving while on pain medications Incentive Spirometry use every 2 hours while awake Regular Diet Symptoms to Report: Fever over 101 degree F, Nausea/Vomiting Infection Signs and Symptoms to report: Increased redness, Foul odor of wound, Increased drainage Bathing instructions: May shower Operative Area Clean/Dry; Keep incision clean/dry If any problems/questions: Contact your physician or go to Emergency Room ERICK MARTINEZ APRN Jan 05, 2017 5:48 pm
[2017-01-05 19:51] VITALS: BP 145/74
[2017-01-05] MEDS ORDERED: ATORVASTATIN 20 MG (LIPITOR) TABLET PO SCH (21:00)
--- NOTE | 2017-01-06 09:28 | Progress Note (SOAP) ---
Subjective Date Seen by Provider: Jan 05, 2017 Time Seen by Provider: 17:35 Subjective/Events-last exam Patient reports doing well. Having loose stools and passing gas. Tolerating diet with no N/V. On RA. No fever/chills. Minimal abdominal tenderness. GRACIELA drain with SS drainage. Ambulating without difficulty. Objective Exam Vital Signs Date Time Temp Pulse Resp B/P (MAP) Pulse Ox O2 Delivery O2 Flow Rate FiO2 01/05/17 19:51 84 20 145/74 93 Room Air 01/05/17 19:39 93 Room Air 01/05/17 16:01 93 Room Air 01/05/17 16:00 99.1 84 20 145/74 95 Room Air 01/05/17 10:50 95 Room Air Capillary Refill : Less Than 3 SecondsLess Than 3 Seconds General Appearance: No Apparent Distress, WD/WN HEENT: PERRL/EOMI Neck: Full Range of Motion, Normal Inspection, Non Tender, Supple Respiratory: Lungs Clear, Normal Breath Sounds, No Accessory Muscle Use, No Respiratory Distress Cardiovascular: Regular Rate, Rhythm Gastrointestinal: normal bowel sounds, soft, distended (improving), tenderness Extremity: Normal Capillary Refill, Normal Inspection, Normal Range of Motion, Non Tender, No Calf Tenderness, No Pedal Edema Neurologic/Psychiatric: Alert, Oriented x3, Normal Mood/Affect Skin: Normal Color, Warm/Dry Results Lab Laboratory Tests 01/05/17 11:17: Glucometer 167H 01/05/17 15:26: Glucometer 175H Microbiology 01/01/17 Blood Culture - Preliminary, Resulted No growth 01/03/17 C. difficile GDH Antigen & Toxins - Final, Complete 12/30/16 MRSA Screen - Final, Complete MRSA not isolated Assessment/Plan Assessment/Plan Assess & Plan/Chief Complaint A 66 year old male who is S/P lap appy who developed respiratory distress. He developed a postop ileus that has resolved. WBC normalized. VSS. Will DC home with pain and abx meds as well as meds per internal medicine. Clinical Quality Measures DVT/VTE Risk/Contraindication: Risk Factor Score Per Nursin RFS Level Per Nursing on Admit: 4+=Very High ERICK MARTINEZ APRN Jan 06, 2017 09:28
--- NOTE | 2017-01-21 06:46 | DISCHARGE SUMMARY ---
DATE OF SERVICE: ATTENDING PRIMARY CARE PHYSICIAN: Wale Hardin MD ADMISSION DIAGNOSIS: Acute perforated appendicitis. DISCHARGE DIAGNOSES: Acute perforated appendicitis, respiratory failure, hypertension, postoperative ileus. ADDITIONAL DIAGNOSES: Hypertension, hypercholesterolemia, rheumatoid arthritis, non-insulin dependent diabetes, hypothyroid. PRINCIPAL PROCEDURE: Laparoscopic appendectomy. No complications. DISPOSITION: Home in stable condition. INDICATIONS: The patient is a 66-year-old male who we have seen before in the past for an umbilical hernia repair. He developed pain along the right lateral abdomen, which became more localized towards right lower abdominal quadrant. He also developed fevers and chills at home. He had reported that the pain had been occurring for approximately four to five days. In the Emergency Department, a CT scan was performed, which showed signs and symptoms of appendicitis as well as appendiceal rupture. He also had a leukocytosis as well as physical signs of appendicitis. PAST MEDICAL HISTORY: Hypercholesterolemia, hypertension, rheumatoid arthritis, non-insulin dependent diabetes, hypothyroid. PAST SURGERIES: Laparoscopic umbilical hernia repair in 2010, recurrent umbilical hernia repair in 2012, pilonidal cystectomy in 2006, traumatic third and fourth finger amputation in 1972. ALLERGIES: No known drug allergies. MEDICATIONS: Citalopram 10 mg daily, simvastatin 40 mg daily, levothyroxine daily, metformin 500 mg daily, diltiazem 100 mg daily, methotrexate 2.5 mg weekly, iron 27 mg daily, fish oil 1200 mg q.i.d., vitamin D daily. SOCIAL HISTORY: Occasional pipe smoke. Negative alcohol. FAMILY HISTORY: Mother, diabetes, myocardial infarction. Father, prostate cancer. On 12/30/2016, he underwent a diagnostic laparoscopy and found to have a ruptured appendicitis, however, localized. He then underwent a laparoscopic appendectomy. A 19-Iraqi Abhijeet-Parker drain was placed as well. Postoperatively in recovery, he did have hypertension as well as respiratory failure requiring a BiPAP. Internal medicine as well as cardiology, and pulmonology were also consulted. He was started on Lopressor IV for hypertension control, which was effective. He was also again started on BiPAP, which did help with his respiratory status and adequate oxygenation. He is continuing to improve; however, did have abdominal distention and did not have any bowel function consistent with postoperative ileus. He was continued on IV fluids as well as IV antibiotics. Over time with ambulation, he was able to develop bowel function initiated with flatus and then small bowel movements. He also had decreased abdominal distention. He was started on clear liquid diet and advance as tolerated. His white count also normalized overtime. He also had adequate blood pressure control with oral Cardizem and adequate baseline respiratory status. He was discharged home on 01/05/2017. HOME GOING INSTRUCTIONS: Diet as tolerated. Resume normal activities; however, no heavy lifting or exertion for the next two weeks. He is to record drainage output. Medications, resume previous home medications Augmentin 875 mg p.o. b.i.d. for 7 days. He is instructed to follow up in the office in approximately one week. Job ID: [id number] DocumentID: [id number] Dictated Date: 01/20/2017 17:36:44 Meat Boner Date: 01/21/2017 05:05:15 Dictated By: GAVINO DOWNING MD
== END 2017-01-05 19:57 | disposition home or self-care (01) | DRG 853 ==
LOC: EDUNIT# 08:59 → ER 09:01 → SDC 12:21 → ICU 19:28 → 4TH 01-01 14:45
PROVIDERS: ADMIT Internal Medicine; ATTEND Surgery
PROC: 0DTJ4ZZ Resection of Appendix, Percutaneous Endoscopic Approach (ICD-10-PCS; principal; 2016-12-28)
DX: A41.9 Sepsis, unspecified organism (principal); R65.20 Severe sepsis without septic shock; J96.00 Acute respiratory failure, unspecified whether with hypoxia or hypercapnia; K35.2 Acute appendicitis with generalized peritonitis; K56.7 Ileus, unspecified; R19.7 Diarrhea, unspecified; I10 Essential (primary) hypertension; E11.9 Type 2 diabetes mellitus without complications; E03.9 Hypothyroidism, unspecified; E78.00 Pure hypercholesterolemia, unspecified; M06.9 Rheumatoid arthritis, unspecified; E66.9 Obesity, unspecified; E78.5 Hyperlipidemia, unspecified; G47.33 Obstructive sleep apnea (adult) (pediatric); E87.6 Hypokalemia; Z68.33 Body mass index [BMI] 33.0-33.9, adult; Z79.84 Long term (current) use of oral hypoglycemic drugs
CPT/HCPCS: 36415; 71010; 71275; 74177; 80048; 80053; 81000; 82805; 82962; 83605; 83735; 83880; 84100; 85007; 85025; 85027; 87040; 87081; 87324; 87449; 88304; 93970; 94640; 94660; 94760; 94761; 96361; 96365

== ENCOUNTER → 2017-01-11 | Outpatient (CLI) | payer OTHER ==
[~2017-01-11] MED LIST changes: +ACID1TAB PO; +AMLO10TA2 PO; +AMOX-355 PO; +CHOL4PAC3 PO; +CHOL5000 PO; +CITA10TA7 PO; +DLT90CCR PO; +FENO160T12 PO; +FOLI1TAB24 PO; +GLYB5TAB6 PO; +LEVO200T PO; +LEVO25TA2 PO; +LISI-552 PO; +METF1000 PO; +METH2.5T PO; +OMEG-109 PO; +OXYC-471 PO; +SITA100T12 PO
[2017-01-11 09:52] LABS: MEAN PLATELET VOLUME 9.6 FL (7.4-10.4); RED BLOOD COUNT 4.57 10^6/uL (4.35-5.85); RED CELL DISTRIBUTION WIDTH 13.8 % (10.0-14.5); WHITE BLOOD COUNT 13.2 10^3/uL (4.3-11.0)
[2017-01-11 10:14] LABS: ALANINE AMINOTRANSFERASE 26 U/L (0-55); ALBUMIN 4.1 GM/DL (3.2-4.5); ANION GAP 9 MMOL/L (5-14); ASPARTATE AMINO TRANSFERASE 34 U/L (5-34); BILIRUBIN,TOTAL 0.8 MG/DL (0.1-1.0); BLOOD UREA NITROGEN 13 MG/DL (7-18); BUN/CREATININE RATIO 12; CALCIUM 9.8 MG/DL (8.5-10.1); CARBON DIOXIDE 27 MMOL/L (21-32); CHLORIDE 100 MMOL/L (98-107); CHOLESTEROL 98 MG/DL (< 200); DIRECT LDL 61 MG/DL (1-129); GFR ESTIMATED > 60; GLUCOSE 124 MG/DL (70-105); POTASSIUM 4.8 MMOL/L (3.6-5.0); SODIUM 136 MMOL/L (135-145); TOTAL PROTEIN 7.2 GM/DL (6.4-8.2); TRIGLYCERIDES 165 MG/DL (<150); VLDL CHOLESTEROL 33 MG/DL (5-40); hs C REACTIVE PROTEIN 0.71 MG/DL (0.00-0.50)
== END ==
LOC: LAB 09:24
PROVIDERS: ATTEND Allergy & Immunology
DX: M05.79 Rheumatoid arthritis with rheumatoid factor of multiple sites without organ or systems involvement (principal); E03.9 Hypothyroidism, unspecified; E78.2 Mixed hyperlipidemia; Z79.899 Other long term (current) drug therapy
CPT/HCPCS: 36415; 80053; 80061; 84439; 84443; 85027; 85652; 86141

== ENCOUNTER → 2017-01-11 | Outpatient (CLI) | payer OTHER ==
[2017-01-11 10:11] LABS: ALANINE AMINOTRANSFERASE 26 U/L (0-55); ANION GAP 11 MMOL/L (5-14); ASPARTATE AMINO TRANSFERASE 33 U/L (5-34); BILIRUBIN,TOTAL 0.8 MG/DL (0.1-1.0); BLOOD UREA NITROGEN 13 MG/DL (7-18); BUN/CREATININE RATIO 12; CALCIUM 9.8 MG/DL (8.5-10.1); CARBON DIOXIDE 25 MMOL/L (21-32); CHLORIDE 100 MMOL/L (98-107); CHOLESTEROL 94 MG/DL (< 200); CREATININE SERUM 1.11 MG/DL (0.60-1.30); DIRECT LDL 59 MG/DL (1-129); GFR ESTIMATED > 60; GLUCOSE 124 MG/DL (70-105); POTASSIUM 4.6 MMOL/L (3.6-5.0); SODIUM 136 MMOL/L (135-145); TOTAL PROTEIN 7.7 GM/DL (6.4-8.2); TRIGLYCERIDES 161 MG/DL (<150); VLDL CHOLESTEROL 32 MG/DL (5-40)
[2017-01-11 10:33] LABS: THYROID STIMULATING HORMONE 14.49 UIU/ML (0.35-4.94)
== END ==
LOC: LAB 09:18
PROVIDERS: ATTEND Family Medicine
DX: E11.9 Type 2 diabetes mellitus without complications (principal); E03.9 Hypothyroidism, unspecified; E78.00 Pure hypercholesterolemia, unspecified
CPT/HCPCS: 80053; 80061; 83036; 84443

== ENCOUNTER 2017-02-01 20:45 | Outpatient (CLI) | payer OTHER | END 2017-02-02 06:26 | disposition home or self-care (01) | LOC: SLEEP 20:45 | PROVIDERS: ATTEND Internal Medicine Critical Care Medicine | DX: G47.33 Obstructive sleep apnea (adult) (pediatric) (principal); I10 Essential (primary) hypertension | CPT/HCPCS: 95810 ==

== ENCOUNTER → 2017-02-05 | Outpatient (CLI) | payer OTHER ==
[~2017-02-05] MED LIST changes: +RT-ALBUTEROL SULF 2.5 MG/3 ML PRE-MIX VIAL IH ONE
== END ==
LOC: RT 11:37
PROVIDERS: ATTEND Nurse Practitioner Family
DX: J96.90 Respiratory failure, unspecified, unspecified whether with hypoxia or hypercapnia (principal)
CPT/HCPCS: 94060; 94640; 94726; 94729

== ENCOUNTER → 2017-05-03 | Outpatient (CLI) | payer OTHER ==
[~2017-05-03] MED LIST changes: -RT-ALBUTEROL SULF 2.5 MG/3 ML PRE-MIX VIAL IH ONE
[2017-05-03 08:14] LABS: HEMOGLOBIN 12.7 G/DL (13.3-17.7); MEAN PLATELET VOLUME 10.2 FL (7.4-10.4); RED BLOOD COUNT 4.16 10^6/uL (4.35-5.85); RED CELL DISTRIBUTION WIDTH 12.8 % (10.0-14.5); WHITE BLOOD COUNT 5.2 10^3/uL (4.3-11.0)
[2017-05-03 08:32] LABS: ALANINE AMINOTRANSFERASE 36 U/L (0-55); ALBUMIN 4.4 GM/DL (3.2-4.5); ALKALINE PHOSPHATASE 49 U/L (40-136); BILIRUBIN,TOTAL 0.4 MG/DL (0.1-1.0); BUN/CREATININE RATIO 16; CALCIUM 9.5 MG/DL (8.5-10.1); CARBON DIOXIDE 26 MMOL/L (21-32); CHLORIDE 106 MMOL/L (98-107); CHOLESTEROL 118 MG/DL (< 200); CREATININE SERUM 1.06 MG/DL (0.60-1.30); GFR ESTIMATED > 60; GLUCOSE 149 MG/DL (70-105); HDL CHOLESTEROL 38 MG/DL (40-60); POTASSIUM 4.3 MMOL/L (3.6-5.0); SODIUM 139 MMOL/L (135-145); TOTAL PROTEIN 7.2 GM/DL (6.4-8.2); TRIGLYCERIDES 93 MG/DL (<150); VLDL CHOLESTEROL 19 MG/DL (5-40)
== END ==
LOC: LAB 07:55
PROVIDERS: ATTEND Family Medicine
DX: E03.9 Hypothyroidism, unspecified (principal); E11.9 Type 2 diabetes mellitus without complications
CPT/HCPCS: 36415; 80053; 80061; 82043; 83036; 84443; 85027; 86141

== ENCOUNTER → 2017-07-26 | Outpatient (CLI) | payer OTHER ==
[2017-07-26 08:35] LABS: HEMOGLOBIN 14.5 G/DL (13.3-17.7); MEAN PLATELET VOLUME 10.2 FL (7.4-10.4); RED BLOOD COUNT 4.78 10^6/uL (4.35-5.85); RED CELL DISTRIBUTION WIDTH 13.3 % (10.0-14.5); WHITE BLOOD COUNT 6.7 10^3/uL (4.3-11.0)
[2017-07-26 08:55] LABS: ALBUMIN 4.7 GM/DL (3.2-4.5); BILIRUBIN,TOTAL 0.9 MG/DL (0.1-1.0); CREATININE SERUM 1.29 MG/DL (0.60-1.30); POTASSIUM 4.4 MMOL/L (3.6-5.0); TOTAL PROTEIN 7.6 GM/DL (6.4-8.2)
[2017-07-26 09:20] LABS: FREE T4 (FREE THYROXINE) 1.44 NG/DL (0.70-1.48)
== END ==
LOC: LAB 08:15
PROVIDERS: ATTEND Allergy & Immunology
DX: E03.9 Hypothyroidism, unspecified (principal); Z79.899 Other long term (current) drug therapy
CPT/HCPCS: 36415; 80053; 84439; 84443; 85027; 85652; 86141

== ENCOUNTER → 2017-07-26 | Outpatient (CLI) | payer OTHER ==
[2017-07-26 08:37] LABS: HEMOGLOBIN 14.5 G/DL (13.3-17.7); MEAN PLATELET VOLUME 10.2 FL (7.4-10.4); RED BLOOD COUNT 4.78 10^6/uL (4.35-5.85); RED CELL DISTRIBUTION WIDTH 13.3 % (10.0-14.5); WHITE BLOOD COUNT 6.7 10^3/uL (4.3-11.0)
[2017-07-26 08:57] LABS: ALBUMIN 4.7 GM/DL (3.2-4.5); BILIRUBIN,TOTAL 0.9 MG/DL (0.1-1.0); CALCIUM 10.2 MG/DL (8.5-10.1); CREATININE SERUM 1.3 MG/DL (0.60-1.30); POTASSIUM 4.5 MMOL/L (3.6-5.0); TOTAL PROTEIN 7.5 GM/DL (6.4-8.2)
== END ==
LOC: LAB 08:18
PROVIDERS: ATTEND Family Medicine
DX: E11.9 Type 2 diabetes mellitus without complications (principal); E03.9 Hypothyroidism, unspecified; E78.00 Pure hypercholesterolemia, unspecified; M06.9 Rheumatoid arthritis, unspecified
CPT/HCPCS: 36415; 80053; 80061; 82043; 83036; 84443; 85027

== ENCOUNTER → 2017-11-01 | Outpatient (CLI) | payer OTHER ==
[~2017-11-01] MED LIST changes: -METF1000 PO; +METF10002 PO
[2017-11-01 08:25] LABS: RED BLOOD COUNT 4.62 10^6/uL (4.35-5.85); RED CELL DISTRIBUTION WIDTH 13.8 % (10.0-14.5); WHITE BLOOD COUNT 6.5 10^3/uL (4.3-11.0)
[2017-11-01 08:44] LABS: ALANINE AMINOTRANSFERASE 30 U/L (0-55); ALBUMIN 4.8 GM/DL (3.2-4.5); ALKALINE PHOSPHATASE 59 U/L (40-136); BILIRUBIN,TOTAL 0.6 MG/DL (0.1-1.0); BUN/CREATININE RATIO 16; CALCIUM 10.1 MG/DL (8.5-10.1); CARBON DIOXIDE 22 MMOL/L (21-32); CHLORIDE 103 MMOL/L (98-107); CREATININE SERUM 1.18 MG/DL (0.60-1.30); GFR ESTIMATED > 60; GLUCOSE 191 MG/DL (70-105); POTASSIUM 4.6 MMOL/L (3.6-5.0); SODIUM 136 MMOL/L (135-145); TOTAL PROTEIN 7.7 GM/DL (6.4-8.2)
[2017-11-01 09:06] LABS: FREE T4 (FREE THYROXINE) 1.03 NG/DL (0.70-1.48)
== END ==
LOC: LAB 08:08
PROVIDERS: ATTEND Allergy & Immunology
DX: E03.9 Hypothyroidism, unspecified (principal); Z79.899 Other long term (current) drug therapy
CPT/HCPCS: 36415; 80053; 84439; 84443; 85027; 85652; 86141

== ENCOUNTER → 2017-11-01 | Outpatient (CLI) | payer OTHER ==
[2017-11-01 08:28] LABS: RED BLOOD COUNT 4.62 10^6/uL (4.35-5.85); RED CELL DISTRIBUTION WIDTH 13.8 % (10.0-14.5); WHITE BLOOD COUNT 6.5 10^3/uL (4.3-11.0)
[2017-11-01 09:14] LABS: BUN/CREATININE RATIO 16; CARBON DIOXIDE 22 MMOL/L (21-32); CHLORIDE 103 MMOL/L (98-107); CREATININE SERUM 1.18 MG/DL (0.60-1.30); GFR ESTIMATED > 60; GLUCOSE 191 MG/DL (70-105); POTASSIUM 4.6 MMOL/L (3.6-5.0); SODIUM 136 MMOL/L (135-145)
[2017-11-01 09:16] LABS: ALANINE AMINOTRANSFERASE 30 U/L (0-55); ALBUMIN 4.8 GM/DL (3.2-4.5); ALKALINE PHOSPHATASE 59 U/L (40-136); BILIRUBIN,TOTAL 0.6 MG/DL (0.1-1.0); CALCIUM 10.1 MG/DL (8.5-10.1); TOTAL PROTEIN 7.7 GM/DL (6.4-8.2)
[2017-11-01 09:18] LABS: CHOLESTEROL 137 MG/DL (< 200); HDL CHOLESTEROL 35 MG/DL (40-60); TRIGLYCERIDES 158 MG/DL (<150); VLDL CHOLESTEROL 32 MG/DL (5-40)
== END ==
LOC: LAB 08:02
PROVIDERS: ATTEND Family Medicine
DX: E78.5 Hyperlipidemia, unspecified (principal); E11.9 Type 2 diabetes mellitus without complications; E03.9 Hypothyroidism, unspecified
CPT/HCPCS: 80053; 80061; 83036; 84443

== ENCOUNTER → 2018-02-07 | Outpatient (CLI) | payer OTHER ==
[~2018-02-07] MED LIST changes: -AMLO10TA2 PO; +AMLO10TA6 PO; +METF-399 PO; -METF10002 PO; -METH2.5T PO
[2018-02-07 08:03] LABS: BASOPHILS % (AUTO) 0 % (0-10); EOSINOPHILS # (AUTO) 0.2 10^3/uL (0.0-0.3); EOSINOPHILS % (AUTO) 3 % (0-10); HEMATOCRIT 37 % (40-54); HEMOGLOBIN 12.6 G/DL (13.3-17.7); LYMPHOCYTES # (AUTO) 1.2 X 10^3 (1.0-4.0); LYMPHOCYTES % (AUTO) 23 % (12-44); MEAN CORPUSCULAR HEMOGLOBIN 31 PG (25-34); MEAN CORPUSCULAR HGB CONC 34 G/DL (32-36); MEAN CORPUSCULAR VOLUME 90 FL (80-99); MEAN PLATELET VOLUME 10.2 FL (7.4-10.4); MONOCYTES # (AUTO) 0.5 X 10^3 (0.0-1.0); MONOCYTES % (AUTO) 9 % (0-12); NEUTROPHILS # (AUTO) 3.3 X 10^3 (1.8-7.8); NEUTROPHILS % (AUTO) 64 % (42-75); PLATELET COUNT 291 10^3/uL (130-400); RED BLOOD COUNT 4.08 10^6/uL (4.35-5.85); RED CELL DISTRIBUTION WIDTH 12.8 % (10.0-14.5); WHITE BLOOD COUNT 5.2 10^3/uL (4.3-11.0)
[2018-02-07 08:43] LABS: ALANINE AMINOTRANSFERASE 35 U/L (0-55); ALBUMIN 4.7 GM/DL (3.2-4.5); ALKALINE PHOSPHATASE 48 U/L (40-136); BILIRUBIN,TOTAL 0.6 MG/DL (0.1-1.0); BUN/CREATININE RATIO 22; CALCIUM 9.8 MG/DL (8.5-10.1); CARBON DIOXIDE 24 MMOL/L (21-32); CHLORIDE 104 MMOL/L (98-107); CHOLESTEROL 121 MG/DL (< 200); CREATININE SERUM 1.16 MG/DL (0.60-1.30); GFR ESTIMATED > 60; GLUCOSE 159 MG/DL (70-105); HDL CHOLESTEROL 29 MG/DL (40-60); POTASSIUM 4.8 MMOL/L (3.6-5.0); SODIUM 137 MMOL/L (135-145); TRIGLYCERIDES 144 MG/DL (<150); VLDL CHOLESTEROL 29 MG/DL (5-40)
[2018-02-07 08:52] LABS: ERYTHROCYTE SEDIMENTATION RATE 10 MM/HR (0-30)
== END ==
LOC: LAB 07:38
PROVIDERS: ATTEND Allergy & Immunology
DX: E55.9 Vitamin D deficiency, unspecified (principal); E03.9 Hypothyroidism, unspecified; E78.2 Mixed hyperlipidemia; Z12.5 Encounter for screening for malignant neoplasm of prostate; Z13.0 Encounter for screening for diseases of the blood and blood-forming organs and certain disorders involving the immune mechanism; Z79.899 Other long term (current) drug therapy
CPT/HCPCS: 36415; 80053; 80061; 82306; 82728; 83540; 84153; 84436; 84443; 84480; 85025; 85652; 86141

== ENCOUNTER → 2018-02-07 | Outpatient (CLI) | payer OTHER | LOC: LAB 07:40 | PROVIDERS: ATTEND Family Medicine | DX: E11.9 Type 2 diabetes mellitus without complications (principal); E03.9 Hypothyroidism, unspecified | CPT/HCPCS: 36415; 83036 ==

== ENCOUNTER → 2018-05-09 | Outpatient (CLI) | payer OTHER ==
[2018-05-09 08:57] LABS: BASOPHILS % (AUTO) 1 % (0-10); EOSINOPHILS # (AUTO) 0.1 10^3/uL (0.0-0.3); EOSINOPHILS % (AUTO) 2 % (0-10); HEMATOCRIT 42 % (40-54); LYMPHOCYTES # (AUTO) 1.3 X 10^3 (1.0-4.0); LYMPHOCYTES % (AUTO) 24 % (12-44); MEAN CORPUSCULAR HEMOGLOBIN 30 PG (25-34); MEAN CORPUSCULAR HGB CONC 33 G/DL (32-36); MEAN CORPUSCULAR VOLUME 90 FL (80-99); MEAN PLATELET VOLUME 10.7 FL (7.4-10.4); MONOCYTES # (AUTO) 0.5 X 10^3 (0.0-1.0); MONOCYTES % (AUTO) 10 % (0-12); NEUTROPHILS # (AUTO) 3.3 X 10^3 (1.8-7.8); NEUTROPHILS % (AUTO) 63 % (42-75); PLATELET COUNT 267 10^3/uL (130-400); RED BLOOD COUNT 4.68 10^6/uL (4.35-5.85); RED CELL DISTRIBUTION WIDTH 12.7 % (10.0-14.5); WHITE BLOOD COUNT 5.2 10^3/uL (4.3-11.0)
[2018-05-09 09:13] LABS: ALANINE AMINOTRANSFERASE 40 U/L (0-55); ALBUMIN 4.8 GM/DL (3.2-4.5); ALKALINE PHOSPHATASE 57 U/L (40-136); BILIRUBIN,TOTAL 0.6 MG/DL (0.1-1.0); BUN/CREATININE RATIO 13; CALCIUM 9.9 MG/DL (8.5-10.1); CARBON DIOXIDE 23 MMOL/L (21-32); CHLORIDE 104 MMOL/L (98-107); CREATININE SERUM 1.21 MG/DL (0.60-1.30); GFR ESTIMATED 60; GLUCOSE 170 MG/DL (70-105); LIPASE 15 U/L (8-78); POTASSIUM 4.4 MMOL/L (3.6-5.0); SODIUM 140 MMOL/L (135-145); TOTAL PROTEIN 7.7 GM/DL (6.4-8.2)
[2018-05-09 09:30] LABS: ERYTHROCYTE SEDIMENTATION RATE 7 MM/HR (0-30)
[2018-05-09 09:35] LABS: FREE T4 (FREE THYROXINE) 1.11 NG/DL (0.70-1.48)
[2018-05-09 14:02] LABS: CHOLESTEROL 134 MG/DL (< 200); HDL CHOLESTEROL 33 MG/DL (40-60); TRIGLYCERIDES 189 MG/DL (<150); VLDL CHOLESTEROL 38 MG/DL (5-40)
== END ==
LOC: LAB 08:15
PROVIDERS: ATTEND Allergy & Immunology
DX: E55.9 Vitamin D deficiency, unspecified (principal); E03.9 Hypothyroidism, unspecified; E78.2 Mixed hyperlipidemia; Z13.0 Encounter for screening for diseases of the blood and blood-forming organs and certain disorders involving the immune mechanism; Z79.899 Other long term (current) drug therapy
CPT/HCPCS: 36415; 80053; 80061; 82306; 82728; 83540; 83690; 84439; 84443; 84481; 85025; 85652; 86141

== ENCOUNTER → 2018-05-09 | Outpatient (CLI) | payer OTHER ==
[2018-05-09 09:12] LABS: RED BLOOD COUNT 4.68 10^6/uL (4.35-5.85); RED CELL DISTRIBUTION WIDTH 12.7 % (10.0-14.5); WHITE BLOOD COUNT 5.2 10^3/uL (4.3-11.0)
[2018-05-09 09:13] LABS: MEAN PLATELET VOLUME 10.7 FL (7.4-10.4)
[2018-05-09 09:38] LABS: BUN/CREATININE RATIO 13; CARBON DIOXIDE 23 MMOL/L (21-32); CHLORIDE 104 MMOL/L (98-107); CREATININE SERUM 1.21 MG/DL (0.60-1.30); GFR ESTIMATED 60; POTASSIUM 4.4 MMOL/L (3.6-5.0); SODIUM 140 MMOL/L (135-145)
[2018-05-09 09:39] LABS: ALANINE AMINOTRANSFERASE 40 U/L (0-55); ALKALINE PHOSPHATASE 57 U/L (40-136); BILIRUBIN,TOTAL 0.6 MG/DL (0.1-1.0); CALCIUM 9.9 MG/DL (8.5-10.1); GLUCOSE 170 MG/DL (70-105); TOTAL PROTEIN 7.7 GM/DL (6.4-8.2)
[2018-05-09 09:40] LABS: ALBUMIN 4.8 GM/DL (3.2-4.5); CHOLESTEROL 134 MG/DL (< 200); HDL CHOLESTEROL 33 MG/DL (40-60); TRIGLYCERIDES 189 MG/DL (<150); VLDL CHOLESTEROL 38 MG/DL (5-40)
== END ==
LOC: LAB 08:12
PROVIDERS: ATTEND Family Medicine
DX: E11.9 Type 2 diabetes mellitus without complications (principal)
CPT/HCPCS: 80053; 80061; 83036

== ENCOUNTER → 2018-07-25 | Outpatient (CLI) | payer OTHER ==
[~2018-07-25] MED LIST changes: -AMLO10TA6 PO; +AMLO10TA7 PO
[2018-07-25 07:38] LABS: BASOPHILS % (AUTO) 1 % (0-10); EOSINOPHILS # (AUTO) 0.1 10^3/uL (0.0-0.3); EOSINOPHILS % (AUTO) 2 % (0-10); HEMATOCRIT 42 % (40-54); LYMPHOCYTES # (AUTO) 1.3 X 10^3 (1.0-4.0); LYMPHOCYTES % (AUTO) 24 % (12-44); MEAN CORPUSCULAR HEMOGLOBIN 30 PG (25-34); MEAN CORPUSCULAR HGB CONC 33 G/DL (32-36); MEAN CORPUSCULAR VOLUME 88 FL (80-99); MEAN PLATELET VOLUME 10.6 FL (7.4-10.4); MONOCYTES # (AUTO) 0.5 X 10^3 (0.0-1.0); MONOCYTES % (AUTO) 10 % (0-12); NEUTROPHILS # (AUTO) 3.5 X 10^3 (1.8-7.8); NEUTROPHILS % (AUTO) 64 % (42-75); PLATELET COUNT 238 10^3/uL (130-400); RED CELL DISTRIBUTION WIDTH 12.8 % (10.0-14.5); WHITE BLOOD COUNT 5.5 10^3/uL (4.3-11.0)
[2018-07-25 08:03] LABS: ALANINE AMINOTRANSFERASE 46 U/L (0-55); ALBUMIN 4.7 GM/DL (3.2-4.5); ALKALINE PHOSPHATASE 52 U/L (40-136); BILIRUBIN,TOTAL 0.7 MG/DL (0.1-1.0); BUN/CREATININE RATIO 16; CALCIUM 10.3 MG/DL (8.5-10.1); CARBON DIOXIDE 23 MMOL/L (21-32); CHLORIDE 100 MMOL/L (98-107); CHOLESTEROL 197 MG/DL (< 200); CREATININE SERUM 1.22 MG/DL (0.60-1.30); GFR ESTIMATED 59; GLUCOSE 206 MG/DL (70-105); HDL CHOLESTEROL 33 MG/DL (40-60); POTASSIUM 4.7 MMOL/L (3.6-5.0); SODIUM 134 MMOL/L (135-145); TOTAL PROTEIN 7.6 GM/DL (6.4-8.2); TRIGLYCERIDES 262 MG/DL (<150); VLDL CHOLESTEROL 52 MG/DL (5-40)
[2018-07-25 08:05] LABS: ERYTHROCYTE SEDIMENTATION RATE 5 MM/HR (0-30)
== END ==
LOC: LAB 07:11
PROVIDERS: ATTEND Allergy & Immunology
DX: E55.9 Vitamin D deficiency, unspecified (principal); E03.9 Hypothyroidism, unspecified; E78.2 Mixed hyperlipidemia; Z13.0 Encounter for screening for diseases of the blood and blood-forming organs and certain disorders involving the immune mechanism; Z79.899 Other long term (current) drug therapy
CPT/HCPCS: 36415; 80053; 80061; 82306; 82728; 83540; 84439; 84443; 84481; 85025; 85652

== ENCOUNTER → 2018-07-25 | Outpatient (CLI) | payer OTHER ==
[2018-07-25 07:43] LABS: MEAN PLATELET VOLUME 10.6 FL (7.4-10.4); RED CELL DISTRIBUTION WIDTH 12.8 % (10.0-14.5); WHITE BLOOD COUNT 5.5 10^3/uL (4.3-11.0)
[2018-07-25 08:33] LABS: CARBON DIOXIDE 23 MMOL/L (21-32); CHLORIDE 100 MMOL/L (98-107); POTASSIUM 4.7 MMOL/L (3.6-5.0); SODIUM 134 MMOL/L (135-145)
[2018-07-25 08:34] LABS: ALANINE AMINOTRANSFERASE 46 U/L (0-55); ALBUMIN 4.7 GM/DL (3.2-4.5); ALKALINE PHOSPHATASE 52 U/L (40-136); BILIRUBIN,TOTAL 0.7 MG/DL (0.1-1.0); BUN/CREATININE RATIO 16; CALCIUM 10.3 MG/DL (8.5-10.1); CREATININE SERUM 1.22 MG/DL (0.60-1.30); GFR ESTIMATED 59; GLUCOSE 206 MG/DL (70-105); TOTAL PROTEIN 7.6 GM/DL (6.4-8.2)
[2018-07-25 08:35] LABS: CHOLESTEROL 197 MG/DL (< 200); HDL CHOLESTEROL 33 MG/DL (40-60); TRIGLYCERIDES 262 MG/DL (<150); VLDL CHOLESTEROL 52 MG/DL (5-40)
== END ==
LOC: LAB 07:14
PROVIDERS: ATTEND Family Medicine
DX: E11.9 Type 2 diabetes mellitus without complications (principal); M05.9 Rheumatoid arthritis with rheumatoid factor, unspecified; E03.9 Hypothyroidism, unspecified
CPT/HCPCS: 80053; 80061; 83036; 84443; 85652

== ENCOUNTER → 2019-03-14 | Outpatient (CLI) | payer OTHER ==
[2019-03-14 07:30] LABS: HEMOGLOBIN 13.9 G/DL (13.3-17.7); MEAN PLATELET VOLUME 10.1 FL (7.4-10.4); RED CELL DISTRIBUTION WIDTH 13.3 % (10.0-14.5); WHITE BLOOD COUNT 6.4 10^3/uL (4.3-11.0)
[2019-03-14 07:49] LABS: ALANINE AMINOTRANSFERASE 40 U/L (0-55); ALBUMIN 4.6 GM/DL (3.2-4.5); ALKALINE PHOSPHATASE 50 U/L (40-136); BILIRUBIN,TOTAL 0.5 MG/DL (0.1-1.0); BUN/CREATININE RATIO 17; CARBON DIOXIDE 23 MMOL/L (21-32); CHLORIDE 103 MMOL/L (98-107); CHOLESTEROL 127 MG/DL (< 200); CREATININE SERUM 1.13 MG/DL (0.60-1.30); GFR ESTIMATED > 60; GLUCOSE 182 MG/DL (70-105); HDL CHOLESTEROL 34 MG/DL (40-60); POTASSIUM 4.4 MMOL/L (3.6-5.0); SODIUM 139 MMOL/L (135-145); TOTAL PROTEIN 7.6 GM/DL (6.4-8.2); TRIGLYCERIDES 135 MG/DL (<150); VLDL CHOLESTEROL 27 MG/DL (5-40)
[2019-03-14 08:09] LABS: FREE T4 (FREE THYROXINE) 1.15 NG/DL (0.70-1.48)
== END ==
LOC: LAB 07:12
PROVIDERS: ATTEND Allergy & Immunology
DX: M06.9 Rheumatoid arthritis, unspecified (principal); E55.9 Vitamin D deficiency, unspecified; D50.9 Iron deficiency anemia, unspecified; E78.2 Mixed hyperlipidemia; E03.9 Hypothyroidism, unspecified; Z79.899 Other long term (current) drug therapy
CPT/HCPCS: 36415; 80053; 80061; 82306; 82728; 83036; 83540; 84439; 84443; 84481; 85027; 85652; 86141

== ENCOUNTER → 2019-05-04 | Outpatient (CLI) | payer OTHER ==
[2019-05-04 08:54] LABS: ALBUMIN 4.8 GM/DL (3.2-4.5); BILIRUBIN,DIRECT 0.3 MG/DL (0.0-0.3); BILIRUBIN,INDIRECT 0.2 MG/DL; BILIRUBIN,TOTAL 0.5 MG/DL (0.1-1.0); TOTAL PROTEIN 7.8 GM/DL (6.4-8.2)
--- NOTE | 2019-05-04 10:00 | Diagnostic Imaging Report ---
PROCEDURE: US Abdomen, limited. TECHNIQUE: Multiple realtime grayscale images were obtained over the abdomen in various projections. INDICATION: Elevated liver function tests. This study was technically difficult due to the patient's body habitus. FINDINGS: There are no prior ultrasound examinations available for comparison. The CTA chest, abdomen, and pelvis exam performed on 01/01/2017 noted that the liver was enlarged and that there was fatty metamorphosis of the liver. On this exam, the liver is mildly enlarged and the echogenic appearance of the liver does suggest fatty metamorphosis. There is no focal mass involving the liver and the biliary tree is not abnormally dilated. Spectral and color-flow imaging of the portal vein shows that the vein is patent and that there is normal directional flow within the vein. There is no evidence for cholelithiasis or acute cholecystitis and the common bile duct is not dilated. The right kidney is unremarkable. The pancreas, the aorta, and the inferior vena cava were obscured by bowel gas. IMPRESSION: 1. There is no acute abnormality of the right upper quadrant. 2. The liver is mildly enlarged and the echogenic appearance of the liver does suggest fatty metamorphosis. Dictated by: Dictated on workstation # [id number]
== END ==
LOC: RAD 08:27
PROVIDERS: ATTEND Allergy & Immunology
DX: R16.0 Hepatomegaly, not elsewhere classified (principal)
CPT/HCPCS: 36415; 76705; 80076

== ENCOUNTER → 2019-05-22 | Outpatient (CLI) | payer OTHER ==
[2019-05-22 09:40] LABS: ALBUMIN 4.9 GM/DL (3.2-4.5); BILIRUBIN,DIRECT 0.3 MG/DL (0.0-0.3); BILIRUBIN,INDIRECT 0.2 MG/DL; BILIRUBIN,TOTAL 0.5 MG/DL (0.1-1.0); TOTAL PROTEIN 7.8 GM/DL (6.4-8.2)
== END ==
LOC: LAB 08:55
PROVIDERS: ATTEND Allergy & Immunology
DX: R94.5 Abnormal results of liver function studies (principal)
CPT/HCPCS: 36415; 80076

== ENCOUNTER → 2019-07-10 | Outpatient (CLI) | payer OTHER ==
[~2019-07-10] MED LIST changes: +DILT180C85 PO; +SIMV40TA25 PO
[2019-07-10 08:19] LABS: BASOPHILS % (AUTO) 0 % (0-10); EOSINOPHILS # (AUTO) 0.1 10^3/uL (0.0-0.3); EOSINOPHILS % (AUTO) 2 % (0-10); HEMATOCRIT 40 % (40-54); HEMOGLOBIN 13.3 G/DL (13.3-17.7); LYMPHOCYTES # (AUTO) 1.3 X 10^3 (1.0-4.0); LYMPHOCYTES % (AUTO) 24 % (12-44); MEAN CORPUSCULAR HEMOGLOBIN 29 PG (25-34); MEAN CORPUSCULAR HGB CONC 33 G/DL (32-36); MEAN CORPUSCULAR VOLUME 89 FL (80-99); MONOCYTES # (AUTO) 0.3 X 10^3 (0.0-1.0); MONOCYTES % (AUTO) 6 % (0-12); NEUTROPHILS # (AUTO) 3.7 X 10^3 (1.8-7.8); NEUTROPHILS % (AUTO) 67 % (42-75); PLATELET COUNT 270 10^3/uL (130-400); RED CELL DISTRIBUTION WIDTH 13.1 % (10.0-14.5); WHITE BLOOD COUNT 5.5 10^3/uL (4.3-11.0)
[2019-07-10 08:58] LABS: BAND NEUTROPHILS 3 %; BASOPHILS % (MANUAL) 1 %; EOSINOPHILS % (MANUAL) 3 %; LYMPHOCYTES % (MANUAL) 26 %; MONOCYTES % (MANUAL) 5 %; NEUTROPHILS % (MANUAL) 62 %
== END ==
LOC: LAB 08:06
PROVIDERS: ATTEND Family Medicine
DX: M06.9 Rheumatoid arthritis, unspecified (principal); E11.69 Type 2 diabetes mellitus with other specified complication; E55.9 Vitamin D deficiency, unspecified; E03.9 Hypothyroidism, unspecified
CPT/HCPCS: 36415; 80061; 82306; 83036; 84443; 85007; 85027

== ENCOUNTER → 2019-10-17 | Outpatient (CLI) | payer OTHER ==
[2019-10-17 07:59] LABS: BASOPHILS % (AUTO) 0 % (0-10); EOSINOPHILS # (AUTO) 0.1 10^3/uL (0.0-0.3); EOSINOPHILS % (AUTO) 1 % (0-10); HEMATOCRIT 45 % (40-54); HEMOGLOBIN 15.1 G/DL (13.3-17.7); LYMPHOCYTES # (AUTO) 1.6 X 10^3 (1.0-4.0); LYMPHOCYTES % (AUTO) 16 % (12-44); MEAN CORPUSCULAR HEMOGLOBIN 29 PG (25-34); MEAN CORPUSCULAR HGB CONC 34 G/DL (32-36); MEAN CORPUSCULAR VOLUME 87 FL (80-99); MEAN PLATELET VOLUME 9.6 FL (7.4-10.4); MONOCYTES # (AUTO) 0.9 X 10^3 (0.0-1.0); MONOCYTES % (AUTO) 9 % (0-12); NEUTROPHILS # (AUTO) 7.5 X 10^3 (1.8-7.8); NEUTROPHILS % (AUTO) 74 % (42-75); PLATELET COUNT 328 10^3/uL (130-400); WHITE BLOOD COUNT 10.1 10^3/uL (4.3-11.0)
[2019-10-17 08:07] LABS: CHLORIDE 103 MMOL/L (98-107); POTASSIUM 4.6 MMOL/L (3.6-5.0); SODIUM 139 MMOL/L (135-145)
[2019-10-17 08:08] LABS: ALBUMIN 4.7 GM/DL (3.2-4.5)
[2019-10-17 08:09] LABS: CALCIUM 9.9 MG/DL (8.5-10.1)
[2019-10-17 08:10] LABS: GLUCOSE 130 MG/DL (70-105); TOTAL PROTEIN 8.2 GM/DL (6.4-8.2); TRIGLYCERIDES 154 MG/DL (<150); VLDL CHOLESTEROL 31 MG/DL (5-40)
[2019-10-17 08:11] LABS: CARBON DIOXIDE 24 MMOL/L (21-32)
[2019-10-17 08:12] LABS: BILIRUBIN,TOTAL 0.5 MG/DL (0.1-1.0)
[2019-10-17 08:14] LABS: ALKALINE PHOSPHATASE 48 U/L (40-136); CREATININE SERUM 1.32 MG/DL (0.60-1.30); GFR ESTIMATED 54
[2019-10-17 08:15] LABS: BUN/CREATININE RATIO 15; CHOLESTEROL 144 MG/DL (< 200)
[2019-10-17 08:16] LABS: HDL CHOLESTEROL 36 MG/DL (40-60)
[2019-10-17 08:17] LABS: ALANINE AMINOTRANSFERASE 34 U/L (0-55)
[2019-10-17 08:58] LABS: ERYTHROCYTE SEDIMENTATION RATE 4 MM/HR (0-30)
== END ==
LOC: LAB 07:39
PROVIDERS: ATTEND Family Medicine
DX: E11.69 Type 2 diabetes mellitus with other specified complication (principal)
CPT/HCPCS: 36415; 80053; 80061; 82306; 83036; 84443; 85025; 85652

== ENCOUNTER 2019-11-09 07:21 | Outpatient (RCR) | payer OTHER, MEDICARE ==
[~2019-11-09] VITALS: Ht 177 cm; Wt 102.6 kg
[2019-11-09 12:40] VITALS: BP 127/81
[2019-11-09 13:18] LABS: BILIRUBIN,URINE NEGATIVE (NEGATIVE); CLARITY,URINE CLEAR; COLOR,URINE YELLOW; GLUCOSE, URINE (UA) 1+ (NEGATIVE); KETONES,URINE NEGATIVE (NEGATIVE); LEUKOCYTE ESTERASE ,URINE NEGATIVE (NEGATIVE); NITRITE,URINE NEGATIVE (NEGATIVE); PROTEIN,URINE NEGATIVE (NEGATIVE)
--- NOTE | 2019-11-09 13:25 | Diagnostic Imaging Report ---
INDICATION: Preop for right total knee replacement. TIME OF EXAM: 01:19 p.m. COMPARISON: Correlation is made with prior study of 01/05/2017. FINDINGS: The heart size is normal. The pulmonary vascularity is unremarkable. The lungs are clear. No infiltrate, effusion or pneumothorax is detected. IMPRESSION: No acute cardiopulmonary process is detected. Dictated by: Dictated on workstation # [id number]
[2019-11-09 13:32] LABS: AMORPHOUS SEDIMENT,UR RARE AMOR URATES /LPF; BACTERIA,URINE TRACE /HPF; RBC,URINE 0-2 /HPF; WBC,URINE 0-2 /HPF
[2019-11-09] MEDS ORDERED: SEMA1PEN SQ (13:41)
[2019-11-09] MEDS ORDERED: CHOL20003 PO (13:41)
[2019-11-09] MEDS ORDERED: MAGN250T13 PO (13:41)
[2019-11-09] MEDS ORDERED: METH2.5T PO (13:41)
[2019-11-09] MEDS ORDERED: CHRO1000 PO (13:41)
[2019-11-09] MEDS ORDERED: CYAN250010 PO (13:41)
[2019-11-09] MEDS ORDERED: CETI10TA17 PO (13:41)
[2019-11-09] MEDS ORDERED: EMPA10TA PO (13:41)
[2019-11-09] MEDS ORDERED: LISI-552 PO (13:41)
[2019-11-09] MEDS ORDERED: FERR325T5 PO (13:41)
[2019-11-09 14:01] LABS: INR 1.1 (0.8-1.4); PROTHROMBIN TIME PATIENT 14.8 SEC (12.2-14.7)
[2019-11-15] MEDS ORDERED: OXYC1TAB87 PO (07:26)
== END 2019-11-09 16:00 | disposition home or self-care (01) ==
LOC: PREOP 07:21
PROVIDERS: ATTEND Orthopaedic Surgery
DX: Z01.810 Encounter for preprocedural cardiovascular examination (principal); Z01.811 Encounter for preprocedural respiratory examination; Z01.812 Encounter for preprocedural laboratory examination; Z01.818 Encounter for other preprocedural examination; Z11.59 Encounter for screening for other viral diseases; Z11.2 Encounter for screening for other bacterial diseases; M17.11 Unilateral primary osteoarthritis, right knee; R53.83 Other fatigue
CPT/HCPCS: 71046; 81000; 85610; 86850; 86900; 86901; 87081; 93005; U0002; 36415; 87635

== ENCOUNTER 2019-11-15 06:00 | Inpatient (IN) | payer OTHER, MEDICARE ==
--- NOTE | 2019-11-09 16:56 | HISTORY AND PHYSICAL ---
DATE OF SERVICE: This will be for inpatient admission on 11/15/2019 for right total knee arthroplasty. The patient will require regular inpatient admission due to pain management issues, need for physical therapy and comorbidities. HISTORY OF PRESENT ILLNESS: The patient is a 68-year-old gentleman with longstanding progressive right knee pain. He has undergone treatment with injections, anti-inflammatories and rest without relief. He reports activity limitations because of the knee. Due to progressive pain and failure to improve with conservative measures, the patient has elected to proceed with surgical intervention. REVIEW OF SYSTEMS: No chest pain, no shortness of breath, no dysuria. PAST MEDICAL HISTORY: Depression, hyperlipidemia, hypertension, thyroid disease, type 2 diabetes. PAST SURGICAL HISTORY: Appendectomy, left total knee arthroplasty, right knee arthroscopy, herniorrhaphy, left long and ring finger. FAMILY HISTORY: Noncontributory. PRIMARY CARE PHYSICIAN: Dr. Hardin. MEDICATIONS: Folic acid, citalopram, simvastatin, diltiazem, levothyroxine, glyburide, Januvia, methotrexate, metformin, fenofibrate, fish oil, cetirizine, magnesium, lisinopril, , , Jardiance. ALLERGIES: No known drug allergies. SOCIAL HISTORY: The patient denies alcohol, tobacco use. PHYSICAL EXAMINATION: GENERAL: The patient is well-developed, well-nourished, in no acute distress. HEENT: Normocephalic, atraumatic. Pupils are equal, round and reactive to light. Oropharynx is clear. NECK: Supple, no lymphadenopathy. LUNGS: Clear to auscultation bilaterally. HEART: Regular rate and rhythm. ABDOMEN: Soft, nontender, nondistended. EXTREMITIES: The patient ambulates with an antalgic gait on the right. There is varus alignment noted. There is a slight effusion. He is tender along his medial joint line and has patellofemoral crepitus and pain with patellar loading. He is tender along his medial femoral condyle. Range of motion is 0/2/125. Negative Isrrael, negative anterior and posterior drawer. No varus valgus laxity, negative pivot shift. RADIOGRAPHS: Reveal complete loss of medial patellofemoral joint spaces. IMPRESSION: Severe right knee osteoarthritis, unresponsive to conservative measures. PLAN: Right total knee arthroplasty. The risks, benefits, options, ramifications and recovery were discussed at length with the patient. He understands and wishes to proceed. Job ID: [id number] DocumentID: [id number] Dictated Date: 11/06/2019 09:52:45 Can Cutter Date: 11/06/2019 11:22:06 Dictated By: SHASTA KOWALSKI MD
[~2019-11-15] VITALS: Ht 177 cm; Wt 102.6 kg
[2019-11-15] VITALS (12 sets, daily range): BP systolic 147–177; BP diastolic 77–90
[~2019-11-15 06:00] MED LIST changes: +CETI10TA17 PO; +CHOL20003 PO; +CHRO1000 PO; +CYAN250010 PO; +EMPA10TA PO; +FERR325T5 PO; +MAGN250T13 PO; +METH2.5T PO; +SEMA1PEN SQ
--- OUTSIDE RECORDS SUMMARY | 2019-11-15 06:05 | XMS REPORT ---
Author Author Truman HANNAH Organization [facility] Address [address] [place] [address] Care Team Providers Care Maintenance Service Technician Name Role Phone RIA HANNAH Unavailable PROBLEMS Type Condition ICD9-CM Code OSI72-HN Code Onset Dates Condition S tatus SNOMED Code Problem Pure hypercholesterolemia E78.00 Acti ve 413238878 Problem Type 2 diabetes mellitus wit h other specified complication, without long-term current use of insulin E11.69 Active 79800657 Problem Rheumatoid arthritis M06.9 Active 04970301 Problem Hypothyroidism E03.9 Active 89464 008 Problem Type 2 diabetes mellitus wit hout complication, without long-term current use of insulin E11.9 Active 968383330 Problem Benign essential hypertension I10 Active 9195923 ALLERGIES No Information ENCOUNTERS Encounter Location Date Diagnosis [address] [id number] Feb, [address] [address] Jan, Benign essential hypertension I10 [facility], [place] [address] [facility] [id number] [address] [place] [id number] Jan, [address] [address] Jan, Benign essential hypertension I10 [address] [address] Jan, Rheumatoid arthritis involving multiple sites with positive rheumatoid factor M05.[address] [address] Dec, Benign essential hypertension I10 [facility], [place] [address] [facility] [id number] [address] [place] [id number] Dec, [facility], [place] [address] [facility] [id number] [address] [place] [phone] Dec, Type 2 diabetes mellitus wit hout complication, without long-term current use of insulin E11.9 [facility], [place] [address] [facility] [id number] [address] [place] [phone] Nov, Type 2 diabetes mellitus wit hout complication, without long-term current use of insulin E11.9 [facility], [place] [address] [facility] [id number] [address] [place] [phone] Nov, [address] [address] Oct, Benign essential hypertension I10 ; Pure hypercholesterolemia E78.00 ; Type 2 diabetes mellitus with other specified complication, without long-term current use of insulin E11.69 ; Rheumatoid arthritis M06.9 and Hypothyroidism E03.[address] [address] September, Benign essential hypertension I10 [address] [address] Jul, Rheumatoid arthritis involving multiple sites with positive rheumatoid factor M05.[address] [address] Jul, [place] [address] [facility] [id number] [address] [place] [phone] Jul, [address] [address] Jul, [address] [address] Jul, Pure hypercholesterolemia E78.00 ; Benig n essential hypertension I10 ; Type 2 diabetes mellitus without complication, without long-term current use of insulin E11.9 ; Rheumatoid arthritis involving multiple sites with positive rheumatoid factor M05.79 and Acquired hypothyroidism E03.[address] [address] Jul, [address] [address] Jul, [facility], [place] [address] [facility] [id number] [address] [place] [phone] Apr, [facility], [place] [address] [facility] [id number] [address] [place] [phone] Apr, [facility], [place] [address] [facility] [id number] [address] [place] [phone] Feb, IMMUNIZATIONS No Known Immunizations SOCIAL HISTORY Never Assessed REASON FOR VISIT ePrescription CancelRx response PLAN OF CARE VITAL SIGNS MEDICATIONS Unknown Medications RESULTS No Results PROCEDURES No Known procedures INSTRUCTIONS MEDICATIONS ADMINISTERED No Known Medications MEDICAL (GENERAL) HISTORY Type Description Date Medical History 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
--- OUTSIDE RECORDS SUMMARY | 2019-11-15 06:05 | XMS REPORT ---
Author Author Language123 desk officer [facility] Language123 [facility] [employer] Address [address] [address] Care Team Providers Care Manometer Technician Name Role Phone RIA HANNAH Unavailable RIA HANNAH Unavailable RIA HANNAH Unavailable SHASTA CAGE MD Unavailable Unavailable RIA HANNAH Unavailable Unavailable RIA HANNAH MD Unavailable Unavailable Unavailable Unavailable Unavailable Unavailable Unavailable Unavailable Unavailable Unavailable Unavailable Unavailable Allergies Normalized Allergy Reported Date of Reaction(s) Care Provider Facility Allergy Type classification allergen Allergy Onset MA (23 Unclassified NKANo Known 06-23-2005 - no information GAVINO DOWNING , Not Available sources.) Allergies (97882) Medications The data below is from unstructured sources Unknown Medications No Known Medications Problems Active Problems Problem Normalized Date Last Normalized Normalized Provider Fa cility Classification Problem(s) Recorded Problem Problem Sta tus Duration Other Aftercare Chronic Active no name no informati on aftercare (2 following sources.) joint replacement Other Body mass Chronic Active GAVINO DOWNING , Not Rosina ilable nutritional; index (BMI) (11440) endocrine; and 33.0-33.9, metabolic adult disorders (9 sources.) Other Care involving Episodic Active no name no info rmation aftercare (2 other sources.) specified rehabilitation procedure Other Encounter for Episodic Active SHASTA CAGE Not Available screening for screening for , (86432) suspected malignant conditions neoplasm of (not mental prostate disorders or Translations: infectious [ ENCNTR disease) (8 SCREEN FOR DIS sources.) OF THE BLD/BLD-FOR, ABN BLOOD CHEMISTRY NEC, ABNORMAL RESULTS OF LIVER FUNCTION STUDI] Other Encounter for Episodic Active no name no infor mation aftercare (2 therapeutic sources.) drug level monitoring Esophageal Esophageal Chronic Active SHASTA KOWALSKI Not A vailable disorders (2 reflux , (00984) sources.) Essential Essential Chronic Active GAVINO MERRILLO , Not Rosina ilable hypertension (primary) (14680) (20 sources.) hypertension Translations: [ BENIGN HYPERTENSION, - Benign essential hypertension I10, Benign essential hypertension, Benign essential hypertension] NEGATED Gout, Chronic Active no name no informatio n no unspecified information (6 Translations: sources.) [ GOUT NOS] Other liver Hepatomegaly, Episodic Active SHASTA CAGE [facility] Via diseases (2 not elsewhere , MD Chaney sources.) [facility] [place] ([address]) Disorders of Hyperlipidemia no information Active GAVINO EVANS DO , Not Available lipid , unspecified () metabolism (18 Translations: sources.) [ PURE HYPERCHOLESTER OLEMIA, UNSPECIFIED, MIXED HYPERLIPIDEMIA ] Thyroid Hypothyroidism Chronic Active no name no info rmation disorders (21 , unspecified sources.) Translations: [ HYPOTHYROIDISM NOS, - Acquired hypothyroidism E03.9, Hypothyroidism , Hypothyroidism , - Hypothyroidism E03.9] Deficiency and Iron Episodic Active SHASTA CAGE [facility] Via other anemia deficiency , MD Chaney (2 sources.) anemia, Hospital - [facility] [place] ([address]) 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 (2 sources.) Other Obesity, Chronic Active GAVINO MERRILLO , Not Avai lable nutritional; unspecified (07784) endocrine; and metabolic disorders (10 sources.) Unclassified Obstructive Chronic Active GAVNIO MERRILLO , No t Available (10 sources.) sleep apnea (53165) (adult) (pediatric) Translations: [ BODY MASS INDEX (BMI) 33.0-33.9, ADULT] NEGATED Osteoarthrosis Chronic Active no name no info rmation no , localized, information (4 not specified sources.) whether primary or secondary, lower leg Other Other long Episodic Active SHASTA CAGE Not Av ailable aftercare (21 term (current) , (18187) sources.) drug therapy Disorders of Pure Chronic Active no name no informa tion lipid hypercholester metabolism (20 olemia sources.) Translations: [ MIXED HYPERLIPIDEMIA , HYPERLIPIDEMIA , UNSPECIFIED, PURE HYPERCHOLESTER OLEM, HYPERLIPIDEMIA NEC/NOS, Pure hypercholester olemia, Pure hypercholester olemia] Respiratory Respiratory Episodic Active GAVINO MERRILLO , Not Available failure; failure, (64044) insufficiency; unspecified, arrest (adult) unspecified (12 sources.) whether with hypoxia or hypercapnia Translations: [ ACUTE RESPIRATORY FAILURE, UNSP W HYPOXI] Rheumatoid Rheumatoid Chronic Active KHUSHIHOANG CHANG , Not A vailable arthritis and arthritisMD () related unspecified disease (20 Translations: sources.) [ RHEUMATOID ARTHRITIS, RHEU ARTHRITIS W RHEU FACTOR MULT SITE W, RHEUMATOID ARTHRITIS WITH RHEUMATOID FAC, - Rheumatoid arthritis involving multiple sites with positive rheumatoid factor M05.79, - Rheumatoid arthritis M06.9, Rheumatoid arthritis, Rheumatoid arthritis] Immunizations Screening Episodic Active no name no infor mation and screening examination for infectious for other disease (2 specified sources.) bacterial and spirochetal diseases Diabetes Type 2 10-19-2019 - Chronic Active [facility] mellitus with diabetes [address] [facility] complications mellitus with of [place] (6 sources.) other [place] ([address]) specified complication Translations: [ - Type 2 diabetes mellitus with other specified complication, without long-term current use of insulin E11.69] Diabetes Type 2 Chronic Active GAVINO DOWNING , Not Avai lable mellitus diabetes () without mellitus complication without (20 sources.) complications Translations: [ DIAB JOSE WO COMPL, TYPE II OR UNSPEC TY, - Type 2 diabetes mellitus without complication, without long-term current use of insulin E11.9, Type 2 diabetes mellitus without complication, without long-term current use of insulin, Type 2 diabetes mellitus without complication, without long-term current use of insulin, Type 2 diabetes mellitus with other specified complication, without long-term current use of insulin, Type 2 diabetes mellitus with other specified complication, without long-term current use of insulin] Nutritional Vitamin D Chronic Active SHASTA CAGE Not A vailable deficiencies deficiencyMD (28050) (16 sources.) unspecified Translations: [ VITAMIN D DEFICIENCY NOS] Past or Other Problems Problem Normalized Date Last Normalized Normalized Provider Fa cility Classification Problem(s) Recorded Problem Problem Sta tus Duration Other Diarrhea, Episodic Completed GAVINO DOWNING , Not Rosina ilable gastrointestin unspecified (11038) al disorders (7 sources.) Fluid and Hypokalemia Episodic Completed GAVINO DOWNING , Not A vailable electrolyte (97407) disorders (7 sources.) Intestinal Ileus, Episodic Completed GAVINO DOWNING Not Rosina ilable obstruction unspecified (40129) without hernia (7 sources.) Other director [place] no information no information GAVINO DOWNING Not Available aftercare (10 (current) use (34022) sources.) of oral hypoglycemic drugs NEGATED Long-term Episodic Completed SHASTA CAGE Not Rosina ilable no (current) use , (44251) information (7 of other sources.) medications Disorders of Pure no information no information GAVINO Soriano Not Available lipid hypercholester (90150) metabolism (9 olemia, sources.) unspecified Translations: [ - Pure hypercholester olemia E78.00] Septicemia Sepsis, no information Completed GAVINO DOWNING No t Available (except in unspecified (89088) labor) (16 organism sources.) Translations: [ SEVERE SEPSIS WITHOUT SEPTIC SHOCK] Other diseases Unspecified Episodic Completed RIA HANNAH Not Available of kidney and disorder of , (30093) ureters (2 kidney and sources.) ureter Procedures Procedure Normalized Procedure Procedure Result Performer Facility Date RESECTION OF APPENDIX, no information no name Not Rosina ilable (23307) PERCUTANEOUS ENDO Total knee replacement no information no name Not Rosina ilable (69340) Total knee replacement no information no name Not Rosina ilable (90630) Immunizations Normalized Immunization Date Notes Care Provider Facili ty Immunization influenza, high dose 02-21-2019 no information no name [facility] preservativefree [facility] (76932) pneumococcal 05-05-2017 no information no name [facility] conjugate vaccine, [place] [address] valent [facility] (42210) Results Test Name Value Interpretation Reference Range Date Time Fa cility (Normalized) (Normalized) (Medline Reference) laboratory on null Albumin 139~4.4~103~23~1 (no code) [facility]th [Mass/Vol] 0~7.6~4.6 [facility] (43714) ALT [Catalytic 0.5~50~31~40 (no code) [facility] Healt h activity/Vol] [facility] (95689) Creatinine 139~4.4~103~23~1 (no code) [facility] He[facility] lth [Mass/Vol] 9~1.13 [facility] (05830) Erythrocyte 13.3 % (no code) 11.6 - 14.6 % [facility] (RBC) [facility] [Ratio] (33240) GFR/1.73 sq M mL/min/{1.73_m2} (no code) 90 - 120 [facility] predicted among mL/min/{1.73_m2} [facility] non-blacks MDRD [facility] (S/P/Bld) [Vol (45326) rate/Area] Glucose 182 mg/dL (no code) 60 - 125 mg/dL [facility] [Mass/Vol] [facility] (10711) HbA1c (Bld) 8.7 % (no code) 0 - 5.7 % [facility] [Mass fraction] [facility] (76346) Hematocrit (Bld) 42 % (no code) 36.1 - 50.3 % [facility] [Volume [facility]] [facility] (08221) Hemoglobin (Bld) 13.9 g/dL (no code) 12.1 - 17.2 g/dL [facility] [Mass/Vol] [facility] (27479) Iron saturation 75~511~15 (no code) [facility] [Mass fraction] [facility] (75664) MCHC (RBC) 29~33 (no code) [facility] [Mass/Vol] [facility] (37809) MCV (RBC) 89 fL (no code) 80 - 100 fL [facility] Hea lt [Entitic vol] [facility] (58023) Platelets (Bld) 279 10*3/uL (no code) 150 - 450 [facility] [#/Vol] 10*3/uL [facility] (85554) RBC (Bld) 4.76 10*6/uL (no code) 4.2 - 6.1 [facility] [#/Vol] 10*6/uL [facility] (84928) TSH Qn 1.03 m[IU]/L (no code) 0.4 - 4 m[IU]/L [facility] (93715) WBC (Bld) 6.4 10*3/uL (no code) 3.5 - 10.5 [facility] th [#/Vol] 10*3/uL [facility] (10192) laboratory on 2019-10-23 Cholesterol 154~144 (no code) [facility] [Mass/Vol] [facility] (33674) Cholesterol in 36 mg/dL (no code) [facility] HDL [Mass/Vol] [facility] (04713) Cholesterol in 101 mg/dL (no code) 0 - 100 mg/dL [facility] LDL [Mass/Vol] [facility] (54848) not yet categorized on 2019-10-17 CALCULATED MEAN 174 (A) 10-17-2019 PENDING LO CATION GLUCOSE 03: [facility] () VITAMIN D 39.7 (no code) 10-17-2019 PENDING LOCATI ON 25-HYDROXY 03: [facility] (19297) (TOTAL) laboratory on 2019-10-17 Albumin 130~9.9~0.5~30~3 (no code) [facility] Hea lth [Mass/Vol] 4~48~8.2~4.7 [facility] (64085) Albumin 4.7 g/dL (H) 3.4 - 5.4 g/dL 10-17-2019 PENDING LOCATION [Mass/Vol] 03:52 [facility] (73410) ALP [Catalytic 48 U/L (NEG) 44 - 147 U/L 10-17-2019 PEND ING LOCATION activity/Vol] 03:52-0400 [facility] (53919) ALT [Catalytic 34 U/L (NEG) 4 - 40 U/L 10-17-2019 PENDIN G LOCATION activity/Vol] 03:52-0400 [facility] (80049) Anion gap 12 mmol/L (NEG) 3 - 11 mmol/L 10-17-2019 PENDING LOCATION [Moles/Vol] 03:520400 [facility] (32019) AST [Catalytic 30 U/L (NEG) 10 - 34 U/L 10-17-2019 PENDI NG LOCATION activity/Vol] 03:520400 [facility] (90684) Basophils (Bld) 0.0 10*3/uL (no code) 0 - 0.3 10*3/uL [facility] [#/Vol] [facility] (46523) Basophils (Bld) 0.0 10*3/uL (NEG) 0 - 0.3 10*3/uL 10-17-2019 PENDING LOCATION [#/Vol] 03:52-0400 [facility] (10991) Basophils/100 0 % (no code) 0.5 - 1 % [facility] WBC (Bld) [facility] (27959) Basophils/100 0 % (NEG) 0.5 - 1 % 10-17-2019 PENDING LOCATION WBC (Bld) 03:52-0400 [facility] (86185) Bilirubin 0.5 mg/dL (NEG) 0.1 - 1.2 mg/dL 10-17-2019 PENDIN G LOCATION [Mass/Vol] 03:52-0400 [facility] (37663) Calcidiol 39.7 ng/mL (no code) 20 - 50 ng/mL [facility] [Mass/Vol] [facility] (48702) Calcium 9.9 mg/dL (NEG) 8.5 - 10.2 mg/dL 10-17-2019 PENDI NG LOCATION [Mass/Vol] 03:52-0400 [facility] (10581) Chloride 103 mmol/L (NEG) 95 - 106 mmol/L 10-17-2019 PENDI NG LOCATION [Moles/Vol] 03:52-0400 [facility] (83173) Cholesterol 144 mg/dL (no code) 180 - 200 mg/dL 10-17-2019 PEND ING LOCATION [Mass/Vol] 03:52-0400 [facility] (12137) Cholesterol in 36 mg/dL (L) 10-17-2019 PENDING LOC ATION HDL [Mass/Vol] 03:52-0400 [facility] (88368) Cholesterol in 101 mg/dL (NEG) 0 - 100 mg/dL 10-17-2019 PEN DING LOCATION LDL [Mass/Vol] 03:52-0400 [facility] (53845) Cholesterol in 31 mg/dL (NEG) 10-17-2019 PENDING LOC ATION VLDL [Mass/Vol] 03:52-0400 [facility] (96277) CO2 [Moles/Vol] 24 mmol/L (NEG) 23 - 29 mmol/L 10-17-2019 P ENDING LOCATION 03:52-0400 [facility] (77452) Creatinine 1.32 mg/dL (H) 10-17-2019 PENDING LOCATI ON [Mass/Vol] 03:52-0400 [facility] (26289) Creatinine and 54 (no code) 10-17-2019 PENDING LOC ATION Glomerular 03:52-0400 [facility] (22390) filtration rate.predicted panel - Serum, Plasma or Blood Eosinophils 0.1 10*3/uL (no code) 0.05 - 0.5 [facility] th (Bld) [#/Vol] 10*3/uL [facility] (52869) Eosinophils 0.1 10*3/uL (NEG) 0.05 - 0.5 10-17-2019 PENDING LOCATION (Bld) [#/Vol] 10*3/uL 03:52-0400 [facility] (80607) Eosinophils/100 1 % (no code) 1 - 4 % [facility] WBC (Bld) [facility] (73909) Eosinophils/100 1 % (NEG) 1 - 4 % 10-17-2019 [facility] WBC (Bld) 03:52-0400 [facility] (55169) Erythrocyte 13.0 % (no code) 11.6 - 14.6 % [facility] distribution [facility] width (RBC) [facility] [Ratio] (79727) Erythrocyte 13.0 % (NEG) 11.6 - 14.6 % 10-17-2019 [facility] distribution 03:52-0400 [facility] (73087) width (RBC) [Ratio] ESR (Bld) 4 mm/h (no code) [facility] Healt h [Velocity] [facility] (18645) ESR (Bld) 4 (NEG) 10-17-2019 PENDING LOCATI ON [Velocity] 03:52-0400 [facility] (28089) GFR/1.73 sq M 139~4.6~103~24~2 (no code) [facility] Hea lth predicted among 0~1.32~54 [facility] non-blacks MDRD [facility] (S/P/Bld) [Vol (13914) rate/Area] Glucose 130 mg/dL (H) 60 - 125 mg/dL 10-17-2019 PENDING LOCATION [Mass/Vol] 03:52-0400 [facility] (63966) HbA1c (Bld) 7.7 % (no code) 0 - 5.7 % [facility] [Mass fraction] [facility] (99327) HbA1c (Bld) 7.7 (A) 10-17-2019 PENDING LOCATI ON [Mass/Vol] 03:52-040 [facility] (57363) Hematocrit (Bld) 45 % (no code) 36.1 - 50.3 % [facility] [Volume [facility]] [facility] (66164) Hematocrit (Bld) 45 % (NEG) 36.1 - 50.3 % 10-17-2019 P ENDING LOCATION [Volume 03:52-040 [facility] (11386) fraction] Hemoglobin (Bld) 15.1 g/dL (no code) 12.1 - 17.2 g/dL [facility] [Mass/Vol] [facility] (40454) Hemoglobin (Bld) 15.1 g/dL (NEG) 12.1 - 17.2 g/dL 10-17-2019 PENDING LOCATION [Mass/Vol] 03:52-040 [facility] (42621) Lymphocytes 7.5~1.6 (no code) [facility] h (Bld) [#/Vol] [facility] (44422) Lymphocytes 1.6 10*3/uL (NEG) 0.9 - 2.9 10-17-2019 PENDING LOCATION (Bld) [#/Vol] 10*3/uL 03:52-0400 [facility] (16336) Lymphocytes/100 16 % (no code) 20 - 40 % [facility] WBC (Bld) [facility] (09345) Lymphocytes/100 16 % (NEG) 20 - 40 % 10-17-2019 PENDIN G LOCATION WBC (Bld) 03:52-0400 [facility] (78574) MCH (RBC) 29 pg (no code) 27 - 31 pg [facility] [Entitic mass] [facility] (06205) MCH (RBC) 29 pg (NEG) 27 - 31 pg 10-17-2019 PENDING LOC ATION [Entitic mass] 03:52-0400 [facility] (71147) MCHC (RBC) 34 g/dL (NEG) 32 - 36 g/dL 10-17-2019 PENDING LOCATION [Mass/Vol] 03:52-0400 [facility] (88372) MCV (RBC) 87 fL (no code) 80 - 100 fL [facility] lt [Entitic vol] [facility] (47271) MCV (RBC) 87 (NEG) 10-17-2019 PENDING LOCATI ON [Entitic vol] 03:52-0400 [facility] (73662) Monocytes (Bld) 0/9 (no code) [facility] [#/Vol] [facility] (88635) Monocytes (Bld) 0.9 10*3/uL (NEG) 0.3 - 0.9 10-17-2019 PEND ING LOCATION [#/Vol] 10*3/uL 03:52-0400 [facility] (30939) Monocytes/100 9 % (no code) 2 - 8 % [facility] WBC (Bld) [facility] (46660) Monocytes/100 9 % (NEG) 2 - 8 % 10-17-2019 PENDING LOCATION WBC (Bld) 03:52-0400 [facility] (21453) Neutrophils 7.5 10*3/uL (NEG) 1.7 - 7 10*3/uL 10-17-2019 PE NDING LOCATION (Bld) [#/Vol] 03:52-0400 [facility] (98822) Neutrophils/100 74 % (no code) 40 - 60 % [facility] WBC (Bld) [facility] (30936) Neutrophils/100 74 % (NEG) 40 - 60 % 10-17-2019 PENDIN G LOCATION WBC (Bld) 03:52-0400 [facility] (53209) Platelet mean 9.6 (NEG) 10-17-2019 PENDING LOCA TION volume (Bld) 03:52-0400 [facility] (63928) [Entitic vol] Platelets (Bld) 328 10*3/uL (no code) 150 - 450 [facility] [#/Vol] 10*3/uL [facility] (98785) Platelets (Bld) 328 10*3/uL (NEG) 150 - 450 10-17-2019 PEND ING LOCATION [#/Vol] 10*3/uL 03:52-0400 [facility] (93304) Potassium 4.6 mmol/L (NEG) 3.7 - 5.2 mmol/L 10-17-2019 PEND ING LOCATION [Moles/Vol] 03:52-0400 [facility] (92964) Protein 8.2 g/dL (NEG) 6.4 - 8.3 g/dL 10-17-2019 PENDING LOCATION [Mass/Vol] 03:52-0400 [facility] (17604) RBC (Bld) 5.16 10*6/uL (no code) 4.2 - 6.1 [facility] lth [#/Vol] 10*6/uL [facility] (44464) RBC (Bld) 5.16 10*6/uL (NEG) 4.2 - 6.1 10-17-2019 PENDING L OCATION [#/Vol] 10*6/uL 03:52-0400 [facility] (67551) Sodium 139 mmol/L (NEG) 135 - 145 mmol/L 10-17-2019 PEND ING LOCATION [Moles/Vol] 03:52-0400 [facility] (57396) Triglyceride 154 mg/dL (H) 0 - 150 mg/dL 10-17-2019 PENDI NG LOCATION [Mass/Vol] 03:52-0400 [facility] (87685) TSH Qn 0.55 m[IU]/L (no code) 0.4 - 4 m[IU]/L [facility] (31532) TSH Qn 0.55 m[IU]/L (NEG) 0.4 - 4 m[IU]/L 10-17-2019 PEN DING LOCATION 03:52-0400 [facility] (65527) Urea nitrogen 20 mg/dL (H) 7 - 20 mg/dL 10-17-2019 PENDI NG LOCATION [Mass/Vol] 03:52-0400 [facility] (12771) Urea 15 mg/mg (no code) 6 - 22 mg/mg 10-17-2019 PENDING L OCATION nitrogen/Creatin 03:52-0400 [facility] (74376) ine [Mass ratio] WBC (Bld) 10.1 10*3/uL (no code) 3.5 - 10.5 [facility] [#/Vol] 10*3/uL [facility] (37558) WBC (Bld) 10.1 10*3/uL (NEG) 3.5 - 10.5 10-17-2019 PENDING LOCATION [#/Vol] 10*3/uL 03:52-0400 [facility] (92199) laboratory on 2019-07-10 Calcidiol 36 ng/mL (no code) 20 - 50 ng/mL [facility] [Mass/Vol] [facility] (10301) HbA1c (Bld) 8.9 % (no code) 0 - 5.7 % [facility] Heal th [Mass fraction] [facility] (95480) Vital Signs The data below is from unstructured sources Vital Response Date/Time Temperature (Fahrenheit) 99.1 degree s F (97.6 - 99.5) 01/05/2017 7:51pm Temperature (Calculated Celsius) 37. 26962 degrees C (36.4 - 37.5) 01/05/2017 4:00pm Temperature Source Tympanic 01/05/2017 7:51pm Pulse Rate (adult) 84 bpm (60 - 90) 01/05/2017 7:51pm Respiratory Rate 20 bpm (12 - 24) 01/05/2017 7:51pm O2 Sat by Pulse Oximetry 93 % (88 - 100) 01/05/2017 7:51pm Blood Pressure 145/74 mm Hg 01/05/2017 7:51pm Blood Pressure Mean 97 mm Hg 01/05/2017 4:00pm Pain Numeric Pain Scale 0-No Pain 01/05/2017 7:51pm Height (Feet) 5 feet 01/2017 2:00pm Height (Inches) 10.00 inches 12/30/2016 2:00pm Height (Calculated Centimeters) 177. 282806 cm 12/30/2016 2:00pm Weight (Pounds) 234 pounds 12/30/2016 2:00pm Weight (Ounces) 0.0 oz 0 12/30/2016 2:00pm Weight (Calculated Grams) 350635.62 gm 12/30/2016 2:00pm Weight (Calculated Kilograms) 106.14 0616 kilograms 12/30/2016 2:00pm Calculated BMI 33.6 08/0 01/2017 2:00pm Weight Method Stated 01/2017 9:12am Capillary Refill Capillary Refill Less Than 3 Seconds 01/04/2017 8:00am Interventions No Information Plan of Treatment Normalized Care Care Detail Care Activity Date [facility] RIA HANNAH [id number] [facility] (02659) Patient encounter no information 03-24-2019 no name [facility] (69480) Goals No Information Social History No Information Functional Status The data below is from unstructured sources Query Response Date Jose rded Patient Orientation Normal For Age January 04, 2017 9:42am Comprehension Ability Understands Co ncepts January 05, 2017 8:45am Mental Status No Information Encounters Encounter Normalized Encounter Encounter Diagnosis Care Provi alejandra Organization Date Type 11-11-2018 [facility] Essential (primary) RIA GUEVARA (no [facility] hypertension phone) (no phone) 07-27-2018 [facility] Pure RIA HANNAH ( [facility] hypercholesterolemia, phone) (no phone) unspecified 05-13-2018 [facility] no information Doctor Migrati on (no [facility] phone) (no phone) 03-08-2015 [facility] no information Doctor Migrati on (no [facility] phone) (no phone) 12-30-2016 Emergency department no information no name no organization name patient visit 08-12-2018 Encounter by computer Rheumatoid arthritis RIA GUEVARA ([facility] link with rheumatoid factor phone) (no shante ne) of multiple sites without organ or systems involvement 11-22-2013 Evaluation and no information no name no organ ization name - management of 11-25-2013 inpatient 02-07-2018 Patient encounter no information no name no or ganization name 11-01-2017 Patient encounter no information no name no or ganization name 07-26-2017 Patient encounter no information no name no or ganization name 05-03-2017 Patient encounter no information no name no or ganization name 02-05-2017 Patient encounter no information no name no or ganization name 02-01-2017 Patient encounter no information no name no or ganization name - 02-02-2017 01-11-2017 Patient encounter no information no name no or ganization name 09-10-2016 Patient encounter no information no name no or ganization name NEGATED Patient encounter no information no name no or ganization name 12-18-2015 NEGATED Patient encounter no information no name no or ganization name 09-17-2015 NEGATED Patient encounter no information no name no or ganization name 06-17-2015 NEGATED Patient encounter no information no name no or ganization name 04-17-2015 NEGATED Patient encounter no information no name no or ganization name 03-05-2015 NEGATED Patient encounter no information no name no or ganization name 12-07-2014 NEGATED Patient encounter no information no name no or ganization name 11-14-2014 NEGATED Patient encounter no information no name no or ganization name 08-21-2014 NEGATED Patient encounter no information no name no or ganization name 04-02-2014 NEGATED Patient encounter no information no name no or ganization name 01-12-2014 - 01-12-2014 NEGATED Patient encounter no information no name no or ganization name 11-15-2013 NEGATED Patient encounter no information no name no or ganization name 07-21-2013 NEGATED Patient encounter no information no name no or ganization name 04-03-2013 10-18-2019 Patient encounter no information RIA HANNAH ( no [facility] phone) [facility] (no phone) 10-17-2019 Patient encounter no information (no phone) [facility] procedure [facility] (no phone) 10-17-2019 Patient encounter no information (no phone) [facility] procedure [facility] (no phone) 10-17-2019 Patient encounter no information RIA Fitzgerald [facility] procedure (no phone) [facility] (no phone) 07-10-2019 Patient encounter no information (no phone) [facility] procedure [facility] (no phone) 07-10-2019 Patient encounter no information RIA Fitzgerald [facility] procedure (no phone) [facility] (no phone) 05-22-2019 Patient encounter no information no name no or ganization name procedure 05-04-2019 Patient encounter no information no name no or ganization name procedure 03-17-2019 Patient encounter no information no name no or ganization name procedure 03-14-2019 Patient encounter no information no name no or ganization name procedure 12-21-2018 Patient encounter Type 2 diabetes RYAN MOBLEY (no p desean) [facility] procedure mellitus without (no phone) complications 12-21-2018 Patient encounter no information no name no or ganization name procedure 11-11-2018 Patient encounter no information no name no or ganization name procedure 10-24-2018 Patient encounter no information no name no or ganization name procedure 07-27-2018 Patient encounter no information no name no or ganization name procedure 07-25-2018 Patient encounter no information no name no or ganization name procedure 05-09-2018 Patient encounter no information no name no or ganization name procedure 12-30-2016 Patient encounter no information no name no or ganization name - procedure 01-05-2017 12-30-2016 Patient encounter no information no name no or ganization name procedure 02-08-2019 Telephone encounter Essential (primary) RIA GUGN ANI (no [employer] hypertension phone) (no phone) 02-02-2019 Telephone encounter no information RIA GUGNANI ( no [facility] phone) (no phone) 01-27-2019 Telephone encounter Essential (primary) RIA GUGN ANI (no [employer] hypertension phone) (no phone) 01-24-2019 Telephone encounter Rheumatoid arthritis RIA GUG GRACIA (no [employer] with rheumatoid factor phone) (no phone) of multiple sites without organ or systems involvement 01-16-2019 Telephone encounter Essential (primary) RIA GUGN ANI (no [employer] hypertension phone) (no phone) 01-09-2019 Telephone encounter no information RIA GUGNANI ( no [facility] phone) (no phone) 12-26-2018 Telephone encounter Type 2 diabetes [facility]IA [facility]UGNA[facility] mellitus without phone) (no phone) complications 11-23-2018 Telephone encounter no information RIA GUGNANI ( no [facility] phone) (no phone) 10-14-2018 Telephone encounter Essential (primary) RIA GUTIÉRREZ ANI [facility] phone) (no phone) 08-10-2018 Telephone encounter no information RIA RODRIGUEZGNANI ( no [employer] [facility] phone) (no phone) 08-03-2018 Telephone encounter no information RIA RODRIGUEZGNANI ( no [employer] [facility] phone) (no phone) 07-25-2018 Telephone encounter no information RIA GUGNANI ( no [employer] [facility] phone) (no phone) 05-22-2018 Telephone encounter no information Doctor Migration (no [facility] phone) (no phone) no information Pre-procedural no name no organization name laboratory examination Medical Equipment No Information Payers The data below is from unstructured sources Payer Name Policy Number Subscriber Name Relationship [facility] [id number] Truman Knight 01 Self / Same As Patient Advance Directives Directive Response Recor ded Date Advance Directives N 7:00am Health Care Power of Respiratory Care Technician N 01/12/13 7:00am Organ Donor N 01/12/13 7 :00am Directive Response Recor ded Date/Time Advance Directives No 2:02pm Health Care Power of Respiratory Care Technician No 12/30/16 2:02pm Organ Donor No 12/30/16 2:02pm Resuscitation Status Full Code 12/30/16 2:02pm Discharge Instructions Patient Instructions Physician Instructions New, Converted, or Re-Newed RX: RX on Chart Follow Up Appt on Wednesday. Activity as tolerated No driving while on pain medications Incentive Spirometry use every 2 hours while awake Regular Diet Symptoms to Report: Fever over 101 degree F, Nausea/Vomiting Infection Signs and Symptoms to report: Increased redness, Foul odor of wound, Increased drainage Bathing instructions: May shower Operative Area Clean/Dry; Keep incision clean/dry If any problems/questions: Contact your physician or go to Emergency Room Additional Source Comments This clinical document has been generated using [employer] software that has been certified by the Office of the National Coordinator for Health Information Technology (ONC 15.99.04.3023.Diam.31.00.0.210420) and the National Committee for Band Saw Operator (NCQA, as an eMeasure certified technology). FOR RECORDS PERTAINING TO PATIENTS WHO ARE OR HAVE BEEN ENROLLED IN A CHEMICAL D EPENDENCY/SUBSTANCE ABUSE PROGRAM, SOME INFORMATION MAY BE OMITTED. This clinica l summary was aggregated from multiple sources. Caution should be exercised in using it in the provision of clinical care. This summary normalizes information from multiple sources, and as a consequence, information in this document may ma terially change the coding, format and clinical context of patient data. In melissa tion, data may be omitted in some cases. CLINICAL DECISIONS SHOULD BE BASED ON T HE PRIMARY CLINICAL RECORDS. [employer] 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
--- OUTSIDE RECORDS SUMMARY | 2019-11-15 06:05 | XMS REPORT ---
Author Author Truman HANNAH Organization [facility] Address [address] [place] [address] Care Team Providers Care Molecular Biology Professor Name Role Phone RIA HANNAH Unavailable PROBLEMS Type Condition ICD9-CM Code [id number] Code Onset Dates Condition S tatus SNOMED Code Problem Pure hypercholesterolemia E78.00 Acti ve 244717037 Problem Type 2 diabetes mellitus wit h other specified complication, without long-term current use of insulin E11.69 Active 50512842 Problem Rheumatoid arthritis M06.9 Active 20641188 Problem Hypothyroidism E03.9 Active 67844 008 Problem Type 2 diabetes mellitus wit hout complication, without long-term current use of insulin E11.9 Active 883469070 Problem Benign essential hypertension I10 Active 2971754 ALLERGIES No Information ENCOUNTERS Encounter Location Date Diagnosis [address] [id number] Feb, [address] [address] Jan, Benign essential hypertension I10 [facility] [address] [facility] [id number] [address] [place] [phone] Jan, [address] [address] Jan, Benign essential hypertension I10 [address] [address] Jan, Rheumatoid arthritis involving multiple sites with positive rheumatoid factor M05.[address] [address] Dec, Benign essential hypertension I10 [facility] [address] [facility] [id number] [address] [place] [phone] Dec, [facility] [address] [facility] [id number] [address] [place] [id number] Dec, Type 2 diabetes mellitus wit hout complication, without long-term current use of insulin E11.9 [facility] [address] [facility] [id number] [address] [place] [phone] Nov, Type 2 diabetes mellitus wit hout complication, without long-term current use of insulin E11.9 [facility] [address] [facility] [id number] [address] [place] [phone] Nov, [address] [address] Oct, Benign essential hypertension I10 ; Pure hypercholesterolemia E78.00 ; Type 2 diabetes mellitus with other specified complication, without long-term current use of insulin E11.69 ; Rheumatoid arthritis M06.9 and Hypothyroidism E03.[address] [address] September, Benign essential hypertension I10 [address] [address] Jul, Rheumatoid arthritis involving multiple sites with positive rheumatoid factor M05.[address] [address] Jul, [place] [address] [facility] [id number] [address] [place] [phone] Jul, [address] [address] Jul, [address] [address] Jul, Pure hypercholesterolemia E78.00 ; Benig n essential hypertension I10 ; Type 2 diabetes mellitus without complication, without long-term current use of insulin E11.9 ; Rheumatoid arthritis involving multiple sites with positive rheumatoid factor M05.79 and Acquired hypothyroidism E03.[address] [address] Jul, [address] [id number] Jul, [facility] [address] [facility] [id number] [address] [place] [phone] Apr, [facility] [address] [facility] [id number] [address] [place] [phone] Apr, [facility] [address] [facility] [id number] [address] [place] [phone] Feb, IMMUNIZATIONS No Known Immunizations SOCIAL HISTORY Never Assessed REASON FOR VISIT New Refill Request PLAN OF CARE VITAL SIGNS MEDICATIONS Medication Instructions Dosage Frequency Start Date End Date Duration S shayy Methotrexate 2.5 MG Orally every wednesday take 8 tabs Jul, 2 019 Active RESULTS No Results PROCEDURES No Known procedures INSTRUCTIONS MEDICATIONS ADMINISTERED No Known Medications MEDICAL (GENERAL) HISTORY Type Description Date Medical History 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
--- OUTSIDE RECORDS SUMMARY | 2019-11-15 06:06 | XMS REPORT | Continuity of Care Document ---
Author Organization Unknown Address Unknown Phone Unavailable Allergies Active Description Code Type Severity Reaction Onset Reported/Identified Relationship to Patient Clinical Status Yes NKANo Known Allergies NKA Miscellaneous Allergy Unknown N/A 06/23/2005 Yes No Known Drug Allergies [id number] Drug Allergy Unknown N/A 11/09/2019 Medications There is no data. Problems Date Dx Coded Attending Type Code Diagnosis Diagnosed By 11/25/2013 SHASTA KOWALSKI MD Ot 244.9 HYPOTHYROIDISM NOS 11/25/2013 SHASTA KOWALSKI MD Ot 250.00 DIAB KARAN WO COMPL, TYPE II OR UNSPEC TY 11/25/2013 SHASTA KOWALSKI MD Ot 272.4 HYPERLIPIDEMIA NEC/NOS 11/25/2013 SHASTA KOWALSKI MD Ot 530.81 ESOPHAGEAL REFLUX 11/25/2013 SHASTA KOWALSKI MD Ot 715.36 LOC OSTEOARTH NOS-L/LEG 01/12/2014 SHASTA KOWALSKI MD Ot V43.65 KNEE JOINT REPLACEMENT STATUS 01/12/2014 SHASTA KOWALSKI MD Ot V54.81 AFTERCARE FOLLOWING JOINT REPLACEMENT 01/12/2014 SHASTA KOWALSKI MD Ot V57.89 REHABILITATION PROC NEC 04/17/2014 RIA HANNAH MD Ot 244.9 04/17/2014 RIA HANNAH MD Ot 250.00 04/17/2014 RIA HANNAH MD Ot 272.0 04/17/2014 SHASTA CAGE MD Ot 268.9 04/17/2014 SHASTA CAGE MD Ot 714.0 04/17/2014 SHASTA CAGE MD Ot V58.69 09/04/2014 RIA HANNAH MD Ot 244.9 09/04/2014 RIA HANNAH MD Ot 250.00 09/04/2014 RIA HANNAH MD Ot 272.0 11/30/2014 RIA HANNAH MD Ot 244.9 11/30/2014 RIA HANNAH MD K Ot 250.00 11/30/2014 CAMDEN VANG, RIA K Ot 272.0 11/30/2014 FAUZIA VANG, SHASTA E Ot 268.9 11/30/2014 FAUZIA VANG, SHASTA E Ot 274.9 11/30/2014 FAUZIA VANG, SHASTA E Ot 714.0 11/30/2014 FAUZIA VANG, SHASTA E Ot V58.69 12/21/2014 FAUZIA VANG, SHASTA E Ot 790.6 12/21/2014 FAUZIA VANG, SHASTA E Ot V58.69 03/05/2015 CAMDEN VANG, RIA K Ot 250.00 03/05/2015 CAMDEN VANG, RIA K Ot 272.0 03/05/2015 CAMDEN VANG, RIA K Ot 401.1 03/05/2015 CAMDEN VANG, RIA K Ot 714.0 03/05/2015 FAUZIA VANG, SHASTA E Ot 714.0 03/05/2015 FAUZIA VANG, SHASTA E Ot V58.69 03/05/2015 CAMDEN VANG, RIA K Ot 244.9 03/05/2015 CAMDEN VANG, RIA K Ot 250.00 03/05/2015 CAMDEN VANG, RIA K Ot 272.0 03/05/2015 CAMDEN VANG, RIA K Ot 714.0 03/05/2015 MEGHANA VANG, SHASTA P Ot 715.36 03/05/2015 MEGHANA VANG, SHASTA P Ot V72.63 03/05/2015 MEGHANA VANG, SHASTA P Ot V74.8 03/05/2015 CAMDEN VANG, RIA K Ot 244.9 03/05/2015 CAMDEN VANG, RIA K Ot 250.00 03/05/2015 CAMDEN VANG, RIA K Ot 272.0 03/05/2015 FAUZIA VANG, SHASTA E Ot 268.9 03/05/2015 FAUZIA VANG, SHASTA E Ot 714.0 03/05/2015 FAUZIA VANG, SHASTA E Ot V58.69 03/05/2015 CAMDEN VANG, RIA K Ot 244.9 03/05/2015 CAMDEN VANG, RIA K Ot 250.00 03/05/2015 CAMDEN VANG, RIA K Ot 272.0 03/05/2015 RIA HANNAH MD Ot 244.9 03/05/2015 CAMDEN VANG, RIA Simms Ot 250.00 03/05/2015 RIA HANNAH MD Ot 272.0 03/05/2015 FAUZIA VANG, SHASTA Gale Ot 268.9 03/05/2015 FAUZIA VANG, SHASTA Gale Ot 274.9 03/05/2015 FAUZIA VANG, SHASTA Gale Ot 714.0 03/05/2015 SHASTA CAGE MD Ot V58.69 03/05/2015 FAUZIA VANG, SHASTA Gale Ot 790.6 03/05/2015 SHASTA CAGE MD Ot V58.69 03/05/2015 CAMDEN VANG, RIA Simms Ot 593.9 03/20/2015 RIA HANNAH MD Ot E03.9 03/20/2015 RIA HANNAH MD Ot E11.9 03/20/2015 RIA HANNAH MD Ot E78.0 05/02/2015 SHASTA CAGE MD Ot E55.9 05/02/2015 SHASTA CAGE MD Ot M10.9 05/02/2015 SHASTA CAGE MD Ot Z79.899 07/03/2015 RIA HANNAH MD Ot E03.9 07/03/2015 RIA HANNAH MD Ot E11.9 09/18/2015 RIA HANNAH MD Ot E03.9 HYPOTHYROIDISM, UNSPECIFIED 09/18/2015 RIA HANNAH MD Ot E11.9 TYPE 2 DIABETES MELLITUS WITHOUT COMPLIC 09/18/2015 RIA HANNAH MD Ot E78.0 PURE HYPERCHOLESTEROLEMIA 09/18/2015 SHASTA CAGE MD Ot E03.9 HYPOTHYROIDISM, UNSPECIFIED 09/18/2015 SHASTA CAGE MD Ot E55.9 VITAMIN D DEFICIENCY, UNSPECIFIED 09/18/2015 SHASTA CAGE MD Ot M10.9 GOUT, UNSPECIFIED 09/18/2015 SHASTA CAGE MD Ot Z51.81 ENCOUNTER FOR THERAPEUTIC DRUG LEVEL MON 09/18/2015 SHASTA CAGE MD Ot Z79.899 OTHER SKILLED NURSING (CURRENT) DRUG THERAPY 10/02/2015 RIA HANNAH MD Ot E03.9 HYPOTHYROIDISM, UNSPECIFIED 10/02/2015 RIA HANNAH MD Ot E11.9 TYPE 2 DIABETES MELLITUS WITHOUT COMPLIC 10/02/2015 RIA HANNAH MD Ot E78.0 PURE HYPERCHOLESTEROLEMIA 10/14/2015 SHASTA CAGE MD Ot E03.9 HYPOTHYROIDISM, UNSPECIFIED 10/14/2015 SHASTA CAGE MD Ot E55.9 VITAMIN D DEFICIENCY, UNSPECIFIED 10/14/2015 SHASTA CAGE MD Ot M10.9 GOUT, UNSPECIFIED 10/14/2015 SHASTA CAGE MD Ot Z51.81 ENCOUNTER FOR THERAPEUTIC DRUG LEVEL [facility] 10/14/2015 SHASTA CAGE MD Ot Z79.899 OTHER THERAPEUTIC DIETITIAN (CURRENT) DRUG THERAPY 10/14/2015 RIA HANNAH MD Ot E03.9 HYPOTHYROIDISM, UNSPECIFIED 10/14/2015 RIA HANNAH MD Ot E11.9 TYPE 2 DIABETES MELLITUS WITHOUT COMPLIC 10/14/2015 RIA HANNAH MD Ot E78.0 PURE HYPERCHOLESTEROLEMIA 10/14/2015 SHASTA CAGE MD Ot E55.9 VITAMIN D DEFICIENCY, UNSPECIFIED 10/14/2015 SHASTA CAGE MD Ot M10.9 GOUT, UNSPECIFIED 10/14/2015 SHASTA CAGE MD Ot Z79.899 OTHER SKILLED NURSING (CURRENT) DRUG THERAPY 10/26/2015 RIA HANNAH MD Ot E03.9 HYPOTHYROIDISM, UNSPECIFIED 10/26/2015 RIA HANNAH MD Ot E11.9 TYPE 2 DIABETES MELLITUS WITHOUT COMPLIC 10/26/2015 RIA HANNAH MD Ot E78.0 PURE HYPERCHOLESTEROLEMIA 11/22/2015 RIA HANNAH MD Ot E03.9 HYPOTHYROIDISM, UNSPECIFIED 11/22/2015 RIA HANNAH MD Ot E11.9 TYPE 2 DIABETES MELLITUS WITHOUT COMPLIC 11/22/2015 RIA HANNAH MD Ot E78.0 PURE HYPERCHOLESTEROLEMIA 12/05/2015 RIA HANNAH MD Ot E03.9 HYPOTHYROIDISM, UNSPECIFIED 12/05/2015 RIA HANNAH MD Ot E11.9 TYPE 2 DIABETES MELLITUS WITHOUT COMPLIC 12/05/2015 RIA HANNAH MD Ot E78.0 PURE HYPERCHOLESTEROLEMIA 12/19/2015 RIA HANNAH MD Ot E03.9 HYPOTHYROIDISM, UNSPECIFIED 12/19/2015 RIA HANNAH MD Ot E11.9 TYPE 2 DIABETES MELLITUS WITHOUT COMPLIC 01/02/2016 RIA HANNAH MD Ot E03.9 HYPOTHYROIDISM, UNSPECIFIED 01/02/2016 RIA HANNAH MD Ot E11.9 TYPE 2 DIABETES MELLITUS WITHOUT COMPLIC 09/10/2016 RIA HANNAH MD Ot 250.00 DIAB KARAN WO COMPL, TYPE II OR UNSPEC TY 09/10/2016 RIA HANNAH MD Ot 272.0 PURE HYPERCHOLESTEROLEM 09/10/2016 RIA HANNAH MD Ot 401.1 BENIGN HYPERTENSION 09/10/2016 RIA HANNAH MD Ot 714.0 RHEUMATOID ARTHRITIS 09/10/2016 SHASTA CAGE MD Ot 714.0 RHEUMATOID ARTHRITIS 09/10/2016 SHASTA CAGE MD Ot V58.69 OTH MED,LT,CURRENT USE 09/10/2016 RIA HANNAH MD Ot 244.9 HYPOTHYROIDISM NOS 09/10/2016 RIA HANNAH MD Ot 250.00 DIAB KARAN WO COMPL, TYPE II OR UNSPEC TY 09/10/2016 RIA HANNAH MD Ot 272.0 PURE HYPERCHOLESTEROLEM 09/10/2016 RIA HANNAH MD Ot 714.0 RHEUMATOID ARTHRITIS 09/10/2016 SHASTA KOWALSKI MD Ot 715.36 LOC OSTEOARTH NOS-L/LEG 09/10/2016 SHASTA KOWALSKI MD Ot V72.63 PRE-PROCEDURAL LABORATORY EXAMINATION 09/10/2016 SHASTA KOWALSKI MD Ot V74.8 SCREEN-BACTERIAL DIS NEC 09/10/2016 RIA HANNAH MD Ot 244.9 HYPOTHYROIDISM NOS 09/10/2016 RIA HANNAH MD Ot 250.00 DIAB KARAN WO COMPL, TYPE II OR UNSPEC TY 09/10/2016 RIA HANNAH MD Ot 272.0 PURE HYPERCHOLESTEROLEM 09/10/2016 SHASTA CAGE MD Ot 268.9 VITAMIN D DEFICIENCY NOS 09/10/2016 SHASTA CAGE MD Ot 714.0 RHEUMATOID ARTHRITIS 09/10/2016 SHASTA CAGE MD Ot V58.69 OTH MED,LT,CURRENT USE 09/10/2016 RIA HANNAH MD Ot 244.9 HYPOTHYROIDISM NOS 09/10/2016 RIA HANNAH MD Ot 250.00 DIAB KARAN WO COMPL, TYPE II OR UNSPEC TY 09/10/2016 RIA HANNAH MD Ot 272.0 PURE HYPERCHOLESTEROLEM 09/10/2016 RIA HANNAH MD Ot 244.9 HYPOTHYROIDISM NOS 09/10/2016 RIA HANNAH MD Ot 250.00 DIAB KARAN WO COMPL, TYPE II OR UNSPEC TY 09/10/2016 RIA HANNAH MD Ot 272.0 PURE HYPERCHOLESTEROLEM 09/10/2016 SHASTA CAGE MD Ot 268.9 VITAMIN D DEFICIENCY NOS 09/10/2016 SHASTA CAGE MD Ot 274.9 GOUT NOS 09/10/2016 SHASTA CAGE MD Ot 714.0 RHEUMATOID ARTHRITIS 09/10/2016 SHASTA CAGE MD Ot V58.69 OTH MED,LT,CURRENT USE 09/10/2016 SHASTA CAGE MD Ot 790.6 ABN BLOOD CHEMISTRY NEC 09/10/2016 SHASTA CAGE MD Ot V58.69 OTH MED,LT,CURRENT USE 09/10/2016 RIA HANNAH MD Ot 593.9 RENAL URETERAL DIS NOS 09/10/2016 RIA HANNAH MD Ot E03.9 HYPOTHYROIDISM, UNSPECIFIED 09/10/2016 RIA HANNAH MD Ot E11.9 TYPE 2 DIABETES MELLITUS WITHOUT COMPLIC 09/10/2016 RIA HANNAH MD Ot E78.0 PURE HYPERCHOLESTEROLEMIA 09/10/2016 SHASTA CAGE MD Ot E55.9 VITAMIN D DEFICIENCY, UNSPECIFIED 09/10/2016 SHASTA CAGE MD Ot M10.9 GOUT, UNSPECIFIED 09/10/2016 SHASTA CAGE MD Ot Z79.899 OTHER THERAPEUTIC DIETITIAN (CURRENT) DRUG THERAPY 09/10/2016 RIA HANNAH MD Ot E03.9 HYPOTHYROIDISM, UNSPECIFIED 09/10/2016 RIA HANNAH MD Ot E11.9 TYPE 2 DIABETES MELLITUS WITHOUT COMPLIC 09/10/2016 RIA HANNAH MD Ot E03.9 HYPOTHYROIDISM, UNSPECIFIED 09/10/2016 RIA HANNAH MD Ot E11.9 TYPE 2 DIABETES MELLITUS WITHOUT COMPLIC 09/10/2016 RIA HANNAH MD Ot E78.0 PURE HYPERCHOLESTEROLEMIA 09/10/2016 SHASTA CAGE MD, Ot E03.9 HYPOTHYROIDISM, UNSPECIFIED 09/10/2016 SHASTA CAGE MD, Ot E55.9 VITAMIN D DEFICIENCY, UNSPECIFIED 09/10/2016 SHASTA CAGE MD, Ot M10.9 GOUT, UNSPECIFIED 09/10/2016 SHASTA CAGE MD Ot Z51.81 ENCOUNTER FOR THERAPEUTIC DRUG LEVEL [facility] 09/10/2016 SHASTA CAGE MD, Ot Z79.899 OTHER THERAPEUTIC DIETITIAN (CURRENT) DRUG THERAPY 09/10/2016 RIA HANNAH MD Ot E03.9 HYPOTHYROIDISM, UNSPECIFIED 09/10/2016 RIA HANNAH MD Ot E11.9 TYPE 2 DIABETES MELLITUS WITHOUT COMPLIC 09/11/2016 SHASTA CAGE MD, Ot E03.9 HYPOTHYROIDISM, UNSPECIFIED 09/11/2016 SHASTA CAGE MD Ot Z79.899 OTHER THERAPEUTIC DIETITIAN (CURRENT) DRUG THERAPY 09/24/2016 SHASTA CAGE MD, Ot E03.9 HYPOTHYROIDISM, UNSPECIFIED 09/24/2016 SHASTA CAGE MD Ot Z79.899 OTHER SKILLED NURSING (CURRENT) DRUG THERAPY 09/30/2016 RIA HANNAH MD Ot E03.9 HYPOTHYROIDISM, UNSPECIFIED 09/30/2016 RIA HANNAH MD Ot E11.9 TYPE 2 DIABETES MELLITUS WITHOUT COMPLIC 01/01/2017 GAVINO DOWNING MD, Ot A41.9 SEPSIS, UNSPECIFIED ORGANISM 01/01/2017 GAVINO DOWNING MD, Ot E03.9 HYPOTHYROIDISM, UNSPECIFIED 01/01/2017 GAVINO DOWNING MD, Ot E11.9 TYPE 2 DIABETES MELLITUS WITHOUT COMPLIC 01/01/2017 GAVINO DOWNING MD, Ot E66.9 OBESITY, UNSPECIFIED 01/01/2017 GAVINO DOWNING MD, Ot E78.00 PURE HYPERCHOLESTEROLEMIA, UNSPECIFIED 01/01/2017 GAVINO DOWNING MD, Ot I10 ESSENTIAL (PRIMARY) HYPERTENSION 01/01/2017 GAVINO DOWNING MD, Ot J96.00 ACUTE RESPIRATORY FAILURE, UNSP W HYPOXI 01/01/2017 GAVINO DOWNING MD, Ot K35.2 ACUTE APPENDICITIS WITH GENERALIZED ELISABETH 01/01/2017 KIDO MD, TAKAAKI Ot M06.9 RHEUMATOID ARTHRITIS, UNSPECIFIED 01/01/2017 GAVINO DOWNING MD Ot Z68.33 BODY MASS INDEX (BMI) 33.0-33.9, ADULT 01/01/2017 GAVINO DOWNING MD, Ot Z79.84 THERAPEUTIC DIETITIAN (CURRENT) USE OF ORAL HYPOGLYC 01/03/2017 GAVINO DOWNING MD Ot A41.9 SEPSIS, UNSPECIFIED ORGANISM 01/03/2017 GAVINO DOWNING MD Ot E03.9 HYPOTHYROIDISM, UNSPECIFIED 01/03/2017 GAVINO DOWNING MD Ot E11.9 TYPE 2 DIABETES MELLITUS WITHOUT COMPLIC 01/03/2017 GAVINO DOWNING MD Ot E66.9 OBESITY, UNSPECIFIED 01/03/2017 GAVINO DOWNING MD Ot E78.00 PURE HYPERCHOLESTEROLEMIA, UNSPECIFIED 01/03/2017 GAVINO DOWNING MD Ot I10 ESSENTIAL (PRIMARY) HYPERTENSION 01/03/2017 GAVINO DOWNING MD Ot J96.00 ACUTE RESPIRATORY FAILURE, UNSP W HYPOXI 01/03/2017 GAVINO DOWNING MD, Ot K35.2 ACUTE APPENDICITIS WITH GENERALIZED ELISABETH 01/03/2017 GAVINO DOWNING MD, Ot M06.9 RHEUMATOID ARTHRITIS, UNSPECIFIED 01/03/2017 GAVINO DOWNING MD, Ot Z68.33 BODY MASS INDEX (BMI) 33.0-33.9, ADULT 01/03/2017 GAVINO DOWNING MD, Ot Z79.84 THERAPEUTIC DIETITIAN (CURRENT) USE OF ORAL HYPOGLYC 01/05/2017 GAVINO DOWNING MD Ot A41.9 SEPSIS, UNSPECIFIED ORGANISM 01/05/2017 GAVINO DOWNING MD Ot E03.9 HYPOTHYROIDISM, UNSPECIFIED 01/05/2017 GAVINO DOWNING MD Ot E11.9 TYPE 2 DIABETES MELLITUS WITHOUT COMPLIC 01/05/2017 GAVINO DOWNING MD Ot E66.9 OBESITY, UNSPECIFIED 01/05/2017 GAVINO DOWNING MD Ot E78.00 PURE HYPERCHOLESTEROLEMIA, UNSPECIFIED 01/05/2017 GAVINO DOWNING MD Ot E78.5 HYPERLIPIDEMIA, UNSPECIFIED 01/05/2017 AGVINO DOWNING MD Ot E87.6 HYPOKALEMIA 01/05/2017 GAVINO DOWNING MD Ot G47.33 OBSTRUCTIVE SLEEP APNEA (ADULT) (PEDIATR 01/05/2017 GAVINO DOWNING MD, Ot I10 ESSENTIAL (PRIMARY) HYPERTENSION 01/05/2017 GAVINO DOWNING MD, Ot J96.00 ACUTE RESPIRATORY FAILURE, UNSP W HYPOXI 01/05/2017 GAVINO DOWNING MD, Ot K35.2 ACUTE APPENDICITIS WITH GENERALIZED ELISABETH 01/05/2017 GAVINO DOWNING MD, Ot K56.7 ILEUS, UNSPECIFIED 01/05/2017 GAVINO DOWNING MD, Ot M06.9 RHEUMATOID ARTHRITIS, UNSPECIFIED 01/05/2017 GAVINO DOWNING MD, Ot R19.7 DIARRHEA, UNSPECIFIED 01/05/2017 GAVINO DOWNING MD, Ot R65.20 SEVERE SEPSIS WITHOUT SEPTIC SHOCK 01/05/2017 GAVINO DOWNING MD, Ot Z68.33 BODY MASS INDEX (BMI) 33.0-33.9, ADULT 01/05/2017 GAVINO DOWNING MD, Ot Z79.84 THERAPEUTIC DIETITIAN (CURRENT) USE OF ORAL HYPOGLYC 01/12/2017 RIA HANNAH MD Ot E03.9 HYPOTHYROIDISM, UNSPECIFIED 01/12/2017 RIA HANNAH MD Ot E11.9 TYPE 2 DIABETES MELLITUS WITHOUT COMPLIC 01/12/2017 RIA HANNAH MD Ot E78.00 PURE HYPERCHOLESTEROLEMIA, UNSPECIFIED 01/28/2017 RIA HANANH MD Ot E03.9 HYPOTHYROIDISM, UNSPECIFIED 01/28/2017 RIA HANNAH MD Ot E11.9 TYPE 2 DIABETES MELLITUS WITHOUT COMPLIC 01/28/2017 RIA HANNAH MD Ot E78.00 PURE HYPERCHOLESTEROLEMIA, UNSPECIFIED 02/02/2017 VJ BLANCO DO, Ot G47. 33 OBSTRUCTIVE SLEEP APNEA (ADULT) (PEDIATR 02/02/2017 VJ BLANCO DO, Ot I10 ESSENTIAL (PRIMARY) HYPERTENSION 02/03/2017 SHASTA CAGE MD, Ot E03.9 HYPOTHYROIDISM, UNSPECIFIED 02/03/2017 SHASTA CAGE MD, Ot E78.2 MIXED HYPERLIPIDEMIA 02/03/2017 SHASTA CAGE MD, Ot M05.79 RHEU ARTHRITIS W RHEU FACTOR MULT SITE W 02/03/2017 SHASTA CAGE MD, Ot Z79.899 OTHER THERAPEUTIC DIETITIAN (CURRENT) DRUG THERAPY 02/07/2017 VJ BLANCO DO, Ot G47. 33 OBSTRUCTIVE SLEEP APNEA (ADULT) (PEDIATR 02/07/2017 VJ BLANCO DO Ot I10 ESSENTIAL (PRIMARY) HYPERTENSION 02/08/2017 SHASTA MURDOCK APRN Ot J96.90 RESPIRATORY FAILURE, UNSP, UNSP W HYPOXI 02/17/2017 SHASTA MURDOCK APRN Ot J96.90 RESPIRATORY FAILURE, UNSP, UNSP W HYPOXI 06/16/2017 RIA HANNAH MD Ot E03.9 HYPOTHYROIDISM, UNSPECIFIED 06/16/2017 RIA HANNAH MD Ot E11.9 TYPE 2 DIABETES MELLITUS WITHOUT COMPLIC 07/27/2017 SHASTA CAGE MD Ot E03.9 HYPOTHYROIDISM, UNSPECIFIED 07/27/2017 SHASTA CAGE MD Ot Z79.899 OTHER THERAPEUTIC DIETITIAN (CURRENT) DRUG THERAPY 08/03/2017 RIA HANNAH MD Ot E03.9 HYPOTHYROIDISM, UNSPECIFIED 08/03/2017 RIA HANNAH MD Ot E11.9 TYPE 2 DIABETES MELLITUS WITHOUT COMPLIC 08/03/2017 RIA HANNAH MD Ot E78.00 PURE HYPERCHOLESTEROLEMIA, UNSPECIFIED 08/03/2017 RIA HANNAH MD Ot M06.9 RHEUMATOID ARTHRITIS, UNSPECIFIED 08/11/2017 SHASTA CAGE MD Ot E03.9 HYPOTHYROIDISM, UNSPECIFIED 08/11/2017 SHASTA CAGE MD Ot Z79.899 OTHER THERAPEUTIC DIETITIAN (CURRENT) DRUG THERAPY 11/01/2017 RIA HANNAH MD Ot 250.00 DIAB KARAN WO COMPL, TYPE II OR UNSPEC TY 11/01/2017 RIA HANNAH MD Ot 272.0 PURE HYPERCHOLESTEROLEM 11/01/2017 RAI HANNAH MD Ot 401.1 BENIGN HYPERTENSION 11/01/2017 RIA HANNAH MD Ot 714.0 RHEUMATOID ARTHRITIS 11/01/2017 SHASTA CAGE MD Ot 714.0 RHEUMATOID ARTHRITIS 11/01/2017 SHASAT CAGE MD Ot V58.69 OTH MED,LT,CURRENT USE 11/01/2017 RIA HANNAH MD Ot 244.9 HYPOTHYROIDISM NOS 11/01/2017 RIA HANNAH MD Ot 250.00 DIAB KARAN WO COMPL, TYPE II OR UNSPEC TY 11/01/2017 RIA HANNAH MD Ot 272.0 PURE HYPERCHOLESTEROLEM 11/01/2017 RIA HANNAH MD Ot 714.0 RHEUMATOID ARTHRITIS 11/01/2017 SHASTA KOWALSKI MD Ot 715.36 LOC OSTEOARTH NOS-L/LEG 11/01/2017 SHASTA KOWALSKI MD Ot V72.63 PRE-PROCEDURAL LABORATORY EXAMINATION 11/01/2017 SHASTA KOWALSKI MD Ot V74.8 SCREEN-BACTERIAL DIS NEC 11/01/2017 RIA HANNAH MD Ot 244.9 HYPOTHYROIDISM NOS 11/01/2017 RIA HANNAH MD Ot 250.00 DIAB KARAN WO COMPL, TYPE II OR UNSPEC TY 11/01/2017 RIA HANNAH MD Ot 272.0 PURE HYPERCHOLESTEROLEM 11/01/2017 SHASTA CAGE MD Ot 268.9 VITAMIN D DEFICIENCY NOS 11/01/2017 SHASTA CAGE MD Ot 714.0 RHEUMATOID ARTHRITIS 11/01/2017 SHASTA CAGE MD Ot V58.69 OTH MED,LT,CURRENT USE 11/01/2017 RIA HANNAH MD Ot 244.9 HYPOTHYROIDISM NOS 11/01/2017 RIA HANNAH MD Ot 250.00 DIAB KARAN WO COMPL, TYPE II OR UNSPEC TY 11/01/2017 RIA HANNAH MD Ot 272.0 PURE HYPERCHOLESTEROLEM 11/01/2017 RIA HANNAH MD Ot 244.9 HYPOTHYROIDISM NOS 11/01/2017 RIA HANNAH MD Ot 250.00 DIAB KARAN WO COMPL, TYPE II OR UNSPEC TY 11/01/2017 RIA HANNAH MD Ot 272.0 PURE HYPERCHOLESTEROLEM 11/01/2017 SHASTA CAGE MD Ot 268.9 VITAMIN D DEFICIENCY NOS 11/01/2017 SHASTA CAGE MD Ot 274.9 GOUT NOS 11/01/2017 SHASTA CAGE MD Ot 714.0 RHEUMATOID ARTHRITIS 11/01/2017 SHASTA CAGE MD Ot V58.69 OTH MED,LT,CURRENT USE 11/01/2017 SHASTA CAGE MD Ot 790.6 ABN BLOOD CHEMISTRY NEC 11/01/2017 SHASTA CAGE MD Ot V58.69 OTH MED,LT,CURRENT USE 11/01/2017 RIA HANNAH MD Ot 593.9 RENAL URETERAL DIS NOS 11/01/2017 RIA HANNAH MD Ot E03.9 HYPOTHYROIDISM, UNSPECIFIED 11/01/2017 RIA HANNAH MD Ot E11.9 TYPE 2 DIABETES MELLITUS WITHOUT COMPLIC 11/01/2017 RIA HANNAH MD Ot E78.0 PURE HYPERCHOLESTEROLEMIA 11/01/2017 SHASTA CAGE MD Ot E55.9 VITAMIN D DEFICIENCY, UNSPECIFIED 11/01/2017 SHASTA CAGE MD Ot M10.9 GOUT, UNSPECIFIED 11/01/2017 SHASTA CAGE MD Ot Z79.899 OTHER SKILLED NURSING (CURRENT) DRUG THERAPY 11/01/2017 RIA HANNAH MD Ot E03.9 HYPOTHYROIDISM, UNSPECIFIED 11/01/2017 RIA HANNAH MD Ot E11.9 TYPE 2 DIABETES MELLITUS WITHOUT COMPLIC 11/01/2017 RIA HANNAH MD Ot E03.9 HYPOTHYROIDISM, UNSPECIFIED 11/01/2017 RIA HANNAH MD Ot E11.9 TYPE 2 DIABETES MELLITUS WITHOUT COMPLIC 11/01/2017 RIA HANNAH MD Ot E78.0 PURE HYPERCHOLESTEROLEMIA 11/01/2017 SHASTA CAGE MD Ot E03.9 HYPOTHYROIDISM, UNSPECIFIED 11/01/2017 SHASTA CAGE MD Ot E55.9 VITAMIN D DEFICIENCY, UNSPECIFIED 11/01/2017 SHASTA CAGE MD Ot M10.9 GOUT, UNSPECIFIED 11/01/2017 SHASTA CAGE MD Ot Z51.81 ENCOUNTER FOR THERAPEUTIC DRUG LEVEL [facility] 11/01/2017 SHASTA CAGE MD Ot Z79.899 OTHER SKILLED NURSING (CURRENT) DRUG THERAPY 11/01/2017 RIA HANNAH MD Ot E03.9 HYPOTHYROIDISM, UNSPECIFIED 11/01/2017 RIA HANNAH MD Ot E11.9 TYPE 2 DIABETES MELLITUS WITHOUT COMPLIC 11/01/2017 SHASTA CAGE MD Ot E03.9 HYPOTHYROIDISM, UNSPECIFIED 11/01/2017 SHASTA CAGE MD Ot Z79.899 OTHER SKILLED NURSING (CURRENT) DRUG THERAPY 11/01/2017 RIA HANNAH MD Ot E03.9 HYPOTHYROIDISM, UNSPECIFIED 11/01/2017 RIA HANNAH MD Ot E11.9 TYPE 2 DIABETES MELLITUS WITHOUT COMPLIC 11/01/2017 RIA HANNAH MD Ot E03.9 HYPOTHYROIDISM, UNSPECIFIED 11/01/2017 RIA HANNAH MD Ot E11.9 TYPE 2 DIABETES MELLITUS WITHOUT COMPLIC 11/01/2017 RIA HANNAH MD Ot E78.00 PURE HYPERCHOLESTEROLEMIA, UNSPECIFIED 11/01/2017 SHASTA CAGE MD Ot E03.9 HYPOTHYROIDISM, UNSPECIFIED 11/01/2017 SHASTA CAGE MD Ot E78.2 MIXED HYPERLIPIDEMIA 11/01/2017 SHASTA CAGE MD Ot M05.79 RHEU ARTHRITIS W RHEU FACTOR MULT SITE W 11/01/2017 SHASTA CAGE MD Ot Z79.899 OTHER THERAPEUTIC DIETITIAN (CURRENT) DRUG THERAPY 11/01/2017 SHASTA MURDOCK APRN Ot J96.90 RESPIRATORY FAILURE, UNSP, UNSP W HYPOXI 11/01/2017 RIA HANNAH MD Ot E03.9 HYPOTHYROIDISM, UNSPECIFIED 11/01/2017 RIA HANNAH MD Ot E11.9 TYPE 2 DIABETES MELLITUS WITHOUT COMPLIC 11/01/2017 SHASTA CAGE MD Ot E03.9 HYPOTHYROIDISM, UNSPECIFIED 11/01/2017 SHASTA CAGE MD Ot Z79.899 OTHER THERAPEUTIC DIETITIAN (CURRENT) DRUG THERAPY 11/01/2017 RIA HANNAH MD Ot E03.9 HYPOTHYROIDISM, UNSPECIFIED 11/01/2017 RIA HANNAH MD Ot E11.9 TYPE 2 DIABETES MELLITUS WITHOUT COMPLIC 11/01/2017 RIA HANNAH MD Ot E78.00 PURE HYPERCHOLESTEROLEMIA, UNSPECIFIED 11/01/2017 RIA HANNAH MD Ot M06.9 RHEUMATOID ARTHRITIS, UNSPECIFIED 11/02/2017 RIA HANNAH MD Ot E03.9 HYPOTHYROIDISM, UNSPECIFIED 11/02/2017 RIA HANNAH MD Ot E11.9 TYPE 2 DIABETES MELLITUS WITHOUT COMPLIC 11/02/2017 RIA HANNAH MD Ot E78.5 HYPERLIPIDEMIA, UNSPECIFIED 11/02/2017 SHASTA CAGE MD Ot E03.9 HYPOTHYROIDISM, UNSPECIFIED 11/02/2017 SHASTA CAGE MD Ot Z79.899 OTHER SKILLED NURSING (CURRENT) DRUG THERAPY 11/17/2017 SHASTA CAGE MD Ot E03.9 HYPOTHYROIDISM, UNSPECIFIED 11/17/2017 SHASTA CAGE MD Ot Z79.899 OTHER SKILLED NURSING (CURRENT) DRUG THERAPY 11/25/2017 RIA HANNAH MD Ot E03.9 HYPOTHYROIDISM, UNSPECIFIED 11/25/2017 RIA HANNAH MD Ot E11.9 TYPE 2 DIABETES MELLITUS WITHOUT COMPLIC 11/25/2017 RIA HANNAH MD Ot E78.5 HYPERLIPIDEMIA, UNSPECIFIED 02/09/2018 SHASTA CAGE MD Ot E03.9 HYPOTHYROIDISM, UNSPECIFIED 02/09/2018 SHASTA CAGE MD Ot E55.9 VITAMIN D DEFICIENCY, UNSPECIFIED 02/09/2018 SHASTA CAGE MD Ot E78.2 MIXED HYPERLIPIDEMIA 02/09/2018 SHASTA CAGE MD Ot Z12.5 ENCOUNTER FOR SCREENING FOR MALIGNANT NE 02/09/2018 SHASTA CAGE MD Ot Z13.0 ENCNTR SCREEN FOR DIS OF THE BLD/BLD-FOR 02/09/2018 SHASTA CAGE MD Ot Z79.899 OTHER THERAPEUTIC DIETITIAN (CURRENT) DRUG THERAPY 02/23/2018 SHASTA CAGE MD Ot E03.9 HYPOTHYROIDISM, UNSPECIFIED 02/23/2018 SHASTA CAGE MD Ot E55.9 VITAMIN D DEFICIENCY, UNSPECIFIED 02/23/2018 SHASTA CAGE MD Ot E78.2 MIXED HYPERLIPIDEMIA 02/23/2018 SHASTA CAGE MD Ot Z12.5 ENCOUNTER FOR SCREENING FOR MALIGNANT NE 02/23/2018 SHASTA CAGE MD Ot Z13.0 ENCNTR SCREEN FOR DIS OF THE BLD/BLD-FOR 02/23/2018 SHASTA CAGE MD Ot Z79.899 OTHER THERAPEUTIC DIETITIAN (CURRENT) DRUG THERAPY 03/03/2018 RIA HANNAH MD Ot E03.9 HYPOTHYROIDISM, UNSPECIFIED 03/03/2018 RIA HANNAH MD Ot E11.9 TYPE 2 DIABETES MELLITUS WITHOUT COMPLIC 05/11/2018 RIA HANNAH MD Ot E11.9 TYPE 2 DIABETES MELLITUS WITHOUT COMPLIC 05/11/2018 SHASTA CAGE MD Ot E03.9 HYPOTHYROIDISM, UNSPECIFIED 05/11/2018 SHASTA CAGE MD Ot E55.9 VITAMIN D DEFICIENCY, UNSPECIFIED 05/11/2018 SHASTA CAGE MD Ot E78.2 MIXED HYPERLIPIDEMIA 05/11/2018 SHASTA CAGE MD Ot Z13.0 ENCNTR SCREEN FOR DIS OF THE BLD/BLD-FOR 05/11/2018 SHASTA CAGE MD Ot Z79.899 OTHER SKILLED NURSING (CURRENT) DRUG THERAPY 05/23/2018 SHASTA CAGE MD Ot E03.9 HYPOTHYROIDISM, UNSPECIFIED 05/23/2018 SHASTA CAGE MD Ot E11.9 TYPE 2 DIABETES MELLITUS WITHOUT COMPLIC 05/23/2018 SHASTA CAGE MD Ot E55.9 VITAMIN D DEFICIENCY, UNSPECIFIED 05/23/2018 SHASTA CAGE MD Ot E78.2 MIXED HYPERLIPIDEMIA 05/23/2018 SHASTA CAGE MD Ot Z13.0 ENCNTR SCREEN FOR DIS OF THE BLD/BLD-FOR 05/23/2018 SHASTA CAGE MD Ot Z79.899 OTHER THERAPEUTIC DIETITIAN (CURRENT) DRUG THERAPY 06/16/2018 SHASTA CAGE MD Ot E03.9 HYPOTHYROIDISM, UNSPECIFIED 06/16/2018 SHASTA CAGE MD Ot E11.9 TYPE 2 DIABETES MELLITUS WITHOUT COMPLIC 06/16/2018 SHASTA CAGE MD Ot E55.9 VITAMIN D DEFICIENCY, UNSPECIFIED 06/16/2018 SHASTA CAGE MD Ot E78.2 MIXED HYPERLIPIDEMIA 06/16/2018 SHASTA CAGE MD Ot Z13.0 ENCNTR SCREEN FOR DIS OF THE BLD/BLD-FOR 06/16/2018 SHASTA CAGE MD Ot Z79.899 OTHER THERAPEUTIC DIETITIAN (CURRENT) DRUG THERAPY 07/26/2018 RIA HANNAH MD Ot E03.9 HYPOTHYROIDISM, UNSPECIFIED 07/26/2018 RIA HANNAH MD Ot E11.9 TYPE 2 DIABETES MELLITUS WITHOUT COMPLIC 07/26/2018 RIA HANNAH MD Ot M05.9 RHEUMATOID ARTHRITIS WITH RHEUMATOID FAC 08/17/2018 RIA HANNAH MD Ot E03.9 HYPOTHYROIDISM, UNSPECIFIED 08/17/2018 RIA HANNAH MD Ot E11.9 TYPE 2 DIABETES MELLITUS WITHOUT COMPLIC 08/17/2018 RIA HANNAH MD Ot M05.9 RHEUMATOID ARTHRITIS WITH RHEUMATOID FAC 08/18/2018 RIA HANNAH MD Ot E11.9 TYPE 2 DIABETES MELLITUS WITHOUT COMPLIC 03/17/2019 SHASTA CAGE MD Ot D50.9 IRON DEFICIENCY ANEMIA, UNSPECIFIED 03/17/2019 SHASTA CAGE MD Ot E03.9 HYPOTHYROIDISM, UNSPECIFIED 03/17/2019 SHASTA CAGE MD Ot E55.9 VITAMIN D DEFICIENCY, UNSPECIFIED 03/17/2019 SHASTA CAGE MD Ot E78.2 MIXED HYPERLIPIDEMIA 03/17/2019 SHASTA CAGE MD Ot M06.9 RHEUMATOID ARTHRITIS, UNSPECIFIED 03/17/2019 SHASTA CAGE MD Ot Z79.899 OTHER THERAPEUTIC DIETITIAN (CURRENT) DRUG THERAPY 03/29/2019 SHASTA CAGE MD, Ot D50.9 IRON DEFICIENCY ANEMIA, UNSPECIFIED 03/29/2019 SHASTA CAGE MD Ot E03.9 HYPOTHYROIDISM, UNSPECIFIED 03/29/2019 SHASTA CAGE MD, Ot E55.9 VITAMIN D DEFICIENCY, UNSPECIFIED 03/29/2019 SHASTA CAGE MD Ot E78.2 MIXED HYPERLIPIDEMIA 03/29/2019 SHASTA CAGE MD, Ot M06.9 RHEUMATOID ARTHRITIS, UNSPECIFIED 03/29/2019 SHASTA CAGE MD Ot Z79.899 OTHER THERAPEUTIC DIETITIAN (CURRENT) DRUG THERAPY 05/08/2019 SHASTA CAGE MD Ot R16.0 HEPATOMEGALY, NOT ELSEWHERE CLASSIFIED 05/18/2019 SHASTA CAGE MD Ot R16.0 HEPATOMEGALY, NOT ELSEWHERE CLASSIFIED 06/07/2019 SHASTA CAGE MD Ot R94.5 ABNORMAL RESULTS OF LIVER FUNCTION STUDI 07/11/2019 RIA HANNAH MD Ot E03.9 HYPOTHYROIDISM, UNSPECIFIED 07/11/2019 RIA HANNAH MD Ot E11.69 TYPE 2 DIABETES MELLITUS WITH OTHER SPEC 07/11/2019 RIA HANNAH MD Ot E55.9 VITAMIN D DEFICIENCY, UNSPECIFIED 07/11/2019 RIA HANNAH MD Ot M06.9 RHEUMATOID ARTHRITIS, UNSPECIFIED 07/24/2019 RIA HANNAH MD Ot E03.9 HYPOTHYROIDISM, UNSPECIFIED 07/24/2019 RIA HANNAH MD Ot E11.69 TYPE 2 DIABETES MELLITUS WITH OTHER SPEC 07/24/2019 RIA HANNAH MD Ot E55.9 VITAMIN D DEFICIENCY, UNSPECIFIED 07/24/2019 RIA HANNAH MD Ot M06.9 RHEUMATOID ARTHRITIS, UNSPECIFIED 10/19/2019 RIA HANNAH MD Ot E11.69 TYPE 2 DIABETES MELLITUS WITH OTHER SPEC 10/19/2019 RIA HANNAH MD Ot E11.69 TYPE 2 DIABETES MELLITUS WITH OTHER SPEC 11/08/2019 RIA HANNAH MD Ot E11.69 TYPE 2 DIABETES MELLITUS WITH OTHER SPEC 11/09/2019 RIA HANNAH MD Ot 244.9 HYPOTHYROIDISM NOS 11/09/2019 RIA HANNAH MD Ot 250.00 DIAB KARAN WO COMPL, TYPE II OR UNSPEC TY 11/09/2019 RIA HANNAH MD Ot 272.0 PURE HYPERCHOLESTEROLEM 11/09/2019 RIA HANNAH MD Ot 244.9 HYPOTHYROIDISM NOS 11/09/2019 RIA HANNAH MD Ot 250.00 DIAB KARAN WO COMPL, TYPE II OR UNSPEC TY 11/09/2019 RIA HANNAH MD Ot 272.0 PURE HYPERCHOLESTEROLEM 11/09/2019 SHASTA CAGE MD Ot 268.9 VITAMIN D DEFICIENCY NOS 11/09/2019 SHASTA CAGE MD Ot 274.9 GOUT NOS 11/09/2019 SHASTA CAGE MD Ot 714.0 RHEUMATOID ARTHRITIS 11/09/2019 SHASTA CAGE MD Ot V58.69 OTH MED,LT,CURRENT USE 11/09/2019 SHASTA CAGE MD Ot 790.6 ABN BLOOD CHEMISTRY NEC 11/09/2019 SHASTA CAGE MD Ot V58.69 OTH MED,LT,CURRENT USE 11/09/2019 RIA HANNAH MD Ot 593.9 RENAL URETERAL DIS NOS 11/09/2019 RIA HANNAH MD Ot E03.9 HYPOTHYROIDISM, UNSPECIFIED 11/09/2019 RIA HANNAH MD Ot E11.9 TYPE 2 DIABETES MELLITUS WITHOUT COMPLIC 11/09/2019 RIA HANNAH MD Ot E78.0 PURE HYPERCHOLESTEROLEMIA 11/09/2019 SHASTA CAGE MD Ot E55.9 VITAMIN D DEFICIENCY, UNSPECIFIED 11/09/2019 SHASTA CAGE MD Ot M10.9 GOUT, UNSPECIFIED 11/09/2019 SHASTA CAGE MD Ot Z79.899 OTHER THERAPEUTIC DIETITIAN (CURRENT) DRUG THERAPY 11/09/2019 RIA HANNAH MD Ot E03.9 HYPOTHYROIDISM, UNSPECIFIED 11/09/2019 RIA HANNAH MD Ot E11.9 TYPE 2 DIABETES MELLITUS WITHOUT COMPLIC 11/09/2019 RIA HANNAH MD Ot E03.9 HYPOTHYROIDISM, UNSPECIFIED 11/09/2019 RIA HANNAH MD Ot E11.9 TYPE 2 DIABETES MELLITUS WITHOUT COMPLIC 11/09/2019 RIA HANNAH MD Ot E78.0 PURE HYPERCHOLESTEROLEMIA 11/09/2019 SHASTA CAGE MD Ot E03.9 HYPOTHYROIDISM, UNSPECIFIED 11/09/2019 SHASTA CAGE MD Ot E55.9 VITAMIN D DEFICIENCY, UNSPECIFIED 11/09/2019 SHASTA CAGE MD Ot M10.9 GOUT, UNSPECIFIED 11/09/2019 SHASTA CAGE MD Ot Z51.81 ENCOUNTER FOR THERAPEUTIC DRUG LEVEL MON 11/09/2019 SHASTA CAGE MD Ot Z79.899 OTHER SKILLED NURSING (CURRENT) DRUG THERAPY 11/09/2019 RIA HANNAH MD Ot E03.9 HYPOTHYROIDISM, UNSPECIFIED 11/09/2019 RIA HANNAH MD Ot E11.9 TYPE 2 DIABETES MELLITUS WITHOUT COMPLIC 11/09/2019 SHASTA CAGE MD Ot E03.9 HYPOTHYROIDISM, UNSPECIFIED 11/09/2019 SHASTA CAGE MD Ot Z79.899 OTHER SKILLED NURSING (CURRENT) DRUG THERAPY 11/09/2019 RIA HANNAH MD Ot E03.9 HYPOTHYROIDISM, UNSPECIFIED 11/09/2019 RIA HANNAH MD Ot E11.9 TYPE 2 DIABETES MELLITUS WITHOUT COMPLIC 11/09/2019 RIA HANNAH MD Ot E03.9 HYPOTHYROIDISM, UNSPECIFIED 11/09/2019 RIA HANNAH MD Ot E11.9 TYPE 2 DIABETES MELLITUS WITHOUT COMPLIC 11/09/2019 RIA HANNAH MD Ot E78.00 PURE HYPERCHOLESTEROLEMIA, UNSPECIFIED 11/09/2019 SHASTA CAGE MD Ot E03.9 HYPOTHYROIDISM, UNSPECIFIED 11/09/2019 SHASTA CAGE MD Ot E78.2 MIXED HYPERLIPIDEMIA 11/09/2019 SHASTA CAGE MD Ot M05.79 RHEU ARTHRITIS W RHEU FACTOR MULT SITE W 11/09/2019 SHASTA CAGE MD Ot Z79.899 OTHER SKILLED NURSING (CURRENT) DRUG THERAPY 11/09/2019 SHASTA MURDOCK APRN Ot J96.90 RESPIRATORY FAILURE, UNSP, UNSP W HYPOXI 11/09/2019 RIA HANNAH MD Ot E03.9 HYPOTHYROIDISM, UNSPECIFIED 11/09/2019 RIA HANNAH MD Ot E11.9 TYPE 2 DIABETES MELLITUS WITHOUT COMPLIC 11/09/2019 SHASTA CAGE MD, Ot E03.9 HYPOTHYROIDISM, UNSPECIFIED 11/09/2019 SHASTA CAGE MD, Ot Z79.899 OTHER THERAPEUTIC DIETITIAN (CURRENT) DRUG THERAPY 11/09/2019 RIA HANNAH MD Ot E03.9 HYPOTHYROIDISM, UNSPECIFIED 11/09/2019 RIA HANNAH MD Ot E11.9 TYPE 2 DIABETES MELLITUS WITHOUT COMPLIC 11/09/2019 RIA HANNAH MD Ot E78.00 PURE HYPERCHOLESTEROLEMIA, UNSPECIFIED 11/09/2019 RIA HANNAH MD Ot M06.9 RHEUMATOID ARTHRITIS, UNSPECIFIED 11/09/2019 RIA HANNAH MD Ot E03.9 HYPOTHYROIDISM, UNSPECIFIED 11/09/2019 RIA HANNAH MD Ot E11.9 TYPE 2 DIABETES MELLITUS WITHOUT COMPLIC 11/09/2019 RIA HANNAH MD Ot E78.5 HYPERLIPIDEMIA, UNSPECIFIED 11/09/2019 SHASTA CAGE MD, Ot E03.9 HYPOTHYROIDISM, UNSPECIFIED 11/09/2019 SHASTA CAGE MD, Ot Z79.899 OTHER SKILLED NURSING (CURRENT) DRUG THERAPY Procedures Code Description Performed By Per formed On 81.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 11/22/2013 [id number] RE SECTION OF APPENDIX, PERCUTANEOUS ENDO 12/28/2016 Results Test Result Range Complete blood count (CBC) with automate d white blood cell (WBC) differential - 09/10/16 06:53 Blood leukocytes automated count (number/volume) 7.7 10*3/uL 4.3-11.0 Blood erythrocytes automated count (number/volume) 4.90 10*6/uL 4.35-5.85 Venous blood hemoglobin measurement (mass/volume) 14.9 g/dL 13.3-17.7 Blood hematocrit (volume fraction) 44 % 40-54 Automated erythrocyte mean corpuscular volume 89 [ foz_us] 80-99 Automated erythrocyte mean corpuscular h emoglobin (mass per erythrocyte) 30 pg 25-34 Automated erythrocyte mean corpuscular h emoglobin concentration measurement (mass/volume) 34 g/dL 32-36 Automated erythrocyte distribution width ratio 13. 2 % 10.0- 14.5 Automated blood platelet count (count/volume) 266 10*3/uL 130-400 Automated blood platelet mean volume measurement 10.0 [foz_us] 7.4-10.4 Automated blood neutrophils/100 leukocytes 66 % 42-75 Automated blood lymphocytes/100 leukocytes 20 % 12-44 Blood monocytes/100 leukocytes 12 % 0-12 Automated blood eosinophils/100 leukocytes 2 % 0-10 Automated blood basophils/100 leukocytes 0 % 0-10 Blood neutrophils automated count (number/volume) 5.1 10*3 1.8-7.8 Blood lymphocytes automated count (number/volume) 1.6 10*3 1.0-4.0 Blood monocytes automated count (number/volume) 0. 9 10*3 0.0-1.0 Automated eosinophil count 0.1 10*3/uL 0 .0-0.3 Automated blood basophil count (count/volume) 0.0 10*3/uL 0.0-0.1 Serum or plasma C reactive protein measu rement (mass/volume) - 09/10/16 06:53 Serum or plasma C reactive protein measurement (mass/v olume) 0.20 mg/dL 0.00-0.50 Comprehensive metabolic panel - 09/10/16 06:53 Serum or plasma sodium measurement (moles/volume) 139 mmol/L 135-145 Serum or plasma potassium measurement (moles/volume) 4.3 mmol/L 3.6-5.0 Serum or plasma chloride measurement (moles/volume) 105 mmol/L 98-107 Carbon dioxide 23 mmol/L 21-32 Serum or plasma anion gap determination (moles/volume) 11 mmol/L 5-14 Serum or plasma urea nitrogen measurement (mass/volume ) 19 mg/dL 7-18 Serum or plasma creatinine measurement (mass/volume) 1.06 mg/dL 0.60-1.30 Serum or plasma urea nitrogen/creatinine mass ratio 18 NRG Serum or plasma creatinine measurement w ith calculation of estimated glomerular filtration rate > NRG Serum or plasma glucose measurement (mass/volume) 187 mg/dL 70-105 Serum or plasma calcium measurement (mass/volume) 9.4 mg/dL 8.5-10.1 Serum or plasma total bilirubin measurement (mass/volu me) 0.8 mg/dL 0.1-1.0 Serum or plasma alkaline phosphatase shonda surement (enzymatic activity/volume) 50 U/L 40-136 Serum or plasma aspartate aminotransfera se measurement (enzymatic activity/volume) 24 U/L 5-34 Serum or plasma alanine aminotransferase measurement (enzymatic activity/volume) 33 U/L 0-55 Serum or plasma protein measurement (mass/volume) 7.4 g/dL 6.4-8.2 Serum or plasma albumin measurement (mass/volume) 4.5 g/dL 3.2-4.5 Lipid 1996 panel - 09/10/16 06:53 Serum or plasma triglyceride measurement (mass/volume) 155 mg/dL <150 Serum or plasma cholesterol measurement (mass/volume) 136 mg/dL < 200 Serum or plasma cholesterol in HDL measurement (mass/v olume) 31 mg/dL 40-60 Cholesterol in LDL [mass/volume] in serum or plasma by direct assay 92 mg/dL 1-129 Serum or plasma cholesterol in VLDL measurement (mass/ volume) 31 mg/dL 5-40 Erythrocyte sedimentation rate by jaja gren method - 09/10/16 06:53 Erythrocyte sedimentation rate by westergren method 7 mm 0- 30 Hemoglobin A1c - 09/10/16 06:53 Hemoglobin A1c 7.8 % 4.5-6.2 THYROID STIMULATING HORMONE - 09/10/16 0 6:53 THYROID STIMULATING HORMONE 0.10 u[iU]/mL 0.35-4.94 Complete urinalysis with reflex to cultu re - 12/30/16 09:20 Urine color determination YELLOW NRG Urine clarity determination CLEAR NR G Urine pH measurement by test strip 5 5-9 Specific gravity of urine by test strip 1.025 1.016-1.022 Urine protein assay by test strip, semi-quantitative 3+ NEGATIVE Urine glucose detection by automated test strip 4+ NEGATIVE Erythrocytes detection in urine sediment by light micr oscopy 2+ NEGATIVE Urine ketones detection by automated test strip NE GATIVE NEGATIVE Urine nitrite detection by test strip NEGATIVE NEGATIVE Urine total bilirubin detection by test strip NEGA TIVE NEGATIVE Urine urobilinogen measurement by automated test strip (mass/volume) NORMAL NORMAL Urine leukocyte esterase detection by dipstick NEG ATIVE NEGATIVE Automated urine sediment erythrocyte cou nt by microscopy (number/high power field) RARE NRG Automated urine sediment leukocyte count by microscopy (number/high power field) RARE NRG Bacteria detection in urine sediment by light microsco py NEGATIVE NRG Squamous epithelial cells detection in u rine sediment by light microscopy NONE NRG Crystals detection in urine sediment by light microsco py NONE NRG Casts detection in urine sediment by light microscopy NONE NRG Mucus detection in urine sediment by light microscopy MODERATE NRG Complete urinalysis with reflex to culture NO NRG Complete blood count (CBC) with automate d white blood cell (WBC) differential - 12/30/16 09:30 Blood leukocytes automated count (number/volume) 12.7 10*3/uL 4.3-11.0 Blood erythrocytes automated count (number/volume) 4.69 10*6/uL 4.35-5.85 Venous blood hemoglobin measurement (mass/volume) 14.1 g/dL 13.3-17.7 Blood hematocrit (volume fraction) 43 % 40-54 Automated erythrocyte mean corpuscular volume 91 [ foz_us] 80-99 Automated erythrocyte mean corpuscular h emoglobin (mass per erythrocyte) 30 pg 25-34 Automated erythrocyte mean corpuscular h emoglobin concentration measurement (mass/volume) 33 g/dL 32-36 Automated erythrocyte distribution width ratio 13. 5 % 10.0- 14.5 Automated blood platelet count (count/volume) 256 10*3/uL 130-400 Automated blood platelet mean volume measurement 10.1 [foz_us] 7.4-10.4 Automated blood neutrophils/100 leukocytes 82 % 42-75 Automated blood lymphocytes/100 leukocytes 10 % 12-44 Blood monocytes/100 leukocytes 9 % 0-12 Automated blood eosinophils/100 leukocytes 0 % 0-10 Automated blood basophils/100 leukocytes 0 % 0-10 Blood neutrophils automated count (number/volume) 10.3 10*3 1.8-7.8 Blood lymphocytes automated count (number/volume) 1.2 10*3 1.0-4.0 Blood monocytes automated count (number/volume) 1. 1 10*3 0.0-1.0 Automated eosinophil count 0.0 10*3/uL 0 .0-0.3 Automated blood basophil count (count/volume) 0.0 10*3/uL 0.0-0.1 Comprehensive metabolic panel - 08/09/17 09:30 Serum or plasma sodium measurement (moles/volume) 136 mmol/L 135-145 Serum or plasma potassium measurement (moles/volume) 3.9 mmol/L 3.6-5.0 Serum or plasma chloride measurement (moles/volume) 101 mmol/L 98-107 Carbon dioxide 24 mmol/L 21-32 Serum or plasma anion gap determination (moles/volume) 11 mmol/L 5-14 Serum or plasma urea nitrogen measurement (mass/volume ) 15 mg/dL 7-18 Serum or plasma creatinine measurement (mass/volume) 1.24 mg/dL 0.60-1.30 Serum or plasma urea nitrogen/creatinine mass ratio 12 NRG Serum or plasma creatinine measurement w ith calculation of estimated glomerular filtration rate 59 NRG Serum or plasma glucose measurement (mass/volume) 207 mg/dL 70-105 Serum or plasma calcium measurement (mass/volume) 9.9 mg/dL 8.5-10.1 Serum or plasma total bilirubin measurement (mass/volu me) 2.1 mg/dL 0.1-1.0 Serum or plasma alkaline phosphatase shonda surement (enzymatic activity/volume) 43 U/L 40-136 Serum or plasma aspartate aminotransfera se measurement (enzymatic activity/volume) 27 U/L 5-34 Serum or plasma alanine aminotransferase measurement (enzymatic activity/volume) 43 U/L 0-55 Serum or plasma protein measurement (mass/volume) 7.9 g/dL 6.4-8.2 Serum or plasma albumin measurement (mass/volume) 4.5 g/dL 3.2-4.5 Methicillin resistant Staphylococcus aur eus (MRSA) screening culture - 12/30/16 13:15 Methicillin resistant Staphylococcus aureus (MRSA) scr eening culture NEG NRG Capillary blood glucose measurement by g lucometer (mass/volume) - 12/30/16 14:12 Capillary blood glucose measurement by glucometer (mas s/volume) 209 mg/dL 70-110 Arterial blood gas measurement - 7 18:10 Blood pCO2 47 mm[Hg] 35-45 Blood pO2 70 mm[Hg] 79-93 Arterial blood bicarbonate measurement (moles/volume) 22 mmol/L 23-27 Arterial blood base excess by calculation -3.3 mmo l/L -2.5-2.5 Arterial blood oxygen saturation measurement 94 % 94-100 * Inhaled oxygen flow rate 65% NRG Arterial blood pH measurement with patient temperature correction 7.29 7.37-7.43 Arterial blood carbon dioxide, total measurement (mole s/volume) 23.6 mmol/L 21.0-31.0 Body site LT RAD NRG Assessment of wrist artery patency prior to arterial p uncture YES-POS NRG Setting of ventilation mode NO NR G Measurement of body temperature 99.0 NRG Complete urinalysis with reflex to cultu re - 12/30/16 19:30 Urine color determination YELLOW NRG Urine clarity determination CLEAR NR G Urine pH measurement by test strip 5 5-9 Specific gravity of urine by test strip 1.020 1.016-1.022 Urine protein assay by test strip, semi-quantitative 2+ NEGATIVE Urine glucose detection by automated test strip 4+ NEGATIVE Erythrocytes detection in urine sediment by light micr oscopy 3+ NEGATIVE Urine ketones detection by automated test strip 1+ NEGATIVE Urine nitrite detection by test strip NEGATIVE NEGATIVE Urine total bilirubin detection by test strip NEGA TIVE NEGATIVE Urine urobilinogen measurement by automated test strip (mass/volume) NORMAL NORMAL Urine leukocyte esterase detection by dipstick 1+ NEGATIVE Automated urine sediment erythrocyte cou nt by microscopy (number/high power field) [HPF] NRG Automated urine sediment leukocyte count by microscopy (number/high power field) [HPF] NRG Bacteria detection in urine sediment by light microsco py TRACE NRG Crystals detection in urine sediment by light microsco py NONE NRG Casts detection in urine sediment by light microscopy NONE NRG Mucus detection in urine sediment by light microscopy NEGATIVE NRG Complete urinalysis with reflex to culture NO NRG Arterial blood gas measurement - 7 19:36 Blood pCO2 45 mm[Hg] 35-45 Blood pO2 78 mm[Hg] 79-93 Arterial blood bicarbonate measurement (moles/volume) 22 mmol/L 23-27 Arterial blood base excess by calculation -2.6 mmo l/L -2.5-2.5 Arterial blood oxygen saturation measurement 95 % 94-100 * Inhaled oxygen flow rate 4L NRG Arterial blood pH measurement with patient temperature correction 7.33 7.37-7.43 Arterial blood carbon dioxide, total measurement (mole s/volume) 23.5 mmol/L 21.0-31.0 Body site LT RAD NRG Assessment of wrist artery patency prior to arterial p uncture YES-POS NRG Setting of ventilation mode NO NR G Measurement of body temperature 101.2 NRG Complete blood count (CBC) with automate d white blood cell (WBC) differential - 12/30/16 19:41 Blood leukocytes automated count (number/volume) 9.5 10*3/uL 4.3-11.0 Blood erythrocytes automated count (number/volume) 4.35 10*6/uL 4.35-5.85 Venous blood hemoglobin measurement (mass/volume) 13.5 g/dL 13.3-17.7 Blood hematocrit (volume fraction) 40 % 40-54 Automated erythrocyte mean corpuscular volume 93 [ foz_us] 80-99 Automated erythrocyte mean corpuscular h emoglobin (mass per erythrocyte) 31 pg 25-34 Automated erythrocyte mean corpuscular h emoglobin concentration measurement (mass/volume) 34 g/dL 32-36 Automated erythrocyte distribution width ratio 13. 5 % 10.0- 14.5 Automated blood platelet count (count/volume) 227 10*3/uL 130-400 Automated blood platelet mean volume measurement 10.1 [foz_us] 7.4-10.4 Automated blood neutrophils/100 leukocytes 88 % 42-75 Automated blood lymphocytes/100 leukocytes 7 % 12-44 Blood monocytes/100 leukocytes 5 % 0-12 Automated blood eosinophils/100 leukocytes 0 % 0-10 Automated blood basophils/100 leukocytes 0 % 0-10 Blood neutrophils automated count (number/volume) 8.3 10*3 1.8-7.8 Blood lymphocytes automated count (number/volume) 0.7 10*3 1.0-4.0 Blood monocytes automated count (number/volume) 0. 5 10*3 0.0-1.0 Automated eosinophil count 0.0 10*3/uL 0 .0-0.3 Automated blood basophil count (count/volume) 0.0 10*3/uL 0.0-0.1 Blood lactic acid measurement (moles/vol ume) - 12/30/16 19:41 Blood lactic acid measurement (moles/volume) 2.29 mmol/L 0.50-2.00 Whole blood basic metabolic panel - 02/07 19:41 Serum or plasma sodium measurement (moles/volume) 136 mmol/L 135-145 Serum or plasma potassium measurement (moles/volume) 4.0 mmol/L 3.6-5.0 Serum or plasma chloride measurement (moles/volume) 104 mmol/L 98-107 Carbon dioxide 21 mmol/L 21-32 Serum or plasma anion gap determination (moles/volume) 11 mmol/L 5-14 Serum or plasma urea nitrogen measurement (mass/volume ) 14 mg/dL 7-18 Serum or plasma creatinine measurement (mass/volume) 1.17 mg/dL 0.60-1.30 Serum or plasma urea nitrogen/creatinine mass ratio 12 NRG Serum or plasma creatinine measurement w ith calculation of estimated glomerular filtration rate > NRG Serum or plasma glucose measurement (mass/volume) 229 mg/dL 70-105 Serum or plasma calcium measurement (mass/volume) 8.9 mg/dL 8.5-10.1 Serum or plasma phosphate measurement (m ass/volume) - 12/30/16 19:41 Serum or plasma phosphate measurement (mass/volume) 3.1 mg/dL 2.3-4.7 Magnesium - 12/30/16 19:41 Magnesium 1.5 mg/dL 1.8-2.4 Serum or plasma lithium measurement (mol es/volume) - 12/30/16 19:41 BNP level 48.5 pg/mL <100.0 Blood manual differential performed dete ction - 12/30/16 19:41 Blood monocytes/100 leukocytes 0 % NRG Manual blood segmented neutrophils/100 leukocytes 75 % NRG Blood band neutrophils/100 leukocytes 11 % NRG Manual blood lymphocytes/100 leukocytes 14 % NRG Manual eosinophils/100 leukocytes in nose 0 % NRG Manual blood basophils/100 leukocytes 0 % NRG Blood erythrocyte morphology finding identification NORMAL NRG Bacterial blood culture - 12/30/16 20:34 Bacterial blood culture NG NRG Bacterial blood culture - 12/30/16 20:40 Bacterial blood culture NG NRG Serum or plasma lactate measurement (mol es/volume) - 12/30/16 22:10 Serum or plasma lactate measurement (moles/volume) 2.05 mmol/L 0.50-2.00 Capillary blood glucose measurement by g lucometer (mass/volume) - 12/31/16 00:19 Capillary blood glucose measurement by glucometer (mas s/volume) 206 mg/dL 70-110 Complete blood count (CBC) with automate d white blood cell (WBC) differential - 12/31/16 03:27 Blood leukocytes automated count (number/volume) 7.7 10*3/uL 4.3-11.0 Blood erythrocytes automated count (number/volume) 4.17 10*6/uL 4.35-5.85 Venous blood hemoglobin measurement (mass/volume) 12.9 g/dL 13.3-17.7 Blood hematocrit (volume fraction) 39 % 40-54 Automated erythrocyte mean corpuscular volume 93 [ foz_us] 80-99 Automated erythrocyte mean corpuscular h emoglobin (mass per erythrocyte) 31 pg 25-34 Automated erythrocyte mean corpuscular h emoglobin concentration measurement (mass/volume) 33 g/dL 32-36 Automated erythrocyte distribution width ratio 13. 6 % 10.0- 14.5 Automated blood platelet count (count/volume) 199 10*3/uL 130-400 Automated blood platelet mean volume measurement 10.4 [foz_us] 7.4-10.4 Automated blood neutrophils/100 leukocytes 84 % 42-75 Automated blood lymphocytes/100 leukocytes 9 % 12-44 Blood monocytes/100 leukocytes 8 % 0-12 Automated blood eosinophils/100 leukocytes 0 % 0-10 Automated blood basophils/100 leukocytes 0 % 0-10 Blood neutrophils automated count (number/volume) 6.5 10*3 1.8-7.8 Blood lymphocytes automated count (number/volume) 0.7 10*3 1.0-4.0 Blood monocytes automated count (number/volume) 0. 6 10*3 0.0-1.0 Automated eosinophil count 0.0 10*3/uL 0 .0-0.3 Automated blood basophil count (count/volume) 0.0 10*3/uL 0.0-0.1 Blood lactic acid measurement (moles/vol ume) - 12/31/16 03:27 Blood lactic acid measurement (moles/volume) 1.74 mmol/L 0.50-2.00 Whole blood basic metabolic panel - 12/22 03:27 Serum or plasma sodium measurement (moles/volume) 138 mmol/L 135-145 Serum or plasma potassium measurement (moles/volume) 4.0 mmol/L 3.6-5.0 Serum or plasma chloride measurement (moles/volume) 105 mmol/L 98-107 Carbon dioxide 21 mmol/L 21-32 Serum or plasma anion gap determination (moles/volume) 12 mmol/L 5-14 Serum or plasma urea nitrogen measurement (mass/volume ) 13 mg/dL 7-18 Serum or plasma creatinine measurement (mass/volume) 1.12 mg/dL 0.60-1.30 Serum or plasma urea nitrogen/creatinine mass ratio 12 NRG Serum or plasma creatinine measurement w ith calculation of estimated glomerular filtration rate > NRG Serum or plasma glucose measurement (mass/volume) 223 mg/dL 70-105 Serum or plasma calcium measurement (mass/volume) 8.7 mg/dL 8.5-10.1 Serum or plasma phosphate measurement (m ass/volume) - 12/31/16 03:27 Serum or plasma phosphate measurement (mass/volume) 2.6 mg/dL 2.3-4.7 Magnesium - 12/31/16 03:27 Magnesium 2.1 mg/dL 1.8-2.4 Arterial blood gas measurement - 7 05:00 Blood pCO2 49 mm[Hg] 35-45 Blood pO2 89 mm[Hg] 79-93 Arterial blood bicarbonate measurement (moles/volume) 25 mmol/L 23-27 Arterial blood base excess by calculation -0.3 mmo l/L -2.5-2.5 Arterial blood oxygen saturation measurement 98 % 94-100 * Inhaled oxygen flow rate 35% FIO2 BIPAP NRG Arterial blood pH measurement with patient temperature correction 7.33 7.37-7.43 Arterial blood carbon dioxide, total measurement (mole s/volume) 26.1 mmol/L 21.0-31.0 Body site R RAD NRG Assessment of wrist artery patency prior to arterial p uncture YES-POS NRG Setting of ventilation mode NO NR G Measurement of body temperature 100.6 NRG Capillary blood glucose measurement by g lucometer (mass/volume) - 12/31/16 12:50 Capillary blood glucose measurement by glucometer (mas s/volume) 188 mg/dL 70-110 Capillary blood glucose measurement by g lucometer (mass/volume) - 12/31/16 18:02 Capillary blood glucose measurement by glucometer (mas s/volume) 152 mg/dL 70-110 Capillary blood glucose measurement by g lucometer (mass/volume) - 01/01/17 00:10 Capillary blood glucose measurement by glucometer (mas s/volume) 173 mg/dL 70-110 Complete blood count (CBC) with automate d white blood cell (WBC) differential - 01/01/17 03:26 Blood leukocytes automated count (number/volume) 7.5 10*3/uL 4.3-11.0 Blood erythrocytes automated count (number/volume) 3.74 10*6/uL 4.35-5.85 Venous blood hemoglobin measurement (mass/volume) 11.5 g/dL 13.3-17.7 Blood hematocrit (volume fraction) 35 % 40-54 Automated erythrocyte mean corpuscular volume 94 [ foz_us] 80-99 Automated erythrocyte mean corpuscular h emoglobin (mass per erythrocyte) 31 pg 25-34 Automated erythrocyte mean corpuscular h emoglobin concentration measurement (mass/volume) 33 g/dL 32-36 Automated erythrocyte distribution width ratio 13. 7 % 10.0- 14.5 Automated blood platelet count (count/volume) 175 10*3/uL 130-400 Automated blood platelet mean volume measurement 10.1 [foz_us] 7.4-10.4 Automated blood neutrophils/100 leukocytes 82 % 42-75 Automated blood lymphocytes/100 leukocytes 10 % 12-44 Blood monocytes/100 leukocytes 8 % 0-12 Automated blood eosinophils/100 leukocytes 0 % 0-10 Automated blood basophils/100 leukocytes 0 % 0-10 Blood neutrophils automated count (number/volume) 6.1 10*3 1.8-7.8 Blood lymphocytes automated count (number/volume) 0.7 10*3 1.0-4.0 Blood monocytes automated count (number/volume) 0. 6 10*3 0.0-1.0 Automated eosinophil count 0.0 10*3/uL 0 .0-0.3 Automated blood basophil count (count/volume) 0.0 10*3/uL 0.0-0.1 Comprehensive metabolic panel - 01/01/17 03:26 Serum or plasma sodium measurement (moles/volume) 141 mmol/L 135-145 Serum or plasma potassium measurement (moles/volume) 3.7 mmol/L 3.6-5.0 Serum or plasma chloride measurement (moles/volume) 108 mmol/L 98-107 Carbon dioxide 22 mmol/L 21-32 Serum or plasma anion gap determination (moles/volume) 11 mmol/L 5-14 Serum or plasma urea nitrogen measurement (mass/volume ) 16 mg/dL 7-18 Serum or plasma creatinine measurement (mass/volume) 1.30 mg/dL 0.60-1.30 Serum or plasma urea nitrogen/creatinine mass ratio 12 NRG Serum or plasma creatinine measurement w ith calculation of estimated glomerular filtration rate 55 NRG Serum or plasma glucose measurement (mass/volume) 173 mg/dL 70-105 Serum or plasma calcium measurement (mass/volume) 8.4 mg/dL 8.5-10.1 Serum or plasma total bilirubin measurement (mass/volu me) 1.4 mg/dL 0.1-1.0 Serum or plasma alkaline phosphatase shonda surement (enzymatic activity/volume) 32 U/L 40-136 Serum or plasma aspartate aminotransfera se measurement (enzymatic activity/volume) 18 U/L 5-34 Serum or plasma alanine aminotransferase measurement (enzymatic activity/volume) 22 U/L 0-55 Serum or plasma protein measurement (mass/volume) 6.1 g/dL 6.4-8.2 Serum or plasma albumin measurement (mass/volume) 3.2 g/dL 3.2-4.5 Serum or plasma phosphate measurement (m ass/volume) - 01/01/17 03:26 Serum or plasma phosphate measurement (mass/volume) 1.8 mg/dL 2.3-4.7 Magnesium - 01/01/17 03:26 Magnesium 2.3 mg/dL 1.8-2.4 Arterial blood gas measurement - 7 05:20 Blood pCO2 45 mm[Hg] 35-45 Blood pO2 88 mm[Hg] 79-93 Arterial blood bicarbonate measurement (moles/volume) 24 mmol/L 23-27 Arterial blood base excess by calculation -1.0 mmo l/L -2.5-2.5 Arterial blood oxygen saturation measurement 98 % 94-100 * Inhaled oxygen flow rate 30% NRG Arterial blood pH measurement with patient temperature correction 7.35 7.37-7.43 Arterial blood carbon dioxide, total measurement (mole s/volume) 25.2 mmol/L 21.0-31.0 Body site RIGHT RADIAL NRG Assessment of wrist artery patency prior to arterial p uncture YES-POS NRG Setting of ventilation mode NO NR G Measurement of body temperature 99.2 NRG Blood lactic acid measurement (moles/vol ume) - 01/01/17 07:15 Blood lactic acid measurement (moles/volume) 0.88 mmol/L 0.50-2.00 Bacterial blood culture - 01/01/17 07:15 Bacterial blood culture NG NRG Bacterial blood culture - 01/01/17 07:22 Bacterial blood culture NG NRG Capillary blood glucose measurement by g lucometer (mass/volume) - 01/01/17 13:24 Capillary blood glucose measurement by glucometer (mas s/volume) 145 mg/dL 70-110 Capillary blood glucose measurement by g lucometer (mass/volume) - 01/01/17 23:25 Capillary blood glucose measurement by glucometer (mas s/volume) 164 mg/dL 70-110 Complete blood count (CBC) with automate d white blood cell (WBC) differential - 01/02/17 05:13 Blood leukocytes automated count (number/volume) 8.3 10*3/uL 4.3-11.0 Blood erythrocytes automated count (number/volume) 3.41 10*6/uL 4.35-5.85 Venous blood hemoglobin measurement (mass/volume) 10.2 g/dL 13.3-17.7 Blood hematocrit (volume fraction) 32 % 40-54 Automated erythrocyte mean corpuscular volume 94 [ foz_us] 80-99 Automated erythrocyte mean corpuscular h emoglobin (mass per erythrocyte) 30 pg 25-34 Automated erythrocyte mean corpuscular h emoglobin concentration measurement (mass/volume) 32 g/dL 32-36 Automated erythrocyte distribution width ratio 13. 5 % 10.0- 14.5 Automated blood platelet count (count/volume) 189 10*3/uL 130-400 Automated blood platelet mean volume measurement 10.0 [foz_us] 7.4-10.4 Automated blood neutrophils/100 leukocytes 83 % 42-75 Automated blood lymphocytes/100 leukocytes 7 % 12-44 Blood monocytes/100 leukocytes 9 % 0-12 Automated blood eosinophils/100 leukocytes 1 % 0-10 Automated blood basophils/100 leukocytes 0 % 0-10 Blood neutrophils automated count (number/volume) 6.9 10*3 1.8-7.8 Blood lymphocytes automated count (number/volume) 0.6 10*3 1.0-4.0 Blood monocytes automated count (number/volume) 0. 8 10*3 0.0-1.0 Automated eosinophil count 0.1 10*3/uL 0 .0-0.3 Automated blood basophil count (count/volume) 0.0 10*3/uL 0.0-0.1 Whole blood basic metabolic panel - 12/22 07/10 05:13 Serum or plasma sodium measurement (moles/volume) 138 mmol/L 135-145 Serum or plasma potassium measurement (moles/volume) 3.6 mmol/L 3.6-5.0 Serum or plasma chloride measurement (moles/volume) 105 mmol/L 98-107 Carbon dioxide 21 mmol/L 21-32 Serum or plasma anion gap determination (moles/volume) 12 mmol/L 5-14 Serum or plasma urea nitrogen measurement (mass/volume ) 14 mg/dL 7-18 Serum or plasma creatinine measurement (mass/volume) 0.95 mg/dL 0.60-1.30 Serum or plasma urea nitrogen/creatinine mass ratio 15 NRG Serum or plasma creatinine measurement w ith calculation of estimated glomerular filtration rate > NRG Serum or plasma glucose measurement (mass/volume) 159 mg/dL 70-105 Serum or plasma calcium measurement (mass/volume) 8.4 mg/dL 8.5-10.1 Serum or plasma phosphate measurement (m ass/volume) - 01/02/17 05:13 Serum or plasma phosphate measurement (mass/volume) 1.6 mg/dL 2.3-4.7 Magnesium - 01/02/17 05:13 Magnesium 2.1 mg/dL 1.8-2.4 Capillary blood glucose measurement by g lucometer (mass/volume) - 01/02/17 05:49 Capillary blood glucose measurement by glucometer (mas s/volume) 157 mg/dL 70-110 Capillary blood glucose measurement by g lucometer (mass/volume) - 01/02/17 11:46 Capillary blood glucose measurement by glucometer (mas s/volume) 138 mg/dL 70-110 Capillary blood glucose measurement by g lucometer (mass/volume) - 01/02/17 20:53 Capillary blood glucose measurement by glucometer (mas s/volume) 146 mg/dL 70-110 Capillary blood glucose measurement by g lucometer (mass/volume) - 01/03/17 06:06 Capillary blood glucose measurement by glucometer (mas s/volume) 169 mg/dL 70-110 Complete blood count (CBC) with automate d white blood cell (WBC) differential - 01/03/17 06:15 Blood leukocytes automated count (number/volume) 9.0 10*3/uL 4.3-11.0 Blood erythrocytes automated count (number/volume) 3.54 10*6/uL 4.35-5.85 Venous blood hemoglobin measurement (mass/volume) 10.7 g/dL 13.3-17.7 Blood hematocrit (volume fraction) 33 % 40-54 Automated erythrocyte mean corpuscular volume 93 [ foz_us] 80-99 Automated erythrocyte mean corpuscular h emoglobin (mass per erythrocyte) 30 pg 25-34 Automated erythrocyte mean corpuscular h emoglobin concentration measurement (mass/volume) 32 g/dL 32-36 Automated erythrocyte distribution width ratio 13. 6 % 10.0- 14.5 Automated blood platelet count (count/volume) 236 10*3/uL 130-400 Automated blood platelet mean volume measurement 10.1 [foz_us] 7.4-10.4 Automated blood neutrophils/100 leukocytes 77 % 42-75 Automated blood lymphocytes/100 leukocytes 8 % 12-44 Blood monocytes/100 leukocytes 12 % 0-12 Automated blood eosinophils/100 leukocytes 3 % 0-10 Automated blood basophils/100 leukocytes 0 % 0-10 Blood neutrophils automated count (number/volume) 6.9 10*3 1.8-7.8 Blood lymphocytes automated count (number/volume) 0.7 10*3 1.0-4.0 Blood monocytes automated count (number/volume) 1. 1 10*3 0.0-1.0 Automated eosinophil count 0.3 10*3/uL 0 .0-0.3 Automated blood basophil count (count/volume) 0.0 10*3/uL 0.0-0.1 Whole blood basic metabolic panel - 12/22 08/07 06:15 Serum or plasma sodium measurement (moles/volume) 138 mmol/L 135-145 Serum or plasma potassium measurement (moles/volume) 3.5 mmol/L 3.6-5.0 Serum or plasma chloride measurement (moles/volume) 104 mmol/L 98-107 Carbon dioxide 22 mmol/L 21-32 Serum or plasma anion gap determination (moles/volume) 12 mmol/L 5-14 Serum or plasma urea nitrogen measurement (mass/volume ) 13 mg/dL 7-18 Serum or plasma creatinine measurement (mass/volume) 0.79 mg/dL 0.60-1.30 Serum or plasma urea nitrogen/creatinine mass ratio 16 NRG Serum or plasma creatinine measurement w ith calculation of estimated glomerular filtration rate > NRG Serum or plasma glucose measurement (mass/volume) 160 mg/dL 70-105 Serum or plasma calcium measurement (mass/volume) 8.7 mg/dL 8.5-10.1 Serum or plasma phosphate measurement (m ass/volume) - 01/03/17 06:15 Serum or plasma phosphate measurement (mass/volume) 2.0 mg/dL 2.3-4.7 Magnesium - 01/03/17 06:15 Magnesium 2.1 mg/dL 1.8-2.4 Capillary blood glucose measurement by g lucometer (mass/volume) - 01/03/17 11:19 Capillary blood glucose measurement by glucometer (mas s/volume) 104 mg/dL 70-110 Capillary blood glucose measurement by g lucometer (mass/volume) - 01/03/17 16:05 Capillary blood glucose measurement by glucometer (mas s/volume) 213 mg/dL 70-110 Capillary blood glucose measurement by g lucometer (mass/volume) - 01/03/17 20:42 Capillary blood glucose measurement by glucometer (mas s/volume) 196 mg/dL 70-110 C DIFFICILE AG + TOXIN A/B. - 01/03/17 2 2:20 RESULTS NEGATIVE FOR ANTIGEN AND TOXIN A/B NRG Capillary blood glucose measurement by g lucometer (mass/volume) - 01/04/17 05:10 Capillary blood glucose measurement by glucometer (mas s/volume) 159 mg/dL 70-110 Complete blood count (CBC) with automate d white blood cell (WBC) differential - 01/04/17 06:15 Blood leukocytes automated count (number/volume) 8.9 10*3/uL 4.3-11.0 Blood erythrocytes automated count (number/volume) 3.79 10*6/uL 4.35-5.85 Venous blood hemoglobin measurement (mass/volume) 11.6 g/dL 13.3-17.7 Blood hematocrit (volume fraction) 35 % 40-54 Automated erythrocyte mean corpuscular volume 92 [ foz_us] 80-99 Automated erythrocyte mean corpuscular h emoglobin (mass per erythrocyte) 31 pg 25-34 Automated erythrocyte mean corpuscular h emoglobin concentration measurement (mass/volume) 33 g/dL 32-36 Automated erythrocyte distribution width ratio 13. 7 % 10.0- 14.5 Automated blood platelet count (count/volume) 240 10*3/uL 130-400 Automated blood platelet mean volume measurement 10.9 [foz_us] 7.4-10.4 Automated blood neutrophils/100 leukocytes 66 % 42-75 Automated blood lymphocytes/100 leukocytes 13 % 12-44 Blood monocytes/100 leukocytes 16 % 0-12 Automated blood eosinophils/100 leukocytes 4 % 0-10 Automated blood basophils/100 leukocytes 1 % 0-10 Blood neutrophils automated count (number/volume) 5.9 10*3 1.8-7.8 Blood lymphocytes automated count (number/volume) 1.2 10*3 1.0-4.0 Blood monocytes automated count (number/volume) 1. 4 10*3 0.0-1.0 Automated eosinophil count 0.3 10*3/uL 0 .0-0.3 Automated blood basophil count (count/volume) 0.1 10*3/uL 0.0-0.1 Whole blood basic metabolic panel - 12/22 09/07 06:15 Serum or plasma sodium measurement (moles/volume) 140 mmol/L 135-145 Serum or plasma potassium measurement (moles/volume) 4.7 mmol/L 3.6-5.0 Serum or plasma chloride measurement (moles/volume) 108 mmol/L 98-107 Carbon dioxide 18 mmol/L 21-32 Serum or plasma anion gap determination (moles/volume) 14 mmol/L 5-14 Serum or plasma urea nitrogen measurement (mass/volume ) 11 mg/dL 7-18 Serum or plasma creatinine measurement (mass/volume) 0.80 mg/dL 0.60-1.30 Serum or plasma urea nitrogen/creatinine mass ratio 14 NRG Serum or plasma creatinine measurement w ith calculation of estimated glomerular filtration rate > NRG Serum or plasma glucose measurement (mass/volume) 130 mg/dL 70-105 Serum or plasma calcium measurement (mass/volume) 9.1 mg/dL 8.5-10.1 Serum or plasma phosphate measurement (m ass/volume) - 01/04/17 06:15 Serum or plasma phosphate measurement (mass/volume) 3.2 mg/dL 2.3-4.7 Magnesium - 01/04/17 06:15 Magnesium 2.1 mg/dL 1.8-2.4 Capillary blood glucose measurement by g lucometer (mass/volume) - 01/04/17 11:18 Capillary blood glucose measurement by glucometer (mas s/volume) 154 mg/dL 70-110 Capillary blood glucose measurement by g lucometer (mass/volume) - 01/04/17 16:08 Capillary blood glucose measurement by glucometer (mas s/volume) 233 mg/dL 70-110 Capillary blood glucose measurement by g lucometer (mass/volume) - 01/04/17 20:33 Capillary blood glucose measurement by glucometer (mas s/volume) 199 mg/dL 70-110 Capillary blood glucose measurement by g lucometer (mass/volume) - 01/05/17 05:16 Capillary blood glucose measurement by glucometer (mas s/volume) 166 mg/dL 70-110 Complete blood count (CBC) with automate d white blood cell (WBC) differential - 01/05/17 06:59 Blood leukocytes automated count (number/volume) 8.2 10*3/uL 4.3-11.0 Blood erythrocytes automated count (number/volume) 3.87 10*6/uL 4.35-5.85 Venous blood hemoglobin measurement (mass/volume) 11.5 g/dL 13.3-17.7 Blood hematocrit (volume fraction) 36 % 40-54 Automated erythrocyte mean corpuscular volume 93 [ foz_us] 80-99 Automated erythrocyte mean corpuscular h emoglobin (mass per erythrocyte) 30 pg 25-34 Automated erythrocyte mean corpuscular h emoglobin concentration measurement (mass/volume) 32 g/dL 32-36 Automated erythrocyte distribution width ratio 13. 8 % 10.0- 14.5 Automated blood platelet count (count/volume) 329 10*3/uL 130-400 Automated blood platelet mean volume measurement 9.8 [foz_us] 7.4-10.4 Automated blood neutrophils/100 leukocytes 68 % 42-75 Automated blood lymphocytes/100 leukocytes 12 % 12-44 Blood monocytes/100 leukocytes 15 % 0-12 Automated blood eosinophils/100 leukocytes 4 % 0-10 Automated blood basophils/100 leukocytes 1 % 0-10 Blood neutrophils automated count (number/volume) 5.6 10*3 1.8-7.8 Blood lymphocytes automated count (number/volume) 1.0 10*3 1.0-4.0 Blood monocytes automated count (number/volume) 1. 2 10*3 0.0-1.0 Automated eosinophil count 0.4 10*3/uL 0 .0-0.3 Automated blood basophil count (count/volume) 0.1 10*3/uL 0.0-0.1 Whole blood basic metabolic panel - 12/22 10/07 06:59 Serum or plasma sodium measurement (moles/volume) 140 mmol/L 135-145 Serum or plasma potassium measurement (moles/volume) 3.3 mmol/L 3.6-5.0 Serum or plasma chloride measurement (moles/volume) 104 mmol/L 98-107 Carbon dioxide 26 mmol/L 21-32 Serum or plasma anion gap determination (moles/volume) 10 mmol/L 5-14 Serum or plasma urea nitrogen measurement (mass/volume ) 6 mg/dL 7-18 Serum or plasma creatinine measurement (mass/volume) 0.84 mg/dL 0.60-1.30 Serum or plasma urea nitrogen/creatinine mass ratio 7 NRG Serum or plasma creatinine measurement w ith calculation of estimated glomerular filtration rate > NRG Serum or plasma glucose measurement (mass/volume) 173 mg/dL 70-105 Serum or plasma calcium measurement (mass/volume) 8.7 mg/dL 8.5-10.1 Serum or plasma phosphate measurement (m ass/volume) - 01/05/17 06:59 Serum or plasma phosphate measurement (mass/volume) 3.2 mg/dL 2.3-4.7 Magnesium - 01/05/17 06:59 Magnesium 1.8 mg/dL 1.8-2.4 Capillary blood glucose measurement by g lucometer (mass/volume) - 01/05/17 11:17 Capillary blood glucose measurement by glucometer (mas s/volume) 167 mg/dL 70-110 Capillary blood glucose measurement by g lucometer (mass/volume) - 01/05/17 15:26 Capillary blood glucose measurement by glucometer (mas s/volume) 175 mg/dL 70-110 Automated blood complete blood count (he mogram) panel - 01/11/17 09:37 Blood leukocytes automated count (number/volume) 13.2 10*3/uL 4.3-11.0 Blood erythrocytes automated count (number/volume) 4.57 10*6/uL 4.35-5.85 Venous blood hemoglobin measurement (mass/volume) 13.5 g/dL 13.3-17.7 Blood hematocrit (volume fraction) 42 % 40-54 Automated erythrocyte mean corpuscular volume 92 [ foz_us] 80-99 Automated erythrocyte mean corpuscular h emoglobin (mass per erythrocyte) 30 pg 25-34 Automated erythrocyte mean corpuscular h emoglobin concentration measurement (mass/volume) 32 g/dL 32-36 Automated erythrocyte distribution width ratio 13. 8 % 10.0- 14.5 Automated blood platelet count (count/volume) 591 10*3/uL 130-400 Automated blood platelet mean volume measurement 9.6 [foz_us] 7.4-10.4 Comprehensive metabolic panel - 01/11/17 09:37 Serum or plasma sodium measurement (moles/volume) 136 mmol/L 135-145 Serum or plasma potassium measurement (moles/volume) 4.6 mmol/L 3.6-5.0 Serum or plasma chloride measurement (moles/volume) 100 mmol/L 98-107 Carbon dioxide 25 mmol/L 21-32 Serum or plasma anion gap determination (moles/volume) 11 mmol/L 5-14 Serum or plasma urea nitrogen measurement (mass/volume ) 13 mg/dL 7-18 Serum or plasma creatinine measurement (mass/volume) 1.11 mg/dL 0.60-1.30 Serum or plasma urea nitrogen/creatinine mass ratio 12 NRG Serum or plasma creatinine measurement w ith calculation of estimated glomerular filtration rate > NRG Serum or plasma glucose measurement (mass/volume) 124 mg/dL 70-105 Serum or plasma calcium measurement (mass/volume) 9.8 mg/dL 8.5-10.1 Serum or plasma total bilirubin measurement (mass/volu me) 0.8 mg/dL 0.1-1.0 Serum or plasma alkaline phosphatase shonda surement (enzymatic activity/volume) 56 U/L 40-136 Serum or plasma aspartate aminotransfera se measurement (enzymatic activity/volume) 33 U/L 5-34 Serum or plasma alanine aminotransferase measurement (enzymatic activity/volume) 26 U/L 0-55 Serum or plasma protein measurement (mass/volume) 7.7 g/dL 6.4-8.2 Serum or plasma albumin measurement (mass/volume) 4.0 g/dL 3.2-4.5 Lipid 1996 panel - 01/11/17 09:37 Serum or plasma triglyceride measurement (mass/volume) 161 mg/dL <150 Serum or plasma cholesterol measurement (mass/volume) 94 mg/dL < 200 Serum or plasma cholesterol in HDL measurement (mass/v olume) 23 mg/dL 40-60 Cholesterol in LDL [mass/volume] in serum or plasma by direct assay 59 mg/dL 1-129 Serum or plasma cholesterol in VLDL measurement (mass/ volume) 32 mg/dL 5-40 Comprehensive metabolic panel - 01/11/17 09:37 Serum or plasma sodium measurement (moles/volume) 136 mmol/L 135-145 Serum or plasma potassium measurement (moles/volume) 4.8 mmol/L 3.6-5.0 Serum or plasma chloride measurement (moles/volume) 100 mmol/L 98-107 Carbon dioxide 27 mmol/L 21-32 Serum or plasma anion gap determination (moles/volume) 9 mmol/L 5-14 Serum or plasma urea nitrogen measurement (mass/volume ) 13 mg/dL 7-18 Serum or plasma creatinine measurement (mass/volume) 1.10 mg/dL 0.60-1.30 Serum or plasma urea nitrogen/creatinine mass ratio 12 NRG Serum or plasma creatinine measurement w ith calculation of estimated glomerular filtration rate > NRG Serum or plasma glucose measurement (mass/volume) 124 mg/dL 70-105 Serum or plasma calcium measurement (mass/volume) 9.8 mg/dL 8.5-10.1 Serum or plasma total bilirubin measurement (mass/volu me) 0.8 mg/dL 0.1-1.0 Serum or plasma alkaline phosphatase shonda surement (enzymatic activity/volume) 58 U/L 40-136 Serum or plasma aspartate aminotransfera se measurement (enzymatic activity/volume) 34 U/L 5-34 Serum or plasma alanine aminotransferase measurement (enzymatic activity/volume) 26 U/L 0-55 Serum or plasma protein measurement (mass/volume) 7.2 g/dL 6.4-8.2 Serum or plasma albumin measurement (mass/volume) 4.1 g/dL 3.2-4.5 Lipid 1996 panel - 01/11/17 09:37 Serum or plasma triglyceride measurement (mass/volume) 165 mg/dL <150 Serum or plasma cholesterol measurement (mass/volume) 98 mg/dL < 200 Serum or plasma cholesterol in HDL measurement (mass/v olume) 23 mg/dL 40-60 Cholesterol in LDL [mass/volume] in serum or plasma by direct assay 61 mg/dL 1-129 Serum or plasma cholesterol in VLDL measurement (mass/ volume) 33 mg/dL 5-40 THYROID STIMULATING HORMONE - 01/11/17 0 9:37 THYROID STIMULATING HORMONE 11.60 u[iU]/mL 0.35-4.94 Erythrocyte sedimentation rate by jaja gren method - 01/11/17 09:37 Erythrocyte sedimentation rate by westergren method 28 mm 0- 30 Hemoglobin A1c - 01/11/17 09:37 Hemoglobin A1c 8.3 % 4.5-6.2 THYROID STIMULATING HORMONE - 01/11/17 0 9:37 THYROID STIMULATING HORMONE 14.49 u[iU]/mL 0.35-4.94 Serum or plasma thyroxine (T4) free yamilet urement (mass/volume) - 01/11/17 09:37 Serum or plasma thyroxine (T4) free measurement (mass/ volume) 0.96 ng/dL 0.70-1.48 Serum or plasma C reactive protein measu rement (mass/volume) - 01/11/17 09:37 Serum or plasma C reactive protein measurement (mass/v olume) 0.71 mg/dL 0.00-0.50 Automated blood complete blood count (he mogram) panel - 05/03/17 08:05 Blood leukocytes automated count (number/volume) 5.2 10*3/uL 4.3-11.0 Blood erythrocytes automated count (number/volume) 4.16 10*6/uL 4.35-5.85 Venous blood hemoglobin measurement (mass/volume) 12.7 g/dL 13.3-17.7 Blood hematocrit (volume fraction) 38 % 40-54 Automated erythrocyte mean corpuscular volume 92 [ foz_us] 80-99 Automated erythrocyte mean corpuscular h emoglobin (mass per erythrocyte) 31 pg 25-34 Automated erythrocyte mean corpuscular h emoglobin concentration measurement (mass/volume) 33 g/dL 32-36 Automated erythrocyte distribution width ratio 12. 8 % 10.0- 14.5 Automated blood platelet count (count/volume) 268 10*3/uL 130-400 Automated blood platelet mean volume measurement 10.2 [foz_us] 7.4-10.4 Comprehensive metabolic panel - 05/03/17 08:05 Serum or plasma sodium measurement (moles/volume) 139 mmol/L 135-145 Serum or plasma potassium measurement (moles/volume) 4.3 mmol/L 3.6-5.0 Serum or plasma chloride measurement (moles/volume) 106 mmol/L 98-107 Carbon dioxide 26 mmol/L 21-32 Serum or plasma anion gap determination (moles/volume) 7 mmol/L 5-14 Serum or plasma urea nitrogen measurement (mass/volume ) 17 mg/dL 7-18 Serum or plasma creatinine measurement (mass/volume) 1.06 mg/dL 0.60-1.30 Serum or plasma urea nitrogen/creatinine mass ratio 16 NRG Serum or plasma creatinine measurement w ith calculation of estimated glomerular filtration rate > NRG Serum or plasma glucose measurement (mass/volume) 149 mg/dL 70-105 Serum or plasma calcium measurement (mass/volume) 9.5 mg/dL 8.5-10.1 Serum or plasma total bilirubin measurement (mass/volu me) 0.4 mg/dL 0.1-1.0 Serum or plasma alkaline phosphatase shonda surement (enzymatic activity/volume) 49 U/L 40-136 Serum or plasma aspartate aminotransfera se measurement (enzymatic activity/volume) 29 U/L 5-34 Serum or plasma alanine aminotransferase measurement (enzymatic activity/volume) 36 U/L 0-55 Serum or plasma protein measurement (mass/volume) 7.2 g/dL 6.4-8.2 Serum or plasma albumin measurement (mass/volume) 4.4 g/dL 3.2-4.5 Lipid 1996 panel - 05/03/17 08:05 Serum or plasma triglyceride measurement (mass/volume) 93 mg/dL <150 Serum or plasma cholesterol measurement (mass/volume) 118 mg/dL < 200 Serum or plasma cholesterol in HDL measurement (mass/v olume) 38 mg/dL 40-60 Cholesterol in LDL [mass/volume] in serum or plasma by direct assay 75 mg/dL 1-129 Serum or plasma cholesterol in VLDL measurement (mass/ volume) 19 mg/dL 5-40 THYROID STIMULATING HORMONE - 05/03/17 0 8:05 THYROID STIMULATING HORMONE 0.20 u[iU]/mL 0.35-4.94 Serum or plasma C reactive protein measu rement (mass/volume) - 05/03/17 08:05 Serum or plasma C reactive protein measurement (mass/v olume) 0.09 mg/dL 0.00-0.50 Hemoglobin A1c - 05/03/17 08:05 Hemoglobin A1c 7.2 % 4.5-6.2 Urine microalbumin measurement by test s trip (mass/volume) - 05/03/17 08:08 Urine creatinine measurement (mass/volume) 163 % NRG Microalbumin [mass/volume] in urine 51.3 % 0.0-20.0 Microalbumin/creatinine [ratio] in urine 31.5 mg/g {Cre} 0.0- 30.0 Automated blood complete blood count ([facility]) panel - 07/26/17 08:30 Blood leukocytes automated count (number/volume) 6.7 10*3/uL 4.3-11.0 Blood erythrocytes automated count (number/volume) 4.78 10*6/uL 4.35-5.85 Venous blood hemoglobin measurement (mass/volume) 14.5 g/dL 13.3-17.7 Blood hematocrit (volume fraction) 42 % 40-54 Automated erythrocyte mean corpuscular volume 88 [ foz_us] 80-99 Automated erythrocyte mean corpuscular h emoglobin (mass per erythrocyte) 30 pg 25-34 Automated erythrocyte mean corpuscular h emoglobin concentration measurement (mass/volume) 34 g/dL 32-36 Automated erythrocyte distribution width ratio 13. 3 % 10.0- 14.5 Automated blood platelet count (count/volume) 282 10*3/uL 130-400 Automated blood platelet mean volume measurement 10.2 [foz_us] 7.4-10.4 Automated blood complete blood count ([employer]) panel - 07/26/17 08:30 Blood leukocytes automated count (number/volume) 6.7 10*3/uL 4.3-11.0 Blood erythrocytes automated count (number/volume) 4.78 10*6/uL 4.35-5.85 Venous blood hemoglobin measurement (mass/volume) 14.5 g/dL 13.3-17.7 Blood hematocrit (volume fraction) 42 % 40-54 Automated erythrocyte mean corpuscular volume 88 [ foz_us] 80-99 Automated erythrocyte mean corpuscular h emoglobin (mass per erythrocyte) 30 pg 25-34 Automated erythrocyte mean corpuscular h emoglobin concentration measurement (mass/volume) 34 g/dL 32-36 Automated erythrocyte distribution width ratio 13. 3 % 10.0- 14.5 Automated blood platelet count (count/volume) 282 10*3/uL 130-400 Automated blood platelet mean volume measurement 10.2 [foz_us] 7.4-10.4 Comprehensive metabolic panel - 07/26/17 08:30 Serum or plasma sodium measurement (moles/volume) 136 mmol/L 135-145 Serum or plasma potassium measurement (moles/volume) 4.4 mmol/L 3.6-5.0 Serum or plasma chloride measurement (moles/volume) 101 mmol/L 98-107 Carbon dioxide 28 mmol/L 21-32 Serum or plasma anion gap determination (moles/volume) 7 mmol/L 5-14 Serum or plasma urea nitrogen measurement (mass/volume ) 20 mg/dL 7-18 Serum or plasma creatinine measurement (mass/volume) 1.29 mg/dL 0.60-1.30 Serum or plasma urea nitrogen/creatinine mass ratio 16 NRG Serum or plasma creatinine measurement w ith calculation of estimated glomerular filtration rate 56 NRG Serum or plasma glucose measurement (mass/volume) 153 mg/dL 70-105 Serum or plasma calcium measurement (mass/volume) 10.0 mg/dL 8.5-10.1 Serum or plasma total bilirubin measurement (mass/volu me) 0.9 mg/dL 0.1-1.0 Serum or plasma alkaline phosphatase shonda surement (enzymatic activity/volume) 48 U/L 40-136 Serum or plasma aspartate aminotransfera se measurement (enzymatic activity/volume) 22 U/L 5-34 Serum or plasma alanine aminotransferase measurement (enzymatic activity/volume) 29 U/L 0-55 Serum or plasma protein measurement (mass/volume) 7.6 g/dL 6.4-8.2 Serum or plasma albumin measurement (mass/volume) 4.7 g/dL 3.2-4.5 THYROID STIMULATING HORMONE - 07/26/17 0 8:30 THYROID STIMULATING HORMONE 0.19 u[iU]/mL 0.35-4.94 Comprehensive metabolic panel - 07/26/17 08:30 Serum or plasma sodium measurement (moles/volume) 138 mmol/L 135-145 Serum or plasma potassium measurement (moles/volume) 4.5 mmol/L 3.6-5.0 Serum or plasma chloride measurement (moles/volume) 103 mmol/L 98-107 Carbon dioxide 27 mmol/L 21-32 Serum or plasma anion gap determination (moles/volume) 8 mmol/L 5-14 Serum or plasma urea nitrogen measurement (mass/volume ) 20 mg/dL 7-18 Serum or plasma creatinine measurement (mass/volume) 1.30 mg/dL 0.60-1.30 Serum or plasma urea nitrogen/creatinine mass ratio 15 NRG Serum or plasma creatinine measurement w ith calculation of estimated glomerular filtration rate 55 NRG Serum or plasma glucose measurement (mass/volume) 153 mg/dL 70-105 Serum or plasma calcium measurement (mass/volume) 10.2 mg/dL 8.5-10.1 Serum or plasma total bilirubin measurement (mass/volu me) 0.9 mg/dL 0.1-1.0 Serum or plasma alkaline phosphatase shonda surement (enzymatic activity/volume) 50 U/L 40-136 Serum or plasma aspartate aminotransfera se measurement (enzymatic activity/volume) 22 U/L 5-34 Serum or plasma alanine aminotransferase measurement (enzymatic activity/volume) 28 U/L 0-55 Serum or plasma protein measurement (mass/volume) 7.5 g/dL 6.4-8.2 Serum or plasma albumin measurement (mass/volume) 4.7 g/dL 3.2-4.5 Lipid 1996 panel - 07/26/17 08:30 Serum or plasma triglyceride measurement (mass/volume) 121 mg/dL <150 Serum or plasma cholesterol measurement (mass/volume) 128 mg/dL < 200 Serum or plasma cholesterol in HDL measurement (mass/v olume) 34 mg/dL 40-60 Cholesterol in LDL [mass/volume] in serum or plasma by direct assay 80 mg/dL 1-129 Serum or plasma cholesterol in VLDL measurement (mass/ volume) 24 mg/dL 5-40 THYROID STIMULATING HORMONE - 07/26/17 0 8:30 THYROID STIMULATING HORMONE 0.18 u[iU]/mL 0.35-4.94 Serum or plasma thyroxine (T4) free yamilet urement (mass/volume) - 07/26/17 08:30 Serum or plasma thyroxine (T4) free measurement (mass/ volume) 1.44 ng/dL 0.70-1.48 Serum or plasma C reactive protein measu rement (mass/volume) - 07/26/17 08:30 Serum or plasma C reactive protein measurement (mass/v olume) 0.15 mg/dL 0.00-0.50 Erythrocyte sedimentation rate by jaja gren method - 07/26/17 08:30 Erythrocyte sedimentation rate by westergren method 5 mm 0- 30 Hemoglobin A1c - 07/26/17 08:30 Blood hemoglobin A1C measurement (mass/volume) 7.9 % 4.0-5.6 MEAN BLOOD GLUCOSE 180 % <=126 Urine microalbumin measurement by test s trip (mass/volume) - 07/26/17 08:30 Urine creatinine measurement (mass/volume) 166 % NRG Microalbumin [mass/volume] in urine 35.2 % 0.0-20.0 Microalbumin/creatinine [ratio] in urine 21.2 mg/g {Cre} 0.0- 30.0 Automated blood complete blood count (Singularu) panel - 11/01/17 08:21 Blood leukocytes automated count (number/volume) 6.5 10*3/uL 4.3-11.0 Blood erythrocytes automated count (number/volume) 4.62 10*6/uL 4.35-5.85 Venous blood hemoglobin measurement (mass/volume) 14.0 g/dL 13.3-17.7 Blood hematocrit (volume fraction) 41 % 40-54 Automated erythrocyte mean corpuscular volume 89 [ foz_us] 80-99 Automated erythrocyte mean corpuscular h emoglobin (mass per erythrocyte) 30 pg 25-34 Automated erythrocyte mean corpuscular h emoglobin concentration measurement (mass/volume) 34 g/dL 32-36 Automated erythrocyte distribution width ratio 13. 8 % 10.0- 14.5 Automated blood platelet count (count/volume) 315 10*3/uL 130-400 Automated blood platelet mean volume measurement 10.0 [foz_us] 7.4-10.4 Automated blood complete blood count (Singularu) panel - 11/01/17 08:21 Blood leukocytes automated count (number/volume) 6.5 10*3/uL 4.3-11.0 Blood erythrocytes automated count (number/volume) 4.62 10*6/uL 4.35-5.85 Venous blood hemoglobin measurement (mass/volume) 14.0 g/dL 13.3-17.7 Blood hematocrit (volume fraction) 41 % 40-54 Automated erythrocyte mean corpuscular volume 89 [ foz_us] 80-99 Automated erythrocyte mean corpuscular h emoglobin (mass per erythrocyte) 30 pg 25-34 Automated erythrocyte mean corpuscular h emoglobin concentration measurement (mass/volume) 34 g/dL 32-36 Automated erythrocyte distribution width ratio 13. 8 % 10.0- 14.5 Automated blood platelet count (count/volume) 315 10*3/uL 130-400 Automated blood platelet mean volume measurement 10.0 [foz_us] 7.4-10.4 Comprehensive metabolic panel - 11/01/17 08:21 Serum or plasma sodium measurement (moles/volume) 136 mmol/L 135-145 Serum or plasma potassium measurement (moles/volume) 4.6 mmol/L 3.6-5.0 Serum or plasma chloride measurement (moles/volume) 103 mmol/L 98-107 Carbon dioxide 22 mmol/L 21-32 Serum or plasma anion gap determination (moles/volume) 11 mmol/L 5-14 Serum or plasma urea nitrogen measurement (mass/volume ) 19 mg/dL 7-18 Serum or plasma creatinine measurement (mass/volume) 1.18 mg/dL 0.60-1.30 Serum or plasma urea nitrogen/creatinine mass ratio 16 NRG Serum or plasma creatinine measurement w ith calculation of estimated glomerular filtration rate > NRG Serum or plasma glucose measurement (mass/volume) 191 mg/dL 70-105 Serum or plasma calcium measurement (mass/volume) 10.1 mg/dL 8.5-10.1 Serum or plasma total bilirubin measurement (mass/volu me) 0.6 mg/dL 0.1-1.0 Serum or plasma alkaline phosphatase shonda surement (enzymatic activity/volume) 59 U/L 40-136 Serum or plasma aspartate aminotransfera se measurement (enzymatic activity/volume) 23 U/L 5-34 Serum or plasma alanine aminotransferase measurement (enzymatic activity/volume) 30 U/L 0-55 Serum or plasma protein measurement (mass/volume) 7.7 g/dL 6.4-8.2 Serum or plasma albumin measurement (mass/volume) 4.8 g/dL 3.2-4.5 THYROID STIMULATING HORMONE - 11/01/17 0 8:21 THYROID STIMULATING HORMONE 1.96 u[iU]/mL 0.35-4.94 Erythrocyte sedimentation rate by jaja gren method - 11/01/17 08:21 Erythrocyte sedimentation rate by westergren method 6 mm 0- 30 Serum or plasma thyroxine (T4) free yamilet urement (mass/volume) - 11/01/17 08:21 Serum or plasma thyroxine (T4) free measurement (mass/ volume) 1.03 ng/dL 0.70-1.48 Serum or plasma C reactive protein measu rement (mass/volume) - 11/01/17 08:21 Serum or plasma C reactive protein measurement (mass/v olume) 0.20 mg/dL 0.00-0.50 Comprehensive metabolic panel - 11/01/17 08:21 Serum or plasma sodium measurement (moles/volume) 136 mmol/L 135-145 Serum or plasma potassium measurement (moles/volume) 4.6 mmol/L 3.6-5.0 Serum or plasma chloride measurement (moles/volume) 103 mmol/L 98-107 Carbon dioxide 22 mmol/L 21-32 Serum or plasma anion gap determination (moles/volume) 11 mmol/L 5-14 Serum or plasma urea nitrogen measurement (mass/volume ) 19 mg/dL 7-18 Serum or plasma creatinine measurement (mass/volume) 1.18 mg/dL 0.60-1.30 Serum or plasma urea nitrogen/creatinine mass ratio 16 NRG Serum or plasma creatinine measurement w ith calculation of estimated glomerular filtration rate > NRG Serum or plasma glucose measurement (mass/volume) 191 mg/dL 70-105 Serum or plasma calcium measurement (mass/volume) 10.1 mg/dL 8.5-10.1 Serum or plasma total bilirubin measurement (mass/volu me) 0.6 mg/dL 0.1-1.0 Serum or plasma alkaline phosphatase shonda surement (enzymatic activity/volume) 59 U/L 40-136 Serum or plasma aspartate aminotransfera se measurement (enzymatic activity/volume) 23 U/L 5-34 Serum or plasma alanine aminotransferase measurement (enzymatic activity/volume) 30 U/L 0-55 Serum or plasma protein measurement (mass/volume) 7.7 g/dL 6.4-8.2 Serum or plasma albumin measurement (mass/volume) 4.8 g/dL 3.2-4.5 Lipid 1996 panel - 11/01/17 08:21 Serum or plasma triglyceride measurement (mass/volume) 158 mg/dL <150 Serum or plasma cholesterol measurement (mass/volume) 137 mg/dL < 200 Serum or plasma cholesterol in HDL measurement (mass/v olume) 35 mg/dL 40-60 Cholesterol in LDL [mass/volume] in serum or plasma by direct assay 89 mg/dL 1-129 Serum or plasma cholesterol in VLDL measurement (mass/ volume) 32 mg/dL 5-40 THYROID STIMULATING HORMONE - 11/01/17 0 8:21 THYROID STIMULATING HORMONE 1.96 u[iU]/mL 0.35-4.94 Hemoglobin A1c - 11/01/17 08:21 Blood hemoglobin A1C measurement (mass/volume) 8.6 % 4.0-5.6 MEAN BLOOD GLUCOSE 200 % <=126 Complete blood count (CBC) with automate d white blood cell (WBC) differential - 02/07/18 07:57 Blood leukocytes automated count (number/volume) 5.2 10*3/uL 4.3-11.0 Blood erythrocytes automated count (number/volume) 4.08 10*6/uL 4.35-5.85 Venous blood hemoglobin measurement (mass/volume) 12.6 g/dL 13.3-17.7 Blood hematocrit (volume fraction) 37 % 40-54 Automated erythrocyte mean corpuscular volume 90 [ foz_us] 80-99 Automated erythrocyte mean corpuscular h emoglobin (mass per erythrocyte) 31 pg 25-34 Automated erythrocyte mean corpuscular h emoglobin concentration measurement (mass/volume) 34 g/dL 32-36 Automated erythrocyte distribution width ratio 12. 8 % 10.0- 14.5 Automated blood platelet count (count/volume) 291 10*3/uL 130-400 Automated blood platelet mean volume measurement 10.2 [foz_us] 7.4-10.4 Automated blood neutrophils/100 leukocytes 64 % 42-75 Automated blood lymphocytes/100 leukocytes 23 % 12-44 Blood monocytes/100 leukocytes 9 % 0-12 Automated blood eosinophils/100 leukocytes 3 % 0-10 Automated blood basophils/100 leukocytes 0 % 0-10 Blood neutrophils automated count (number/volume) 3.3 10*3 1.8-7.8 Blood lymphocytes automated count (number/volume) 1.2 10*3 1.0-4.0 Blood monocytes automated count (number/volume) 0. 5 10*3 0.0-1.0 Automated eosinophil count 0.2 10*3/uL 0 .0-0.3 Automated blood basophil count (count/volume) 0.0 10*3/uL 0.0-0.1 Comprehensive metabolic panel - 02/07/18 07:57 Serum or plasma sodium measurement (moles/volume) 137 mmol/L 135-145 Serum or plasma potassium measurement (moles/volume) 4.8 mmol/L 3.6-5.0 Serum or plasma chloride measurement (moles/volume) 104 mmol/L 98-107 Carbon dioxide 24 mmol/L 21-32 Serum or plasma anion gap determination (moles/volume) 9 mmol/L 5-14 Serum or plasma urea nitrogen measurement (mass/volume ) 26 mg/dL 7-18 Serum or plasma creatinine measurement (mass/volume) 1.16 mg/dL 0.60-1.30 Serum or plasma urea nitrogen/creatinine mass ratio 22 NRG Serum or plasma creatinine measurement w ith calculation of estimated glomerular filtration rate > NRG Serum or plasma glucose measurement (mass/volume) 159 mg/dL 70-105 Serum or plasma calcium measurement (mass/volume) 9.8 mg/dL 8.5-10.1 Serum or plasma total bilirubin measurement (mass/volu me) 0.6 mg/dL 0.1-1.0 Serum or plasma alkaline phosphatase shonda surement (enzymatic activity/volume) 48 U/L 40-136 Serum or plasma aspartate aminotransfera se measurement (enzymatic activity/volume) 27 U/L 5-34 Serum or plasma alanine aminotransferase measurement (enzymatic activity/volume) 35 U/L 0-55 Serum or plasma protein measurement (mass/volume) 7.0 g/dL 6.4-8.2 Serum or plasma albumin measurement (mass/volume) 4.7 g/dL 3.2-4.5 Lipid 1996 panel - 02/07/18 07:57 Serum or plasma triglyceride measurement (mass/volume) 144 mg/dL <150 Serum or plasma cholesterol measurement (mass/volume) 121 mg/dL < 200 Serum or plasma cholesterol in HDL measurement (mass/v olume) 29 mg/dL 40-60 Cholesterol in LDL [mass/volume] in serum or plasma by direct assay 75 mg/dL 1-129 Serum or plasma cholesterol in VLDL measurement (mass/ volume) 29 mg/dL 5-40 Erythrocyte sedimentation rate by jaja gren method - 02/07/18 07:57 Erythrocyte sedimentation rate by westergren method 10 mm 0- 30 THYROID STIMULATING HORMONE - 02/07/18 0 7:57 THYROID STIMULATING HORMONE 1.19 u[iU]/mL 0.35-4.94 Serum or plasma C reactive protein measu rement (mass/volume) - 02/07/18 07:57 Serum or plasma C reactive protein measurement (mass/v olume) 0.14 mg/dL 0.00-0.50 Serum iron and total iron binding capaci ty panel - 02/07/18 07:57 Serum or plasma iron measurement (mass/volume) 91 % 40-180 Total iron binding capacity and transferrin saturation measurement 19 % 15-50 Iron binding capacity [mass/volume] in serum or plasma 486 % 280-380 UIBC (unsaturated iron binding capacity) 395 % 55-450 Serum or plasma ferritin measurement (mass/volume) 118.7 % 32.0-356.0 Total triiodothyronine (T3) measurement - 02/07/18 07:57 Total triiodothyronine (T3) measurement 0.71 % 0.60-1.80 Thyroxine (T4) measurement - 02/07/18 07 :57 T4 (thyroxine) 8.1 % 5.5-12.0 VITAMIN D 25-HYDROXY - 02/07/18 07:57 VITAMIN D 25-HYDROXY (TOTAL) 59.6 % 3 0.0-100.0 Hemoglobin A1c - 02/07/18 07:57 Blood hemoglobin A1C measurement (mass/volume) 9.1 % 4.0-5.6 MEAN BLOOD GLUCOSE 214 % <=126 Prostate specific ag [mass/volume] in se rum or plasma - 02/07/18 07:57 Prostate specific ag [mass/volume] in serum or plasma 0.79 % 0.00-4.00 Complete blood count (CBC) with automate d white blood cell (WBC) differential - 05/09/18 08:34 Blood leukocytes automated count (number/volume) 5.2 10*3/uL 4.3-11.0 Blood erythrocytes automated count (number/volume) 4.68 10*6/uL 4.35-5.85 Venous blood hemoglobin measurement (mass/volume) 14.0 g/dL 13.3-17.7 Blood hematocrit (volume fraction) 42 % 40-54 Automated erythrocyte mean corpuscular volume 90 [ foz_us] 80-99 Automated erythrocyte mean corpuscular h emoglobin (mass per erythrocyte) 30 pg 25-34 Automated erythrocyte mean corpuscular h emoglobin concentration measurement (mass/volume) 33 g/dL 32-36 Automated erythrocyte distribution width ratio 12. 7 % 10.0- 14.5 Automated blood platelet count (count/volume) 267 10*3/uL 130-400 Automated blood platelet mean volume measurement 10.7 [foz_us] 7.4-10.4 Automated blood neutrophils/100 leukocytes 63 % 42-75 Automated blood lymphocytes/100 leukocytes 24 % 12-44 Blood monocytes/100 leukocytes 10 % 0-12 Automated blood eosinophils/100 leukocytes 2 % 0-10 Automated blood basophils/100 leukocytes 1 % 0-10 Blood neutrophils automated count (number/volume) 3.3 10*3 1.8-7.8 Blood lymphocytes automated count (number/volume) 1.3 10*3 1.0-4.0 Blood monocytes automated count (number/volume) 0. 5 10*3 0.0-1.0 Automated eosinophil count 0.1 10*3/uL 0 .0-0.3 Automated blood basophil count (count/volume) 0.0 10*3/uL 0.0-0.1 Automated blood complete blood count (he mogram) panel - 05/09/18 08:34 Blood leukocytes automated count (number/volume) 5.2 10*3/uL 4.3-11.0 Blood erythrocytes automated count (number/volume) 4.68 10*6/uL 4.35-5.85 Venous blood hemoglobin measurement (mass/volume) 14.0 g/dL 13.3-17.7 Blood hematocrit (volume fraction) 42 % 40-54 Automated erythrocyte mean corpuscular volume 90 [ foz_us] 80-99 Automated erythrocyte mean corpuscular h emoglobin (mass per erythrocyte) 30 pg 25-34 Automated erythrocyte mean corpuscular h emoglobin concentration measurement (mass/volume) 33 g/dL 32-36 Automated erythrocyte distribution width ratio 12. 7 % 10.0- 14.5 Automated blood platelet count (count/volume) 267 10*3/uL 130-400 Automated blood platelet mean volume measurement 10.7 [foz_us] 7.4-10.4 Comprehensive metabolic panel - 05/09/18 08:34 Serum or plasma sodium measurement (moles/volume) 140 mmol/L 135-145 Serum or plasma potassium measurement (moles/volume) 4.4 mmol/L 3.6-5.0 Serum or plasma chloride measurement (moles/volume) 104 mmol/L 98-107 Carbon dioxide 23 mmol/L 21-32 Serum or plasma anion gap determination (moles/volume) 13 mmol/L 5-14 Serum or plasma urea nitrogen measurement (mass/volume ) 16 mg/dL 7-18 Serum or plasma creatinine measurement (mass/volume) 1.21 mg/dL 0.60-1.30 Serum or plasma urea nitrogen/creatinine mass ratio 13 NRG Serum or plasma creatinine measurement w ith calculation of estimated glomerular filtration rate 60 NRG Serum or plasma glucose measurement (mass/volume) 170 mg/dL 70-105 Serum or plasma calcium measurement (mass/volume) 9.9 mg/dL 8.5-10.1 Serum or plasma total bilirubin measurement (mass/volu me) 0.6 mg/dL 0.1-1.0 Serum or plasma alkaline phosphatase shonda surement (enzymatic activity/volume) 57 U/L 40-136 Serum or plasma aspartate aminotransfera se measurement (enzymatic activity/volume) 27 U/L 5-34 Serum or plasma alanine aminotransferase measurement (enzymatic activity/volume) 40 U/L 0-55 Serum or plasma protein measurement (mass/volume) 7.7 g/dL 6.4-8.2 Serum or plasma albumin measurement (mass/volume) 4.8 g/dL 3.2-4.5 Lipid 1996 panel - 05/09/18 08:34 Serum or plasma triglyceride measurement (mass/volume) 189 mg/dL <150 Serum or plasma cholesterol measurement (mass/volume) 134 mg/dL < 200 Serum or plasma cholesterol in HDL measurement (mass/v olume) 33 mg/dL 40-60 Cholesterol in LDL [mass/volume] in serum or plasma by direct assay 86 mg/dL 1-129 Serum or plasma cholesterol in VLDL measurement (mass/ volume) 38 mg/dL 5-40 Lipase - 05/09/18 08:34 Lipase 15 U/L 8-78 Erythrocyte sedimentation rate by jaja gren method - 12/17/18 08:34 Erythrocyte sedimentation rate by westergren method 7 mm 0- 30 THYROID STIMULATING HORMONE - 05/09/18 0 8:34 THYROID STIMULATING HORMONE 2.27 u[iU]/mL 0.35-4.94 Serum or plasma thyroxine (T4) free yamilet urement (mass/volume) - 05/09/18 08:34 Serum or plasma thyroxine (T4) free measurement (mass/ volume) 1.11 ng/dL 0.70-1.48 Comprehensive metabolic panel - 05/09/18 08:34 Serum or plasma sodium measurement (moles/volume) 140 mmol/L 135-145 Serum or plasma potassium measurement (moles/volume) 4.4 mmol/L 3.6-5.0 Serum or plasma chloride measurement (moles/volume) 104 mmol/L 98-107 Carbon dioxide 23 mmol/L 21-32 Serum or plasma anion gap determination (moles/volume) 13 mmol/L 5-14 Serum or plasma urea nitrogen measurement (mass/volume ) 16 mg/dL 7-18 Serum or plasma creatinine measurement (mass/volume) 1.21 mg/dL 0.60-1.30 Serum or plasma urea nitrogen/creatinine mass ratio 13 NRG Serum or plasma creatinine measurement w ith calculation of estimated glomerular filtration rate 60 NRG Serum or plasma glucose measurement (mass/volume) 170 mg/dL 70-105 Serum or plasma calcium measurement (mass/volume) 9.9 mg/dL 8.5-10.1 Serum or plasma total bilirubin measurement (mass/volu me) 0.6 mg/dL 0.1-1.0 Serum or plasma alkaline phosphatase shonda surement (enzymatic activity/volume) 57 U/L 40-136 Serum or plasma aspartate aminotransfera se measurement (enzymatic activity/volume) 27 U/L 5-34 Serum or plasma alanine aminotransferase measurement (enzymatic activity/volume) 40 U/L 0-55 Serum or plasma protein measurement (mass/volume) 7.7 g/dL 6.4-8.2 Serum or plasma albumin measurement (mass/volume) 4.8 g/dL 3.2-4.5 Lipid 1996 panel - 05/09/18 08:34 Serum or plasma triglyceride measurement (mass/volume) 189 mg/dL <150 Serum or plasma cholesterol measurement (mass/volume) 134 mg/dL < 200 Serum or plasma cholesterol in HDL measurement (mass/v olume) 33 mg/dL 40-60 Cholesterol in LDL [mass/volume] in serum or plasma by direct assay 86 mg/dL 1-129 Serum or plasma cholesterol in VLDL measurement (mass/ volume) 38 mg/dL 5-40 Serum iron and total iron binding capaci ty panel - 05/09/18 08:34 Serum or plasma iron measurement (mass/volume) 97 % 40-180 Total iron binding capacity and transferrin saturation measurement 18 % 15-50 Iron binding capacity [mass/volume] in serum or plasma 525 % 280-380 UIBC (unsaturated iron binding capacity) 428 % 55-450 Serum or plasma ferritin measurement (mass/volume) 54.5 % 32.0-356.0 Serum or plasma C reactive protein measu rement (mass/volume) - 05/09/18 08:34 Serum or plasma C reactive protein measurement (mass/v olume) 0.10 mg/dL 0.00-0.50 VITAMIN D 25-HYDROXY - 05/09/18 08:34 VITAMIN D 25-HYDROXY (TOTAL) 40.5 % 3 0.0-100.0 TRIIODOTHRYONINE T3 FREE - 05/09/18 08:3 4 TRIIODOTHYRONINE T3 FREE 1.96 pg/mL 1.71 -3.71 Hemoglobin A1c - 05/09/18 08:34 Blood hemoglobin A1C measurement (mass/volume) 8.0 % 4.0-5.6 MEAN BLOOD GLUCOSE 183 % <=126 Complete blood count (CBC) with automate d white blood cell (WBC) differential - 07/25/18 07:29 Blood leukocytes automated count (number/volume) 5.5 10*3/uL 4.3-11.0 Blood erythrocytes automated count (number/volume) 4.74 10*6/uL 4.35-5.85 Venous blood hemoglobin measurement (mass/volume) 14.0 g/dL 13.3-17.7 Blood hematocrit (volume fraction) 42 % 40-54 Automated erythrocyte mean corpuscular volume 88 [ foz_us] 80-99 Automated erythrocyte mean corpuscular h emoglobin (mass per erythrocyte) 30 pg 25-34 Automated erythrocyte mean corpuscular h emoglobin concentration measurement (mass/volume) 33 g/dL 32-36 Automated erythrocyte distribution width ratio 12. 8 % 10.0- 14.5 Automated blood platelet count (count/volume) 238 10*3/uL 130-400 Automated blood platelet mean volume measurement 10.6 [foz_us] 7.4-10.4 Automated blood neutrophils/100 leukocytes 64 % 42-75 Automated blood lymphocytes/100 leukocytes 24 % 12-44 Blood monocytes/100 leukocytes 10 % 0-12 Automated blood eosinophils/100 leukocytes 2 % 0-10 Automated blood basophils/100 leukocytes 1 % 0-10 Blood neutrophils automated count (number/volume) 3.5 10*3 1.8-7.8 Blood lymphocytes automated count (number/volume) 1.3 10*3 1.0-4.0 Blood monocytes automated count (number/volume) 0. 5 10*3 0.0-1.0 Automated eosinophil count 0.1 10*3/uL 0 .0-0.3 Automated blood basophil count (count/volume) 0.0 10*3/uL 0.0-0.1 Automated blood complete blood count (he mogram) panel - 07/25/18 07:29 Blood leukocytes automated count (number/volume) 5.5 10*3/uL 4.3-11.0 Blood erythrocytes automated count (number/volume) 4.74 10*6/uL 4.35-5.85 Venous blood hemoglobin measurement (mass/volume) 14.0 g/dL 13.3-17.7 Blood hematocrit (volume fraction) 42 % 40-54 Automated erythrocyte mean corpuscular volume 88 [ foz_us] 80-99 Automated erythrocyte mean corpuscular h emoglobin (mass per erythrocyte) 30 pg 25-34 Automated erythrocyte mean corpuscular h emoglobin concentration measurement (mass/volume) 33 g/dL 32-36 Automated erythrocyte distribution width ratio 12. 8 % 10.0- 14.5 Automated blood platelet count (count/volume) 238 10*3/uL 130-400 Automated blood platelet mean volume measurement 10.6 [foz_us] 7.4-10.4 Comprehensive metabolic panel - 07/25/18 07:29 Serum or plasma sodium measurement (moles/volume) 134 mmol/L 135-145 Serum or plasma potassium measurement (moles/volume) 4.7 mmol/L 3.6-5.0 Serum or plasma chloride measurement (moles/volume) 100 mmol/L 98-107 Carbon dioxide 23 mmol/L 21-32 Serum or plasma anion gap determination (moles/volume) 11 mmol/L 5-14 Serum or plasma urea nitrogen measurement (mass/volume ) 19 mg/dL 7-18 Serum or plasma creatinine measurement (mass/volume) 1.22 mg/dL 0.60-1.30 Serum or plasma urea nitrogen/creatinine mass ratio 16 NRG Serum or plasma creatinine measurement w ith calculation of estimated glomerular filtration rate 59 NRG Serum or plasma glucose measurement (mass/volume) 206 mg/dL 70-105 Serum or plasma calcium measurement (mass/volume) 10.3 mg/dL 8.5-10.1 Serum or plasma total bilirubin measurement (mass/volu me) 0.7 mg/dL 0.1-1.0 Serum or plasma alkaline phosphatase shonda surement (enzymatic activity/volume) 52 U/L 40-136 Serum or plasma aspartate aminotransfera se measurement (enzymatic activity/volume) 43 U/L 5-34 Serum or plasma alanine aminotransferase measurement (enzymatic activity/volume) 46 U/L 0-55 Serum or plasma protein measurement (mass/volume) 7.6 g/dL 6.4-8.2 Serum or plasma albumin measurement (mass/volume) 4.7 g/dL 3.2-4.5 Lipid 1996 panel - 07/25/18 07:29 Serum or plasma triglyceride measurement (mass/volume) 262 mg/dL <150 Serum or plasma cholesterol measurement (mass/volume) 197 mg/dL < 200 Serum or plasma cholesterol in HDL measurement (mass/v olume) 33 mg/dL 40-60 Cholesterol in LDL [mass/volume] in serum or plasma by direct assay 138 mg/dL 1-129 Serum or plasma cholesterol in VLDL measurement (mass/ volume) 52 mg/dL 5-40 Erythrocyte sedimentation rate by jaja gren method - 07/25/18 07:29 Erythrocyte sedimentation rate by westergren method 5 mm 0- 30 Erythrocyte sedimentation rate by jaja gren method - 07/25/18 07:29 Erythrocyte sedimentation rate by westergren method 5 mm 0- 30 THYROID STIMULATING HORMONE - 07/25/18 0 7:29 THYROID STIMULATING HORMONE 3.78 u[iU]/mL 0.35-4.94 Serum or plasma thyroxine (T4) free yamilet urement (mass/volume) - 07/25/18 07:29 Serum or plasma thyroxine (T4) free measurement (mass/ volume) 1.00 ng/dL 0.70-1.48 Comprehensive metabolic panel - 07/25/18 07:29 Serum or plasma sodium measurement (moles/volume) 134 mmol/L 135-145 Serum or plasma potassium measurement (moles/volume) 4.7 mmol/L 3.6-5.0 Serum or plasma chloride measurement (moles/volume) 100 mmol/L 98-107 Carbon dioxide 23 mmol/L 21-32 Serum or plasma anion gap determination (moles/volume) 11 mmol/L 5-14 Serum or plasma urea nitrogen measurement (mass/volume ) 19 mg/dL 7-18 Serum or plasma creatinine measurement (mass/volume) 1.22 mg/dL 0.60-1.30 Serum or plasma urea nitrogen/creatinine mass ratio 16 NRG Serum or plasma creatinine measurement w ith calculation of estimated glomerular filtration rate 59 NRG Serum or plasma glucose measurement (mass/volume) 206 mg/dL 70-105 Serum or plasma calcium measurement (mass/volume) 10.3 mg/dL 8.5-10.1 Serum or plasma total bilirubin measurement (mass/volu me) 0.7 mg/dL 0.1-1.0 Serum or plasma alkaline phosphatase shonda surement (enzymatic activity/volume) 52 U/L 40-136 Serum or plasma aspartate aminotransfera se measurement (enzymatic activity/volume) 43 U/L 5-34 Serum or plasma alanine aminotransferase measurement (enzymatic activity/volume) 46 U/L 0-55 Serum or plasma protein measurement (mass/volume) 7.6 g/dL 6.4-8.2 Serum or plasma albumin measurement (mass/volume) 4.7 g/dL 3.2-4.5 Lipid 1996 panel - 07/25/18 07:29 Serum or plasma triglyceride measurement (mass/volume) 262 mg/dL <150 Serum or plasma cholesterol measurement (mass/volume) 197 mg/dL < 200 Serum or plasma cholesterol in HDL measurement (mass/v olume) 33 mg/dL 40-60 Cholesterol in LDL [mass/volume] in serum or plasma by direct assay 138 mg/dL 1-129 Serum or plasma cholesterol in VLDL measurement (mass/ volume) 52 mg/dL 5-40 THYROID STIMULATING HORMONE - 07/25/18 0 7:29 THYROID STIMULATING HORMONE 3.78 u[iU]/mL 0.35-4.94 Serum iron and total iron binding capaci ty panel - 07/25/18 07:29 Serum or plasma iron measurement (mass/volume) 103 % 40-180 Total iron binding capacity and transferrin saturation measurement 21 % 15-50 Iron binding capacity [mass/volume] in serum or plasma 494 % 280-380 UIBC (unsaturated iron binding capacity) 391 % 55-450 Serum or plasma ferritin measurement (mass/volume) 85.9 % 32.0-356.0 TRIIODOTHRYONINE T3 FREE - 07/25/18 07:2 9 TRIIODOTHYRONINE T3 FREE 2.16 pg/mL 1.71 -3.71 VITAMIN D 25-HYDROXY - 07/25/18 07:29 VITAMIN D 25-HYDROXY (TOTAL) 28.5 % 3 0.0-100.0 Hemoglobin A1c - 07/25/18 07:29 Blood hemoglobin A1C measurement (mass/volume) 9.6 % 4.0-5.6 MEAN BLOOD GLUCOSE 229 % <=126 Automated blood complete blood count (he mogram) panel - 03/14/19 07:20 Blood leukocytes automated count (number/volume) 6.4 10*3/uL 4.3-11.0 Blood erythrocytes automated count (number/volume) 4.76 10*6/uL 4.35-5.85 Venous blood hemoglobin measurement (mass/volume) 13.9 g/dL 13.3-17.7 Blood hematocrit (volume fraction) 42 % 40-54 Automated erythrocyte mean corpuscular volume 89 [ foz_us] 80-99 Automated erythrocyte mean corpuscular h emoglobin (mass per erythrocyte) 29 pg 25-34 Automated erythrocyte mean corpuscular h emoglobin concentration measurement (mass/volume) 33 g/dL 32-36 Automated erythrocyte distribution width ratio 13. 3 % 10.0- 14.5 Automated blood platelet count (count/volume) 279 10*3/uL 130-400 Automated blood platelet mean volume measurement 10.1 [foz_us] 7.4-10.4 Comprehensive metabolic panel - 03/14/19 07:20 Serum or plasma sodium measurement (moles/volume) 139 mmol/L 135-145 Serum or plasma potassium measurement (moles/volume) 4.4 mmol/L 3.6-5.0 Serum or plasma chloride measurement (moles/volume) 103 mmol/L 98-107 Carbon dioxide 23 mmol/L 21-32 Serum or plasma anion gap determination (moles/volume) 13 mmol/L 5-14 Serum or plasma urea nitrogen measurement (mass/volume ) 19 mg/dL 7-18 Serum or plasma creatinine measurement (mass/volume) 1.13 mg/dL 0.60-1.30 Serum or plasma urea nitrogen/creatinine mass ratio 17 NRG Serum or plasma creatinine measurement w ith calculation of estimated glomerular filtration rate > NRG Serum or plasma glucose measurement (mass/volume) 182 mg/dL 70-105 Serum or plasma calcium measurement (mass/volume) 10.0 mg/dL 8.5-10.1 Serum or plasma total bilirubin measurement (mass/volu me) 0.5 mg/dL 0.1-1.0 Serum or plasma alkaline phosphatase shonda surement (enzymatic activity/volume) 50 U/L 40-136 Serum or plasma aspartate aminotransfera se measurement (enzymatic activity/volume) 31 U/L 5-34 Serum or plasma alanine aminotransferase measurement (enzymatic activity/volume) 40 U/L 0-55 Serum or plasma protein measurement (mass/volume) 7.6 g/dL 6.4-8.2 Serum or plasma albumin measurement (mass/volume) 4.6 g/dL 3.2-4.5 Lipid 1996 panel - 03/14/19 07:20 Serum or plasma triglyceride measurement (mass/volume) 135 mg/dL <150 Serum or plasma cholesterol measurement (mass/volume) 127 mg/dL < 200 Serum or plasma cholesterol in HDL measurement (mass/v olume) 34 mg/dL 40-60 Cholesterol in LDL [mass/volume] in serum or plasma by direct assay 81 mg/dL 1-129 Serum or plasma cholesterol in VLDL measurement (mass/ volume) 27 mg/dL 5-40 THYROID STIMULATING HORMONE - 03/14/19 0 7:20 THYROID STIMULATING HORMONE 1.03 u[iU]/mL 0.35-4.94 Serum or plasma thyroxine (T4) free yamilet urement (mass/volume) - 03/14/19 07:20 Serum or plasma thyroxine (T4) free measurement (mass/ volume) 1.15 ng/dL 0.70-1.48 Serum or plasma C reactive protein measu rement (mass/volume) - 03/14/19 07:20 Serum or plasma C reactive protein measurement (mass/v olume) 0.12 mg/dL 0.00-0.50 Erythrocyte sedimentation rate by jaja gren method - 03/14/19 07:20 Erythrocyte sedimentation rate by westergren method 7 mm 0- 30 Hemoglobin A1c measurement - 03/14/19 07 :20 Blood hemoglobin A1C measurement (mass/volume) 8.7 % 4.0-5.6 MEAN BLOOD GLUCOSE 203 % <=126 Serum iron and total iron binding capaci ty panel - 03/14/19 07:20 TIBC 511 % 280-380 UIBC 436 % 55-450 Serum or plasma iron measurement (mass/volume) 75 % 40-180 Total iron binding capacity and transferrin saturation measurement 15 % 15-50 Serum or plasma ferritin measurement (mass/volume) 80.5 % 32.0-356.0 TRIIODOTHRYONINE T3 FREE - 03/14/19 07:2 0 TRIIODOTHYRONINE T3 FREE 2.29 pg/mL 1.71 -3.71 VITAMIN D 25-HYDROXY - 03/14/19 07:20 VITAMIN D 25-HYDROXY (TOTAL) 74.7 % 3 0.0-100.0 Liver function panel (serum or plasma al k phos, alb, total and direct bili, total protein, ALT, AST) - 05/04/19 08:34 Serum or plasma total bilirubin measurement (mass/volu me) 0.5 mg/dL 0.1-1.0 Serum or plasma alkaline phosphatase shonda surement (enzymatic activity/volume) 47 U/L 40-136 Serum or plasma aspartate aminotransfera se measurement (enzymatic activity/volume) 35 U/L 5-34 Serum or plasma alanine aminotransferase measurement (enzymatic activity/volume) 43 U/L 0-55 Serum or plasma protein measurement (mass/volume) 7.8 g/dL 6.4-8.2 Serum or plasma albumin measurement (mass/volume) 4.8 g/dL 3.2-4.5 Bilirubin direct 0.3 mg/dL 0.0-0.3 Serum or plasma indirect bilirubin measurement (mass/v olume) 0.2 mg/dL NRG Blood CBC with ordered manual differenti al panel - 07/10/19 08:17 Blood leukocytes automated count (number/volume) 5.5 10*3/uL 4.3-11.0 Blood erythrocytes automated count (number/volume) 4.54 10*6/uL 4.35-5.85 Venous blood hemoglobin measurement (mass/volume) 13.3 g/dL 13.3-17.7 Blood hematocrit (volume fraction) 40 % 40-54 Automated erythrocyte mean corpuscular volume 89 [ foz_us] 80-99 Automated erythrocyte mean corpuscular h emoglobin (mass per erythrocyte) 29 pg 25-34 Automated erythrocyte mean corpuscular h emoglobin concentration measurement (mass/volume) 33 g/dL 32-36 Automated erythrocyte distribution width ratio 13. 1 % 10.0- 14.5 Automated blood platelet count (count/volume) 270 10*3/uL 130-400 Automated blood platelet mean volume measurement 10.0 [foz_us] 7.4-10.4 Automated blood neutrophils/100 leukocytes 67 % 42-75 Automated blood lymphocytes/100 leukocytes 24 % 12-44 Blood monocytes/100 leukocytes 5 % NRG Automated blood eosinophils/100 leukocytes 2 % 0-10 Automated blood basophils/100 leukocytes 0 % 0-10 Blood neutrophils automated count (number/volume) 3.7 10*3 1.8-7.8 Blood lymphocytes automated count (number/volume) 1.3 10*3 1.0-4.0 Blood monocytes automated count (number/volume) 0. 3 10*3 0.0-1.0 Automated eosinophil count 0.1 10*3/uL 0 .0-0.3 Automated blood basophil count (count/volume) 0.0 10*3/uL 0.0-0.1 Manual blood segmented neutrophils/100 leukocytes 62 % NRG Blood band neutrophils/100 leukocytes 3 % NRG Manual blood lymphocytes/100 leukocytes 26 % NRG Manual eosinophils/100 leukocytes in nose 3 % NRG Manual blood basophils/100 leukocytes 1 % NRG Lipid 1996 panel - 07/10/19 08:17 Serum or plasma triglyceride measurement (mass/volume) 141 mg/dL <150 Serum or plasma cholesterol measurement (mass/volume) 129 mg/dL < 200 Serum or plasma cholesterol in HDL measurement (mass/v olume) 30 mg/dL 40-60 Cholesterol in LDL [mass/volume] in serum or plasma by direct assay 86 mg/dL 1-129 Serum or plasma cholesterol in VLDL measurement (mass/ volume) 28 mg/dL 5-40 THYROID STIMULATING HORMONE - 07/10/19 0 8:17 THYROID STIMULATING HORMONE 0.65 u[iU]/mL 0.35-4.94 Hemoglobin A1c measurement - 07/10/19 08 :17 Blood hemoglobin A1C measurement (mass/volume) 8.9 % 4.0-5.6 MEAN BLOOD GLUCOSE 209 % <=126 VITAMIN D 25-HYDROXY - 07/10/19 08:17 VITAMIN D 25-HYDROXY (TOTAL) 36.0 % 3 0.0-100.0 Complete blood count (CBC) with automate d white blood cell (WBC) differential - 10/17/19 07:52 Blood leukocytes automated count (number/volume) 10.1 10*3/uL 4.3-11.0 Blood erythrocytes automated count (number/volume) 5.16 10*6/uL 4.35-5.85 Venous blood hemoglobin measurement (mass/volume) 15.1 g/dL 13.3-17.7 Blood hematocrit (volume fraction) 45 % 40-54 Automated erythrocyte mean corpuscular volume 87 [ foz_us] 80-99 Automated erythrocyte mean corpuscular h emoglobin (mass per erythrocyte) 29 pg 25-34 Automated erythrocyte mean corpuscular h emoglobin concentration measurement (mass/volume) 34 g/dL 32-36 Automated erythrocyte distribution width ratio 13. 0 % 10.0- 14.5 Automated blood platelet count (count/volume) 328 10*3/uL 130-400 Automated blood platelet mean volume measurement 9.6 [foz_us] 7.4-10.4 Automated blood neutrophils/100 leukocytes 74 % 42-75 Automated blood lymphocytes/100 leukocytes 16 % 12-44 Blood monocytes/100 leukocytes 9 % 0-12 Automated blood eosinophils/100 leukocytes 1 % 0-10 Automated blood basophils/100 leukocytes 0 % 0-10 Blood neutrophils automated count (number/volume) 7.5 10*3 1.8-7.8 Blood lymphocytes automated count (number/volume) 1.6 10*3 1.0-4.0 Blood monocytes automated count (number/volume) 0. 9 10*3 0.0-1.0 Automated eosinophil count 0.1 10*3/uL 0 .0-0.3 Automated blood basophil count (count/volume) 0.0 10*3/uL 0.0-0.1 Comprehensive metabolic panel - 10/17/19 07:52 Serum or plasma sodium measurement (moles/volume) 139 mmol/L 135-145 Serum or plasma potassium measurement (moles/volume) 4.6 mmol/L 3.6-5.0 Serum or plasma chloride measurement (moles/volume) 103 mmol/L 98-107 Carbon dioxide 24 mmol/L 21-32 Serum or plasma anion gap determination (moles/volume) 12 mmol/L 5-14 Serum or plasma urea nitrogen measurement (mass/volume ) 20 mg/dL 7-18 Serum or plasma creatinine measurement (mass/volume) 1.32 mg/dL 0.60-1.30 Serum or plasma urea nitrogen/creatinine mass ratio 15 NRG Serum or plasma creatinine measurement w ith calculation of estimated glomerular filtration rate 54 NRG Serum or plasma glucose measurement (mass/volume) 130 mg/dL 70-105 Serum or plasma calcium measurement (mass/volume) 9.9 mg/dL 8.5-10.1 Serum or plasma total bilirubin measurement (mass/volu me) 0.5 mg/dL 0.1-1.0 Serum or plasma alkaline phosphatase shonda surement (enzymatic activity/volume) 48 U/L 40-136 Serum or plasma aspartate aminotransfera se measurement (enzymatic activity/volume) 30 U/L 5-34 Serum or plasma alanine aminotransferase measurement (enzymatic activity/volume) 34 U/L 0-55 Serum or plasma protein measurement (mass/volume) 8.2 g/dL 6.4-8.2 Serum or plasma albumin measurement (mass/volume) 4.7 g/dL 3.2-4.5 Lipid 1996 panel - 10/17/19 07:52 Serum or plasma triglyceride measurement (mass/volume) 154 mg/dL <150 Serum or plasma cholesterol measurement (mass/volume) 144 mg/dL < 200 Serum or plasma cholesterol in HDL measurement (mass/v olume) 36 mg/dL 40-60 Cholesterol in LDL [mass/volume] in serum or plasma by direct assay 101 mg/dL 1-129 Serum or plasma cholesterol in VLDL measurement (mass/ volume) 31 mg/dL 5-40 THYROID STIMULATING HORMONE - 10/17/19 0 7:52 THYROID STIMULATING HORMONE 0.55 u[iU]/mL 0.35-4.94 Erythrocyte sedimentation rate by jaja gren method - 10/17/19 07:52 Erythrocyte sedimentation rate by westergren method 4 mm 0- 30 Hemoglobin A1c measurement - 10/17/19 07 :52 Blood hemoglobin A1C measurement (mass/volume) 7.7 % 4.0-5.6 MEAN BLOOD GLUCOSE 174 % <=126 VITAMIN D 25-HYDROXY - 10/17/19 07:52 VITAMIN D 25-HYDROXY (TOTAL) 39.7 % 3 0.0-100.0 Coronavirus SARS-CoV-2 SO 2019 - 0 08:05 Coronavirus Ab [Units/volume] in Serum Negative Negative Blood type T Indirect antibody screen pa colette - 11/09/19 12:45 ABO+Rh group OP NRG Blood group antibody screen NEGATIVE NR G PT panel in platelet poor plasma by coag ulation assay - 11/09/19 12:45 Prothrombin time (PT) in platelet poor plasma by coagu lation assay 14.8 s 12.2-14.7 INR in platelet poor plasma or blood by coagulation as say 1.1 0.8-1.4 Methicillin resistant Staphylococcus aur eus (MRSA) screening culture - 11/09/19 12:45 Methicillin resistant Staphylococcus aureus (MRSA) scr eening culture NEG NRG Complete urinalysis with reflex to cultu re - 11/09/19 12:50 Urine color determination YELLOW NRG Urine clarity determination CLEAR NR G Urine pH measurement by test strip 6.0 5-9 Specific gravity of urine by test strip 1.025 1.016-1.022 Urine protein assay by test strip, semi-quantitative NEGATIVE NEGATIVE Urine glucose detection by automated test strip 1+ NEGATIVE Erythrocytes detection in urine sediment by light micr oscopy TRACE-I NEGATIVE Urine ketones detection by automated test strip NE GATIVE NEGATIVE Urine nitrite detection by test strip NEGATIVE NEGATIVE Urine total bilirubin detection by test strip NEGA TIVE NEGATIVE Urine urobilinogen measurement by automated test strip (mass/volume) 0.2 mg/dL < = 1.0 Urine leukocyte esterase detection by dipstick NEG ATIVE NEGATIVE Automated urine sediment erythrocyte cou nt by microscopy (number/high power field) [HPF] NRG Automated urine sediment leukocyte count by microscopy (number/high power field) [HPF] NRG Bacteria detection in urine sediment by light microsco py TRACE NRG Crystals detection in urine sediment by light microsco py PRESENT NRG Casts detection in urine sediment by light microscopy NONE NRG Mucus detection in urine sediment by light microscopy NEGATIVE NRG Complete urinalysis with reflex to culture NO NRG Amorphous sediment detection in urine sediment by ligh t microscopy RARE RUI URATES NRG Encounters ACCT No. Visit Date/Time Discharge Status Pt. Type Provider Facility Loc./Unit Complaint [id number] 10/18/2019 10:00:00 10/18/2019 23:59: 59 CLS Out[facility] [id number] 11/09/2019 07:21:00 16:00:00 DIS Outpatient SHASTA KOWALSKI MD [facility] PREOP OSTEOARTHRITIS RIGHT K NEE [id number] 10/17/2019 07:39:00 23:59:59 CLS Outpatient RIA HANNAH MD [facility] LAB E11.69 [id number] 07/10/2019 08:06:00 23:59:59 CLS Outpatient RIA HANNAH MD [facility] LAB M06.9,E11.69 [id number] 05/22/2019 08:55:00 23:59:59 CLS Outpatient SHASTA CAGE MD [facility] LAB ABNORMAL LFTS [id number] 05/04/2019 08:27:00 23:59:59 CLS Outpatient SHASTA CAGE MD [facility] RAD ABNORMAL LFTS [id number] 03/14/2019 07:12:00 23:59:59 CLS Outpatient SHASTA CAGE MD [facility] LAB M06.9 [id number] 07/25/2018 07:14:00 23:59:59 CLS Outpatient RIA HANNAH MD [facility] LAB E11.9 [id number] 07/25/2018 07:11:00 23:59:59 CLS Outpatient SHASTA CAGE MD [facility] LAB Z79.899,E55.9,E03.9 [id number] 05/09/2018 08:15:00 23:59:59 CLS Outpatient SHASTA CAGE MD [facility] LAB E55.9,Z79.899 [id number] 05/09/2018 08:12:00 018 23:59:59 CLS Outpatient RIA HANNAH MD [facility] LAB E11.9 [id number] 02/07/2018 07:40:00 018 23:59:59 CLS Outpatient RIA HANNAH MD [facility] LAB E11.9 E03.9 [id number] 02/07/2018 07:38:00 018 23:59:59 CLS Outpatient SHASTA CAGE MD [facility] LAB Z79.899 E55.9 Z12.5 E0 3.9 E78.2 Z13.0 [id number] 11/01/2017 08:08:00 018 23:59:59 CLS Outpatient SHASTA CAGE MD [facility] LAB Z79.899 [id number] 11/01/2017 08:02:00 018 23:59:59 CLS Outpatient RIA HANNAH MD [facility] LAB JLB [id number] 07/26/2017 08:18:00 018 23:59:59 CLS Outpatient RIA HANNAH MD [facility] LAB SEE ORDER [id number] 07/26/2017 08:15:00 018 23:59:59 CLS Outpatient SHASTA CAGE MD [facility] LAB Z79.899 E03.9 [id number] 05/03/2017 07:55:00 017 23:59:59 CLS Outpatient RIA HANNAH MD [facility] LAB FOLLOW UP [id number] 02/05/2017 11:37:00 017 23:59:59 CLS Outpatient SHASTA MURDOCK APRN [facility] RT DYSPNEA R06.00 [id number] 02/01/2017 20:45:00 017 06:26:00 DIS Outpatient VJ BLANCO DO [facility] SLEEP BERTHA [id number] 01/26/2017 20:00:00 017 20:00:00 CAN PreadSHASTA Laird APRN [facility] SLEEP G47.33 [id number] 01/11/2017 09:24:00 017 23:59:59 CLS Outpatient SHASTA CAGE MD [facility] LAB M05.79 Z79.899 E03.9 E 78.2 [id number] 01/11/2017 09:18:00 017 23:59:59 CLS Outpatient RIA HANNAH MD [facility] LAB E11.9 E03.9 E78.0 [id number] 12/30/2016 21:16:00 017 19:57:00 DIS Inpatient CHANG VANG, GAVINO Blas [facility] 4TH APPENDICITIS [id number] 09/10/2016 06:45:00 017 23:59:59 CLS Outpatient RIA HANNAH MD [facility] LAB E11.9,E03.9 [id number] 09/10/2016 06:40:00 017 23:59:59 CLS Outpatient SHASTA CAGE MD [facility] LAB E03.9,Z79.899 [id number] 12/18/2015 07:09:00 016 23:59:59 CLS Outpatient RIA HANNAH MD [facility] LAB TYPE 2 DIABETES [facility], HYPOTHYROIDISM [id number] 09/17/2015 07:29:00 016 23:59:59 CLS Outpatient SHASTA CAGE MD [facility] LAB HYPOTHYROIDISM [id number] 09/17/2015 07:25:00 016 23:59:59 CLS Outpatient RIA HANNAH MD [facility] LAB TYPE 2 DIABETES [id number] 06/17/2015 08:33:00 23:59:59 CLS Outpatient RIA HANNAH MD [facility] LAB DM W/O complications,Hypothyroidism, unspecified [id number] 04/17/2015 09:10:00 23:59:59 CLS Outpatient SHASTA CAGE MD [facility] LAB VITAMIN D DEFICIENCY, GOUT,ABNORMAL LABS [id number] 03/05/2015 06:45:00 23:59:59 CLS Outpatient RIA HANNAH MD [facility] LAB HYPERCHOLESTEROLEMIA,D M II,HYPRTHYROID [id number] 12/07/2014 06:49:00 23:59:59 CLS Outpatient RIA HANNAH MD [facility] LAB RENAL INSUFF [id number] 12/07/2014 06:45:00 23:59:59 CLS Outpatient SHASTA CAGE MD [facility] LAB ABNORMAL BLOOD BLASTING CLAY MINER RY [id number] 11/14/2014 07:26:00 23:59:59 CLS Outpatient SHASTA CAGE MD [facility] LAB SKILLED NURSING MED USE,RA,V IT D DEF,GOUT [id number] 11/14/2014 07:20:00 23:59:59 CLS Outpatient RIA HANNAH MD [facility] LAB PURE HYPERCHOLESTEROLEMIA,HYPOTHYRIODISM,DM [id number] 08/21/2014 10:24:00 23:59:59 CLS Outpatient RIA HANNAH MD [facility] LAB DM,HYPOTHYROIDISM,HLP [id number] 04/02/2014 10:27:00 23:59:59 CLS Outpatient SHASTA CAGE MD [facility] LAB VIT D DEFFICENCY,ARTHR ISTIS [id number] 04/02/2014 10:24:00 23:59:59 CLS Outpatient RIA HANNAH MD [facility] LAB DIABETES [id number] 03/28/2014 13:02:00 23:59:59 CLS Outpatient [id number] 12/22/2013 08:38:00 23:59:59 CLS Outpatient SHASTA KOWALSKI MD [facility] REHAB S/P L TKR [id number] 11/22/2013 06:00:00 11:09:00 DIS Inpatient SHASTA KOWALSKI MD [facility] SURGICAL LEFT KNEE SEVERE OSTEOARTHRITIS [id number] 11/15/2013 08:21:00 23:59:59 CLS Outpatient SHASTA KOWALSKI MD [facility] PREOP LEFT KNEE SEVERE OSTEO ARTHRITIS [id number] 07/21/2013 07:23:00 23:59:59 CLS Outpatient RIA HANNAH MD [facility] LAB DIABETEC [id number] 07/21/2013 07:19:00 23:59:59 CLS Outpatient SHASTA CAGE MD [facility] LAB RHEUMATOID,ARTHRITIS [id number] 04/03/2013 06:37:00 23:59:59 CLS Outpatient RIA HANNAH MD [facility] LAB RA,HYPERCHOLESTEROLEIM A,DIABETES MELLITUS [id number] 02/13/2013 08:10:00 23:59:59 CLS Outpatient [id number] 01/12/2013 06:05:00 11:20:00 DIS Outpatient [id number] 01/05/2013 11:09:00 23:59:59 CLS Outpatient [id number] 12/26/2012 08:17:00 23:59:59 CLS Outpatient [id number] 12/26/2012 08:13:00 23:59:59 CLS Outpatient [id number] 11/15/2019 08:00:00 P EN Preadmit SHASTA KOWALSKI MD OSTEOARTHRITIS RIGHT KNEE
[2019-11-15] MEDS ORDERED: LACTATED RINGERS 1,000 ML IV PRN (06:39)
[2019-11-15] MEDS ORDERED: MIDAZOLAM 2 MG/2 ML (VERSED) VIAL ONE (06:43)
[2019-11-15] MEDS ORDERED: BUPIVACAINE 0.5% 30 ML (SENSORCAINE) VIAL ONE (06:43)
[2019-11-15] MEDS ORDERED: CEFUROXIME INJECTION 1,500 MG in WATER (STERILE) FOR INJECTION 15 ML IV ONE (06:45)
[2019-11-15] MEDS ORDERED: CATHETER FLUSH 10 ML SYR IV PRN (07:00)
[2019-11-15] MEDS ORDERED: ROCURONIUM 10 MG/ML 5 ML SYRINGE IV ONE (07:05)
[2019-11-15] MEDS ORDERED: SEVOFLURANE (ULTANE) 15 ML INHAL SOLN ONE ×8 (07:05→09:01)
[2019-11-15] MEDS ORDERED: NEOSTIGMINE 3 MG/3 ML VIAL ONE (07:05)
[2019-11-15] MEDS ORDERED: GLYCOPYRROLATE 0.2 MG/ML (ROBINUL) 2 ML VIAL ONE (07:05)
[2019-11-15] MEDS ORDERED: fentaNYL INJECTION 100 MCG/2 ML AMP ONE (07:05)
[2019-11-15] MEDS ORDERED: LIDOCAINE PF 2% 5 ML (XYLOCAINE) VIAL ONE (07:05)
[2019-11-15] MEDS ORDERED: ONDANSETRON 4 MG/2 ML (SDV) Z0FRAN ONE (07:05)
[2019-11-15] MEDS ORDERED: morphine PCA 100 MG/100 ML BAG IV PRN (07:15)
[2019-11-15] MEDS ORDERED: ACETAMINOPHEN 325 MG TABLET PO PRN (07:15)
[2019-11-15] MEDS ORDERED: diphenhydrAMINE 50 MG/ML INJ (BENADRYL) IVP PRN (07:15)
[2019-11-15] MEDS ORDERED: ONDANSETRON 4 MG/2 ML (SDV) Z0FRAN IVP PRN ×2 (07:15→09:15)
--- NOTE | 2019-11-15 07:24 | Progress Note-Pre Operative ---
Pre-Operative Progress Note H&P Reviewed The H&P was reviewed, patient examined and no changes noted. Date Seen by Provider: Nov 15, 2019 Time Seen by Provider: 07:11 Date H&P Reviewed: Nov 15, 2019 Time H&P Reviewed: 07:11 Pre-Operative Diagnosis: right knee primary osteoarthritis SHASTA KOWALSKI MD Nov 15, 2019 07:24
--- NOTE | 2019-11-15 07:25 | Progress Note-Post Operative ---
Post-Operative Progess Note Surgeon (s)/Property Disposal Manager (s) Surgeon SHASTA KOWALSKI MD Property Disposal Manager: Maurice Yeh Pre-Operative Diagnosis right knee primary osteoarthritis Post-Operative Diagnosis right knee primary osteoarthritis Procedure & Operative Findings Date of Procedure 11/15/19 Procedure Performed/Findings right total knee arthroplasty Anesthesia Type GETA Estimated Blood Loss Estimated blood loss (mL): minimal Specimens/Packing Specimens Removed none Packing: none SHASTA KOWALSKI MD Nov 15, 2019 07:24
[2019-11-15] MEDS ORDERED: OXYC1TAB87 PO (07:26)
--- NOTE | 2019-11-15 07:28 | D/C HH Face to Face Order ---
D/C Face to Face Orders Reconcile Patient Problems Problems Reviewed?: Yes Instructions for Patient [facility] [email or web address], Patient Instructions/FollowUp: three weeks Physician to follow Patient: three weeks Discharge Diet for Home: ADA Diet Patient Data-Allergies,Ht & Wt Patient Allergies: Coded Allergies: No Known Drug Allergies (Unverified , 11/09/19) Height (Feet): 5 Height (Inches): 10.00 Weight (Pounds): 234 Weight (Ounces): 0.0 Home Health Need/Face to Face Date of Face to Face: Nov 15, 2019 Clinical Findings: Instability, Muscle weakness, Pain with ambulation, Unsteady gait I have seen Pt mflv-lz-wklm: Yes Discharged To: Home Diagnosis/Conditions: right total knee arthroplasty Patient is Homebound due to: Rebekah fall risk due to instabilty, Muscle weakness, Pain w/ambulation Homebound Status Due to the above stated illness, injury or surgical procedure (medical condition or diagnosis) and associated clinical findings, the patient is homebound because of his/her inability to leave home except with aid of a supportive device and/or person AND leaving the home requires a considerable and taxing effort or is medically contraindicated. Pt req the following assistanc: Walker Home Health Nursing Orders Home Health Services Order: Physical Therapy-Evaluate & Treat DC right knee rosalinda and apply steri strips 11/29/19 Home Health Infusion Therapy Line Start Date: Nov 15, 2019 Therapy Orders Therapy Orders: Physical Therapy, PT to assess for OT Therapy Specific Orders: Eval assistive deivces, Teach enviro modifications/safety, Gait training, Increase strength/endurance, Provider maintenance therapy, Restore ROM Certify Stmt I certify that this patient is under my care and that I, a nurse practitioner or a physician; a dam tender assistant working with me, had a face to face encounter that - meets the physician face to face encounter requirements with this patient as dated. SHASTA KOWALSKI MD Nov 15, 2019 07:28
[2019-11-15] MEDS ORDERED: TRANEXAMIC ACID 100 MG/ML 10 ML INJECTION IV ONE (07:30)
[2019-11-15] MEDS ORDERED: INTRA-ARTICULAR IU ONE ×4 (07:30)
[2019-11-15] MEDS ORDERED: SUCCINYLCHOLINE INJ 100 MG/5 ML SYR ONE (07:42)
[2019-11-15] MEDS ORDERED: HYDROmorphone 2 MG/ML VIAL (DILAUDID) ONE (07:51)
[2019-11-15] MEDS: SENNA W/DOCUSATE (SENOKOT S) TABLET PO SCH ×2 (09:00→21:27)
[2019-11-15] MEDS ORDERED: HYDROmorphone 2 MG/ML VIAL (DILAUDID) IV ONE (09:15)
--- NOTE | 2019-11-15 10:08 | Diagnostic Imaging Report ---
INDICATION: Postop right knee. TIME OF EXAM: 9:48 AM. FINDINGS: Two views of the right knee demonstrate postop changes of total knee arthroplasty. The prosthetic elements are in good position. No fracture or loosening is seen. There are overlying skin rosalinda. IMPRESSION: Satisfactory postop appearance of the right knee. Dictated by: Dictated on workstation # [id number]
--- NOTE | 2019-11-15 10:09 | OPERATIVE REPORT ---
DATE OF SERVICE: 11/15/2019 PREOPERATIVE DIAGNOSIS: Right knee primary osteoarthritis. POSTOPERATIVE DIAGNOSIS: Right knee primary osteoarthritis. PROCEDURE PERFORMED: Right total knee arthroplasty. SURGEON: Arnaud Kowalski MD. ROTO GRAVURE PRESS OPERATOR: Maurice Yeh, who assisted throughout the procedure and closed the incision. ANESTHESIA: General endotracheal by Jerry ____. TOURNIQUET TIME: 70 minutes at 300 mmHg. ESTIMATED BLOOD LOSS: Minimal. DRAINS: None. COMPLICATIONS: None. POSTOPERATIVE PLAN: Total knee arthroplasty protocol. The patient was transferred to the recovery room awake and stable condition. MATERIALS: Microport cemented size 5 femur, cemented size 5 tibia with 10 mm insert and cemented size 32 patellar button. STATEMENT OF MEDICAL NECESSITY: The patient is a 68-year-old gentleman with longstanding progressive right knee pain. Radiographs revealed severe medial and patellofemoral arthrosis. He tried rest, activity modifications and anti-inflammatories without relief. Due to functional impairment and failure to improve with conservative measures, the patient elected to proceed with surgical intervention. DESCRIPTION OF PROCEDURE: After risks and benefits of procedure were discussed and questions were answered, informed consent was accomplished on chart and the operative site was confirmed in the preoperative holding area initialed by the surgeon. The patient was then transferred to the operating room and after adequate levels of general endotracheal anesthetic were obtained, a timeout was called, confirming the operative site. The right lower extremity was prepped and draped in the usual sterile fashion. The leg was elevated and the knee flexed. Tourniquet was inflated to 300 mmHg. A standard anterior approach was utilized. Hemostasis was obtained with cautery. Medial parapatellar arthrotomy was performed leaving 1 cm cuff on the patella for later reattachment. A portion of the fat pad was resected. The ACL was resected. The intramedullary guide was passed into the distal femur and the distal cutting block was placed. The cut was made. Femur was sized to a size 5, the 5 cutting block was placed parallel to the epicondylar axis and cuts were made from posterior to anterior. Subperiosteal release was then performed being careful to stay on the bony surface with curved osteotome. Intramedullary guide was then passed into the tibia and cutting block was placed. Drop radha transected the intermalleolar axis and the cut was made and a #5 baseplate was placed. Drop radha transected the intermalleolar axis. This was prepared with the drill and keel punch. The femoral trial was placed and trochlear cut was made. A 10 mm trial was inserted. The patella was then prepared by resecting 10 mm off the undersurface. Peg guide was placed and peg holes were drilled. The patellar trial button was placed and the knee was taken a through range of motion. Full extension was easily obtained under 20 degrees of flexion with gravity was easily obtained. There was no anterior/posterior or medial/lateral laxity in flexion or extension. Trials were removed. The joint was irrigated with pulse lavage. Bone ends were irrigated and dried. The tibial baseplate was cemented into position. Superior surface was irrigated and dried and the polyethylene insert was placed. The distal femur was irrigated and dried. The femoral prosthesis was cemented into position. Excessive cement was removed. The knee was brought into full extension until the cement had cured. The undersurface of patella was irrigated and dried. The patellar button was cemented into position. Excessive cement was removed. Once cement had cured, the knee was taken through range of motion. Full extension was easily obtained under 20 degrees of flexion with gravity was easily obtained. There was no anterior/posterior or medial/lateral laxity in flexion or extension and the patella tracked well. The joint was further irrigated with pulse lavage. Arthrotomy was closed with #2 Tevdek in a gcatxs-si-xwylb interrupted fashion. The knee was flexed. The patella tracked well with no undue tension at the repair site. Subcutaneous tissues were irrigated using a total of 6 liters throughout the procedure. A 0 Vicryl was used for deep subcutaneous tissue, 2-0 Vicryl for the superficial subcutaneous tissue and rosalinda were used on the skin. A soft dressing was applied. The tourniquet was deflated. The patient was transferred to the recovery room awake and in stable condition. Job ID: [id number] DocumentID: [id number] Dictated Date: 11/15/2019 09:21:22 Metal Furniture Assembly Supervisor Date: 11/15/2019 10:08:39 Dictated By: ARNAUD KOWALSKI MD
--- NOTE | 2019-11-15 10:50 | Progress Note ---
Standard Progress Note Progress Notes/Assess & Plan Date Seen by a Provider: Nov 15, 2019 Time Seen by a Provider: 09:25 Progress/Assessment & Plan post op check No complaints radiographs-HW well positioned without fracture RLE--intact DF and PF of toes and ankle. 2 plus DP pulse with brisk cap refill. intact DF and PF of toes and ankle s/p RTKA mobilize as able SHASTA KOWALSKI MD Nov 15, 2019 10:50
[2019-11-15] MEDS: NS IV 1000 ML 1,000 ML IV SCH ×2 (13:42→23:23)
--- NOTE | 2019-11-15 14:09 | Physical Therapy Evaluation ---
PT Evaluation-General Medical Diagnosis Admission Date Nov 15, 2019 at 06:00 Medical Diagnosis: right TKA Onset Date: Nov 15, 2019 Therapy Diagnosis Therapy Diagnosis: impaired mobility, strength, endurance, ROM Height/Weight Height (Feet): 5 Height (Inches): 10.00 Weight (Pounds): 234 Weight (Ounces): 0.0 Precautions Precautions/Isolations: Fall Prevention, Standard Precautions Weight Bear Status Right Lower Extremity: Right Weight Bearing/Tolerated Referral Physician: Rao Reason for Referral: Evaluation/Treatment Medical History Pertinent Medical History: DM, HTN, Rheumatoid Arthritis Additional Medical History PAST MEDICAL HISTORY: Depression, hyperlipidemia, hypertension, thyroid disease, type 2 diabetes. PAST SURGICAL HISTORY: Appendectomy, left total knee arthroplasty, right knee arthroscopy, herniorrhaphy, left long and ring finger. Reviewed History: Yes Social History Home: Single Level Current Living Status: Spouse Entry Into Home: Stairs With Railing PT Steps Into Home: 2 Prior Prior Level of Function SCALE: Activities may be completed with or without assistive devices. 4-Lwdzymhphb-xhhhgix completes the activity by him/herself with no assistance from a helper. 5-Set-up or Clean-up Assistance-helper sets up or cleans up; patient completes activity. [place] assists only prior to or following the activity. 4-Supervision or Touching Assistance-helper provides verbal cues and/or touching/steadying and/or contact guard assistance as patient completes activity. Assistance may be provided throughout the activity or intermittently. 3-Partial/Moderate Assistance-helper does LESS THAN HALF the effort. [place] lifts, holds or supports trunk or limbs, but provides less than half the effort. 2-Substantial/Maximal Assistance-helper does MORE THAN HALF the effort. [place] lifts or holds trunk or limbs and provides more than half the effort. 1-Omcjilhyo-wxlyfs does ALL the effort. Patient does none of the effort to complete the activity. Or, the assistance of 2 or more helpers is required for the patient to complete the activity. If activity was not attempted, code reason: 7-Patient Refused. 9-Not Applicable-not attempted and the patient did not perform the activity before the current illness, exacerbation or injury. 10-Not Attempted due to Environmental Limitations-(lack of equipment, weather restraints, etc.). 88-Not Attempted due to Medical Conditions or Safety Concerns. Bed Mobility: 6 Transfers (B,C,W/C): 6 Gait: 6 Stairs: 6 Indoor Mobility (Ambulation): Independent Stairs: Independent PT Evaluation-Current Subjective Patient in bed pre tx, agrees to PT, has no complaints of pain. Pt/Family Goals to be independent at home Objective Patient Orientation: Person, Place, Situation Attachments: SCD's, Oxygen, Polar Pack ROM/Strength ROM Lower Extremities right knee flexion 70 degrees, extension +10 degrees Sensory Vision: Neglect Left Hearing: Functional Sensation Right Lower Extremit: Intact Sensation Left Lower Extremity: Intact Transfers Roll Left to Right (QC): 6 Sit to Lying (QC): 6 Lying to Sitting/Side of Bed(Q: 6 Sit to Stand (QC): 4 Chair/Wci-qp-Nficd Xfer(QC): 4 Toilet Transfer (QC): 4 Patient has some difficulty getting his right leg into bed but can do it without assist. No nausea or dizziness. Gait Does the Patient Walk?: Yes Mode of Locomotion: Walk Anticipated Mode of Locomotion: Walk Walk 10 feet (QC): 4 Walk 50 ft with 2 Turns(QC): 4 Walk 150 ft (QC): 4 Distance: 200' Gait Assistive Device: FWW Comments/Gait Description CGA, good step through and pace, good heel strike Balance Sitting Static: Normal Sitting Dynamic: Normal Standing Static: Good Standing Dynamic: Good Treatment RLE TKA protocol x10 (AP, QS, HS, SAQ, SLR), CPM donned and fit to leg and set to 60/-2 Assessment/Needs Patient has impaired mobility, strength, endurance, ROM. Good ambulation. Patient in bed post tx with nurse call, phone, tray, in room, has CPM and SCD's donned, polar care on. Rehab Potential: Fair PT Usp Goals Temperature Regulator Pyrometer Goals PT Usp Goals Time Frame: Nov 22, 2019 Roll Left & Right (QC): 6 Sit to Lying (QC): 6 Lying-Sitting on Side/Bed(QC): 6 Sit to Stand (QC): 6 Chair/Eyr-qz-Bdbwg Xfer(QC): 6 Walk 10 feet (QC): 5 Walk 50ft with 2 Turns (QC): 5 Walk 150 ft (QC): 5 1 Step (curb) (QC): 5 4 Steps (QC): 5 PT Plan Problem List Problem List: Activity Tolerance, Functional Strength, Safety, Balance, Gait, Transfer, ROM Treatment/Plan Treatment Plan: Continue Plan of Care Treatment Plan: Bed Mobility, Education, Functional Activity Ijeoma, Functional Strength, Gait, Safety, Therapeutic Exercise, Transfers Treatment Duration: Nov 22, 2019 Frequency: 11 times per week Estimated Hrs Per Day: .25 hour per day Patient and/or Family Agrees t: Yes Safety Risks/Education Patient Education: Gait Training, Transfer Techniques, Correct Positioning, Safety Issues Teaching Recipient: Patient Teaching Methods: Demonstration, Discussion Response to Teaching: Reinforcement Needed Discharge Recommendations Plan Patient will perform bed mobility and transfer training, balance and endurance training, functional strengthening, stair training, gait training, and education, to improve functional mobility and independence at home. Therapy Discharge Recommendati: Home & Family Time/GCodes Time In: 1322 Time Out: 1345 Total Billed Treatment Time: 23 Total Billed Treatment 1 visit EVL 10' FA 13' JLUIS CESAR PT Nov 15, 2019 14:09
[2019-11-15] MEDS ORDERED: NON-FORMULARY MEDICATION 1 EA EA (Semaglutide (Ozempic) 1 MG) SQ SCH (14:15)
--- NOTE | 2019-11-15 14:34 | NUR ---
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 THE MED REC WAS COMPLETE AND THE ONLY THINGS I CHANGED WERE CITALOPRAM AND FOLIC ACID WERE LISTED 1 TAB DAILY AND THE PT TAKES THEM AT BEDTIME (I MADE THAT CHANGE) AND OZEPMIC THE FREQUENCY WAS WEEKLY - THE PT INJECTS ON FRIDAYS SO I UPDATED THE MED REC TO REFLECT THAT DIRECTIONS PT DOES TAKE DILTIAZEM 180MG (MORNING DOSE) AND 90 MG (BEDTIME DOSE) EVERYDAY JARDIANCE (LAST FILLED 08-01-2019 #90/90DS), LISINOPRIL (LAST FILLED 07-31-2019 #90/90DS) AND DILTIAZEM 180 (LAST FILLED 07-30-2019 #90/90DS) THE PT HAS ORDERED FROM [employer] MAIL ORDER AND HE IS JUST WAITING TO GET THE SHIPMENT IN OTC MEDS: FISH OIL IRON VIT B12 VIT D3 CHROMIUM ZYRTEC MAGNESIUM
--- NOTE | 2019-11-15 14:56 | Consultation ---
HPI History of Present Illness: Consulted for medical management, pt had right TKA. He states he is feeling well, denies concerns. Has all of his medications with him. Source: patient Date seen by provider: Nov 15, 2019 Time Seen by Provider: 11:20 Attending Physician Arnaud Aguiar MD PCP Wale Hardin MD Consult Date of Admission Nov 15, 2019 at 06:00 Home Medications Home Medications Reviewed patient Home Medication Reconciliation performed by pharmacy medication reconciliations sterilization technician and/or nursing. Patients Allergies have been reviewed. Allergies Coded Allergies: No Known Drug Allergies (Unverified , 11/09/19) ZKI-Rkqhku-Ihjfdw Hx Patient Social History Alcohol Use: Denies Use Recreational Drug Use: No Smoking Status: Former Smoker Type Used: Cigars, Cigarettes Recent Foreign Travel: No Contact w/other who traveled: No Recent Hopitalizations: No Physical Abuse Screen: No Sexual Abuse: No Immunizations Up To Date Tetanus Booster (TDap): Unknown Date of Pneumonia Vaccine: Feb 21, 2010 Past Medical History PMHx: DMII HTN HLD Hypothyroidism SurgHx: Left TKA Hernia repair Appendectomy Right TKA Family Medical History Significant Family History: CAD Over 55 Years Old Family History: Cancer 19 FATHER G8 BROTHER (KIDNEY ) Family history: Cardiovascular disease 19 MOTHER G8 BROTHER Review of Systems ([facility]) Constitutional: No fever EENTM: nose congestion (relates to allergies) Respiratory: cough (relates to allergies) Cardiovascular: No chest pain Gastrointestinal: No abdominal pain, No constipation, No diarrhea, No nausea, No vomiting Genitourinary: No dysuria Musculoskeletal: see HPI Skin: No rash Reviewed Test Results Reviewed Test Results Lab Laboratory Tests Test 11/15/19 06:29 Range/Units Glucometer 128 H 70-110 MG/DL Physical Exam-([facility]) Physical Exam Vital Signs VS - Last 72 Hours, by Label 11/15/19 11/15/19 11/15/19 11/15/19 06:30 06:30 09:12 09:12 Temp 35.6 37.5 Pulse 63 Resp 18 15 B/P (MAP) 154/77 177/90 (119) Pulse Ox 98 98 97 O2 Delivery Room Air Room Air OxyMask OxyMask O2 Flow Rate 10 10 11/15/19 11/15/19 11/15/19 11/15/19 09:20 09:30 09:30 09:40 Resp 14 12 12 B/P (MAP) 168/90 (116) 175/90 (118) 162/79 (106) Pulse Ox 96 98 97 O2 Delivery OxyMask OxyMask OxyMask OxyMask O2 Flow Rate 10 10 10 10 11/15/19 11/15/19 11/15/19 11/15/19 09:45 09:50 10:00 10:00 Temp 37.0 Resp 13 13 B/P (MAP) 171/84 (113) 167/79 (108) Pulse Ox 96 94 O2 Delivery OxyMask OxyMask Nasal Cannula Nasal Cannula O2 Flow Rate 10 10 2 2 11/15/19 11/15/19 11/15/19 11/15/19 10:10 10:10 11:34 12:14 Temp 36.6 36.1 Pulse 72 66 Resp 20 20 B/P (MAP) 164/78 (106) 158/81 (106) Pulse Ox 95 95 96 O2 Delivery Nasal Cannula Nasal Cannula Nasal Cannula Nasal Cannula O2 Flow Rate 2.00 2.00 2.00 2.00 11/15/19 13:50 Resp 22 Capillary Refill : Less Than 3 SecondsNONE General Appearance: WD/WN, no apparent distress Respiratory: lungs clear, normal breath sounds Cardiovascular: regular rate, rhythm, no murmur Gastrointestinal: normal bowel sounds, non tender, soft Extremities: no pedal edema Neurologic/Psychiatric: alert, normal mood/affect Assessment/Plan Assessment/Plan (1) Status post total right knee replacement Status: Acute (2) Diabetes mellitus Status: Chronic Assessment & Plan: Resume home diabetes medication, diabetic diet. Qualifiers: (3) Hypertension Status: Chronic Assessment & Plan: Resume home medications Qualifiers: Qualified Codes: I10 - Essential (primary) hypertension (4) Hyperlipidemia Status: Chronic Assessment & Plan: Resume home statin (5) Hypothyroidism Status: Chronic Assessment & Plan: Resume home levothyroxine Clinical Quality Measures DVT/VTE Risk/Contraindication: Risk Factor Score Per Nursin RFS Level Per Nursing on Admit: 4+=Very High JAGDEEP ASHRAF MD Nov 15, 2019 14:56
--- NOTE | 2019-11-15 15:01 | NUR ---
Phone call: Pt said his Ariana was present with him. The pt is Christianity and demonstrates that his nahomy is important to him. He said [facility] was contacted, and he understands that someone from the [facility]ao[facility] would follow up as soon as possible. 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 He has one son and the family support of his brothers and sisters.
[2019-11-15] MEDS: CEFUROXIME INJECTION 750 MG in WATER (STERILE) FOR INJECTION 10 ML IV SCH ×2 (15:17→23:32)
[2019-11-15] MEDS: inSUlin ASPART (NovoLOG) 1 UNIT/0.01 ML (CHARGE PER UNIT) SC SCH ×2 (15:35→21:27)
[2019-11-15] MEDS: glyBURIDE 5 MG (MICRONASE) TAB PO SCH (18:08)
[2019-11-15] MEDS: metFORMIN 500 MG (GLUCOPHAGE) TAB PO SCH (18:09)
[2019-11-15] MEDS ORDERED: SIMvastatin 40 MG (ZOCOR) TAB PO SCH (21:00)
[2019-11-15] MEDS ORDERED: NON-FORMULARY MEDICATION 1 EA EA (Metformin HCl 1,000 MG) PO SCH (21:00)
[2019-11-16] MEDS: NS IV 1000 ML 1,000 ML IV SCH ×2 (02:41→20:42)
[2019-11-16 04:00] VITALS: BP 159/75
[2019-11-16] MEDS: oxyCODONE/APAP 5/325MG (PERCOCET 5) TABLET PO PRN ×6 (04:24→23:13)
[2019-11-16] MEDS: inSUlin ASPART (NovoLOG) 1 UNIT/0.01 ML (CHARGE PER UNIT) SC SCH ×4 (06:18→20:30)
[2019-11-16 06:20] LABS: HEMOGLOBIN 12.8 G/DL (13.3-17.7)
[2019-11-16] MEDS: MULTIVIT W/MINERALS TAB (THERAGRAN M) PO SCH (06:31)
[2019-11-16] MEDS: LINAGLIPTIN (TRADJENTA) 5 MG TABLET PO SCH (06:31)
[2019-11-16] MEDS: LEVOTHYROXINE 100 MCG (LEVOTHROID) TAB PO SCH (06:31)
--- NOTE | 2019-11-16 06:51 | Anesthesia-General Post-Op ---
General Patient Condition Mental Status/LOC: Same as Preop Cardiovascular: Satisfactory Nausea/Vomiting: Absent Respiratory: Satisfactory Pain: Controlled Complications: Absent Post Op Complications Complications None Follow Up Care/Instructions Patient Instructions None needed. Anesthesia/Patient Condition Patient Condition Patient is doing well, no complaints, stable vital signs, no apparent adverse anesthesia problems. No complications reported per nursing. D/C home per [facility] Criteria: GILMAR Gann CRNA Nov 16, 2019 06:51
--- NOTE | 2019-11-16 07:58 | Progress Note ---
Standard Progress Note Progress Notes/Assess & Plan Date Seen by a Provider: Nov 16, 2019 Time Seen by a Provider: 07:57 Progress/Assessment & Plan post op check No complaints radiographs-HW well positioned without fracture RLE--intact DF and PF of toes and ankle. 2 plus DP pulse with brisk cap refill. intact DF and PF of toes and ankle s/p RTKA mobilize as able Final Diagnosis no complaints Vital Signs Date Time Temp Pulse Resp B/P (MAP) Pulse Ox O2 Delivery O2 Flow Rate FiO2 11/16/19 07:49 20 11/16/19 04:00 36.8 84 18 159/75 (103) 92 Nasal Cannula 2.00 11/15/19 23:48 37.0 74 16 160/77 (104) 94 Room Air 11/15/19 20:12 37.1 74 15 147/78 (101) 90 Room Air 2.00 11/15/19 20:00 Room Air 11/15/19 20:00 20 11/15/19 15:56 36.4 65 18 172/77 (108) 98 Nasal Cannula 2.00 11/15/19 15:26 Nasal Cannula 2.00 11/15/19 13:50 22 11/15/19 13:50 22 11/15/19 12:14 36.1 66 20 158/81 (106) 96 Nasal Cannula 2.00 11/15/19 11:34 95 Nasal Cannula 2.00 11/15/19 10:10 Nasal Cannula 2.00 11/15/19 10:10 36.6 72 20 164/78 (106) 95 Nasal Cannula 2.00 11/15/19 10:00 Nasal Cannula 2 11/15/19 10:00 37.0 13 167/79 (108) 94 Nasal Cannula 2 11/15/19 09:50 13 171/84 (113) 96 OxyMask 10 11/15/19 09:45 OxyMask 10 11/15/19 09:40 12 162/79 (106) 97 OxyMask 10 11/15/19 09:30 12 175/90 (118) 98 OxyMask 10 11/15/19 09:30 OxyMask 10 11/15/19 09:20 14 168/90 (116) 96 OxyMask 10 11/15/19 09:12 OxyMask 10 6/24/20 09:12 37.5 15 177/90 (119) 97 OxyMask 10 I & O 11/16/19 07:00 Intake Total 2785 ml Output Total 1450 ml Balance 1335 ml Laboratory Tests Test 11/15/19 15:31 11/15/19 21:08 11/16/19 06:03 11/16/19 06:16 Range/Units Glucometer 123 H 141 H 173 H 70-110 MG/DL Hemoglobin 12.8 L 13.3-17.7 G/DL Hematocrit 39 L 40-54 % RLE--dressing intact. No calf tenderness. Neg Charisma's s/p RTKA doing well PT/OT SHASTA KOWALSKI MD Nov 16, 2019 07:58
[2019-11-16 08:00] VITALS: BP 159/79
[2019-11-16] MEDS: metFORMIN 500 MG (GLUCOPHAGE) TAB PO SCH ×2 (08:25→18:42)
[2019-11-16] MEDS: FERROUS SULF 325 MG (IRON) TAB PO SCH (08:25)
[2019-11-16] MEDS: LORATADINE (CLARITIN) 10 MG TAB PO SCH (08:26)
[2019-11-16] MEDS: ASPIRIN E.C. 81 MG (ECOTRIN) TAB PO SCH (08:26)
[2019-11-16] MEDS: FOLIC ACID 1 MG TAB PO SCH (08:26)
[2019-11-16] MEDS: glyBURIDE 5 MG (MICRONASE) TAB PO SCH ×2 (08:26→18:42)
[2019-11-16] MEDS: SENNA W/DOCUSATE (SENOKOT S) TABLET PO SCH ×2 (08:26→20:31)
[2019-11-16] MEDS: MAGNESIUM OXIDE (MAG-OX)400 MG TAB PO SCH (08:26)
[2019-11-16] MEDS: FENOFIBRATE 134 MG (LOFIBRA) CAPSULE PO SCH (08:27)
[2019-11-16] MEDS: ENOXAPARIN 30 MG/0.3 ML (LOVENOX) SYR SC SCH ×2 (08:27→20:30)
[2019-11-16] MEDS ORDERED: lisINopril 20 MG (PRINIVIL) TABLET PO SCH (09:00)
[2019-11-16] MEDS ORDERED: NON-FORMULARY MEDICATION 1 EA EA (Empagliflozin (Jardiance) 10 MG) PO SCH (09:00)
[2019-11-16] MEDS ORDERED: NON-FORMULARY MEDICATION 1 EA EA (Fenofibrate 160 MG) PO SCH (09:00)
[2019-11-16] MEDS ORDERED: NON-FORMULARY MEDICATION 1 EA EA (Ferrous Sulfate 325 MG) PO SCH (09:00)
[2019-11-16] MEDS ORDERED: NON-FORMULARY MEDICATION 1 EA EA (Magnesium Oxide (Magnesium) 250 MG) PO SCH (09:00)
[2019-11-16] MEDS ORDERED: NON-FORMULARY MEDICATION 1 EA EA (Sitagliptin Phosphate (Januvia) 100 MG) PO SCH (09:00)
[2019-11-16] MEDS ORDERED: NON-FORMULARY MEDICATION 1 EA EA (Levothyroxine Sodium (Synthroid) 200 MCG) PO SCH (09:00)
[2019-11-16] MEDS ORDERED: NON-FORMULARY MEDICATION 1 EA EA (Cetirizine HCl 10 MG) PO SCH (09:00)
--- NOTE | 2019-11-16 09:15 | NUR ---
CM/ADRIAN visited with the patient for social service consult. Plan: The patient will discharge home with home health. Home Health: The patient reports that he would like to have the same home health as he had for his last knee replacement. The agency is [facility]. JUAN CARLOS/ADRIAN contacted Mike from the agency and made a referral. JUAN CARLOS/ADRIAN verified his home address and phone number. His cell is [phone]. DME: The patient states that he does not need a front wheeled walker due to already having one. The patient reports that he already spoke with [facility] with outpatient physical therapy and he will continue care at [facility] outpatient with [facility]. No further needs at this time.
--- NOTE | 2019-11-16 10:06 | Physical Therapy Daily Note ---
PT Daily Note-Current Subjective Patient agrees to Pt. 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 0-Swvainehva-cjqrjvz completes the activity by him/herself with no assistance from a helper. 5-Set-up or Clean-up Assistance-helper sets up or cleans up; patient completes activity. [place] assists only prior to or following the activity. 4-Supervision or Touching Assistance-helper provides verbal cues and/or touching/steadying and/or contact guard assistance as patient completes activity. Assistance may be provided throughout the activity or intermittently. 3-Partial/Moderate Assistance-helper does LESS THAN HALF the effort. [place] lifts, holds or supports trunk or limbs, but provides less than half the effort. 2-Substantial/Maximal Assistance-helper does MORE THAN HALF the effort. [place] lifts or holds trunk or limbs and provides more than half the effort. 7-Dulhytbzv-ulmtpr does ALL the effort. Patient does none of the effort to complete the activity. Or, the assistance of 2 or more helpers is required for the patient to complete the activity. If activity was not attempted, code reason: 7-Patient Refused. 9-Not Applicable-not attempted and the patient did not perform the activity before the current illness, exacerbation or injury. 10-Not Attempted due to Environmental Limitations-(lack of equipment, weather restraints, etc.). 88-Not Attempted due to Medical Conditions or Safety Concerns. Roll Left & Right (QC): 6 Sit to Lying (QC): 6 Lying to Sitting/Side of Bed(Q: 6 Sit to Stand (QC): 6 Weight Bearing Right Lower Extremity: Right Weight Bearing/Tolerated Gait Training Does the Patient Walk?: Yes Distance: 250' Walk 10 feet (QC): 6 Walk 50 ft with 2 Turns(QC): 6 Walk 150 ft (QC): 6 Gait Assistive Device: FWW antalgic/reciprocal pattern Exercises Supine Ex: Ankle pumps, Quad Set, Heel Slides, Straight leg raise Supine Reps: 15 Seated Therapy Exercises: Long arc quads Seated Reps: 15 Treatments CPM 0-70 degrees with polar pack right LE in place after treatment. Assessment Patient progressing with treatment plan and will dismiss to home in a.m. PT instructed patient to continue with HEP pain regimen and reviewed. PT Analysis Or Research Safety Inspector Goals Retirement Goals PT Retirement Goals Time Frame: Nov 22, 2019 Roll Left & Right (QC): 6 Sit to Lying (QC): 6 Lying-Sitting on Side/Bed(QC): 6 Sit to Stand (QC): 6 Chair/Mxv-jr-Nmkjs Xfer(QC): 6 Walk 10 feet (QC): 5 Walk 50ft with 2 Turns (QC): 5 Walk 150 ft (QC): 5 1 Step (curb) (QC): 5 4 Steps (QC): 5 PT Plan Treatment/Plan Treatment Plan: Continue Plan of Care Treatment Plan: Bed Mobility, Education, Functional Activity Ijeoma, Functional Strength, Gait, Safety, Therapeutic Exercise, Transfers Treatment Duration: Nov 22, 2019 Frequency: 11 times per week Estimated Hrs Per Day: .25 hour per day Patient and/or Family Agrees t: Yes Time/GCodes Time In: 841 Time Out: 905 Total Billed Treatment Time: 24 Total Billed Treatment 1 visit EX 14 min GT 10 min DEMETRIUS LUND PT Nov 16, 2019 10:06
--- NOTE | 2019-11-16 10:42 | NUR ---
RD ASSESSMENT PMHx: HLD; HTN; DM Current - s/p R TKA PT INTERACTION: Pt was awake and pleasant during nutrition assessment. Pt states current appetite is good. Note avg PO intake of 100% x1d, per chart review. Pt states no recent issues with nausea, vomiting, constipation, or diarrhea, and that his last BM was 11/13. Note pt currently on bowel regimen of senna BID, per chart review. Pt states weight has been "gradually declining," but unsure of amount. Note no recent wt hx, per chart review. Pt states current DM management is "pretty good." Not recent HbA1c of 7.7 on 10/17/19, per chart review. ABNORMAL NUTRITION-RELATED LAB VALUES LOW: HIGH: glu 173 Est. kcal needs: 3390-5530 kcal | 15-20 kcal/kg Est. Pro needs: 103-123 g Pro | 1.0-1.2 g Pro/kg PES STATEMENT: Given current appetite and PO intake, no nutrition diagnosis at this time (NO-1.1) INTERVENTION: Continue with current diet order of CHO 60g/m 3snack diet. Offered diet education on DM management, but pt declined at this time. Will attempt to offer again prior to discharge. Will continue to follow and reassess as pt needs, intake, and status change. MONITOR/EVALUATE: PO Intake; Plan of Care; Hydration Status; Weight Status; Lab Values Michele Roberto, MS, RD, LD
[2019-11-16 12:00] VITALS: BP 172/80
--- NOTE | 2019-11-16 13:44 | Physical Therapy Daily Note ---
PT Daily Note-Current Subjective Patient agrees to PT. Requests a pain medication from RN. Pain Numeric Pain Scale: 8 Location: Right Location Body Site: Knee Pain Description: Acute Mental Status Patient Orientation: Normal For Age Attachments: IV Transfers SCALE: Activities may be completed with or without assistive devices. 8-Urdesollwz-tcvlsxi completes the activity by him/herself with no assistance from a helper. 5-Set-up or Clean-up Assistance-helper sets up or cleans up; patient completes activity. [place] assists only prior to or following the activity. 4-Supervision or Touching Assistance-helper provides verbal cues and/or touc aiden/steadying and/or contact guard assistance as patient completes activity. Assistance may be provided throughout the activity or intermittently. 3-Partial/Moderate Assistance-helper does LESS THAN HALF the effort. [place] lifts, holds or supports trunk or limbs, but provides less than half the effort. 2-Substantial/Maximal Assistance-helper does MORE THAN HALF the effort. [place] lifts or holds trunk or limbs and provides more than half the effort. 7-Tqqdszzoi-oyruwr does ALL the effort. Patient does none of the effort to complete the activity. Or, the assistance of 2 or more helpers is required for the patient to complete the activity. If activity was not attempted, code reason: 7-Patient Refused. 9-Not Applicable-not attempted and the patient did not perform the activity before the current illness, exacerbation or injury. 10-Not Attempted due to Environmental Limitations-(lack of equipment, weather restraints, etc.). 88-Not Attempted due to Medical Conditions or Safety Concerns. Roll Left & Right (QC): 6 Sit to Lying (QC): 6 Lying to Sitting/Side of Bed(Q: 6 Sit to Stand (QC): 6 Weight Bearing Right Lower Extremity: Right Weight Bearing/Tolerated Gait Training Does the Patient Walk?: Yes Distance: 250' Walk 10 feet (QC): 6 Walk 50 ft with 2 Turns(QC): 6 Walk 150 ft (QC): 6 Gait Assistive Device: FWW slow, antalgic Exercises Supine Ex: Ankle pumps, Quad Set, Heel Slides, Straight leg raise Supine Reps: 15 Seated Therapy Exercises: Long arc quads Seated Reps: 15 Treatments CPM 0-76 degrees with polar pack in place Assessment Patient progressing with treatment plan. Patient returned to bed with polar pack and CPM in place. Plan dismissal in a.m. PT Medical Diagnostic Radiographer Goals Long-Term Goals PT Medical Diagnostic Radiographer Goals Time Frame: Nov 22, 2019 Roll Left & Right (QC): 6 Sit to Lying (QC): 6 Lying-Sitting on Side/Bed(QC): 6 Sit to Stand (QC): 6 Chair/Ntf-ox-Faiyg Xfer(QC): 6 Walk 10 feet (QC): 5 Walk 50ft with 2 Turns (QC): 5 Walk 150 ft (QC): 5 1 Step (curb) (QC): 5 4 Steps (QC): 5 PT Plan Treatment/Plan Treatment Plan: Continue Plan of Care Treatment Plan: Bed Mobility, Education, Functional Activity Ijeoma, Functional Strength, Gait, Safety, Therapeutic Exercise, Transfers Treatment Duration: Nov 22, 2019 Frequency: 11 times per week Estimated Hrs Per Day: .25 hour per day Patient and/or Family Agrees t: Yes Time/GCodes Time In: 1310 Time Out: 1337 Total Billed Treatment Time: 27 Total Billed Treatment 1 visit EX 15 min GT 12 min DEMETRIUS LUDN PT Nov 16, 2019 13:44
--- NOTE | 2019-11-16 13:59 | Occupational Therapy Eval ---
OT Evaluation-General/PLF Medical Diagnosis Admission Date Nov 15, 2019 at 06:00 Medical Diagnosis: right TKA Onset Date: Nov 15, 2019 Therapy Diagnosis Therapy Diagnosis: impaired ADLs/functional mobility Height/Weight Height (Feet): 5 Height (Inches): 10.00 Weight (Pounds): 234 Weight (Ounces): 0.0 Precautions Precautions/Isolations: Fall Prevention, Standard Precautions Weight Bear Status Weight Bearing Restriction: Weight Bearing/Tolerated Location Restriction: R LE Referral Physician: Rao Referral Reason: Evaluation/Treatment Medical History Pertinent Medical History: DM, HTN, Rheumatoid Arthritis Additional Medical History HTN, hyperlipidemia, thyroid disease, DM 2, L TKA, depression Current History Pt underwent elective R TKA on 11/15/2019. Pt had progressive R knee pain and trialed conservative tx. Social History Home: Single Level Current Living Status: Spouse Entry Into Home: Stairs Without Railing Steps Into Home: 3 ADL-Prior Level of Function SCALE: Activities may be completed with or without assistive devices. 3-Tplsbcjqos-uvjpgeb completes the activity by him/herself with no assistance from a helper. 5-Set-up or Clean-up Assistance-helper sets up or cleans up; patient completes activity. [place] assists only prior to or following the activity. 4-Supervision or Touching Assistance-helper provides verbal cues and/or touching/steadying and/or contact guard assistance as patient completes activity. Assistance may be provided throughout the activity or intermittently. 3-Partial/Moderate Assistance-helper does LESS THAN HALF the effort. [place] lifts, holds or supports trunk or limbs, but provides less than half the effort. 2-Substantial/Maximal Assistance-helper does MORE THAN HALF the effort. [place] lifts or holds trunk or limbs and provides more than half the effort. 8-Ysmisxjhv-zyavwk does ALL the effort. Patient does none of the effort to complete the activity. Or, the assistance of 2 or more helpers is required for the patient to complete the activity. If activity was not attempted, code reason: 7-Patient Refused. 9-Not Applicable-not attempted and the patient did not perform the activity before the current illness, exacerbation or injury. 10-Not Attempted due to Environmental Limitations-(lack of equipment, weather restraints, etc.). 88-Not Attempted due to Medical Conditions or Safety Concerns. ADL PLOF Comments Pt reports being independent with all ADLs and functional mobility at prior level of function without AD. He was working prior to surgery at [employer] [facility] [employer] [facility] and plans on returning to work once cleared by his doctor. He has a tub/shower at home and believes he has a bath chair at some point, he believes he still has it at home somewhere. Self Care: Independent Functional Cognition: Independent DME/Equipment: Bath Chair DME/Equipment Comments none OT Current Status Subjective Pt laying in bed with CPM on and present. Pt agreeable to OT evaluation, he did not report any pain during session. Pt reports he is hoping to discharge within the next day or two. Mental Status/Objective Patient Orientation: Person, Place, Time, Situation Attachments: Other-See Comments (CPM) Current Glasses/Contacts: Yes Hearing Aids: Yes Dentures/Partials: No Hand Dominance: Right Upper Extremity ROM WFL, BUE shoulder flexion to approx 160 degrees, able to touch the back of his head with his hands. Upper Extremity Coordination WFL Upper Extremity Sensation pt denies tingling/numnbess BUEs Upper Extremity Strength grossly 5/5 MMT BUEs Other Treatments Pt laying in bed throughout session. OT educated pt and on purpose and benefits of OT, they verbalized understanding. Pt then provided information about PLOF and home set up, as well as participated in UE screen. OT encouraged pt to participate in ADL session but he pleasantly declined at this time stating he already performed ADLs earlier this date and he just got back to bed after PT tx. Pt states he sees no concerns with performing ADLs upon returning home. Pt reports he is hoping to discharge within the next day to two. OT educated pt and on OT POC while he is admitted to the hospital, with tx focusing on increasing his independence and safety with ADLs and functional mobility for safe return home, they verbalize understanding. Post OT tx, pt laying in bed, call light in reach and all needs met with CPM on. OT Care Home Goals Student Education Specialist Goals Time Frame: Nov 23, 2019 Eating (QC): 6 Oral Hygiene (QC): 6 Toileting Hygiene (QC): 6 Shower/Bathe Self (QC): 6 Upper Body Dressing (QC): 6 Lower Body Dressing (QC): 6 On/Off Footwear (QC): 6 1=Demonstrate adherence to instructed precautions during ADL tasks. 2=Patient will verbalize/demonstrate understanding of assistive devices/modifications for ADL. 3=Patient will improve strength/tolerance for activity to enable patient to perform ADL's. OT Education/Plan Problem List/Assessment Assessment: Decreased Activ Tolerance, Impaired I ADL's, Impaired Self-Care Skills Pt would benefit from skilled OT services in order to increase independence and safety with ADLs and functional mobility for safe return home, due to recent surgery. Discharge Recommendations Plan/Recommendations: Continue POC Treatment Plan/Plan of Care Treatment,Training & Education: Yes Patient would benefit from OT for education, treatment and training to promote independence in ADL's, mobility, safety and/or upper extremity function for ADL's. Plan of Care: ADL Retraining, Functional Mobility, UE Funct Exercise/Act Treatment Duration: Nov 23, 2019 Frequency: 5 times per week Estimated Hrs Per Day: .25 hour per day Rehab Potential: Fair Time/GCodes Start Time: 13:42 Stop Time: 13:50 Total Time Billed (hr/min): 8 Billed Treatment Time 1HENNA ADDISON OT Nov 16, 2019 13:58
[2019-11-16 15:34] VITALS: BP 151/70
--- NOTE | 2019-11-16 15:54 | NUR ---
provided prayer and Communion.
[2019-11-16 19:29] VITALS: BP 154/70
[2019-11-17 00:24] VITALS: BP 145/81
--- NOTE | 2019-11-17 02:11 | DISCHARGE SUMMARY ---
DATE OF SERVICE: DIAGNOSES: 1. Right knee primary osteoarthritis. 2. Depression. 3. Hyperlipidemia. 4. Hypertension. 5. Thyroid disease. 6. Type 2 diabetes. PROCEDURE: Right total knee arthroplasty. SUMMARY: The patient is a 68-year-old gentleman who underwent a right total knee arthroplasty on the day of admission. Postoperatively, he did well. At time of discharge, his wound was clean and dry. He had no calf tenderness. Negative Homans sign. He was tolerating his diet well and tolerating pain with oral pain medication. CONDITION AT DISCHARGE: Good. DISCHARGE DIET: Regular. FOLLOWUP: Follow up is in three weeks. Home physical therapy has been arranged. DISCHARGE MEDICATIONS: Home medications, Percocet as needed for pain and one aspirin per day for four weeks. Job ID: [id number] DocumentID: [id number] Dictated Date: 11/16/2019 18:08:59 Press Reader Date: 11/17/2019 02:10:07 Dictated By: SHASTA KOWALSKI MD
[2019-11-17] MEDS: oxyCODONE/APAP 5/325MG (PERCOCET 5) TABLET PO PRN ×2 (03:14→06:47)
[2019-11-17] MEDS: NS IV 1000 ML 1,000 ML IV SCH (03:14)
[2019-11-17 04:26] VITALS: BP 162/88
[2019-11-17 06:07] LABS: HEMOGLOBIN 11.6 G/DL (13.3-17.7); MEAN PLATELET VOLUME 10.1 FL (7.4-10.4); RED CELL DISTRIBUTION WIDTH 13.5 % (10.0-14.5); WHITE BLOOD COUNT 8.4 10^3/uL (4.3-11.0)
[2019-11-17] MEDS: inSUlin ASPART (NovoLOG) 1 UNIT/0.01 ML (CHARGE PER UNIT) SC SCH (06:41)
[2019-11-17] MEDS: MULTIVIT W/MINERALS TAB (THERAGRAN M) PO SCH (06:41)
[2019-11-17] MEDS: LINAGLIPTIN (TRADJENTA) 5 MG TABLET PO SCH (06:41)
[2019-11-17] MEDS: LEVOTHYROXINE 100 MCG (LEVOTHROID) TAB PO SCH (06:41)
--- NOTE | 2019-11-17 07:02 | Progress Note ---
Standard Progress Note Progress Notes/Assess & Plan Date Seen by a Provider: Nov 17, 2019 Time Seen by a Provider: 07:01 Progress/Assessment & Plan post op check No complaints radiographs-HW well positioned without fracture RLE--intact DF and PF of toes and ankle. 2 plus DP pulse with brisk cap refill. intact DF and PF of toes and ankle s/p RTKA mobilize as able Final Diagnosis no complaints Vital Signs Date Time Temp Pulse Resp B/P (MAP) Pulse Ox O2 Delivery O2 Flow Rate FiO2 11/17/19 04:26 37.8 88 21 162/88 (112) 97 Room Air 11/17/19 00:24 36.5 89 20 145/81 (102) 98 Room Air 11/16/19 21:00 Room Air 11/16/19 21:00 18 11/16/19 19:29 38.5 85 16 154/70 (98) 93 Room Air 11/16/19 15:34 36.4 98 16 151/70 (97) 92 Room Air 11/16/19 12:00 36.0 89 18 172/80 (110) 92 Room Air 11/16/19 09:33 Room Air 11/16/19 08:00 36.0 84 20 159/79 (105) 97 Room Air 11/16/19 07:49 20 I & O 11/17/19 07:00 Intake Total 1450 ml Output Total 1700 ml Balance -250 ml Laboratory Tests Test 11/16/19 11:17 11/16/19 15:35 11/16/19 20:26 11/17/19 05:42 Range/Units Glucometer 186 H 234 H 198 H 70-110 MG/DL White Blood Count 8.4 4.3-11.0 10^3/uL Red Blood Count 4.05 L 4.35-5.85 10^6/uL Hemoglobin 11.6 L 13.3-17.7 G/DL Hematocrit 36 L 40-54 % Mean Corpuscular Volume 88 80-99 FL Mean Corpuscular Hemoglobin 29 25-34 PG Mean Corpuscular Hemoglobin Concent 32 32-36 G/DL Red Cell Distribution Width 13.5 10.0-14.5 % Platelet Count 185 130-400 10^3/uL Mean Platelet Volume 10.1 7.4-10.4 FL Creatinine 0.83 0.60-1.30 MG/DL Test 11/17/19 06:17 Range/Units Glucometer 207 H 70-110 MG/DL RLE--incisioin clean and dry. No calf tenderness. Neg Charisma's s/p RTKA doing well DC after PT today SHASTA KOWALSKI MD Nov 17, 2019 07:02
[2019-11-17 08:03] VITALS: BP 147/71
[2019-11-17] MEDS: FERROUS SULF 325 MG (IRON) TAB PO SCH (08:31)
[2019-11-17] MEDS: metFORMIN 500 MG (GLUCOPHAGE) TAB PO SCH (08:31)
[2019-11-17] MEDS: glyBURIDE 5 MG (MICRONASE) TAB PO SCH (08:31)
[2019-11-17] MEDS: ASPIRIN E.C. 81 MG (ECOTRIN) TAB PO SCH (08:31)
[2019-11-17] MEDS: MAGNESIUM OXIDE (MAG-OX)400 MG TAB PO SCH (08:31)
[2019-11-17] MEDS: FENOFIBRATE 134 MG (LOFIBRA) CAPSULE PO SCH (08:31)
[2019-11-17] MEDS: LORATADINE (CLARITIN) 10 MG TAB PO SCH (08:31)
[2019-11-17] MEDS: FOLIC ACID 1 MG TAB PO SCH (08:31)
[2019-11-17] MEDS: ENOXAPARIN 30 MG/0.3 ML (LOVENOX) SYR SC SCH (08:32)
[2019-11-17] MEDS: SENNA W/DOCUSATE (SENOKOT S) TABLET PO SCH (08:32)
--- NOTE | 2019-11-17 08:52 | NUR ---
THIS RN REPORTED TO DR ASHRAF THAT PT WAS DISCHARGED PER DR Aguiar AND PT AND IS READY TO LEAVE. DR ASHRAF SAID THAT WAS FINE AND SHE DID NOT NEED TO SEE HIM PRIOR.
[2019-11-17] MEDS ORDERED: lisINopril 20 MG (PRINIVIL) TABLET PO SCH (09:00)
--- NOTE | 2019-11-17 09:00 | NUR ---
THIS RN ALONG WITH FARHEEN KRAMER RN OPENED ASSOCIATE RESEARCH SCIENTIST TO WASTE PTS UNUSED MORPHINE. THERE WAS 100 ML STILL IN BAG. MORPHINE WASTED IN MED ROOM PER PRO.
--- NOTE | 2019-11-17 09:00 | NUR ---
PT SIGNED PAPERWORK FOR DISCHARGE. THIS RN GAVE HIM HIS RX FOR PERCOCET AND FORWARD WHEEL WALKER. STAFF ASSISTED HIM TO W/C AND TOOK HIM TO ENTRANCE WHERE WAS IN THEIR PRIVATE CAR TO TAKE HIM HOME.
--- NOTE | 2019-11-17 10:10 | Physical Therapy Daily Note ---
PT Daily Note-Current Subjective Patient reports he is ready to go home. Pain Numeric Pain Scale: 5-Moderate Pain Location: Right Location Body Site: Knee Pain Description: Acute Mental Status Patient Orientation: Normal For Age Transfers SCALE: Activities may be completed with or without assistive devices. 3-Dushyanaqx-bbxgfsf completes the activity by him/herself with no assistance from a helper. 5-Set-up or Clean-up Assistance-helper sets up or cleans up; patient completes activity. [place] assists only prior to or following the activity. 4-Supervision or Touching Assistance-helper provides verbal cues and/or touching/steadying and/or contact guard assistance as patient completes activity. Assistance may be provided throughout the activity or intermittently. 3-Partial/Moderate Assistance-helper does LESS THAN HALF the effort. [place] lifts, holds or supports trunk or limbs, but provides less than half the effort. 2-Substantial/Maximal Assistance-helper does MORE THAN HALF the effort. [place] lifts or holds trunk or limbs and provides more than half the effort. 9-Qgvrmcekw-gbcfje does ALL the effort. Patient does none of the effort to complete the activity. Or, the assistance of 2 or more helpers is required for the patient to complete the activity. If activity was not attempted, code reason: 7-Patient Refused. 9-Not Applicable-not attempted and the patient did not perform the activity before the current illness, exacerbation or injury. 10-Not Attempted due to Environmental Limitations-(lack of equipment, weather restraints, etc.). 88-Not Attempted due to Medical Conditions or Safety Concerns. Roll Left & Right (QC): 6 Lying to Sitting/Side of Bed(Q: 6 Sit to Stand (QC): 6 Weight Bearing Right Lower Extremity: Right Weight Bearing/Tolerated Gait Training Does the Patient Walk?: Yes Distance: 300' Walk 10 feet (QC): 6 Walk 50 ft with 2 Turns(QC): 6 Walk 150 ft (QC): 6 Gait Assistive Device: FWW reciprocal and antalgic Stair Training Stair Training: Handrails/: 1 handrail, uses walker #of Steps: 4 1 Step (curb) (QC): 5 4 Steps (QC): 5 Stairs: Pattern: Step to Exercises Supine Ex: Ankle pumps, Quad Set, Heel Slides, Straight leg raise Supine Reps: 15 Seated Therapy Exercises: Long arc quads Seated Reps: 15 Assessment Patient attained all functional goals and has been instructed to continue with HEP issued by physician. PT Cell Phone Repair Technician Goals Chcf Goals PT Chcf Goals Time Frame: Nov 22, 2019 Roll Left & Right (QC): 6 Sit to Lying (QC): 6 Lying-Sitting on Side/Bed(QC): 6 Sit to Stand (QC): 6 Chair/Zsv-su-Bqxex Xfer(QC): 6 Walk 10 feet (QC): 5 Walk 50ft with 2 Turns (QC): 5 Walk 150 ft (QC): 5 1 Step (curb) (QC): 5 4 Steps (QC): 5 PT Plan Treatment/Plan Treatment Plan: Discontinue PT, goals met Treatment Plan: Bed Mobility, Education, Functional Activity Ijeoma, Functional Strength, Gait, Safety, Therapeutic Exercise, Transfers Treatment Duration: Nov 22, 2019 Frequency: 11 times per week Estimated Hrs Per Day: .25 hour per day Patient and/or Family Agrees t: Yes Time/GCodes Time In: 815 Time Out: 841 Total Billed Treatment Time: 26 Total Billed Treatment 1 visit EX 12 min FA 14 min DEMETRIUS LUND PT Nov 17, 2019 10:10
[2019-11-22] MEDS ORDERED: METHOTREXATE 2.5 MG TAB PO SCH (09:00)
== END 2019-11-17 09:00 | disposition home health service (06) | DRG 470 ==
LOC: 4TH 06:00 → SURG 06:01 → 4TH 10:10
PROVIDERS: ADMIT Orthopaedic Surgery; ATTEND Orthopaedic Surgery
PROC: 0SRC0J9 Replacement of Right Knee Joint with Synthetic Substitute, Cemented, Open Approach (ICD-10-PCS; principal; 2019-11-15 07:51)
DX: M17.11 Unilateral primary osteoarthritis, right knee (principal); I10 Essential (primary) hypertension; E78.5 Hyperlipidemia, unspecified; E11.9 Type 2 diabetes mellitus without complications; F32.9 Major depressive disorder, single episode, unspecified; M06.9 Rheumatoid arthritis, unspecified; E03.9 Hypothyroidism, unspecified; G40.909 Epilepsy, unspecified, not intractable, without status epilepticus; Z96.652 Presence of left artificial knee joint; Z79.84 Long term (current) use of oral hypoglycemic drugs; Z87.891 Personal history of nicotine dependence
CPT/HCPCS: 36415; 73560; 82565; 82962; 85014; 85018; 85027; 86850; 86900; 86901; 94664

== ENCOUNTER 2019-12-15 09:15 | Outpatient (RCR) | payer MEDICARE, OTHER ==
[~2019-12-15 09:15] MED LIST changes: +OXYC1TAB87 PO
== END 2019-12-15 09:40 | disposition home or self-care (01) ==
PROVIDERS: ATTEND Orthopaedic Surgery
DX: Z47.1 Aftercare following joint replacement surgery (principal); Z96.651 Presence of right artificial knee joint; I10 Essential (primary) hypertension; E11.9 Type 2 diabetes mellitus without complications; E03.9 Hypothyroidism, unspecified; G40.909 Epilepsy, unspecified, not intractable, without status epilepticus; Z96.653 Presence of artificial knee joint, bilateral; Z98.890 Other specified postprocedural states

== ENCOUNTER → 2020-02-14 | Outpatient (CLI) | payer OTHER ==
[2020-02-14 07:54] LABS: BASOPHILS % (AUTO) 1 % (0-10); EOSINOPHILS # (AUTO) 0.1 10^3/uL (0.0-0.3); EOSINOPHILS % (AUTO) 2 % (0-10); HEMATOCRIT 45 % (40-54); HEMOGLOBIN 14.3 g/dL (13.3-17.7); LYMPHOCYTES # (AUTO) 1.7 10^3/uL (1.0-4.0); LYMPHOCYTES % (AUTO) 26 % (12-44); MEAN CORPUSCULAR HEMOGLOBIN 29 pg (25-34); MEAN CORPUSCULAR HGB CONC 32 g/dL (32-36); MEAN CORPUSCULAR VOLUME 90 fL (80-99); MEAN PLATELET VOLUME 9.8 fL (9.0-12.2); MONOCYTES # (AUTO) 0.7 10^3/uL (0.0-1.0); MONOCYTES % (AUTO) 10 % (0-12); NEUTROPHILS % (AUTO) 61 % (42-75); PLATELET COUNT 329 10^3/uL (130-400); WHITE BLOOD COUNT 6.5 10^3/uL (4.3-11.0)
[2020-02-14 08:05] LABS: CHLORIDE 99 MMOL/L (98-107); POTASSIUM 4.6 MMOL/L (3.6-5.0); SODIUM 134 MMOL/L (135-145)
[2020-02-14 08:06] LABS: ALBUMIN 4.6 GM/DL (3.2-4.5); CALCIUM 9.8 MG/DL (8.5-10.1)
[2020-02-14 08:07] LABS: TRIGLYCERIDES 181 MG/DL (<150); VLDL CHOLESTEROL 36 MG/DL (5-40)
[2020-02-14 08:08] LABS: GLUCOSE 158 MG/DL (70-105); TOTAL PROTEIN 7.6 GM/DL (6.4-8.2)
[2020-02-14 08:09] LABS: CARBON DIOXIDE 23 MMOL/L (21-32)
[2020-02-14 08:10] LABS: BILIRUBIN,TOTAL 0.5 MG/DL (0.1-1.0)
[2020-02-14 08:12] LABS: ALKALINE PHOSPHATASE 64 U/L (40-136); CHOLESTEROL 139 MG/DL (< 200); CREATININE SERUM 1.17 MG/DL (0.60-1.30); GFR ESTIMATED > 60
[2020-02-14 08:13] LABS: BUN/CREATININE RATIO 22
[2020-02-14 08:14] LABS: ERYTHROCYTE SEDIMENTATION RATE 8 MM/HR (0-30); HDL CHOLESTEROL 34 MG/DL (40-60)
[2020-02-14 08:15] LABS: ALANINE AMINOTRANSFERASE 31 U/L (0-55)
[2020-02-14 08:36] LABS: FREE T4 (FREE THYROXINE) 1.09 NG/DL (0.70-1.48)
== END ==
LOC: LAB 07:35
PROVIDERS: ATTEND Allergy & Immunology
DX: D50.9 Iron deficiency anemia, unspecified (principal); E55.9 Vitamin D deficiency, unspecified; E03.9 Hypothyroidism, unspecified; E78.2 Mixed hyperlipidemia; Z79.899 Other long term (current) drug therapy
CPT/HCPCS: 36415; 80053; 80061; 82306; 82728; 83036; 83540; 84439; 84443; 84481; 85025; 85652; 86141

== ENCOUNTER → 2020-06-17 | Outpatient (CLI) | payer OTHER ==
[~2020-06-17] MED LIST changes: +AMLO-251 PO; -AMLO10TA7 PO; -FOLI1TAB24 PO; +FOLI1TAB33 PO; +GLBR5T PO; -GLYB5TAB6 PO
[2020-06-17 09:23] LABS: HEMOGLOBIN 15.2 g/dL (13.3-17.7); MEAN PLATELET VOLUME 9.5 fL (9.0-12.2); WHITE BLOOD COUNT 6.6 10^3/uL (4.3-11.0)
[2020-06-17 09:42] LABS: ALANINE AMINOTRANSFERASE 38 U/L (0-55); ALBUMIN 4.8 GM/DL (3.2-4.5); ALKALINE PHOSPHATASE 68 U/L (40-136); BILIRUBIN,TOTAL 0.6 MG/DL (0.1-1.0); BUN/CREATININE RATIO 16; CALCIUM 10.1 MG/DL (8.5-10.1); CARBON DIOXIDE 19 MMOL/L (21-32); CHLORIDE 104 MMOL/L (98-107); CHOLESTEROL 145 MG/DL (< 200); CREATININE SERUM 1.36 MG/DL (0.60-1.30); GFR ESTIMATED 52; GLUCOSE 197 MG/DL (70-105); HDL CHOLESTEROL 36 MG/DL (40-60); POTASSIUM 4.2 MMOL/L (3.6-5.0); SODIUM 140 MMOL/L (135-145); TOTAL PROTEIN 8.2 GM/DL (6.4-8.2); TRIGLYCERIDES 162 MG/DL (<150); VLDL CHOLESTEROL 32 MG/DL (5-40)
[2020-06-17 10:05] LABS: FREE T4 (FREE THYROXINE) 1.14 NG/DL (0.70-1.48)
== END ==
LOC: LAB 09:03
PROVIDERS: ATTEND Allergy & Immunology
DX: D50.9 Iron deficiency anemia, unspecified (principal); E03.9 Hypothyroidism, unspecified; E78.2 Mixed hyperlipidemia; Z79.899 Other long term (current) drug therapy
CPT/HCPCS: 36415; 80053; 80061; 82728; 83540; 84439; 84443; 84481; 85027; 85652; 86141

== ENCOUNTER → 2020-09-30 | Outpatient (CLI) | payer OTHER ==
[~2020-09-30] MED LIST changes: -LISI-552 PO; +LISI20TA26 PO; -OXYC-471 PO; +OXYC1TAB11 PO
[2020-09-30 08:43] LABS: BASOPHILS % (AUTO) 1 % (0-10); EOSINOPHILS # (AUTO) 0.1 10^3/uL (0.0-0.3); EOSINOPHILS % (AUTO) 2 % (0-10); HEMATOCRIT 46 % (40-54); LYMPHOCYTES # (AUTO) 1.5 10^3/uL (1.0-4.0); LYMPHOCYTES % (AUTO) 24 % (12-44); MEAN CORPUSCULAR HEMOGLOBIN 29 pg (25-34); MEAN CORPUSCULAR HGB CONC 33 g/dL (32-36); MEAN CORPUSCULAR VOLUME 89 fL (80-99); MONOCYTES # (AUTO) 0.6 10^3/uL (0.0-1.0); MONOCYTES % (AUTO) 10 % (0-12); NEUTROPHILS # (AUTO) 3.9 10^3/uL (1.8-7.8); NEUTROPHILS % (AUTO) 64 % (42-75); PLATELET COUNT 304 10^3/uL (130-400); WHITE BLOOD COUNT 6.1 10^3/uL (4.3-11.0)
[2020-09-30 08:48] LABS: ALBUMIN 4.7 GM/DL (3.2-4.5); CHLORIDE 100 MMOL/L (98-107); POTASSIUM 4.4 MMOL/L (3.6-5.0); SODIUM 137 MMOL/L (135-145)
[2020-09-30 08:49] LABS: CALCIUM 9.8 MG/DL (8.5-10.1)
[2020-09-30 08:50] LABS: GLUCOSE 166 MG/DL (70-105); TOTAL PROTEIN 7.9 GM/DL (6.4-8.2); TRIGLYCERIDES 197 MG/DL (<150); VLDL CHOLESTEROL 39 MG/DL (5-40)
[2020-09-30 08:51] LABS: CARBON DIOXIDE 23 MMOL/L (21-32)
[2020-09-30 08:52] LABS: BILIRUBIN,TOTAL 0.8 MG/DL (0.1-1.0)
[2020-09-30 08:54] LABS: ALKALINE PHOSPHATASE 53 U/L (40-136); CREATININE SERUM 1.25 MG/DL (0.60-1.30); GFR ESTIMATED 57
[2020-09-30 08:55] LABS: BUN/CREATININE RATIO 18; CHOLESTEROL 164 MG/DL (< 200); EOSINOPHILS % (MANUAL) 1 %; LYMPHOCYTES % (MANUAL) 25 %; MONOCYTES % (MANUAL) 11 %; NEUTROPHILS % (MANUAL) 63 %; RBC MORPH NORMAL
[2020-09-30 08:56] LABS: HDL CHOLESTEROL 34 MG/DL (40-60)
[2020-09-30 08:57] LABS: ALANINE AMINOTRANSFERASE 37 U/L (0-55)
== END ==
LOC: LAB 07:56
PROVIDERS: ATTEND Family Medicine
DX: E11.69 Type 2 diabetes mellitus with other specified complication (principal)
CPT/HCPCS: 36415; 80053; 80061; 83036; 85007; 85027

== ENCOUNTER → 2020-09-30 | Outpatient (CLI) | payer OTHER ==
[2020-09-30 08:34] LABS: HEMOGLOBIN 15.1 g/dL (13.3-17.7); MEAN PLATELET VOLUME 10.1 fL (9.0-12.2); WHITE BLOOD COUNT 6.3 10^3/uL (4.3-11.0)
[2020-09-30 08:50] LABS: ALBUMIN 4.8 GM/DL (3.2-4.5); CHLORIDE 101 MMOL/L (98-107); POTASSIUM 4.5 MMOL/L (3.6-5.0); SODIUM 138 MMOL/L (135-145)
[2020-09-30 08:51] LABS: CALCIUM 9.9 MG/DL (8.5-10.1)
[2020-09-30 08:52] LABS: TRIGLYCERIDES 198 MG/DL (<150); VLDL CHOLESTEROL 40 MG/DL (5-40)
[2020-09-30 08:53] LABS: GLUCOSE 167 MG/DL (70-105); TOTAL PROTEIN 7.9 GM/DL (6.4-8.2)
[2020-09-30 08:54] LABS: BILIRUBIN,TOTAL 0.8 MG/DL (0.1-1.0); CARBON DIOXIDE 24 MMOL/L (21-32)
[2020-09-30 08:56] LABS: ALKALINE PHOSPHATASE 55 U/L (40-136); CREATININE SERUM 1.27 MG/DL (0.60-1.30); GFR ESTIMATED 56
[2020-09-30 08:57] LABS: CHOLESTEROL 166 MG/DL (< 200)
[2020-09-30 08:58] LABS: BUN/CREATININE RATIO 18
[2020-09-30 08:59] LABS: HDL CHOLESTEROL 38 MG/DL (40-60)
[2020-09-30 09:00] LABS: ALANINE AMINOTRANSFERASE 36 U/L (0-55)
[2020-09-30 09:21] LABS: FREE T4 (FREE THYROXINE) 1.19 NG/DL (0.70-1.48)
== END ==
LOC: LAB 07:53
PROVIDERS: ATTEND Allergy & Immunology
DX: D50.9 Iron deficiency anemia, unspecified (principal); E03.9 Hypothyroidism, unspecified; E78.2 Mixed hyperlipidemia; E11.9 Type 2 diabetes mellitus without complications; Z79.899 Other long term (current) drug therapy
CPT/HCPCS: 36415; 80053; 80061; 82728; 83540; 83550; 84439; 84443; 84481; 85652; 86141

== ENCOUNTER → 2021-01-20 | Outpatient (CLI) | payer OTHER ==
[2021-01-20 08:02] LABS: BASOPHILS # (AUTO) 0.1 10^3/uL (0.0-0.1); BASOPHILS % (AUTO) 1 % (0-10); EOSINOPHILS # (AUTO) 0.1 10^3/uL (0.0-0.3); EOSINOPHILS % (AUTO) 2 % (0-10); HEMATOCRIT 45 % (40-54); HEMOGLOBIN 14.6 g/dL (13.3-17.7); LYMPHOCYTES # (AUTO) 1.4 10^3/uL (1.0-4.0); LYMPHOCYTES % (AUTO) 23 % (12-44); MEAN CORPUSCULAR HEMOGLOBIN 29 pg (25-34); MEAN CORPUSCULAR HGB CONC 33 g/dL (32-36); MEAN CORPUSCULAR VOLUME 90 fL (80-99); MEAN PLATELET VOLUME 9.6 fL (9.0-12.2); MONOCYTES # (AUTO) 0.6 10^3/uL (0.0-1.0); MONOCYTES % (AUTO) 10 % (0-12); NEUTROPHILS # (AUTO) 3.8 10^3/uL (1.8-7.8); NEUTROPHILS % (AUTO) 64 % (42-75); PLATELET COUNT 302 10^3/uL (130-400); WHITE BLOOD COUNT 5.9 10^3/uL (4.3-11.0)
[2021-01-20 08:22] LABS: ALBUMIN 4.5 GM/DL (3.2-4.5); BILIRUBIN,TOTAL 0.6 MG/DL (0.1-1.0); CREATININE SERUM 1.18 MG/DL (0.60-1.30); POTASSIUM 4.3 MMOL/L (3.6-5.0); TOTAL PROTEIN 7.9 GM/DL (6.4-8.2)
[2021-01-20 08:31] LABS: ERYTHROCYTE SEDIMENTATION RATE 4 MM/HR (0-30)
[2021-01-20 08:43] LABS: FREE T4 (FREE THYROXINE) 1.15 NG/DL (0.70-1.48)
== END ==
LOC: LAB 07:32
PROVIDERS: ATTEND Allergy & Immunology
DX: E11.9 Type 2 diabetes mellitus without complications (principal); E78.2 Mixed hyperlipidemia; E55.9 Vitamin D deficiency, unspecified; D50.9 Iron deficiency anemia, unspecified; E03.9 Hypothyroidism, unspecified; Z79.899 Other long term (current) drug therapy
CPT/HCPCS: 36415; 80053; 80061; 82306; 82728; 83036; 83540; 83550; 84439; 84443; 84481; 85025; 85652; 86141

== ENCOUNTER → 2021-05-19 | Outpatient (CLI) | payer OTHER ==
[~2021-05-19] MED LIST changes: -CITA10TA7 PO; +CITA10TA9 PO
[2021-05-19 08:02] LABS: BASOPHILS # (AUTO) 0.1 10^3/uL (0.0-0.1); BASOPHILS % (AUTO) 1 % (0-10); EOSINOPHILS # (AUTO) 0.2 10^3/uL (0.0-0.3); EOSINOPHILS % (AUTO) 2 % (0-10); HEMATOCRIT 48 % (40-54); HEMOGLOBIN 15.8 g/dL (13.3-17.7); LYMPHOCYTES # (AUTO) 1.5 10^3/uL (1.0-4.0); LYMPHOCYTES % (AUTO) 21 % (12-44); MEAN CORPUSCULAR HEMOGLOBIN 29 pg (25-34); MEAN CORPUSCULAR HGB CONC 33 g/dL (32-36); MEAN CORPUSCULAR VOLUME 87 fL (80-99); MEAN PLATELET VOLUME 9.9 fL (9.0-12.2); MONOCYTES # (AUTO) 0.6 10^3/uL (0.0-1.0); MONOCYTES % (AUTO) 9 % (0-12); NEUTROPHILS # (AUTO) 4.5 10^3/uL (1.8-7.8); NEUTROPHILS % (AUTO) 66 % (42-75); PLATELET COUNT 283 10^3/uL (130-400); WHITE BLOOD COUNT 6.9 10^3/uL (4.3-11.0)
[2021-05-19 08:21] LABS: ALANINE AMINOTRANSFERASE 27 U/L (0-55); ALBUMIN 4.7 GM/DL (3.2-4.5); ALKALINE PHOSPHATASE 57 U/L (40-136); BILIRUBIN,TOTAL 0.7 MG/DL (0.1-1.0); BUN/CREATININE RATIO 18; CALCIUM 10.1 MG/DL (8.5-10.1); CARBON DIOXIDE 19 MMOL/L (21-32); CHLORIDE 101 MMOL/L (98-107); CHOLESTEROL 168 MG/DL (< 200); CREATININE SERUM 1.27 MG/DL (0.60-1.30); GFR ESTIMATED 56; GLUCOSE 204 MG/DL (70-105); HDL CHOLESTEROL 34 MG/DL (40-60); POTASSIUM 4.6 MMOL/L (3.6-5.0); SODIUM 135 MMOL/L (135-145); TOTAL PROTEIN 8.2 GM/DL (6.4-8.2); TRIGLYCERIDES 257 MG/DL (<150); VLDL CHOLESTEROL 51 MG/DL (5-40)
[2021-05-19 08:25] LABS: ERYTHROCYTE SEDIMENTATION RATE 7 MM/HR (0-30)
== END ==
LOC: LAB 07:34
PROVIDERS: ATTEND Allergy & Immunology
DX: E78.2 Mixed hyperlipidemia (principal); E55.9 Vitamin D deficiency, unspecified; D50.9 Iron deficiency anemia, unspecified; E03.9 Hypothyroidism, unspecified; Z79.899 Other long term (current) drug therapy
CPT/HCPCS: 36415; 80053; 80061; 82306; 83540; 84436; 84443; 84481; 85025; 85652; 86141

== ENCOUNTER → 2021-09-29 | Outpatient (CLI) | payer MEDICARE, OTHER ==
[2021-09-29 08:20] LABS: HEMATOCRIT 43 % (40-54); HEMOGLOBIN 14.2 g/dL (13.3-17.7); MEAN CORPUSCULAR HEMOGLOBIN 30 pg (25-34); MEAN CORPUSCULAR HGB CONC 33 g/dL (32-36); MEAN CORPUSCULAR VOLUME 91 fL (80-99); MEAN PLATELET VOLUME 9.5 fL (9.0-12.2); PLATELET COUNT 389 10^3/uL (130-400); WHITE BLOOD COUNT 7.1 10^3/uL (4.3-11.0)
[2021-09-29 08:32] LABS: CHLORIDE 102 MMOL/L (98-107); POTASSIUM 4.6 MMOL/L (3.6-5.0); SODIUM 138 MMOL/L (135-145)
[2021-09-29 08:33] LABS: ALBUMIN 4.6 GM/DL (3.2-4.5)
[2021-09-29 08:34] LABS: CALCIUM 10.2 MG/DL (8.5-10.1); TRIGLYCERIDES 147 MG/DL (<150); VLDL CHOLESTEROL 29 MG/DL (5-40)
[2021-09-29 08:35] LABS: GLUCOSE 150 MG/DL (70-105)
[2021-09-29 08:36] LABS: CARBON DIOXIDE 23 MMOL/L (21-32)
[2021-09-29 08:37] LABS: BILIRUBIN,TOTAL 0.6 MG/DL (0.1-1.0)
[2021-09-29 08:39] LABS: ALKALINE PHOSPHATASE 51 U/L (40-136); CREATININE SERUM 1.39 MG/DL (0.60-1.30); GFR ESTIMATED 55
[2021-09-29 08:40] LABS: BUN/CREATININE RATIO 16; CHOLESTEROL 123 MG/DL (< 200)
[2021-09-29 08:41] LABS: HDL CHOLESTEROL 34 MG/DL (40-60)
[2021-09-29 08:42] LABS: ALANINE AMINOTRANSFERASE 31 U/L (0-55)
[2021-09-29 09:02] LABS: ERYTHROCYTE SEDIMENTATION RATE 12 MM/HR (0-30)
[2021-09-29 09:03] LABS: FREE T4 (FREE THYROXINE) 1.44 NG/DL (0.70-1.48)
== END ==
LOC: LAB 06:41
PROVIDERS: ATTEND Allergy & Immunology
DX: Z11.59 Encounter for screening for other viral diseases (principal); Z79.899 Other long term (current) drug therapy; E11.9 Type 2 diabetes mellitus without complications; M05.79 Rheumatoid arthritis with rheumatoid factor of multiple sites without organ or systems involvement; E55.9 Vitamin D deficiency, unspecified; D50.9 Iron deficiency anemia, unspecified; E78.2 Mixed hyperlipidemia
CPT/HCPCS: 36415; 80053; 80061; 82306; 82728; 83036; 83540; 83550; 84439; 84443; 84481; 85652; 86141; 86769

== ENCOUNTER → 2021-09-29 | Outpatient (CLI) | payer MEDICARE, OTHER ==
[2021-09-29 08:14] LABS: BASOPHILS % (AUTO) 1 % (0-10); EOSINOPHILS # (AUTO) 0.2 10^3/uL (0.0-0.3); EOSINOPHILS % (AUTO) 3 % (0-10); HEMATOCRIT 43 % (40-54); HEMOGLOBIN 14.2 g/dL (13.3-17.7); LYMPHOCYTES # (AUTO) 1.8 10^3/uL (1.0-4.0); LYMPHOCYTES % (AUTO) 25 % (12-44); MEAN CORPUSCULAR HEMOGLOBIN 30 pg (25-34); MEAN CORPUSCULAR HGB CONC 33 g/dL (32-36); MEAN CORPUSCULAR VOLUME 91 fL (80-99); MEAN PLATELET VOLUME 9.5 fL (9.0-12.2); MONOCYTES # (AUTO) 0.7 10^3/uL (0.0-1.0); MONOCYTES % (AUTO) 10 % (0-12); NEUTROPHILS # (AUTO) 4.3 10^3/uL (1.8-7.8); NEUTROPHILS % (AUTO) 61 % (42-75); PLATELET COUNT 389 10^3/uL (130-400); WHITE BLOOD COUNT 7.1 10^3/uL (4.3-11.0)
[2021-09-29 08:30] LABS: ALBUMIN 4.7 GM/DL (3.2-4.5); CHLORIDE 101 MMOL/L (98-107); POTASSIUM 4.6 MMOL/L (3.6-5.0); SODIUM 138 MMOL/L (135-145)
[2021-09-29 08:32] LABS: TRIGLYCERIDES 150 MG/DL (<150); VLDL CHOLESTEROL 30 MG/DL (5-40)
[2021-09-29 08:33] LABS: GLUCOSE 151 MG/DL (70-105)
[2021-09-29 08:34] LABS: BILIRUBIN,TOTAL 0.6 MG/DL (0.1-1.0); CARBON DIOXIDE 23 MMOL/L (21-32)
[2021-09-29 08:36] LABS: ALKALINE PHOSPHATASE 51 U/L (40-136); CREATININE SERUM 1.35 MG/DL (0.60-1.30); GFR ESTIMATED 57
[2021-09-29 08:37] LABS: BUN/CREATININE RATIO 17; CHOLESTEROL 123 MG/DL (< 200)
[2021-09-29 08:38] LABS: HDL CHOLESTEROL 33 MG/DL (40-60)
[2021-09-29 08:39] LABS: ALANINE AMINOTRANSFERASE 30 U/L (0-55)
[2021-09-29 08:49] LABS: BAND NEUTROPHILS 2 %; BASOPHILS % (MANUAL) 1 %; EOSINOPHILS % (MANUAL) 2 %; LYMPHOCYTES % (MANUAL) 26 %; MONOCYTES % (MANUAL) 6 %; MYELOCYTES % 1 %; NEUTROPHILS % (MANUAL) 62 %; RBC MORPH NORMAL
== END ==
LOC: LAB 06:45
PROVIDERS: ATTEND Family Medicine
DX: E11.69 Type 2 diabetes mellitus with other specified complication (principal); E03.9 Hypothyroidism, unspecified; E55.9 Vitamin D deficiency, unspecified
CPT/HCPCS: 36415; 80053; 85007; 85027

== ENCOUNTER 2022-12-02 05:44 | Outpatient (CLI) | payer MEDICARE, OTHER ==
[~2022-12-02] VITALS: Ht 177.8 cm; Wt 98.4 kg
[2022-12-02] MEDS ORDERED: [UNRECOGNIZED DRUG - OTHER] PO (17:02)
== END 2022-12-02 17:08 | disposition home or self-care (01) ==
LOC: PREOP 05:44
PROVIDERS: ATTEND Surgery
DX: Z01.818 Encounter for other preprocedural examination (principal)

== ENCOUNTER 2022-12-09 10:15 | Day surgery (SDC) | payer MEDICARE, OTHER ==
[~2022-12-09] VITALS: Ht 177.8 cm; Wt 98.4 kg
[~2022-12-09 10:15] MED LIST changes: +[UNRECOGNIZED DRUG - OTHER] PO
[2022-12-09] MEDS ORDERED: LACTATED RINGERS 1,000 ML IV STA (10:22)
[2022-12-09] MEDS ORDERED: LIDOCAINE JELLY 2% 6 ML SYRINGE MM PRN (10:30)
[2022-12-09] MEDS ORDERED: PROPOFOL INJECTION 50 ML IV ONE (10:30)
[2022-12-09 10:40] VITALS: BP 151/100
[2022-12-09] MEDS ORDERED: LIDOCAINE JELLY 2% 6 ML SYRINGE ONE (10:42)
--- NOTE | 2022-12-09 10:55 | Progress Note-Pre Operative ---
Pre-Operative Progress Note Date of Available H&P: Dec 09, 2022 Date H&P Reviewed: Dec 09, 2022 Time H&P Reviewed: 10:30 History & Physical: No changes noted Pre-Operative Diagnosis: screening o GAVINO DOWNING MD Dec 09, 2022 10:55
--- NOTE | 2022-12-09 10:56 | Discharge Inst-Surgical ---
D/C Lap Instructions-CHANG Follow Up Activity as tolerated High Fiber Diet 25g or more per day Avoid Alcohol, Caffeine, Spicy [place] and Acid foods. Drink 64 fluid oz or more of fluids per day. Symptoms to Report: Fever over 101 degree F, Nausea/Vomiting If any problems/questions: Contact your physician or go to Emergency Room GAVINO DOWNING MD Dec 09, 2022 10:56
[2022-12-09] MEDS ORDERED: ONDANSETRON 4 MG/2 ML (SDV) Z0FRAN IVP PRN (11:00)
[2022-12-09] MEDS ORDERED: ONDANSETRON 4 MG (ZOFRAN) ORAL DISSOLVE TAB PO PRN (11:00)
[2022-12-09 11:30] VITALS: BP 142/82
[2022-12-09 11:35] VITALS: BP 137/68
--- NOTE | 2022-12-09 11:36 | Progress Note-Post Operative ---
Post-Operative Progess Note Surgeon (s)/Cert Pharmacy Tech (s) Surgeon GAVINO DOWNING MD Cert Pharmacy Tech: none Pre-Operative Diagnosis screening colo Post-Operative Diagnosis moderate sigmoid diverticulosis with mild regional inflammation. Procedure & Operative Findings Date of Procedure 12/09/22 Procedure Performed/Findings colonoscopy Anesthesia Type mac Estimated Blood Loss Estimated blood loss (mL): minimal Specimens/Packing Specimens Removed none GAVINO DOWNING MD Dec 09, 2022 11:36
[2022-12-09 11:52] VITALS: BP 137/68
--- NOTE | 2022-12-09 12:41 | Anesthesia-General Post-Op ---
MAC Patient Condition Mental Status/LOC: Same as Preop Cardiovascular: Satisfactory Nausea/Vomiting: Absent Respiratory: Satisfactory Pain: Controlled Complications: Absent Post Op Complications Complications None Follow Up Care/Instructions Patient Instructions None needed. Anesthesiology Discharge Order Discharge Order Patient is doing well, no complaints, stable vital signs, no apparent adverse anesthesia problems. No complications reported per nursing. RAVEN SIMON CRNA Dec 09, 2022 12:41
--- NOTE | 2022-12-09 15:44 | OPERATIVE REPORT ---
DATE OF SERVICE: 12/09/2022 ATTENDING PRIMARY CARE PHYSICIAN: Dr. Hardin. PREOPERATIVE DIAGNOSIS: Screening colonoscopy. POSTOPERATIVE DIAGNOSES: Moderate sigmoid diverticulosis with a solitary diverticulum with a mild amount of fibrinopurulent exudative material, which may indicate a resolving diverticulitis. PROCEDURE: Colonoscopy. SURGEON: Gavino Downing MD ANESTHESIA: Monitored anesthesia care. ESTIMATED BLOOD LOSS: Minimal. FINDINGS: Moderate sigmoid diverticulosis with a solitary diverticulum with a mild amount of fibrinopurulent exudative material, which may indicate a resolving diverticulitis. DISPOSITION: The patient tolerated the procedure well. INDICATIONS: The patient is a 72-year-old male known to us. He was initially seen for an umbilical hernia and underwent a laparoscopic umbilical hernia repair; however, he developed reoccurrence and then underwent an open umbilical hernia repair in 2012. He then developed right lower abdominal quadrant pain and fevers and chills and was found to have significant acute appendicitis and on 12/30/2016, he underwent a laparoscopic appendectomy. He is in need of a screening colonoscopy at this time. His last one was greater than 10 years ago. He states that he is otherwise doing well, does not report any major issues with diarrhea, nor constipation as well as no red blood per rectum, nor any dark tarry stools. He also does not recall any family history of colon cancer. DESCRIPTION OF PROCEDURE: The patient was brought to the endoscopy suite and laid in the left lateral decubitus position. After adequate IV pain and sedative medications and monitored anesthesia care, a digital rectal examination was performed. There were no significant hemorrhoids identified. Normal sphincter tone was felt and there were no palpable masses. Prostate gland was palpable and appeared normal. The endoscope was then intubated into the anus, rectum gently insufflated. The endoscope was then advanced through the valves of [place] of the rectum with no polyps or any neoplasms identified. Through the sigmoid colon, a moderate sigmoid diverticulosis identified. A solitary diverticulum with fibrinopurulent exudative material did drain out, which was consistent with a previous episode of diverticulitis. The endoscope was then advanced to the remainder of the descending, transverse and ascending colon to the cecum, which were normal. There were no polyps or any neoplasms identified. The endoscope was then slowly withdrawn while taking a second look and suctioning of residual air with no additional findings. The patient tolerated the procedure well. We will recommend the necessary lifestyle and dietary accommodation and he will need to incorporate a high-fiber diet with a fiber supplement, which should equal or exceed 30 grams daily as well as significant amounts of water to promote soft consistency stools on a daily basis. If he is asymptomatic, he does not need another colonoscopy for another 10 years. Job ID: [id number] DocumentID: [id number] Dictated Date: 12/09/2022 11:32:02 Net Developer Consultant Date: 12/09/2022 15:42:00 Dictated By: GAVINO DOWNING MD
== END 2022-12-09 11:55 | disposition home or self-care (01) ==
LOC: ENDO 10:15
PROVIDERS: ATTEND Surgery
DX: Z12.11 Encounter for screening for malignant neoplasm of colon (principal); K57.30 Diverticulosis of large intestine without perforation or abscess without bleeding; Z87.891 Personal history of nicotine dependence